=== PATIENT | male | born 1945 | race Caucasian/White ===

== ENCOUNTER 2017-04-09 21:55 | Emergency (ER) | payer MEDICARE, BC ==
[2017-04-09] MEDS ORDERED: IPRATROPIUM/ALBUTEROL 0.5-2.5 MG/3 ML AMPUL NEB ONE ×2 (21:57)
[2017-04-09] MEDS ORDERED: MAGNESIUM SULFATE/D5W 1 GM/100 ML RTUPB IV ONE (21:57)
--- NOTE | 2017-04-09 22:00 | ER Document Report ---
ED Respiratory Problem - General Stated Complaint: DIFFICULTY BREATHING Time Seen by Provider: 04/09/17 21:57 Notes: Patient is a 72-year-old male with a history of COPD on 2 L nasal cannula at all times that comes emergency department for chief complaint of worsening difficulty breathing and cough. Cough has worsened over several days. Patient given albuterol, 125 mg of Solu-Medrol, slightly less than 1 g of magnesium by EMS. Patient denies chest pain except with cough, denies fever. Other past medical history includes pneumothorax, DVT with secondary right-sided BKA. Patient comes from home. - Related Data Allergies/Adverse Reactions: No Known Allergies Allergy (Unverified 04/09/17 22:44) Home Medications: Current Home Medications Albuterol Sulfate [Albuterol Sulfate 2.5mg/3 mL] 2.5 mg NEB Q4H 04/09/17 [ History] Lorazepam [Ativan 0.5 mg Tablet] 0.5 mg PO Q8H PRN 04/09/17 [History] Past Medical History - General Information source: Patient - Social History Smoking Status: Current Every Day Smoker Smoking Education Provided: Yes - <3 min Drug Abuse: None Lives with: Family Family History: Reviewed & Not Pertinent - Past Medical History Cardiac Medical History: Reports: Hx Hypertension Pulmonary Medical History: Reports: Hx COPD, Other - Spontaneous pneumothorax GI Medical History: Reports: Hx Gastroesophageal Reflux Disease - Immunizations Hx Diphtheria, Pertussis, Tetanus Vaccination: Yes Review of Systems - Review of Systems Constitutional: No symptoms reported EENT: No symptoms reported Cardiovascular: No symptoms reported Respiratory: See HPI Gastrointestinal: No symptoms reported Genitourinary: No symptoms reported Male Genitourinary: No symptoms reported Musculoskeletal: No symptoms reported Skin: No symptoms reported Hematologic/Lymphatic: No symptoms reported Neurological/Psychological: No symptoms reported Physical Exam - Vital signs Vitals: Pulse Ox 96 04/09/17 21:55 Interpretation: Normal - General General appearance: Appears well, Alert - HEENT Head: Normocephalic, Atraumatic Eyes: Normal Extraocular movements intact: Yes Eyelashes: Normal Pupils: PERRL Mouth/Lips: Normal Mucous membranes: Normal Pharynx: Normal Neck: Normal - Respiratory Respiratory status: Labored, Tachypnea Breath sounds: Decreased air movement, Nonproductive cough - Cardiovascular Rhythm: Regular. No: Tachycardia Heart sounds: Normal auscultation, S1 appreciated, S2 appreciated Murmur: No - Abdominal Inspection: Normal Distension: No distension Bowel sounds: Normal Tenderness: Nontender Organomegaly: No organomegaly - Back Back: Normal, Nontender - Extremities General upper extremity: Normal inspection, Nontender, Normal color, Normal ROM , Normal temperature General lower extremity: Other - Right lower extremity BKA. Otherwise unremarkable lower extremity exam - Neurological Neuro grossly intact: Yes Cognition: Normal Orientation: AAOx4 Protection Coma Scale Eye Opening: Spontaneous Protection Coma Scale Verbal: Oriented [place] Coma Scale Motor: Obeys Commands Protection Coma Scale Total: 15 Speech: Normal Motor strength normal: LUE, RUE, LLE, RLE Sensory: Normal - Psychological Associated symptoms: Normal affect, Normal mood - Skin Skin Temperature: Warm Skin Moisture: Dry Skin Color: Normal Course - Re-evaluation Re-evalutation: On initial evaluation patient has mild respiratory distress with tachypnea and decreased breath sounds throughout, however he is able to speak in complete sentences, he is not hypoxic on nasal cannula, he has minimal tachypnea. Given additional treatments, will monitor closely, workup pending. Discussed with Dr. Lagos. On reevaluation patient is smiling, laughing, has no tachypnea, has decreased lung sounds but I suspect this is his baseline. No hypoxia on 2 L nasal cannula. His symptoms appear to have completely resolved. Chest x-ray shows scarring but no obvious acute abnormalities. CBC, chemistry, venous blood gas, urinalysis are all unremarkable. Troponin unremarkable. Blood cultures pending. Discussed with patient and daughter at bedside. Patient states that he is worried because he was taken off a blood thinner and he has had blood clots before, unsure if this is entirely COPD exacerbation, they are requesting a scan. Patient is waiting for his first appointment with a local snack bar cook and has not had recent imaging. He has continued to smoke. CTA was performed, shows no pulmonary emboli, shows multiple nodules which are uncertain to be chronic scarring versus nodules versus infection. Discussed with patient. Discussed with daughter. They are asking to leave, he states he feels at his baseline and feels great. Patient will be given prednisone, doxycycline, CD and paper report of his CAT scan, he states he will take it to his snack bar cook. He states he will return if he worsens in any way. Daughter states satisfaction with this plan as well. - Vital Signs Vital signs: Temp Pulse Resp BP Pulse Ox 98.4 F 24 H 135/99 H 99 04/09/17 23:18 04/09/17 23:15 04/10/17 02:05 04/10/17 02:05 - Laboratory Result Diagrams: 04/09/17 22:00 04/09/17 22:00 Laboratory results interpreted by me: 04/09/17 04/09/17 22:00 22:00 Hgb 13.0 L MCV 79 L MCH 25.5 L RDW 16.8 H Glucose 126 H Discharge - Discharge Clinical Impression: Shortness of breath, COPD exacerbation Condition: Stable Disposition: HOME, SELF-CARE Additional Instructions: Your examination, response to treatment, and workup are consistent with a COPD exacerbation. There are nodules in your lungs that need follow-up by pulmonology. Please take your report and CAT scan with you. Take the antibiotic as prescribed, take the prednisone as prescribed, continue current medications. Return to the emergency department for any concerning or worsening symptoms including difficulty breathing, fever, chest pain, or any other concerning symptoms. Prescriptions: Doxycycline Hyclate 100 mg PO BID #14 capsule Prednisone 60 mg PO DAILY #15 tablet
[2017-04-09 22:30] LABS: ABSOLUTE BASOPHILS # (AUTO) 0.1 10^3/uL (0.0-0.2); ABSOLUTE EOSINOPHILS # (AUTO) 0.3 10^3/uL (0.0-0.6); ABSOLUTE LYMPHOCYTES (AUTO) 2.9 10^3/uL (0.5-4.7); BASOPHILS % (AUTO) 1.2 % (0-2); EOSINOPHILS % (AUTO) 3.3 % (0-6); HEMATOCRIT 40.6 % (37.9-51.0); HGB HCT DIFFERENCE -1.6; MEAN CORPUSCULAR HEMOGLOBIN 25.5 pg (27.0-33.4); MEAN CORPUSCULAR VOLUME 79 fl (80-97); RED BLOOD COUNT 5.11 10^6/uL (4.35-5.55); RED CELL DISTRIBUTION WIDTH 16.8 % (11.5-14.0); SEGMENTED NEUTROPHILS % (AUTO) 57.5 % (42-78); WHITE BLOOD COUNT 10.4 10^3/uL (4.0-10.5)
[2017-04-09 22:31] LABS: VENOUS BLOOD BASE EXCESS 1.3 mmol/L; VENOUS BLOOD PCO2 46.7 mmHg (35-63); VENOUS BLOOD PH 7.38 (7.30-7.42)
[2017-04-09 22:50] LABS: ALANINE AMINOTRANSFERASE 23 U/L (21-72); ALBUMIN 3.8 g/dL (3.5-5.0); ALKALINE PHOSPHATASE 70 U/L (38-126); ANION GAP 10 (5-19); ASPARTATE AMINO TRANSFERASE 21 U/L (17-59); BILIRUBIN,DIRECT 0.3 mg/dL (0.0-0.4); BILIRUBIN,TOTAL 0.3 mg/dL (0.2-1.3); BLOOD UREA NITROGEN 13 mg/dL (7-20); CALCIUM 9.5 mg/dL (8.4-10.2); CARBON DIOXIDE 29 mmol/L (22-30); CHLORIDE 103 mmol/L (98-107); CREATINE KINASE 93 U/L (55-170); CREATININE RESULT 0.68 mg/dL (0.52-1.25); GLUCOSE 126 mg/dL (75-110); POTASSIUM 3.8 mmol/L (3.6-5.0); SODIUM 141.9 mmol/L (137-145); TOTAL PROTEIN 6.9 g/dL (6.3-8.2)
[2017-04-09 23:03] LABS: CREATINE KINASE MB 3.25 ng/mL (<4.55); TROPONIN I < 0.012 ng/mL
--- NOTE | 2017-04-09 23:25 | RADIOLOGY REPORT (SQ) ---
EXAM DESCRIPTION: CHEST SINGLE VIEW COMPLETED DATE/TIME: 04/09/2017 11:11 pm REASON FOR STUDY: shortness of breath COMPARISON: None. EXAM PARAMETERS: NUMBER OF VIEWS: One view. TECHNIQUE: Single frontal radiographic view of the chest acquired. RADIATION DOSE: NA LIMITATIONS: None. FINDINGS: LUNGS AND PLEURA: No consolidation. Bilateral parenchymal nodules, left greater than righ t. Right apical pleural thickening scarring. No pneumothorax. No pleural effusion. MEDIASTINUM AND HILAR STRUCTURES: Age-appropriate. HEART AND VASCULAR STRUCTURES: Heart normal in size. Normal vasculature. BONES: No acute findings. HARDWARE: None in the chest. OTHER: No other significant finding. IMPRESSION: No consolidation. Bilateral parenchymal nodules, left greater than right. Right apical pleural thickening scarring. No pneumothorax. No pleural effusion. TECHNICAL DOCUMENTATION: JOB ID: [id number]
--- NOTE | 2017-04-10 01:52 | RADIOLOGY REPORT (SQ) ---
EXAM DESCRIPTION: CTA CHEST COMPLETED DATE/TIME: 04/10/2017 1:16 am REASON FOR STUDY: shortness of breath, hx of DVT . History of prior pneumothorax. COMPARISON: Chest x-ray 04/09/2017. TECHNIQUE: CT scan of the chest performed using helical scanning technique with dynamic intravenous contrast injection. Images reviewed with lung, soft tissue and bone windows. Reconstructed coronal and sagittal MPR images reviewed. Additional 3 dimensional post-processing performed to develop Maximal Intensity Projection images (OR P). All images stored on PACS. All CT scanners at this facility use dose modulation, iterative reconstruction, and/or weight based d osing when appropriate to reduce radiation dose to as low as reasonably achievable (ALARA). [facility]: Dose Right [facility]: CareDose [facility]: Dose Right [facility]: Teradose 4D [facility]: Hubs1 CONTRAST TYPE AND DOSE: contrast/concentration: Isovue 370.00 mg/ml; Total Contrast Delivered: 74.0 ml; Total Saline Delivered: 110.0 ml Contrast bolus optimized for the pulmonary arteries. Not diagnostic for the aorta. RENAL FUNCTION: Creatinine 0.68 RADIATION DOSE: Up-to-date CT equipment and radiation dose reduction techniques were employed. CTDIv ol: 3.3 - 19.8 mGy. DLP: 640 mGy-cm. . LIMITATIONS: None. FINDINGS: LUNGS AND PLEURA: There are extensive bilateral emphysematous changes. Cluster of cavitar y lesions at the right lung apex, the largest measuring 4.6 x 2.7 cm. There is a large bulla in the superior segment of the right lower lobe measuring 11 x 4.3 cm. There is a small amount of loculated fluid along the left major fissure. There is a calcified granuloma in the left lower lobe. There i s soft tissue nodularity at the right lung base measuring 0.9 x 0.8 cm (image 105/158). Spiculated n odularity is extending to the pleura in the right lower lobe, a customer retention representative nodule is measuring 1. 0 x 1.0 cm (image 57/158). Cluster of nodules at the left lung apex measuring up to 1 cm. AORTA AND GREAT VESSELS: No thoracic aortic aneurysm. Contrast bolus not optimized for the aorta. HEART: Trace pericardial effusion. Coronary arteries calcifications are noted. PULMONARY ARTERIES: No emboli visualized in the main pulmonary arteries or the segmental branches. HILAR AND MEDIASTINAL STRUCTURES: There is a 1.7 x 2.0 cm lymph node at the right hilum. Mediastinal lymph node is measuring 1.0 x 1.9 cm. HARDWARE: None in the chest. UPPER ABDOMEN: Partially visualized infrarenal abdominal aneurysm with intramural thrombus measuring 3.7 x 3.5 cm. Scattered hypodensities within the visualized liver, too small to be adequately charac terized. BONES: Multilevel degenerative changes in the spine. 3D MIPS: Confirm above findings. IMPRESSION: No pulmonary emboli. Severe emphysema. Cluster of cavitary lesions at the right lung apex, may be secondary to scarring f rom prior pneumothorax versus acute infection/inflammation such tuberculosis, cavitary pneumonia, or malignancy. Comparison with prior studies would be helpful. Bilateral pulmonary nodules, may represent scarring versus malignancy. Mediastinal and right hilar a denopathy. PET/CT recommended for further evaluation. Small loculated fluid in the left major fissure. Trace pericardial effusion. Partially visualized 3.7 x 3.5 cm infrarenal abdominal aneurysm with intramural thrombus, incompletel y evaluated on this exam. COMMENT: Quality ID # [id number]: Final reports with documentation of one or more dose reduction techniques (e.g., Automated exposure control, adjustment of the mA and/or kV according to patient size, use of iterative reconstruction technique) TECHNICAL DOCUMENTATION: JOB ID: [id number] [id number] 2010 [employer]- All Rights Reserved
[2017-04-10 04:47] VITALS: BP 135/99
--- NOTE | 2017-04-10 06:52 | EKG REPORT ---
SEVERITY:- ABNORMAL ECG - SINUS TACHYCARDIA BIATRIAL ABNORMALITIES BORDERLINE RIGHT AXIS DEVIATION : Confirmed by: Terrell Simmons MD 10-Apr-2017 06:51:27
== END 2017-04-10 02:05 | disposition home or self-care (01) ==
LOC: ER 21:55
DX: J44.1 Chronic obstructive pulmonary disease with (acute) exacerbation (principal); Z99.81 Dependence on supplemental oxygen; R05 Cough; F17.200 Nicotine dependence, unspecified, uncomplicated; I10 Essential (primary) hypertension; Z86.718 Personal history of other venous thrombosis and embolism; Z89.511 Acquired absence of right leg below knee; R91.8 Other nonspecific abnormal finding of lung field
CPT/HCPCS: 93005; 94640 ×2; 99285; 96365; 36415; 87040; 82553; 82550; 85025; 80053; 84484; 82803; 71010; 71275; 93010; J3475; A9270; J7620

== ENCOUNTER 2017-05-15 14:21 | Emergency (ER) | payer MEDICARE, BC ==
[2017-05-15] MEDS ORDERED: IPRATROPIUM/ALBUTEROL 0.5-2.5 MG/3 ML AMPUL NEB ONE (14:59)
[2017-05-15] MEDS ORDERED: ALBUTEROL SULFATE 0.083% NEB 2.5 MG/3 ML AMPUL NEB ONE (15:00)
[2017-05-15] MEDS ORDERED: METHYLPREDNISOLONE INJ 125 MG/2 ML SDV IV ONE (15:03)
--- NOTE | 2017-05-15 15:04 | ER Document Report ---
ED Respiratory Problem - General Chief Complaint: Shortness Of Breath Stated Complaint: DIFFICULTY BREATHING Time Seen by Provider: 05/15/17 14:50 Notes: 72-year-old male history of severe COPD to the emergency department chief complaint of shortness of breath cough and wheeze. States that he needs antibiotics and steroids please. States he was seen here 1 month ago. Has had complicated medical history as of recent over the last 6 months. I's for pneumothorax. Was ventilated. Subsequent DVT in right lower extremities resulting in amputation of right lower extremity. Moved here from [place] over the last couple of months. Have a primary care doctor in town now. Is happy with his care but states that he knows he needs antibiotics or he will get sick over the weekend. - Related Data Allergies/Adverse Reactions: No Known Allergies Allergy (Unverified 04/09/17 22:44) Past Medical History - General Information source: Patient - Social History Smoking Status: Former Smoker Family History: Reviewed & Not Pertinent - Past Medical History Cardiac Medical History: Reports: Hx Hypertension Pulmonary Medical History: Reports: Hx COPD GI Medical History: Reports: Hx Gastroesophageal Reflux Disease Past Surgical History: Reports: Hx Orthopedic Surgery - RIGHT BKA - Immunizations Hx Diphtheria, Pertussis, Tetanus Vaccination: Yes Review of Systems - Review of Systems Constitutional: No symptoms reported EENT: No symptoms reported Cardiovascular: No symptoms reported Respiratory: No symptoms reported, Cough, Short of breath, Wheezing Gastrointestinal: No symptoms reported Genitourinary: No symptoms reported Male Genitourinary: No symptoms reported Musculoskeletal: No symptoms reported Skin: No symptoms reported Hematologic/Lymphatic: No symptoms reported Neurological/Psychological: No symptoms reported Physical Exam - Vital signs Vitals: Temp Pulse Resp BP Pulse Ox 98.7 F 106 H 24 H 133/88 H 96 05/15/17 15:08 05/15/17 15:08 05/15/17 15:08 05/15/17 15:08 05/15/17 15:08 Interpretation: Normal - General General appearance: Appears well, Alert - HEENT Head: Normocephalic, Atraumatic Eyes: Normal Pupils: PERRL - Respiratory Respiratory status: No respiratory distress, Tachypnea Chest status: Nontender Breath sounds: Decreased air movement, Wheezing. No: Normal Chest palpation: Normal - Cardiovascular Rhythm: Regular, Tachycardia Heart sounds: Normal auscultation Murmur: No - Abdominal Inspection: Normal Distension: No distension Bowel sounds: Normal Tenderness: Nontender Organomegaly: No organomegaly - Back Back: Normal, Nontender - Extremities General upper extremity: Normal inspection, Nontender, Normal color, Normal ROM , Normal temperature General lower extremity: Normal inspection, Nontender, Normal color, Normal ROM , Normal temperature, Normal weight bearing, Other - Left lower extremity unremarkable. Right lower extremity with BKA. No: Nevaeh's sign - Neurological Neuro grossly intact: Yes Cognition: Normal Orientation: AAOx4 [place] Coma Scale Eye Opening: Spontaneous [place] Coma Scale Verbal: Oriented [place] Coma Scale Motor: Obeys Commands [place] Coma Scale Total: 15 Speech: Normal Motor strength normal: LUE, RUE, LLE, RLE Sensory: Normal - Psychological Associated symptoms: Normal affect, Normal mood - Skin Skin Temperature: Warm Skin Moisture: Dry Skin Color: Normal Course - Re-evaluation Re-evalutation: 05/15/17 15:06 We will give hour-long breathing treatment, steroids, chest x-ray, basic labs, EKG and reassess. 05/15/17 16:51 Breathing much better. Fairly unremarkable labs. No obvious infiltrate on chest x-ray. Steroids and antibiotics given OPD. Comfortable at this time discharge 05/15/17 16:51 Labs- All tests 24 hr 05/15/17 05/15/17 05/15/17 15:02 15:02 15:02 WBC RBC Hgb Hct MCV MCH MCHC RDW Plt Count Seg Neutrophils % Lymphocytes % Monocytes % Eosinophils % Basophils % Absolute Neutrophils Absolute Lymphocytes Absolute Monocytes Absolute Eosinophils Absolute Basophils PT 13.1 INR 0.93 Sodium 142.2 Potassium 4.8 Chloride 100 Carbon Dioxide 30 Anion Gap 12 BUN 10 Creatinine 0.64 Est GFR ( Amer) > 60 Est GFR (Non-Af Amer) > 60 Glucose 73 L Calcium 9.9 Total Bilirubin 0.5 Direct Bilirubin 0.4 Indirect Bilirubin Not Reportable Neonat Total Bilirubin Not Reportable AST 17 ALT 27 Alkaline Phosphatase 65 Troponin I < 0.012 Total Protein 7.1 Albumin 3.8 05/15/17 15:02 WBC 7.9 RBC 5.33 Hgb 13.3 L Hct 40.9 MCV 77 L MCH 24.9 L MCHC 32.5 RDW 15.8 H Plt Count 365 Seg Neutrophils % 75.9 Lymphocytes % 12.0 L Monocytes % 9.6 Eosinophils % 1.7 Basophils % 0.8 Absolute Neutrophils 6.0 Absolute Lymphocytes 1.0 Absolute Monocytes 0.8 Absolute Eosinophils 0.1 Absolute Basophils 0.1 PT INR Sodium Potassium Chloride Carbon Dioxide Anion Gap BUN Creatinine Est GFR ( Amer) Est GFR (Non-Af Amer) Glucose Calcium Total Bilirubin Direct Bilirubin Indirect Bilirubin Neonat Total Bilirubin AST ALT Alkaline Phosphatase Troponin I Total Protein Albumin Chest X-Ray 05/15/17 15:01 IMPRESSION: Obstructive lung disease Biapical pleuroparenchymal scarring with persistent right apical cavity. - Vital Signs Vital signs: Temp Pulse Resp BP Pulse Ox 98.7 F 106 H 24 H 133/88 H 96 05/15/17 15:08 05/15/17 15:08 05/15/17 15:08 05/15/17 15:08 05/15/17 15:08 - Laboratory Result Diagrams: 05/15/17 15:02 05/15/17 15:02 Laboratory results interpreted by me: 05/15/17 05/15/17 15:02 15:02 Hgb 13.3 L MCV 77 L MCH 24.9 L RDW 15.8 H Lymphocytes % 12.0 L Glucose 73 L - EKG Interpretation by Nv EKG shows normal: Intervals, QRS Complexes, ST-T Waves Rate: Tachycardia Discharge - Discharge Clinical Impression: COPD with exacerbation Condition: Good Disposition: HOME, SELF-CARE Additional Instructions: Chronic Obstructive Lung Disease You have chronic obstructive lung disease (COPD). The symptoms come from emphysema (damage to small airways, with trapping of air in large sacks in the lung) and chronic bronchitis (repeated infection and damage to larger airways). The cause is almost always cigarette smoking, although dust exposure, asthma, and infections contribute. You should avoid fumes, dust, and smoke (especially tobacco smoke). Your condition will flare from time to time. There is no cure, but the symptoms can be treated. Bronchodilators (asthma medicine) are often helpful. Antibiotics help when infection is present. When shortness of breath is severe, we may prescribe cortisone medication. If medicine doesn't help enough, we can arrange for you to have an oxygen tank at home. Notify your doctor at once if sputum becomes thick, foul, or bloody, if you develop a fever or chest pain, or if your shortness of breath worsens. Prescriptions: Azithromycin 250 mg PO DAILY #4 tablet Prednisone [Deltasone 20 mg Tablet] 3 tab PO DAILY 5 Days tablet
[2017-05-15 15:27] LABS: ABSOLUTE BASOPHILS # (AUTO) 0.1 10^3/uL (0.0-0.2); ABSOLUTE EOSINOPHILS # (AUTO) 0.1 10^3/uL (0.0-0.6); ABSOLUTE MONOCYTES (AUTO) 0.8 10^3/uL (0.1-1.4); BASOPHILS % (AUTO) 0.8 % (0-2); EOSINOPHILS % (AUTO) 1.7 % (0-6); HEMATOCRIT 40.9 % (37.9-51.0); HEMOGLOBIN 13.3 g/dL (13.5-17.0); MEAN CORPUSCULAR HEMOGLOBIN 24.9 pg (27.0-33.4); MEAN CORPUSCULAR HGB CONC 32.5 g/dL (32.0-36.0); MEAN CORPUSCULAR VOLUME 77 fl (80-97); MONOCYTES % (AUTO) 9.6 % (3-13); RED BLOOD COUNT 5.33 10^6/uL (4.35-5.55); RED CELL DISTRIBUTION WIDTH 15.8 % (11.5-14.0); SEGMENTED NEUTROPHILS % (AUTO) 75.9 % (42-78); WHITE BLOOD COUNT 7.9 10^3/uL (4.0-10.5)
[2017-05-15 15:36] LABS: PROTHROMBIN TIME 13.1 SEC (11.4-15.4)
[2017-05-15 15:41] LABS: ALANINE AMINOTRANSFERASE 27 U/L (21-72); ALBUMIN 3.8 g/dL (3.5-5.0); ALKALINE PHOSPHATASE 65 U/L (38-126); ANION GAP 12 (5-19); ASPARTATE AMINO TRANSFERASE 17 U/L (17-59); BILIRUBIN,DIRECT 0.4 mg/dL (0.0-0.4); BILIRUBIN,TOTAL 0.5 mg/dL (0.2-1.3); BLOOD UREA NITROGEN 10 mg/dL (7-20); CALCIUM 9.9 mg/dL (8.4-10.2); CARBON DIOXIDE 30 mmol/L (22-30); CHLORIDE 100 mmol/L (98-107); CREATININE RESULT 0.64 mg/dL (0.52-1.25); GLUCOSE 73 mg/dL (75-110); POTASSIUM 4.8 mmol/L (3.6-5.0); SODIUM 142.2 mmol/L (137-145); TOTAL PROTEIN 7.1 g/dL (6.3-8.2)
[2017-05-15] MEDS ORDERED: AZITHROMYCIN 250 MG TABLET PO ONE (16:30)
--- NOTE | 2017-05-15 16:50 | RADIOLOGY REPORT (SQ) ---
EXAM DESCRIPTION: CHEST SINGLE VIEW COMPLETED DATE/TIME: 05/15/2017 4:25 pm REASON FOR STUDY: sob COMPARISON: CT angio chest 04/10/2017 Chest film 04/09/2017 EXAM PARAMETERS: NUMBER OF VIEWS: One view. TECHNIQUE: Single frontal radiographic view of the chest acquired. RADIATION DOSE: NA LIMITATIONS: None. FINDINGS: LUNGS AND PLEURA: Prior chest CT demonstrated cavitary lesions in the right lung apex and left major fissure and left lung apex. Tuberculosis could not be excluded. Today's chest film demon strates biapical pleural-parenchymal scarring. Right apical cavity persists. Remainder of the lungs are hyperinflated and hyperlucent from obstructive disease. No definite acute infiltrates, pleural effusion or pneumothorax. MEDIASTINUM AND HILAR STRUCTURES: No masses. Contour normal. HEART AND VASCULAR STRUCTURES: Heart normal in size. Normal vasculature. BONES: No acute findings. HARDWARE: None in the chest. OTHER: No other significant finding. IMPRESSION: Obstructive lung disease Biapical pleuroparenchymal scarring with persistent right apical cavity. TECHNICAL DOCUMENTATION: JOB ID: [id number]
--- NOTE | 2017-05-15 17:27 | EKG REPORT ---
SEVERITY:- ABNORMAL ECG - SINUS TACHYCARDIA RIGHT ATRIAL ABNORMALITY BORDERLINE RIGHT AXIS DEVIATION BORDERLINE T ABNORMALITIES, ANT-LAT LEADS : Confirmed by: Terrell Simmons MD 15-May-2017 17:26:30
[2017-05-15 17:45] VITALS: BP 134/106
== END 2017-05-15 17:44 | disposition home or self-care (01) ==
LOC: ER 14:21
DX: J44.1 Chronic obstructive pulmonary disease with (acute) exacerbation (principal); R06.02 Shortness of breath; R05 Cough; R00.0 Tachycardia, unspecified; I10 Essential (primary) hypertension; Z86.718 Personal history of other venous thrombosis and embolism; Z89.511 Acquired absence of right leg below knee; Z87.891 Personal history of nicotine dependence
CPT/HCPCS: 93005; 94640 ×2; 99285; 96374; 36415; 85025; 85610; 80053; 84484; 71010; 93010; A9270 ×3; J2930; J7620

== ENCOUNTER 2017-06-13 21:55 | Inpatient (IN) | payer MEDICARE, BC ==
[2017-06-13] MEDS ORDERED: IPRATROPIUM/ALBUTEROL 0.5-2.5 MG/3 ML AMPUL NEB ONE (22:03)
[2017-06-13] MEDS ORDERED: METHYLPREDNISOLONE INJ 125 MG/2 ML SDV IV ONE (22:03)
--- NOTE | 2017-06-13 22:06 | ER Document Report ---
ED General - General Stated Complaint: DIFFICULITY BREATHING Time Seen by Provider: 06/13/17 21:58 Notes: Patient is a 72-year-old male who presents with complaint of difficulty breathing is been worsening over the last 4 days. He has a history of COPD. He has never been on a ventilator. Never needed intubation. Says he does not use BiPAP or CPAP because he is claustrophobic. Patient says his nebulizer machine is not working well at home. He received 1 DuoNeb treatment in route. He denies any fevers. No chest pain. No abdominal pain. No vomiting. No other complaints at this time. TRAVEL OUTSIDE OF THE [place] IN LAST 30 DAYS: No - Related Data Allergies/Adverse Reactions: No Known Allergies Allergy (Unverified 04/09/17 22:44) Past Medical History - Social History Smoking Status: Former Smoker Frequency of alcohol use: None Drug Abuse: None Family History: Reviewed & Not Pertinent - Past Medical History Cardiac Medical History: Reports: Hx Hypertension Pulmonary Medical History: Reports: Hx COPD Renal/ Medical History: Denies: Hx Peritoneal Dialysis GI Medical History: Reports: Hx Gastroesophageal Reflux Disease Past Surgical History: Reports: Hx Orthopedic Surgery - RIGHT BKA - Immunizations Hx Diphtheria, Pertussis, Tetanus Vaccination: Yes Review of Systems - Review of Systems Notes: My Normal Review Basic REVIEW OF SYSTEMS: CONSTITUTIONAL : Denies fever, chills, or sweats. Denies recent illness. EENT: Denies eye, ear, throat, or mouth pain or symptoms. Denies nasal or sinus congestion. CARDIOVASCULAR: Denies chest pain. RESPIRATORY: Wheezing and difficulty breathing. GASTROINTESTINAL: Denies abdominal pain. Denies nausea, vomiting, or diarrhea. Denies constipation. Last BM: MUSCULOSKELETAL: Denies neck or back pain or joint pain or swelling. SKIN: Denies rash or skin lesions. NEUROLOGICAL: Denies altered mental status or loss of consciousness. Denies headache. Denies weakness or paralysis or loss of use of either side. Denies problems with gait or speech. Denies sensory or motor loss. ALL OTHER SYSTEMS REVIEWED AND NEGATIVE. Physical Exam - Vital signs Vitals: Resp Pulse Ox 24 H 94 06/13/17 21:59 06/13/17 21:59 - Notes Notes: General Appearance: Well nourished, alert, cooperative, moderate acute distress , no obvious discomfort. Vitals: reviewed, See vital signs table. Head: no swelling or tenderness to the head Eyes: PERRL, EOMI, Conjuctiva clear Mouth: No decreasd moisture Throat: No tonsillar inflammation, No airway obstruction, No lymphadenopathy Neck: Supple, no neck tenderness, No thyromegaly Lungs: Scattered wheezing, No rales, No rhonci, moderate accessory muscle use, poor air exchange bilaterally. Heart: Tachycardic rate, Regular rythm, No murmur, no rub Abdomen: Normal BS, soft, No rigidity, No abdominal tenderness, No guarding, no rebound, no abdominal masses, no organomegaly Extremities: Patient has right lower extremity amputation., good pulses in all extremities, no swelling or tenderness in the extremities, no edema. Skin: warm, dry, appropriate color, no rash Neuro: speech clear, oriented x 3, normal affect, responds appropriately to questions. Course - Re-evaluation Re-evalutation: 06/14/17 00:29 On reevaluation patient's tachypnea is improved however he still has significant diminishment in all lung [place] with wheezing. I will speak to the hospitalist about consideration for admission. 06/14/17 00:[address] Burton agrees to admit the patient. Dictation of this chart was performed using voice recognition software; therefore, there may be some unintended grammatical errors. - Vital Signs Vital signs: Temp Pulse Resp BP Pulse Ox 98.0 F 30 H 128/70 H 97 06/13/17 22:09 06/13/17 23:01 06/14/17 00:00 06/14/17 00:01 - Laboratory Result Diagrams: 06/13/17 22:25 06/13/17 22:25 Laboratory results interpreted by me: 06/13/17 06/13/17 22:25 22:25 Hgb 11.1 L Hct 33.9 L MCV 77 L MCH 25.0 L RDW 16.1 H Plt Count 505 H Eosinophils % 6.4 H Total Protein 6.2 L - EKG Interpretation by Me Additional EKG results interpreted by me: 06/13/17 22:19 EKG is reviewed and interpreted by me. EKG shows sinus cardia with a rate of [address] segment elevation or depression. No ischemic T-wave inversions. DE interval, QRS duration, QTc intervals are within normal range. Old EKG for comparison is from May 15, 2017. Discharge - Discharge Clinical Impression: COPD exacerbation Disposition: ADMITTED OBSERVATION Admitting Provider: Hospitalist Unit Admitted: Telemetry
[2017-06-13] MEDS: MAGNESIUM SULFATE/D5W 1 GM/100 ML RTUPB IV SCH ×2 (22:15→23:13)
[2017-06-13 22:38] LABS: VENOUS BLOOD BASE EXCESS 1.1 mmol/L; VENOUS BLOOD HCO3 26.7 mmol/L (20-32); VENOUS BLOOD PCO2 46.7 mmHg (35-63); VENOUS BLOOD PH 7.38 (7.30-7.42)
[2017-06-13 22:40] LABS: ABSOLUTE BASOPHILS # (AUTO) 0.1 10^3/uL (0.0-0.2); ABSOLUTE EOSINOPHILS # (AUTO) 0.4 10^3/uL (0.0-0.6); ABSOLUTE LYMPHOCYTES (AUTO) 1.3 10^3/uL (0.5-4.7); ABSOLUTE MONOCYTES (AUTO) 0.8 10^3/uL (0.1-1.4); ABSOLUTE NEUT (AUTO) 4.1 10^3/uL (1.7-8.2); BASOPHILS % (AUTO) 1.1 % (0-2); EOSINOPHILS % (AUTO) 6.4 % (0-6); HEMATOCRIT 33.9 % (37.9-51.0); HEMOGLOBIN 11.1 g/dL (13.5-17.0); HGB HCT DIFFERENCE -0.6; LYMPHOCYTES % (AUTO) 19.2 % (13-45); MEAN CORPUSCULAR HGB CONC 32.6 g/dL (32.0-36.0); MEAN CORPUSCULAR VOLUME 77 fl (80-97); MONOCYTES % (AUTO) 11.8 % (3-13); RED BLOOD COUNT 4.42 10^6/uL (4.35-5.55); RED CELL DISTRIBUTION WIDTH 16.1 % (11.5-14.0); SEGMENTED NEUTROPHILS % (AUTO) 61.5 % (42-78); WHITE BLOOD COUNT 6.7 10^3/uL (4.0-10.5)
[2017-06-13 23:00] LABS: ALANINE AMINOTRANSFERASE 32 U/L (21-72); ALBUMIN 3.5 g/dL (3.5-5.0); ALKALINE PHOSPHATASE 76 U/L (38-126); ANION GAP 13 (5-19); ASPARTATE AMINO TRANSFERASE 19 U/L (17-59); BILIRUBIN,DIRECT 0.3 mg/dL (0.0-0.4); BILIRUBIN,TOTAL 0.3 mg/dL (0.2-1.3); BLOOD UREA NITROGEN 14 mg/dL (7-20); CALCIUM 9.2 mg/dL (8.4-10.2); CARBON DIOXIDE 24 mmol/L (22-30); CHLORIDE 101 mmol/L (98-107); CREATININE RESULT 0.87 mg/dL (0.52-1.25); GLUCOSE 99 mg/dL (75-110); POTASSIUM 4.8 mmol/L (3.6-5.0); SODIUM 137.7 mmol/L (137-145); TOTAL PROTEIN 6.2 g/dL (6.3-8.2)
--- NOTE | 2017-06-13 23:00 | RADIOLOGY REPORT (SQ) ---
EXAM DESCRIPTION: CHEST SINGLE VIEW COMPLETED DATE/TIME: 06/13/2017 10:45 pm REASON FOR STUDY: copd exacerbation COMPARISON: 05/15/2017. April. NUMBER OF VIEWS: One view. TECHNIQUE: Single frontal radiographic view of the chest acquired. LIMITATIONS: None. FINDINGS: LUNGS AND PLEURA: Chronic pronounced hyperinflation, bullous change and apical scar, right greater than left. MEDIASTINUM AND HILAR STRUCTURES: No masses. Contour normal. HEART AND VASCULAR STRUCTURES: Heart normal in size. Normal vasculature. BONES: No acute findings. HARDWARE: None in the chest. OTHER: No other significant finding. IMPRESSION: Chronic changes of COPD. Stable chest. TECHNICAL DOCUMENTATION: JOB ID: [id number] [email or web address]- All Rights Reserved
[2017-06-13] MEDS ORDERED: ALBUTEROL SULFATE 0.083% NEB 2.5 MG/3 ML AMPUL NEB ONE (23:18)
--- NOTE | 2017-06-13 23:26 | EKG REPORT ---
SEVERITY:- ABNORMAL ECG - SINUS TACHYCARDIA RIGHT ATRIAL ABNORMALITY BORDERLINE RIGHT AXIS DEVIATION : Confirmed by: Terrell Simmons MD 13-Jun-2017 23:25:11
[2017-06-14] MEDS ORDERED: CHLORPHENIRAMINE MALEATE 4 MG TABLET PO ONE (00:32)
[2017-06-14] MEDS ORDERED: IPRATROPIUM/ALBUTEROL 0.5-2.5 MG/3 ML AMPUL NEB PRN ×2 (00:33)
[2017-06-14] MEDS ORDERED: MAG HYDROX/AL HYDROX/SIMETH SUSP 30 ML UDCUP PO PRN (00:33)
[2017-06-14] MEDS ORDERED: ACETAMINOPHEN 325 MG TABLET PO PRN ×2 (00:33→08:00)
[2017-06-14] MEDS ORDERED: FLUTICASONE NASAL SPRAY 50 MCG/SPRY 120 SPRAY/16 GM NASL ONE (01:15)
[2017-06-14] MEDS ORDERED: DILTIAZEM HCL 30 MG TABLET PO ONE ×2 (01:15→04:35)
[2017-06-14] MEDS ORDERED: LEVOFLOXACIN 750 MG/D5W RTU 750 MG/150 ML RTUPB IV ONE (01:16)
[2017-06-14] MEDS ORDERED: PREDNISONE 20 MG TABLET PO ONE (01:30)
[2017-06-14] MEDS ORDERED: CHLORPHENIRAMINE MALEATE 4 MG TABLET ONE (01:42)
[2017-06-14 05:41] LABS: ABSOLUTE LYMPHOCYTES (AUTO) 0.2 10^3/uL (0.5-4.7); ABSOLUTE NEUT (AUTO) 4.3 10^3/uL (1.7-8.2); BASOPHILS % (AUTO) 0.2 % (0-2); EOSINOPHILS % (AUTO) 0.1 % (0-6); HEMATOCRIT 31.5 % (37.9-51.0); HEMOGLOBIN 10.2 g/dL (13.5-17.0); HGB HCT DIFFERENCE -0.9; LYMPHOCYTES % (AUTO) 5.2 % (13-45); MEAN CORPUSCULAR HEMOGLOBIN 24.7 pg (27.0-33.4); MEAN CORPUSCULAR HGB CONC 32.5 g/dL (32.0-36.0); MEAN CORPUSCULAR VOLUME 76 fl (80-97); RED BLOOD COUNT 4.14 10^6/uL (4.35-5.55); RED CELL DISTRIBUTION WIDTH 16.2 % (11.5-14.0); SEGMENTED NEUTROPHILS % (AUTO) 93.5 % (42-78); WHITE BLOOD COUNT 4.6 10^3/uL (4.0-10.5)
[2017-06-14 05:58] LABS: ANION GAP 14 (5-19); BLOOD UREA NITROGEN 11 mg/dL (7-20); CALCIUM 9.4 mg/dL (8.4-10.2); CARBON DIOXIDE 21 mmol/L (22-30); CHLORIDE 103 mmol/L (98-107); CREATININE RESULT 0.78 mg/dL (0.52-1.25); GLUCOSE 144 mg/dL (75-110); SODIUM 137.7 mmol/L (137-145)
[2017-06-14] MEDS: HEPARIN SOD (PORCINE) 5,000 UNIT/ML 1 ML SYRINGE SUBCUT SCH ×3 (05:58→22:15)
--- NOTE | 2017-06-14 06:43 | PDOC H&P ---
History of Present Illness Admission Date/PCP: 06/14/17 00:33 KEMAR MCNEIL MD Patient complains of: Shortness of breath History of Present Illness: ASHVIN MORALES is a 72 year old male with a past medical history of GERD, chronic bronchitis, hypertension, dyslipidemia and oxygen dependent COPD. He had been in his usual state of health until approximately 5 days ago noting nonproductive cough, rhinorrhea and exacerbation baseline shortness of breath. He denies fever, chest pain nausea vomiting diaphoresis. Patient requires pulse steroids several times a year and just discontinued approximately 10-14 days ago. He otherwise denies changes in medications. Past Medical History Cardiac Medical History: Reports: Hypertension Pulmonary Medical History: Reports: Chronic Obstructive Pulmonary Disease (COPD) GI Medical History: Reports: Gastroesophageal Reflux Disease Past Surgical History Past Surgical History: Reports: Orthopedic Surgery - RIGHT BKA Social History Information Source: Patient Lives with: Family Smoking Status: Former Smoker Frequency of Alcohol Use: None Hx Recreational Drug Use: No Drugs: None Hx Prescription Drug Abuse: No - Advance Directive Resuscitation Status: Full Code Family History Family History: COPD Parental Family History Reviewed: Yes Children Family History Reviewed: Yes Sibling(s) Family History Reviewed.: Yes Medication/Allergy Home Medications: Albuterol Sulfate [Albuterol Sulfate 2.5mg/3 mL] 2.5 mg NEB Q4H 04/09/17 Lorazepam [Ativan 0.5 mg Tablet] 0.5 mg PO Q8H PRN 04/09/17 Aspirin [Aspirin EC] 81 mg PO DAILY 06/14/17 Atorvastatin Calcium [Atorvastatin Calcium] 20 mg PO QHS 06/14/17 Cholecalciferol (Vitamin D3) [Vitamin D3 2000 unit Tablet] 2,000 unit PO DAILY 06/14/17 Cyanocobalamin (Vitamin B-12) [Vitamin B-12 1000 Mcg Tablet] 1 tab PO DAILY Folic Acid 1 mg PO DAILY 06/14/17 Glycopyrrolate/Formoterol Fum [Bevespi Aerosphere Inhaler] 2 puff IH DAILY 06/14 L.acidoph,Paracasei, B.lactis [Probiotic] 1 each PO BID 06/14/17 Pantoprazole Sodium 40 mg PO DAILY 06/14/17 Sulfamethoxazole/Trimethoprim [Septra-Ds 800-160 mg Tablet] 1 tab PO BID Allergies/Adverse Reactions: No Known Allergies Allergy (Unverified 04/09/17 22:44) Review of Systems Constitutional: ABSENT: chills, fever(s), headache(s), weight gain, weight loss Eyes: ABSENT: visual disturbances Ears: ABSENT: hearing changes Nose, Mouth, and Throat: PRESENT: as per HPI Cardiovascular: ABSENT: chest pain, dyspnea on exertion, edema, orthropnea, palpitations Respiratory: PRESENT: as per HPI, cough, dyspnea. ABSENT: hemoptysis, sputum Gastrointestinal: PRESENT: heartburn. ABSENT: abdominal pain, constipation, diarrhea, hematemesis, hematochezia, nausea, vomiting Genitourinary: ABSENT: dysuria, hematuria Musculoskeletal: ABSENT: joint swelling Integumentary: ABSENT: rash, wounds Neurological: ABSENT: abnormal gait, abnormal speech, confusion, dizziness, focal weakness, syncope Psychiatric: ABSENT: anxiety, depression, homidical ideation, suicidal ideation Endocrine: ABSENT: cold intolerance, heat intolerance, polydipsia, polyuria Hematologic/Lymphatic: ABSENT: easy bleeding, easy bruising Physical Exam Vital Signs: Temp Pulse Resp BP Pulse Ox 97.4 F 90 32 H 104/56 L 97 06/14/17 04:17 06/14/17 05:57 06/14/17 04:17 06/14/17 05:57 06/14/17 04:17 Intake & Output 06/12/17 06/13/17 06/14/17 11:59 11:59 11:59 Intake Total 3 Balance 3 Weight 45 kg General appearance: PRESENT: cooperative, mild distress, thin, other - Temporal wasting and cachexia Head exam: PRESENT: atraumatic, normocephalic Eye exam: PRESENT: conjunctiva pink, EOMI, PERRLA. ABSENT: scleral icterus Ear exam: PRESENT: normal external ear exam Mouth exam: PRESENT: moist, tongue midline Neck exam: ABSENT: carotid bruit, JVD, lymphadenopathy, thyromegaly Respiratory exam: PRESENT: accessory muscle use, decreased breath sounds, prolonged expiratory phas, retraction, symmetrical, tachypnea. ABSENT: crackles , rales, rhonchi, stridor Cardiovascular exam: PRESENT: RRR, tachycardia. ABSENT: diastolic murmur, rubs , systolic murmur Pulses: PRESENT: normal dorsalis pedis pul Vascular exam: PRESENT: normal capillary refill GI/Abdominal exam: PRESENT: normal bowel sounds, soft. ABSENT: distended, guarding, mass, organolmegaly, rebound, tenderness Rectal exam: PRESENT: deferred Extremities exam: PRESENT: full ROM. ABSENT: calf tenderness, clubbing, pedal edema Neurological exam: PRESENT: alert, awake, oriented to person, oriented to place , oriented to time, oriented to situation, CN II-XII grossly intact. ABSENT: motor sensory deficit Psychiatric exam: PRESENT: appropriate affect, normal mood. ABSENT: homicidal ideation, suicidal ideation Skin exam: PRESENT: dry, intact, warm. ABSENT: cyanosis, rash Results Laboratory Results: 06/14/17 05:27 06/14/17 05:27 06/14/17 06/14/17 05:27 05:27 WBC 4.6 RBC 4.14 L Hgb 10.2 L Hct 31.5 L MCV 76 L MCH 24.7 L MCHC 32.5 RDW 16.2 H Plt Count 480 H Seg Neutrophils % 93.5 H Lymphocytes % 5.2 L Monocytes % 1.0 L Eosinophils % 0.1 Basophils % 0.2 Absolute Neutrophils 4.3 Absolute Lymphocytes 0.2 L Absolute Monocytes 0.0 L Absolute Eosinophils 0.0 Absolute Basophils 0.0 Sodium 137.7 Potassium 5.0 Chloride 103 Carbon Dioxide 21 L Anion Gap 14 BUN 11 Creatinine 0.78 Est GFR ( Amer) > 60 Est GFR (Non-Af Amer) > 60 Glucose 144 H Calcium 9.4 Impressions: Chest X-Ray 06/13/17 22:03 IMPRESSION: Chronic changes of COPD. Stable chest. Assessment & Plan - Diagnosis (1) COPD exacerbation Is this a current diagnosis for this admission?: Yes Plan: Multifactorial, uncontrolled GERD, rhinorrhea and chronic bronchitis telemetry bed, steroids, control of risk factors supplemental oxygen empiric antibiotics and flutter valve. (2) Rhinorrhea Is this a current diagnosis for this admission?: Yes Plan: Chlorpheniramine and Flonase (3) GERD (gastroesophageal reflux disease) Is this a current diagnosis for this admission?: Yes Plan: Proton pump inhibitor or H2 surinder twice daily and education (4) Tachycardia Is this a current diagnosis for this admission?: Yes Plan: Tachycardia in the 120s significant risk for conversion to atrial fibrillation given severe lung disease. Cardizem initiated empirically. - Time Time Spent: 30 to 50 Minutes - Inpatient Certification Medical Necessity: Need Close Monitoring Due to Risk of Patient Decompensation
[2017-06-14] MEDS: IPRATROPIUM/ALBUTEROL 0.5-2.5 MG/3 ML AMPUL NEB PRN ×3 (08:47→20:25)
[2017-06-14] MEDS: PREDNISONE 20 MG TABLET PO SCH ×2 (09:35→17:48)
[2017-06-14] MEDS: DOCUSATE SODIUM 100 MG CAPSULE PO SCH ×2 (09:40→17:52)
[2017-06-14] MEDS ORDERED: DILTIAZEM HCL 30 MG TABLET PO SCH (10:00)
--- NOTE | 2017-06-14 11:47 | Progress Note ---
Provider Note Provider Note: Patient is a 72 year old man with history of chronic respiratory failure oxygen dependent admitted ON with acute on chronic COPD exacerbation. Chest x-ray without infiltrates. This am, seen and examined he reports feeling better and that the flutter valve has helped a lot. Continue steroids and IV Levaquin. On Oxygen and bronchodilator therapy.
[2017-06-14] MEDS: FLUTICASONE NASAL SPRAY 50 MCG/SPRY 120 SPRAY/16 GM NASL SCH ×2 (14:03→22:08)
[2017-06-14] MEDS: DILTIAZEM HCL 30 MG TABLET PO SCH (17:48)
[2017-06-14] MEDS ORDERED: NORMAL SALINE 10 ML SDV (AFTER EACH USE) IV PRN (18:10)
[2017-06-14] MEDS: LEVOFLOXACIN 750 MG/D5W RTU 750 MG/150 ML RTUPB IV SCH (22:15)
[2017-06-14] MEDS: NORMAL SALINE 10 ML SDV (SCHEDULED) IV SCH (22:28)
[2017-06-15] MEDS: IPRATROPIUM/ALBUTEROL 0.5-2.5 MG/3 ML AMPUL NEB PRN ×4 (02:21→19:58)
[2017-06-15 06:19] LABS: ABSOLUTE LYMPHOCYTES (AUTO) 0.9 10^3/uL (0.5-4.7); ABSOLUTE MONOCYTES (AUTO) 0.7 10^3/uL (0.1-1.4); ABSOLUTE NEUT (AUTO) 8.7 10^3/uL (1.7-8.2); BASOPHILS % (AUTO) 0.4 % (0-2); HEMATOCRIT 31.4 % (37.9-51.0); HEMOGLOBIN 10.3 g/dL (13.5-17.0); HGB HCT DIFFERENCE -0.5; LYMPHOCYTES % (AUTO) 8.9 % (13-45); MEAN CORPUSCULAR HEMOGLOBIN 25.1 pg (27.0-33.4); MEAN CORPUSCULAR VOLUME 76 fl (80-97); MONOCYTES % (AUTO) 6.7 % (3-13); RED BLOOD COUNT 4.11 10^6/uL (4.35-5.55); RED CELL DISTRIBUTION WIDTH 16.2 % (11.5-14.0)
[2017-06-15 06:21] LABS: WHITE BLOOD COUNT 10.4 10^3/uL (4.0-10.5)
[2017-06-15] MEDS: HEPARIN SOD (PORCINE) 5,000 UNIT/ML 1 ML SYRINGE SUBCUT SCH ×3 (06:24→22:13)
[2017-06-15 06:43] LABS: ANION GAP 10 (5-19); BLOOD UREA NITROGEN 19 mg/dL (7-20); CALCIUM 9.6 mg/dL (8.4-10.2); CARBON DIOXIDE 25 mmol/L (22-30); CHLORIDE 103 mmol/L (98-107); CREATININE RESULT 0.79 mg/dL (0.52-1.25); GLUCOSE 115 mg/dL (75-110); POTASSIUM 5.3 mmol/L (3.6-5.0); SODIUM 138.1 mmol/L (137-145)
--- NOTE | 2017-06-15 08:43 | Physician Advisory Note ---
Physician Advisor ProgressNote .: Pursuant to the plan for [facility], I have reviewed the medical record for this patient. Physician Advisor Statement: Nice documentation of chronic respiratory failure in PN 06/14, and of accessory muscle use & tachypnea in H&P. Please consider documenting, if you agree: 1. ? "Acute on chronic hypoxemic respiratory failure, patient usually on __L O2 at baseline, having labored breathing initially with O2 sat 92% on 3L on arrival with tachypnea & moderate acute distress" (this O2 sat corresponds to P /F ratio of 200) 2. "underweight with severe protein-calorie malnutrition with BMI 14.7, ____[? wt loss, ?appetite loss, ]" [if possible, give specifics on intake, wt loss, loss of SQ fat & muscle mass, diminished hand electrical maintenance technician strength, & clinical importance such as (A) nutritional assessment ordered, (B) modified diet or supplements ordered, (C) additional labs ordered, (D) prolonged wound healing time, (E) delayed infxn clearance] 3. Medical necessity: Please document the reasons this Medicare pt, though feeling "better" by time of progress note 06/04, was not yet sufficiently improved for d/c before 2nd MN 06/04 ("recurrent tachypnea and tachycardia, ...") . Then appropriate for change to Inpatient status. Thanks! CK
[2017-06-15] MEDS: PREDNISONE 20 MG TABLET PO SCH ×2 (09:05→17:49)
[2017-06-15] MEDS: DILTIAZEM HCL 30 MG TABLET PO SCH ×3 (09:05→22:14)
[2017-06-15] MEDS: DOCUSATE SODIUM 100 MG CAPSULE PO SCH ×2 (09:06→17:53)
[2017-06-15] MEDS: FLUTICASONE NASAL SPRAY 50 MCG/SPRY 120 SPRAY/16 GM NASL SCH ×2 (09:06→22:12)
[2017-06-15] MEDS: NORMAL SALINE 10 ML SDV (SCHEDULED) IV SCH ×2 (09:09→22:18)
[2017-06-15] MEDS: LORAZEPAM 0.5 MG TABLET PO PRN ×2 (13:16→22:14)
--- NOTE | 2017-06-15 18:08 | PDOC PROGRESS REPORT ---
Subjective Progress Note for:: 06/15/17 Subjective:: Breathing better, but still with significant shortness of breath. No chest pain or shortness of breath or palpitation. Patient on home O2. He has intermittent poor appetite, because he gets short of breath when he tries to eat much. He has lost about 10 pounds in 3 months. No fever or chills, no nausea vomiting. Physical Exam Vital Signs: Temp Pulse Resp BP Pulse Ox 97.9 F 119 H 22 H 117/71 95 06/15/17 16:18 06/15/17 16:18 06/15/17 16:18 06/15/17 16:18 06/15/17 16:18 Exam: GENERAL: Well-developed, no acute distress HEENT: Oral mucosa moist CARDIOVASCULAR: RRR, normal S1-S2 LUNGS: Few wheezing bilaterally ABDOMEN: Soft, NT, NL bowel sounds EXTREMITIES: No edema, clubbing, cyanosis NEUROLOGICAL: Alert, oriented x 3 Results Impressions: Chest X-Ray 06/13/17 22:03 IMPRESSION: Chronic changes of COPD. Stable chest. Assessment & Plan - Plan Summary Plan Summary: Assessment/plan: 1) COPD exacerbation Multifactorial, uncontrolled GERD, rhinorrhea and chronic bronchitis. He is improving, but I am concerned that he will deteriorate if sent home right now. We will continue to monitor, change nebulizers to every 4 hours as needed, continue steroids. (2) Rhinorrhea Continue chlorpheniramine and Flonase (3) GERD (gastroesophageal reflux disease) Protonix
[2017-06-15] MEDS: LEVOFLOXACIN 750 MG/D5W RTU 750 MG/150 ML RTUPB IV SCH (22:13)
[2017-06-16] MEDS: IPRATROPIUM/ALBUTEROL 0.5-2.5 MG/3 ML AMPUL NEB PRN ×6 (00:19→20:01)
[2017-06-16] MEDS: DILTIAZEM HCL 30 MG TABLET PO SCH ×3 (05:58→21:23)
[2017-06-16] MEDS: HEPARIN SOD (PORCINE) 5,000 UNIT/ML 1 ML SYRINGE SUBCUT SCH ×3 (05:58→21:24)
[2017-06-16 06:36] LABS: ABSOLUTE BASOPHILS # (AUTO) 0.1 10^3/uL (0.0-0.2); ABSOLUTE LYMPHOCYTES (AUTO) 1.3 10^3/uL (0.5-4.7); ABSOLUTE MONOCYTES (AUTO) 0.8 10^3/uL (0.1-1.4); ABSOLUTE NEUT (AUTO) 7.5 10^3/uL (1.7-8.2); BASOPHILS % (AUTO) 0.6 % (0-2); EOSINOPHILS % (AUTO) 0.1 % (0-6); HEMATOCRIT 31.1 % (37.9-51.0); HEMOGLOBIN 10.1 g/dL (13.5-17.0); HGB HCT DIFFERENCE -0.8; LYMPHOCYTES % (AUTO) 13.2 % (13-45); MEAN CORPUSCULAR HEMOGLOBIN 24.8 pg (27.0-33.4); MEAN CORPUSCULAR HGB CONC 32.6 g/dL (32.0-36.0); MEAN CORPUSCULAR VOLUME 76 fl (80-97); RED BLOOD COUNT 4.07 10^6/uL (4.35-5.55); RED CELL DISTRIBUTION WIDTH 16.2 % (11.5-14.0); SEGMENTED NEUTROPHILS % (AUTO) 78.1 % (42-78); WHITE BLOOD COUNT 9.6 10^3/uL (4.0-10.5)
[2017-06-16 06:55] LABS: ANION GAP 8 (5-19); BLOOD UREA NITROGEN 21 mg/dL (7-20); CALCIUM 9.3 mg/dL (8.4-10.2); CARBON DIOXIDE 25 mmol/L (22-30); CHLORIDE 106 mmol/L (98-107); CREATININE RESULT 0.77 mg/dL (0.52-1.25); GLUCOSE 98 mg/dL (75-110); POTASSIUM 4.7 mmol/L (3.6-5.0); SODIUM 139.3 mmol/L (137-145)
[2017-06-16] MEDS: FLUTICASONE NASAL SPRAY 50 MCG/SPRY 120 SPRAY/16 GM NASL SCH ×2 (10:16→21:24)
[2017-06-16] MEDS: LEVOFLOXACIN 750 MG TABLET PO SCH (10:16)
[2017-06-16] MEDS: PREDNISONE 20 MG TABLET PO SCH ×2 (10:17→17:00)
[2017-06-16] MEDS: NORMAL SALINE 10 ML SDV (SCHEDULED) IV SCH ×2 (10:24→21:25)
[2017-06-16] MEDS: DOCUSATE SODIUM 100 MG CAPSULE PO SCH ×2 (10:24→17:00)
--- NOTE | 2017-06-16 11:53 | PDOC PROGRESS REPORT ---
Subjective Progress Note for:: 06/16/17 Subjective:: Follow-up for acute COPD exacerbation as well as acute on chronic hypoxic respiratory failure Overnight events noted. Patient refused to use BiPAP overnight. This morning he states that his breathing is improved, however he is quite worried about doing well at home if discharged today. He denies chest pain, nausea, vomiting , diarrhea. He remains afebrile Physical Exam Vital Signs: Temp Pulse Resp BP Pulse Ox 98.0 F 89 20 109/61 96 06/16/17 07:20 06/16/17 07:20 06/16/17 07:20 06/16/17 07:20 06/16/17 07:20 Intake & Output 06/15/17 06/16/17 06/17/17 06:59 06:59 06:59 Intake Total 1428 Output Total 1225 Balance 203 Weight 46.7 kg General appearance: PRESENT: hard of hearing, mild distress, thin, other - cachectic Respiratory exam: PRESENT: decreased breath sounds, prolonged expiratory phas, rhonchi, wheezes Cardiovascular exam: PRESENT: RRR, +S1, +S2, other. ABSENT: bradycardia, clicks , diastolic murmur, gallop, irregular rhythm, rubs, systolic murmur, tachycardia GI/Abdominal exam: PRESENT: normal bowel sounds, soft. ABSENT: ascites, diminished bowel sounds, distended, firm, guarding, hernia, hyperactive bowel sounds, hypoactive bowel sounds, mass, Brink's sign, organolmegaly, rebound, rigid, tenderness, other Extremities exam: PRESENT: other - S?P R AKA. ABSENT: calf tenderness, clubbing , full ROM, joint swelling, pedal edema, tenderness, +1 edema, +2 edema Neurological exam: PRESENT: alert, awake, oriented to person, oriented to place , oriented to time, oriented to situation Psychiatric exam: PRESENT: anxious Results Laboratory Results: 06/16/17 05:25 06/16/17 05:25 06/16/17 06/16/17 05:25 05:25 WBC 9.6 RBC 4.07 L Hgb 10.1 L Hct 31.1 L MCV 76 L MCH 24.8 L MCHC 32.6 RDW 16.2 H Plt Count 442 Seg Neutrophils % 78.1 H Lymphocytes % 13.2 Monocytes % 8.0 Eosinophils % 0.1 Basophils % 0.6 Absolute Neutrophils 7.5 Absolute Lymphocytes 1.3 Absolute Monocytes 0.8 Absolute Eosinophils 0.0 Absolute Basophils 0.1 Sodium 139.3 Potassium 4.7 Chloride 106 Carbon Dioxide 25 Anion Gap 8 BUN 21 H Creatinine 0.77 Est GFR ( Amer) > 60 Est GFR (Non-Af Amer) > 60 Glucose 98 Calcium 9.3 Impressions: Chest X-Ray 06/13/17 22:03 IMPRESSION: Chronic changes of COPD. Stable chest. Assessment & Plan - Diagnosis (1) COPD exacerbation Is this a current diagnosis for this admission?: Yes Plan: Acute exacerbation of COPD in former smoker - Improving but still dyspneic with activity -Continue Nebs, Prednisone, and changed to oral Levoflaxacin (2) Acute and chronic respiratory failure with hypoxia Is this a current diagnosis for this admission?: Yes Plan: Due to COPD. Patient is back to baseline 2L/min of supplemental home Oxygen (3) GERD (gastroesophageal reflux disease) Qualifiers: Esophagitis presence: without esophagitis Qualified Code(s): K21.9 - Gastro -esophageal reflux disease without esophagitis Is this a current diagnosis for this admission?: Yes Plan: Protonix (4) Rhinorrhea Is this a current diagnosis for this admission?: Yes Plan: Improved on Chlopheniramine, Flonase (5) Tachycardia Is this a current diagnosis for this admission?: Yes Plan: Resolved - Time Time Spent with patient: 25-34 minutes Smoking Cessation Education: 3 to 10 minutes Medications reviewed and adjusted accordingly: Yes Anticipated discharge: Home Within: within 24 hours - Inpatient Certification Medical Necessity: Need for Nebulizer Therapy and Monitoring of Response
[2017-06-16] MEDS: LORAZEPAM 0.5 MG TABLET PO PRN (21:26)
[2017-06-17] MEDS: IPRATROPIUM/ALBUTEROL 0.5-2.5 MG/3 ML AMPUL NEB PRN ×4 (00:37→12:12)
[2017-06-17] MEDS: DILTIAZEM HCL 30 MG TABLET PO SCH ×2 (06:29→17:26)
[2017-06-17] MEDS: HEPARIN SOD (PORCINE) 5,000 UNIT/ML 1 ML SYRINGE SUBCUT SCH ×3 (06:30→21:25)
[2017-06-17] MEDS: FLUTICASONE NASAL SPRAY 50 MCG/SPRY 120 SPRAY/16 GM NASL SCH ×2 (09:50→21:25)
[2017-06-17] MEDS: LEVOFLOXACIN 750 MG TABLET PO SCH (09:51)
[2017-06-17] MEDS: PREDNISONE 20 MG TABLET PO SCH ×2 (09:51→17:25)
[2017-06-17] MEDS: NORMAL SALINE 10 ML SDV (SCHEDULED) IV SCH ×2 (09:52→21:26)
[2017-06-17] MEDS: DOCUSATE SODIUM 100 MG CAPSULE PO SCH ×2 (09:52→17:28)
[2017-06-17] MEDS: IPRATROPIUM/ALBUTEROL 0.5-2.5 MG/3 ML AMPUL NEB SCH ×2 (14:02→20:11)
[2017-06-17] MEDS: MAG HYDROX/AL HYDROX/SIMETH SUSP 30 ML UDCUP PO PRN (14:52)
--- NOTE | 2017-06-17 17:08 | PDOC PROGRESS REPORT ---
Subjective Progress Note for:: 06/17/17 Subjective:: Follow-up for acute COPD exacerbation as well as acute on chronic hypoxic respiratory failure 72-year-old white male with past medical history of chronic hypoxic respiratory failure, COPD, and is status post right AKA. He was admitted with complaints of several days of worsening shortness of breath. Chest x-ray on admission did not reveal any infiltrates. He was started on aggressive nebulizer treatment, IV steroids, and IV levofloxacin. Overnight events noted. Patient reports that his breathing is improved. He denies chest pain, nausea, vomiting, diarrhea. He remains afebrile. The plan was for the patient to be discharged home today. However, he got up to use the restroom and became very dyspneic. He is requesting to be discharged instead to a retirement facility for further rehab Physical Exam Vital Signs: Temp Pulse Resp BP Pulse Ox 97.6 F 110 H 22 H 113/68 93 06/17/17 11:16 06/17/17 12:19 06/17/17 12:19 06/17/17 11:16 06/17/17 12:19 Intake & Output 06/16/17 06/17/17 06/18/17 06:59 06:59 06:59 Intake Total 1428 1323 240 Output Total 1225 1050 125 Balance 203 273 115 Weight 46.7 kg 46.6 kg General appearance: PRESENT: no acute distress, cooperative, thin Head exam: PRESENT: atraumatic, normocephalic Eye exam: PRESENT: conjunctiva pink Respiratory exam: PRESENT: decreased breath sounds, symmetrical, unlabored, other - Faint expiratory wheezing Cardiovascular exam: PRESENT: other - S1-S2 heard, regular rate and rhythm, no murmurs rubs or gallops GI/Abdominal exam: PRESENT: other - Abdomen soft, nontender, nondistended, bowel sounds present Musculoskeletal exam: PRESENT: full ROM, other - Status post right above-the- knee amputation Neurological exam: PRESENT: alert, awake, oriented to person, oriented to place , oriented to time, oriented to situation, reflexes normal, other - Grossly nonfocal Results Laboratory Results: 06/16/17 05:25 06/16/17 05:25 Impressions: Chest X-Ray 06/13/17 22:03 IMPRESSION: Chronic changes of COPD. Stable chest. Assessment & Plan - Diagnosis (1) COPD exacerbation Is this a current diagnosis for this admission?: Yes Plan: Acute exacerbation of COPD in former smoker - Improving but still dyspneic with activity - Continue Nebs, Prednisone, and oral Levoflaxacin -Plan to discharge to retirement facility in a.m. (2) Acute and chronic respiratory failure with hypoxia Is this a current diagnosis for this admission?: Yes Plan: Due to COPD. Improved, patient is back to baseline 2L/min of supplemental home Oxygen (3) GERD (gastroesophageal reflux disease) Qualifiers: Esophagitis presence: without esophagitis Qualified Code(s): K21.9 - Gastro -esophageal reflux disease without esophagitis Is this a current diagnosis for this admission?: Yes (4) Rhinorrhea Is this a current diagnosis for this admission?: Yes (5) Tachycardia Is this a current diagnosis for this admission?: Yes Plan: Resolved - Time Time Spent with patient: 25-34 minutes Anticipated discharge: SNF Within: within 24 hours - Case management consulted for discharge planning to retirement facility. Plan of care reviewed with patient and patient's daughter by bedside
[2017-06-18] MEDS: IPRATROPIUM/ALBUTEROL 0.5-2.5 MG/3 ML AMPUL NEB PRN ×2 (00:02→03:50)
[2017-06-18] MEDS: DILTIAZEM HCL 30 MG TABLET PO SCH ×3 (00:02→12:03)
[2017-06-18] MEDS: HEPARIN SOD (PORCINE) 5,000 UNIT/ML 1 ML SYRINGE SUBCUT SCH ×2 (06:21→14:25)
[2017-06-18 06:43] LABS: ANION GAP 8 (5-19); BLOOD UREA NITROGEN 19 mg/dL (7-20); CALCIUM 9.4 mg/dL (8.4-10.2); CARBON DIOXIDE 30 mmol/L (22-30); CHLORIDE 101 mmol/L (98-107); CREATININE RESULT 0.67 mg/dL (0.52-1.25); GLUCOSE 89 mg/dL (75-110); POTASSIUM 4.6 mmol/L (3.6-5.0); SODIUM 138.7 mmol/L (137-145)
[2017-06-18] MEDS: IPRATROPIUM/ALBUTEROL 0.5-2.5 MG/3 ML AMPUL NEB SCH ×2 (08:43→12:33)
[2017-06-18] MEDS: MAG HYDROX/AL HYDROX/SIMETH SUSP 30 ML UDCUP PO PRN (09:19)
[2017-06-18] MEDS: PREDNISONE 20 MG TABLET PO SCH (09:20)
[2017-06-18] MEDS: LEVOFLOXACIN 750 MG TABLET PO SCH (09:20)
[2017-06-18] MEDS: NORMAL SALINE 10 ML SDV (SCHEDULED) IV SCH (09:21)
[2017-06-18] MEDS: DOCUSATE SODIUM 100 MG CAPSULE PO SCH (09:21)
[2017-06-18] MEDS: FLUTICASONE NASAL SPRAY 50 MCG/SPRY 120 SPRAY/16 GM NASL SCH (09:21)
--- NOTE | 2017-06-18 09:23 | PDOC TRANSFER SUMMARY ---
General - Admit/Disc Date/PCP Admission Date/Primary Care Provider: 06/15/17 13:29 KEMAR MCNEIL MD Discharge Date: 06/18/17 - Discharge to SNF - Discharge Diagnosis (1) COPD exacerbation Is this a current diagnosis for this admission?: Yes (2) Acute and chronic respiratory failure with hypoxia Is this a current diagnosis for this admission?: Yes (3) GERD (gastroesophageal reflux disease) Is this a current diagnosis for this admission?: Yes (4) Rhinorrhea Is this a current diagnosis for this admission?: Yes (5) Tachycardia Is this a current diagnosis for this admission?: Yes - Additional Information Resuscitation Status: Full Code Discharge Diet: As Tolerated, Cardiac Discharge Activity: Activity As Tolerated Home Medications: Albuterol Sulfate [Albuterol Sulfate 2.5mg/3 mL] 2.5 mg NEB Q4HP PRN 04/09/17 Albuterol Sulfate [Ventolin HFA MDI 18 GM] 1 puff IH Q6HP PRN 06/14/17 Aspirin [Aspirin EC] 81 mg PO DAILY 06/14/17 Atorvastatin Calcium 20 mg PO QHS 06/14/17 Cyanocobalamin (Vitamin B-12) [Vitamin B-12 1000 mcg Tablet] 1 tab PO DAILY Folic Acid 1 mg PO DAILY 06/14/17 Glycopyrrolate/Formoterol Fum [Bevespi Aerosphere Inhaler] 1 puff IH DAILY 06/14 Pantoprazole Sodium 40 mg PO DAILY 06/14/17 Ipratropium/Albuterol Sulfate [Combivent Respimat Inhal Terreton] 4 gm IH Q6HP PRN #7 aer.w.adap 06/17/17 Levofloxacin [Levaquin 750 mg Tablet] 750 mg PO DAILY #5 tablet 06/17/17 Prednisone [Deltasone 20 mg Tablet] 40 mg PO DAILY #5 tablet 06/17/17 Diltiazem HCl [Cardizem Cd 180 mg Capsule] 1 cap.sr PO Q12 #60 cap.sr 06/18/17 Lorazepam [Ativan 0.5 mg Tablet] 0.5 mg PO Q8HP PRN #30 tablet 06/18/17 History of Present Illness Admission Date/PCP: 06/15/17 13:29 KEMAR MCNEIL MD Patient complains of: Shortness of breath of several days' duration History of Present Illness: LEVANCE C ANDREW is a 72 year old male with past medical history of COPD, chronic hypoxic respiratory failure requiring 2 L/min of supplementary oxygen, and status post right AKA. The patient presented to the emergency room complaining of worsening shortness of breath over several days. For more details, please refer to the previously dictated H&P Hospital Course Hospital Course: 72-year-old white male with past medical history of COPD, chronic hypoxic respiratory failure requiring 2 L/min of supplementary oxygen, and status post right AKA. The patient presented to the emergency room complaining of worsening shortness of breath over several days. He was admitted for COPD exacerbation. Chest x-ray on admission did not reveal any infiltrates. He was started on aggressive nebulizer treatment, IV steroids, and IV levofloxacin. His shortness of breath has improved significantly and patient is now on steroids (oral prednisone 40 mg for 5 days) and oral levofloxacin. Discharge was originally planned to home yesterday, however the patient became short of breath with minimal activity and requested [facility] where he will have more assistance and could participate in physical therapy Physical Exam Vital Signs: Temp Pulse Resp BP Pulse Ox 98.3 F 92 18 116/66 93 06/18/17 07:38 06/18/17 07:38 06/18/17 07:38 06/18/17 07:38 06/18/17 07:38 Intake & Output 06/17/17 06/18/17 06/19/17 06:59 06:59 06:59 Intake Total 1323 696 Output Total 1050 996 Balance 273 -300 Weight 46.6 kg 47.6 kg General appearance: PRESENT: no acute distress, cooperative, disheveled, thin Head exam: PRESENT: atraumatic, normocephalic Eye exam: PRESENT: conjunctiva pink, EOMI Respiratory exam: PRESENT: decreased breath sounds, prolonged expiratory phas, other - Faint expiratory wheezing Cardiovascular exam: PRESENT: RRR, +S1, +S2. ABSENT: bradycardia, clicks, diastolic murmur, gallop, irregular rhythm, rubs, systolic murmur, tachycardia, other GI/Abdominal exam: PRESENT: normal bowel sounds, soft. ABSENT: ascites, diminished bowel sounds, distended, firm, guarding, hernia, hyperactive bowel sounds, hypoactive bowel sounds, mass, Brink's sign, organolmegaly, rebound, rigid, tenderness, other Extremities exam: PRESENT: full ROM, other - Status post right [id number] amputation Neurological exam: PRESENT: alert, awake, oriented to person, oriented to place , oriented to time, oriented to situation, CN II-XII grossly intact Psychiatric exam: PRESENT: anxious Results Laboratory Results: 06/16/17 05:25 06/18/17 05:34 06/18/17 05:34 Sodium 138.7 Potassium 4.6 Chloride 101 Carbon Dioxide 30 Anion Gap 8 BUN 19 Creatinine 0.67 Est GFR ( Amer) > 60 Est GFR (Non-Af Amer) > 60 Glucose 89 Calcium 9.4 Impressions: Chest X-Ray 06/13/17 22:03 IMPRESSION: Chronic changes of COPD. Stable chest. Transfer Plan - Disposition Transfer Plan: [facility] will be [facility] - Time Spent with Patient Time spent with patient: Greater than 30 Minutes Qualifiers PATEINT BEING DISCHARGED WITH ANY OF THE FOLLOWING DIAGNOSIS?: No Plan Time Spent: Greater than 30 Minutes
[2017-06-18 12:24] VITALS: BP 134/62
== END 2017-06-18 15:29 | DRG 190 ==
LOC: ER 21:55 → EH 06-14 00:33 → UNDOADMOB 06-14 00:41 → 3S 06-14 03:38 → OBSVTOIN 06-15 13:29
PROVIDERS: ADMIT Internal Medicine; ATTEND Internal Medicine
PROC: 3E0F73Z Introduction of Anti-inflammatory into Respiratory Tract, Via Natural or Artificial Opening (ICD-10-PCS; principal; 2017-06-14)
DX: J44.1 Chronic obstructive pulmonary disease with (acute) exacerbation (principal); J96.21 Acute and chronic respiratory failure with hypoxia; J34.89 Other specified disorders of nose and nasal sinuses; K21.9 Gastro-esophageal reflux disease without esophagitis; I10 Essential (primary) hypertension; E78.5 Hyperlipidemia, unspecified; Z87.891 Personal history of nicotine dependence; Z79.82 Long term (current) use of aspirin; Z99.81 Dependence on supplemental oxygen; Z89.511 Acquired absence of right leg below knee
CPT/HCPCS: 36415; 71010; 80048; 80053; 82803; 83880; 85025; 87040; 93005; 93010; 94640; 94667; 94668; 96365; 96366; 96367; 96375; 99285; J1644; J1956; J2930; J3475; J3490; J7512; J7620

== ENCOUNTER 2017-08-15 20:17 | Emergency (ER) | payer MEDICARE, BC ==
--- NOTE | 2017-08-15 21:10 | RADIOLOGY REPORT (SQ) ---
EXAM DESCRIPTION: CHEST SINGLE VIEW COMPLETED DATE/TIME: 08/15/2017 8:56 pm REASON FOR STUDY: resp distress COMPARISON: 06/13/2017. NUMBER OF VIEWS: One view. TECHNIQUE: Single frontal radiographic view of the chest acquired. LIMITATIONS: None. FINDINGS: LUNGS AND PLEURA: Extensive chronic scarring in the lung apices, particularly on the right . No infiltrates, masses or pneumothorax. No pleural effusion. Attenuated blood vessels and flattene d shaunna-diaphragms. MEDIASTINUM AND HILAR STRUCTURES: No masses. Contour normal. HEART AND VASCULAR STRUCTURES: Heart normal in size. Normal vasculature. BONES: No acute findings. HARDWARE: None in the chest. OTHER: No other significant finding. IMPRESSION: COPD. STABLE CHRONIC SCARRING IN THE LUNG APICES. NO ACUTE RADIOGRAPHIC FINDING IN THE CHEST. TECHNICAL DOCUMENTATION: JOB ID: [id number]- All Rights Reserved
[2017-08-15] MEDS ORDERED: IPRATROPIUM/ALBUTEROL 0.5-2.5 MG/3 ML AMPUL NEB ONE (22:21)
--- NOTE | 2017-08-15 22:49 | ER Document Report ---
ED Respiratory Problem - General Chief Complaint: Respiratory Distress Stated Complaint: DIFFICULTY BREATHING Mode of Arrival: Medic Information source: Patient, Relative TRAVEL OUTSIDE OF THE [place] IN LAST 30 DAYS: No - HPI Patient complains to provider of: COPD, Short of breath Notes: 72-year-old gentleman with past medical history of COPD who is on oxygen, 2 L at home presented today for evaluation of shortness of breath that started this afternoon. Patient was using the bathroom and felt short of breath as well as very dyspneic. Patient called EMS and was given IV methylprednisone as well as 2 rounds of DuoNeb's with significant improvement of his symptoms. Patient reports mild cough with upper respiratory congestion and productive sputum. Patient denies any fevers, chills, nausea or vomiting, chest pain. - Related Data Allergies/Adverse Reactions: No Known Allergies Allergy (Unverified 04/09/17 22:44) Past Medical History - Social History Smoking Status: Former Smoker Family History: COPD Patient has suicidal ideation: No Patient has homicidal ideation: No - Past Medical History Cardiac Medical History: Reports: Hx Hypertension Pulmonary Medical History: Reports: Hx COPD Renal/ Medical History: Denies: Hx Peritoneal Dialysis GI Medical History: Reports: Hx Gastroesophageal Reflux Disease Past Surgical History: Reports: Hx Orthopedic Surgery - RIGHT BKA - Immunizations Hx Diphtheria, Pertussis, Tetanus Vaccination: Yes Hx Pneumococcal Vaccination: 04/02/17 Review of Systems - Review of Systems Notes: REVIEW OF SYSTEMS: CONSTITUTIONAL: -fevers, -chills EENT: -eye pain, -difficulty swallowing, -nasal congestion CARDIOVASCULAR: -chest pain, -syncope. RESPIRATORY: Shortness of breath, dyspnea, wheezing GASTROINTESTINAL: -abdominal pain, -nausea, -vomiting, -diarrhea GENITOURINARY: -dysuria, -hematuria MUSCULOSKELETAL: -back pain, -neck pain SKIN: -rash or skin lesions. HEMATOLOGIC: -easy bruising or bleeding. LYMPHATIC: -swollen, enlarged glands. NEUROLOGICAL: -altered mental status or loss of consciousness, -headache, - neurologic symptoms PSYCHIATRIC: -anxiety, -depression. ALL OTHER SYSTEMS REVIEWED AND NEGATIVE. Physical Exam - Vital signs Vitals: Resp Pulse Ox 24 H 99 08/15/17 20:32 08/15/17 20:32 - Notes Notes: PHYSICAL EXAMINATION: GENERAL: Well-appearing, well-nourished and in no acute distress. HEAD: Atraumatic, normocephalic. EYES: Pupils equal round and reactive to light, extraocular movements intact, sclera anicteric, conjunctiva are normal. ENT: nares patent, oropharynx clear without exudates. Moist mucous membranes. NECK: Normal range of motion, supple without lymphadenopathy LUNGS: No significant respiratory distress, patient has decreased breath sounds bilaterally, mild wheezing in the bases, HEART: Regular rate and rhythm without murmurs ABDOMEN: Soft, nontender, normoactive bowel sounds. No guarding, no rebound. No masses appreciated. EXTREMITIES: Patient has right leg amputation NEUROLOGICAL: Cranial nerves grossly intact. Normal speech, normal gait. Normal sensory and motor exams. PSYCH: Normal mood, normal affect. SKIN: Warm, Dry, normal turgor, no rashes or lesions noted. Course - Re-evaluation Re-evalutation: 08/15/17 21:00 Patient with COPD exacerbation Patient improved significantly after IV steroids as well as 2 rounds of DuoNeb's Differential diagnosis includes pneumonia, pleural effusion, pneumothorax We will obtain chest x-ray Continuous cardiac monitoring as well as pulse oximetry patient denies any chest pain Reassessment 10 PM Patient has mild wheezing, will give him another round of DuoNeb's The patient feels significantly better, anticipate discharge home with close follow-up with Dr. Eldridge, Who is his primary resident care aide Reassessment 11 PM Patient feels significantly better Discuss results of imaging with patient and family x-ray with no evidence of effusion, pneumonia or malignancy, or pneumothorax Will discharge home with steroids as well as antibiotics Follow-up with pulmonology - Vital Signs Vital signs: Temp Pulse Resp BP Pulse Ox 98.1 F 20 135/79 H 99 08/15/17 20:33 08/15/17 22:01 08/15/17 22:01 08/15/17 22:01 - Diagnostic Test Radiology reviewed: Image reviewed Radiology results interpreted by me: 08/15/17 22:49 Chronic COPD changes without any acute cardiopulmonary process, no malignancy or mass, no pneumothorax Discharge - Discharge Clinical Impression: COPD exacerbation Condition: Stable Disposition: HOME, SELF-CARE Instructions: Chronic Obstructive Lung Disease ([facility]) Additional Instructions: Please follow-up with your resident care aide, Comeback if any worsening fevers, chills, nausea vomiting, chest pain or shortness of breath Prescriptions: Doxycycline Hyclate 100 mg PO BID #14 capsule Prednisone [Deltasone 20 mg Tablet] 3 tab PO DAILY 5 Days #15 tablet
[2017-08-15 23:12] VITALS: BP 110/58
== END 2017-08-15 23:12 | disposition home or self-care (01) ==
LOC: ER 20:17
DX: J44.1 Chronic obstructive pulmonary disease with (acute) exacerbation (principal); R06.02 Shortness of breath; Z99.81 Dependence on supplemental oxygen; Z87.891 Personal history of nicotine dependence
CPT/HCPCS: 94640; 99285; 71045; A9270; J7620

== ENCOUNTER 2017-10-08 23:08 | Inpatient (IN) | payer MEDICARE, BC ==
[2017-10-08] MEDS ORDERED: IPRATROPIUM/ALBUTEROL 0.5-2.5 MG/3 ML AMPUL NEB ONE (23:17)
[2017-10-08 23:35] LABS: ABSOLUTE BASOPHILS # (AUTO) 0.1 10^3/uL (0.0-0.2); ABSOLUTE EOSINOPHILS # (AUTO) 0.5 10^3/uL (0.0-0.6); ABSOLUTE LYMPHOCYTES (AUTO) 1.9 10^3/uL (0.5-4.7); ABSOLUTE MONOCYTES (AUTO) 0.7 10^3/uL (0.1-1.4); ABSOLUTE NEUT (AUTO) 4.9 10^3/uL (1.7-8.2); BASOPHILS % (AUTO) 1.1 % (0-2); HEMOGLOBIN 12.9 g/dL (13.5-17.0); LYMPHOCYTES % (AUTO) 23.5 % (13-45); MEAN CORPUSCULAR HEMOGLOBIN 25.3 pg (27.0-33.4); MEAN CORPUSCULAR HGB CONC 32.3 g/dL (32.0-36.0); MEAN CORPUSCULAR VOLUME 78 fl (80-97); MONOCYTES % (AUTO) 8.3 % (3-13); PLATELET COUNT 428 10^3/uL (150-450); RED BLOOD COUNT 5.12 10^6/uL (4.35-5.55); RED CELL DISTRIBUTION WIDTH 26.1 % (11.5-14.0); SEGMENTED NEUTROPHILS % (AUTO) 61.1 % (42-78); TOTAL CELLS COUNTED % (AUTO) 100 %; WHITE BLOOD COUNT 8.1 10^3/uL (4.0-10.5)
[2017-10-08 23:43] LABS: ALANINE AMINOTRANSFERASE 22 U/L (21-72); ALBUMIN 4.3 g/dL (3.5-5.0); ALKALINE PHOSPHATASE 76 U/L (38-126); ANION GAP 10 (5-19); ASPARTATE AMINO TRANSFERASE 21 U/L (17-59); BILIRUBIN,DIRECT 0.2 mg/dL (0.0-0.4); BILIRUBIN,TOTAL 0.2 mg/dL (0.2-1.3); BLOOD UREA NITROGEN 12 mg/dL (7-20); CALCIUM 9.9 mg/dL (8.4-10.2); CARBON DIOXIDE 32 mmol/L (22-30); CHLORIDE 98 mmol/L (98-107); GLUCOSE 103 mg/dL (75-110); SODIUM 140.4 mmol/L (137-145); TOTAL PROTEIN 7.2 g/dL (6.3-8.2)
--- NOTE | 2017-10-08 23:49 | RADIOLOGY REPORT (SQ) ---
EXAM DESCRIPTION: CHEST SINGLE VIEW COMPLETED DATE/TIME: 10/08/2017 11:38 pm REASON FOR STUDY: sob COMPARISON: 08/15/2017 EXAM PARAMETERS: NUMBER OF VIEWS: One view. TECHNIQUE: Single frontal radiographic view of the chest acquired. RADIATION DOSE: NA LIMITATIONS: None. FINDINGS: LUNGS AND PLEURA: New right pleural effusion and small patchy area of lateral basilar airs pace disease. Similar chronic interstitial changes and apical scarring -emphysema. MEDIASTINUM AND HILAR STRUCTURES: Stable. HEART AND VASCULAR STRUCTURES: Stable. BONES: No acute findings. HARDWARE: None in the chest. OTHER: No other significant finding. IMPRESSION: New right pleural effusion and small patchy area of lateral basilar airspace disease. TECHNICAL DOCUMENTATION: JOB ID: [id number] 2010 [employer]- All Rights Reserved Reading location - IP/workstation name: [email or web address]
[2017-10-08 23:52] LABS: ANISOCYTOSIS 3+
[2017-10-08 23:56] LABS: HYPOCHROMASIA SLIGHT; OVALOCYTES 3+; SCHISTOCYTES SLIGHT
[2017-10-08 23:59] LABS: STOMATOCYTES SLIGHT
[2017-10-09 00:01] LABS: PLATELET COMMENT ADEQUATE
[2017-10-09] MEDS ORDERED: AZITHROMYCIN INJ 500 MG VIAL IV ONE ×2 (00:12→04:00)
[2017-10-09] MEDS ORDERED: CEFTRIAXONE INJ 1000 MG VIAL IV ONE (00:13)
--- NOTE | 2017-10-09 00:14 | ER Document Report ---
ED General - General Chief Complaint: Breathing Difficulty Stated Complaint: BREATHING DIFFICULTY Time Seen by Provider: 10/08/17 23:16 Mode of Arrival: Medic Information source: Patient TRAVEL OUTSIDE OF THE [place] IN LAST 30 DAYS: No - HPI Patient complains to provider of: sob Onset: Other - "all day" Onset/Duration: Gradual, Constant, Worse Quality of pain: No pain Associated symptoms: Nonproductive cough, Shortness of breath Exacerbated by: Movement, Coughing Relieved by: Denies Similar symptoms previously: Yes Recently seen / treated by doctor: No - Related Data Allergies/Adverse Reactions: No Known Allergies Allergy (Verified 10/08/17 23:34) Past Medical History - General Information source: Patient, Relative - Social History Smoking Status: Former Smoker Frequency of alcohol use: None Drug Abuse: None Lives with: Family Family History: COPD Patient has suicidal ideation: No Patient has homicidal ideation: No - Past Medical History Cardiac Medical History: Reports: Hx Hypertension Pulmonary Medical History: Reports: Hx COPD Neurological Medical History: Reports: None Endocrine Medical History: Reports: None Renal/ Medical History: Reports: None. Denies: Hx Peritoneal Dialysis GI Medical History: Reports: Hx Gastroesophageal Reflux Disease Musculoskeltal Medical History: Reports None Psychiatric Medical History: Reports: None Past Surgical History: Reports: Hx Orthopedic Surgery - RIGHT AKA - Immunizations Hx Diphtheria, Pertussis, Tetanus Vaccination: Yes Hx Pneumococcal Vaccination: 04/02/17 Review of Systems - Review of Systems Constitutional: No symptoms reported EENT: No symptoms reported Cardiovascular: No symptoms reported Respiratory: Cough, Short of breath, Wheezing Gastrointestinal: No symptoms reported Genitourinary: No symptoms reported Male Genitourinary: No symptoms reported Skin: No symptoms reported Hematologic/Lymphatic: No symptoms reported Neurological/Psychological: No symptoms reported Physical Exam - Vital signs Vitals: Resp Pulse Ox 25 H 96 10/08/17 23:12 10/08/17 23:12 - Notes Notes: PHYSICAL EXAMINATION: GENERAL: Cachectic, chronically ill-appearing and in mild respiratory distress. HEAD: Atraumatic, normocephalic. EYES: Pupils equal round and reactive to light, extraocular movements intact, sclera anicteric, conjunctiva are normal. ENT: Nares patent, oropharynx clear without exudates. Moist mucous membranes. NECK: Normal range of motion, supple without lymphadenopathy LUNGS: Creased breath sounds bilaterally. Bilateral wheezing. HEART: Regular rate and rhythm without murmurs ABDOMEN: Soft, nontender, nondistended abdomen. No guarding, no rebound. No masses appreciated. Musculoskeletal: Normal range of motion, no pitting or edema. No cyanosis. Right AKA. NEUROLOGICAL: Cranial nerves grossly intact. Normal speech. Normal sensory, motor exams. PSYCH: Normal mood, normal affect. SKIN: Warm, Dry, normal turgor, no rashes or lesions noted. Course - Re-evaluation Re-evalutation: 10/09/17 00:39 Labs- All tests 24 hr 10/08/17 10/08/17 10/08/17 22:54 22:54 22:54 WBC 8.1 RBC 5.12 Hgb 12.9 L Hct 40.0 MCV 78 L MCH 25.3 L MCHC 32.3 RDW 26.1 H Plt Count 428 Seg Neutrophils % 61.1 Lymphocytes % 23.5 Monocytes % 8.3 Eosinophils % 6.0 Basophils % 1.1 Absolute Neutrophils 4.9 Absolute Lymphocytes 1.9 Absolute Monocytes 0.7 Absolute Eosinophils 0.5 Absolute Basophils 0.1 Platelet Comment ADEQUATE Hypochromasia SLIGHT Anisocytosis 3+ Microcytosis SLIGHT Ovalocytes 3+ Stomatocytes SLIGHT Schistocytes SLIGHT Sodium 140.4 Potassium 5.0 Chloride 98 Carbon Dioxide 32 H Anion Gap 10 BUN 12 Creatinine 0.65 Est GFR ( Amer) > 60 Est GFR (Non-Af Amer) > 60 Glucose 103 Calcium 9.9 Total Bilirubin 0.2 Direct Bilirubin 0.2 Neonat Total Bilirubin Not Reportable Neonat Direct Bilirubin Not Reportable Neonat Indirect Bili Not Reportable AST 21 ALT 22 Alkaline Phosphatase 76 Troponin I < 0.012 Total Protein 7.2 Albumin 4.3 Chest X-Ray 10/08/17 23:18 IMPRESSION: New right pleural effusion and small patchy area of lateral basilar airspace disease. - Vital Signs Vital signs: Temp Pulse Resp BP Pulse Ox 97.9 F 102 H 18 121/65 94 10/09/17 23:54 10/09/17 23:54 10/09/17 23:54 10/09/17 23:54 10/10/17 00:39 - Laboratory Result Diagrams: 10/08/17 22:54 10/08/17 22:54 Laboratory results interpreted by me: 10/08/17 10/08/17 22:54 22:54 Hgb 12.9 L MCV 78 L MCH 25.3 L RDW 26.1 H Carbon Dioxide 32 H Discharge - Discharge Clinical Impression: Pleural effusion, right, Pneumonia, COPD (chronic obstructive pulmonary disease ) Disposition: ADMITTED INPATIENT Admitting Provider: Hospitalist - Dr. Burger Unit Admitted: Telemetry
[2017-10-09] MEDS ORDERED: ACETAMINOPHEN 325 MG TABLET PO PRN (02:14)
[2017-10-09] MEDS ORDERED: PROMETHAZINE HCL INJ 25 MG/1 ML VIAL IV PRN (02:14)
[2017-10-09] MEDS ORDERED: METHYLPREDNISOLONE INJ 40 MG/1 ML SDV IV SCH (03:00)
--- NOTE | 2017-10-09 04:56 | PDOC H&P ---
History of Present Illness Admission Date/PCP: 10/09/17 00:41 Patient complains of: Worsening shortness of breath last night. History of Present Illness: ASHVIN MORALES is a 72 year old cachectic male with history of severe COPD ( on 2 L home oxygen at night and as needed) and possible lung cancer (post PET scan 2 weeks ago) was admitted with above-mentioned complaints. Some of the history was obtained from his daughter at bedside. The patient denies any fever or sore throat but complains of chills, runny nose (chronic) and productive cough with yellowish sputum. His granddaughter is sick. He said that he usually uses his nebulizer every 4 hours. He apparently was told that he had right lower lobe pneumonia after reviewing his PET scan so he was started on a course of doxycycline which he finished. The patient is up-to- date with his flu and pneumonia vaccines. In the ED, his temperature was 98.7, heart rate 108, respiratory rate 25, blood pressure 100/87 with oxygen saturation of 96% on 4 L nasal cannula. His WBC was 8.1 and his hemoglobin was 12.9. His initial troponin was negative. A chest x-ray was done which showed new right pleural effusion/small patchy area of lateral basilar airspace disease when compared to a previous chest x-ray done on 08/15/2017. He received a total of 3 DuoNeb treatments (2 treatments en route to the hospital by EMS), 1 g of Rocephin and 500 mg IV Zithromax 1 with improvement in his symptoms. Past Medical History Medical History: Other - The patient and based on previous records Cardiac Medical History: Reports: Hypertension Pulmonary Medical History: Reports: Chronic Obstructive Pulmonary Disease (COPD) Neurological Medical History: Reports: None Endocrine Medical History: Reports: None Renal/ Medical History: Reports: None Malignancy Medical History: Reports: Lung Cancer - possible GI Medical History: Reports: Gastroesophageal Reflux Disease Musculoskeltal Medical History: Reports: None Psychiatric Medical History: Reports: None Traumatic Medical History: Reports: Pneumothorax Past Surgical History Past Surgical History: Reports: 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 Social History Lives with: Family Smoking Status: Former Smoker Cigarettes Packs Per Day: 0 - He used to smoke 1 pack a day for 54 years. He quit 3 years ago. Frequency of Alcohol Use: None Hx Recreational Drug Use: No Drugs: None Hx Prescription Drug Abuse: No - Advance Directive Resuscitation Status: Do Not Intubate Family History Family History: COPD Parental Family History Reviewed: Yes - Mother: CVA and DM2, father: COPD and lung cancer. Children Family History Reviewed: No Sibling(s) Family History Reviewed.: Yes Medication/Allergy Home Medications: Albuterol Sulfate [Albuterol Sulfate 2.5mg/3 mL] 2.5 mg NEB Q4HP PRN 04/09/17 Albuterol Sulfate [Ventolin HFA MDI 18 GM] 1 puff IH Q6HP PRN 06/14/17 Aspirin [Aspirin EC] 81 mg PO DAILY 06/14/17 Atorvastatin Calcium 20 mg PO QHS 06/14/17 Cyanocobalamin (Vitamin B-12) [Vitamin B-12 1000 mcg Tablet] 1 tab PO DAILY Folic Acid 1 mg PO DAILY 06/14/17 Glycopyrrolate/Formoterol Fum [Bevespi Aerosphere Inhaler] 1 puff IH DAILY 06/14 Pantoprazole Sodium 40 mg PO DAILY 06/14/17 Ipratropium/Albuterol Sulfate [Combivent Respimat Inhal [place]] 4 gm IH Q6HP PRN #7 aer.w.adap 06/17/17 Diltiazem HCl [Cardizem Cd 180 mg Capsule] 1 cap.sr PO Q12 #60 cap.sr 06/18/17 Lorazepam [Ativan 0.5 mg Tablet] 0.5 mg PO DAILY 10/08/17 Allergies/Adverse Reactions: No Known Allergies Allergy (Verified 10/08/17 23:34) Review of Systems ROS unobtainable: Other - Positives and negatives as per HPI. The patient denied any abdominal pain, nausea vomiting or any diarrhea. He has chronic constipation for which he takes MiraLAX. He is able to transfer and uses a prosthetic limb and wheelchair to ambulate. Physical Exam Vital Signs: Temp Pulse Resp BP Pulse Ox 25 H 100/87 H 94 10/08/17 23:12 10/09/17 00:01 10/09/17 00:01 General appearance: PRESENT: no acute distress, other - cachectic Head exam: PRESENT: atraumatic, normocephalic Eye exam: PRESENT: conjunctiva pink, PERRLA. ABSENT: scleral icterus Mouth exam: PRESENT: moist Neck exam: PRESENT: full ROM. ABSENT: JVD Respiratory exam: PRESENT: decreased breath sounds - markedly decreased.. ABSENT: rales, rhonchi, wheezes Pulses: PRESENT: normal dorsalis pedis pul GI/Abdominal exam: PRESENT: normal bowel sounds, soft. ABSENT: distended, rebound, tenderness Rectal exam: PRESENT: deferred Extremities exam: PRESENT: other - post right AKA.. ABSENT: pedal edema - left leg. Neurological exam: PRESENT: alert, altered, awake Skin exam: PRESENT: dry, warm. ABSENT: erythema, rash Results Laboratory Results: CBC: WBC 8.1, hemoglobin 12.9, hematocrit 40.0, MCV 78, RDW 26.1, platelets 428. CMP: Sodium 140.4, potassium 5.0, chloride 98, bicarb 32, anion gap 10, BUN 12, creatinine 0.65, liver enzymes within normal limits. Troponin 1 negative. EKG Comments: Lead EKG, sinus rhythm, ventricular rate 100, axis +90, QTc prolongation, first- degree AV block, right bundle branch block. No acute changes. Positive previous positive EKG done on 06/13/2017, sinus rhythm, ventricular rate 110, axis +90, QTc prolongation, poor R-wave propagation, no acute changes. Impressions: Chest X-Ray 10/08/17 23:18 IMPRESSION: New right pleural effusion and small patchy area of lateral basilar airspace disease. Assessment & Plan - Diagnosis (1) Acute and chronic respiratory failure with hypoxia Is this a current diagnosis for this admission?: Yes Plan: Given tachypnea and oxygen desaturation requiring 4 L of oxygen due to COPD exacerbation, questionable right lower lobe pneumonia. According to the patient and his daughter, he had a PET scan done about 2 weeks ago which showed right lower lobe pneumonia for which he was treated with a 1 wk course of doxycycline. We will continue scheduled DuoNebs, IV Solu-Medrol and Levaquin. We will also give Ativan as needed which according to the patient helps. He may need to be on continuous prednisone rather than taper. He said that he follows with pulmonary as outpatient. (2) Right lower lobe pneumonia Qualifiers: Pneumonia type: due to unspecified organism Qualified Code(s): J18.1 - Lobar pneumonia, unspecified organism Is this a current diagnosis for this admission?: Yes Plan: According to the patient and his daughter, his PET scan 2 weeks ago showed right lower lobe pneumonia for which he was treated. Imaging studies lag behind. We will continue Levaquin and follow-up blood cultures. (3) Lung cancer Qualifiers: Lung location: unspecified part of lung Is this a current diagnosis for this admission?: No Plan: Possible. The patient had a PET scan 2 weeks ago which showed lung lesions. Lung biopsy is not an option since he has severe COPD per daughter. (4) Cachexia Is this a current diagnosis for this admission?: No Plan: We will continue to encourage oral intake. He is on remeron as outpatient. - Time Time Spent: 50 to 70 Minutes Anticipated discharge: Home - Inpatient Certification Based on my medical assessment, after consideration of the patient's comorbidities, presenting symptoms, or acuity I expect that the services needed warrant INPATIENT care.: Yes I certify that my determination is in accordance with my understanding of Medicare's requirements for reasonable and necessary INPATIENT services [42 CFR 412.3e].: Yes
[2017-10-09] MEDS: METHYLPREDNISOLONE INJ 40 MG/1 ML SDV IV SCH ×3 (05:24→21:46)
[2017-10-09] MEDS: LORAZEPAM 0.5 MG TABLET PO PRN ×3 (05:24→20:16)
[2017-10-09] MEDS: ALBUTEROL SULFATE 0.083% NEB 2.5 MG/3 ML AMPUL NEB PRN ×3 (05:36→19:44)
[2017-10-09] MEDS: HEPARIN SOD (PORCINE) 5,000 UNIT/ML 1 ML SYRINGE SUBCUT SCH ×3 (05:36→21:34)
[2017-10-09] MEDS: IPRATROPIUM/ALBUTEROL 0.5-2.5 MG/3 ML AMPUL NEB SCH ×3 (08:11→20:54)
[2017-10-09] MEDS: LEVOFLOXACIN 500 MG TABLET PO SCH (09:58)
--- NOTE | 2017-10-09 10:19 | EKG REPORT ---
SEVERITY:- ABNORMAL ECG - SINUS TACHYCARDIA RIGHT ATRIAL ABNORMALITY INCOMPLETE RIGHT BUNDLE BRANCH BLOCK : Confirmed by: Tu Knight 09-Oct-2017 10:18:49
--- NOTE | 2017-10-09 15:58 | Progress Note ---
Provider Note Provider Note: Patient was seen, chart reviewed and patient examined. Patient not wheezing this morning. Patient was on nasal cannula sleeping. Patient was awakened and asked if he was having any problems and he said now. Plan will be to discharge patient tomorrow.
[2017-10-10] MEDS: METHYLPREDNISOLONE INJ 40 MG/1 ML SDV IV SCH (06:12)
[2017-10-10] MEDS: HEPARIN SOD (PORCINE) 5,000 UNIT/ML 1 ML SYRINGE SUBCUT SCH ×3 (06:15→20:53)
[2017-10-10 06:50] LABS: HEMATOCRIT 34.8 % (37.9-51.0); HEMOGLOBIN 10.9 g/dL (13.5-17.0); MEAN CORPUSCULAR HEMOGLOBIN 24.6 pg (27.0-33.4); MEAN CORPUSCULAR HGB CONC 31.4 g/dL (32.0-36.0); MEAN CORPUSCULAR VOLUME 78 fl (80-97); PLATELET COUNT 375 10^3/uL (150-450); RED BLOOD COUNT 4.45 10^6/uL (4.35-5.55); RED CELL DISTRIBUTION WIDTH 25.4 % (11.5-14.0); WHITE BLOOD COUNT 15.1 10^3/uL (4.0-10.5)
[2017-10-10 07:10] LABS: ANION GAP 12 (5-19); BLOOD UREA NITROGEN 16 mg/dL (7-20); CALCIUM 10.3 mg/dL (8.4-10.2); CARBON DIOXIDE 26 mmol/L (22-30); CHLORIDE 103 mmol/L (98-107); GLUCOSE 126 mg/dL (75-110); POTASSIUM 4.7 mmol/L (3.6-5.0)
[2017-10-10] MEDS: IPRATROPIUM/ALBUTEROL 0.5-2.5 MG/3 ML AMPUL NEB SCH ×3 (08:27→19:45)
[2017-10-10] MEDS: LEVOFLOXACIN 500 MG TABLET PO SCH (11:01)
[2017-10-10] MEDS: LORAZEPAM 0.5 MG TABLET PO PRN ×2 (12:23→20:37)
[2017-10-10] MEDS ORDERED: RINGERS SOLUTION,LACTATED 1,000 ML IV PRN (12:51)
--- NOTE | 2017-10-10 12:52 | PDOC PROGRESS REPORT ---
Subjective Progress Note for:: 10/10/17 Subjective:: Pt states his breathing has improved. Patient is requesting to stay an additional day due to family members to help take care of him being sick. Reason For Visit: COPD EXACERBATION Physical Exam Vital Signs: Temp Pulse Resp BP Pulse Ox 97.6 F 113 H 20 145/79 H 98 10/10/17 12:10 10/10/17 12:10 10/10/17 12:10 10/10/17 12:10 10/10/17 12:10 Intake & Output 10/09/17 10/10/17 10/11/17 05:59 06:59 06:59 Intake Total Output Total Balance Weight General appearance: PRESENT: no acute distress, thin, well-developed Head exam: PRESENT: atraumatic, normocephalic Eye exam: PRESENT: conjunctiva pink, EOMI. ABSENT: scleral icterus Ear exam: PRESENT: normal external ear exam Mouth exam: PRESENT: moist, tongue midline Neck exam: ABSENT: carotid bruit, JVD, lymphadenopathy, thyromegaly Respiratory exam: PRESENT: clear to auscultation rito. ABSENT: rales, rhonchi, wheezes Cardiovascular exam: PRESENT: RRR. ABSENT: diastolic murmur, rubs, systolic murmur Pulses: PRESENT: normal dorsalis pedis pul Vascular exam: PRESENT: normal capillary refill GI/Abdominal exam: PRESENT: normal bowel sounds, soft. ABSENT: distended, guarding, mass, organolmegaly, rebound, tenderness Rectal exam: PRESENT: deferred Extremities exam: ABSENT: calf tenderness, clubbing, pedal edema Neurological exam: PRESENT: alert, awake, oriented to person, oriented to place , oriented to time, oriented to situation, CN II-XII grossly intact. ABSENT: motor sensory deficit Psychiatric exam: PRESENT: appropriate affect, normal mood. ABSENT: homicidal ideation, suicidal ideation Skin exam: PRESENT: dry, intact, warm. ABSENT: cyanosis, rash Results Laboratory Results: 10/10/17 05:51 10/10/17 05:51 10/10/17 10/10/17 05:51 05:51 WBC 15.1 H RBC 4.45 Hgb 10.9 L Hct 34.8 L MCV 78 L MCH 24.6 L MCHC 31.4 L RDW 25.4 H Plt Count 375 Sodium 141.0 Potassium 4.7 Chloride 103 Carbon Dioxide 26 Anion Gap 12 BUN 16 Creatinine 0.55 Est GFR ( Amer) > 60 Est GFR (Non-Af Amer) > 60 Glucose 126 H Calcium 10.3 H Magnesium 2.2 Impressions: Chest X-Ray 10/08/17 23:18 IMPRESSION: New right pleural effusion and small patchy area of lateral basilar airspace disease. Assessment & Plan - Diagnosis (1) Acute and chronic respiratory failure with hypoxia Is this a current diagnosis for this admission?: Yes Plan: Secondary to COPD exacerbation and presumed pneumonia: We will continue patient on breathing treatments. Will wean steroids to daily. Will continue Levaquin. (2) Right lower lobe pneumonia Qualifiers: Pneumonia type: due to unspecified organism Qualified Code(s): J18.1 - Lobar pneumonia, unspecified organism Is this a current diagnosis for this admission?: Yes Plan: Will continue Levaquin. (3) Hypercalcemia due to immobilization Is this a current diagnosis for this admission?: Yes Plan: Verse Malignancy: Will place on IVFs. Will check CMP in am. (4) Leukocytosis Is this a current diagnosis for this admission?: Yes Plan: Supportive care. (5) Cachexia Is this a current diagnosis for this admission?: No Plan: Supplemental drinks. (6) Lung cancer Qualifiers: Lung location: unspecified part of lung Is this a current diagnosis for this admission?: No Plan: supportive care. - Time Time Spent with patient: 15-24 minutes
[2017-10-10] MEDS ORDERED: MIRTAZAPINE 15 MG TABLET PO SCH (22:00)
[2017-10-10] MEDS ORDERED: ATORVASTATIN CALCIUM 20 MG TABLET PO SCH (22:00)
[2017-10-11] MEDS: IPRATROPIUM/ALBUTEROL 0.5-2.5 MG/3 ML AMPUL NEB SCH ×3 (02:33→14:12)
[2017-10-11] MEDS ORDERED: LANSOPRAZOLE 30 MG TAB.RAP.DR PO SCH (06:00)
[2017-10-11 07:15] LABS: ABSOLUTE MONOCYTES (AUTO) 0.7 10^3/uL (0.1-1.4); ABSOLUTE NEUT (AUTO) 9.2 10^3/uL (1.7-8.2); BASOPHILS % (AUTO) 0.2 % (0-2); HEMATOCRIT 32.8 % (37.9-51.0); HEMOGLOBIN 10.7 g/dL (13.5-17.0); LYMPHOCYTES % (AUTO) 8.9 % (13-45); MEAN CORPUSCULAR HEMOGLOBIN 25.2 pg (27.0-33.4); MEAN CORPUSCULAR HGB CONC 32.6 g/dL (32.0-36.0); MEAN CORPUSCULAR VOLUME 77 fl (80-97); MONOCYTES % (AUTO) 6.6 % (3-13); PLATELET COUNT 340 10^3/uL (150-450); RED BLOOD COUNT 4.25 10^6/uL (4.35-5.55); RED CELL DISTRIBUTION WIDTH 25.6 % (11.5-14.0); SEGMENTED NEUTROPHILS % (AUTO) 84.3 % (42-78); TOTAL CELLS COUNTED % (AUTO) 100 %; WHITE BLOOD COUNT 10.9 10^3/uL (4.0-10.5)
[2017-10-11] MEDS: HEPARIN SOD (PORCINE) 5,000 UNIT/ML 1 ML SYRINGE SUBCUT SCH ×2 (07:24→13:00)
[2017-10-11 07:29] LABS: BLOOD UREA NITROGEN 14 mg/dL (7-20); CALCIUM 9.3 mg/dL (8.4-10.2); GLUCOSE 89 mg/dL (75-110)
[2017-10-11 07:30] LABS: ALANINE AMINOTRANSFERASE 24 U/L (21-72); ALBUMIN 2.8 g/dL (3.5-5.0); ALKALINE PHOSPHATASE 44 U/L (38-126); ANION GAP 8 (5-19); ASPARTATE AMINO TRANSFERASE 14 U/L (17-59); BILIRUBIN,DIRECT 0.2 mg/dL (0.0-0.4); BILIRUBIN,TOTAL 0.2 mg/dL (0.2-1.3); CARBON DIOXIDE 27 mmol/L (22-30); CHLORIDE 108 mmol/L (98-107); POTASSIUM 4.1 mmol/L (3.6-5.0); SODIUM 143.2 mmol/L (137-145); TOTAL PROTEIN 5.7 g/dL (6.3-8.2)
[2017-10-11 08:01] LABS: ANISOCYTOSIS 3+; POIKILOCYTOSIS 1+; TOXIC GRANULATION SLIGHT
[2017-10-11 08:02] LABS: HYPOCHROMASIA SLIGHT; OVALOCYTES 1+; PLATELET COMMENT ADEQUATE
[2017-10-11] MEDS: LEVOFLOXACIN 500 MG TABLET PO SCH (09:33)
[2017-10-11] MEDS ORDERED: METHYLPREDNISOLONE INJ 125 MG/2 ML SDV IV SCH (10:00)
[2017-10-11] MEDS: LORAZEPAM 0.5 MG TABLET PO PRN (12:59)
--- NOTE | 2017-10-11 15:11 | PDOC DISCHARGE SUMMARY ---
General - Admit/Disc Date/PCP Admission Date/Primary Care Provider: 10/09/17 00:41 Discharge Date: 10/11/17 - Discharge Diagnosis (1) Acute and chronic respiratory failure with hypoxia Is this a current diagnosis for this admission?: Yes Summary: Secondary to Acute COPD exacerbation: Pt was admitted to the hospital where he is placed on steroids, breathing treatments and antibiotics. Patient demonstrates significant improvement and was ready for discharge home. (2) Right lower lobe pneumonia Is this a current diagnosis for this admission?: Yes Summary: Placed on Levaquin. (3) Hypercalcemia due to immobilization Is this a current diagnosis for this admission?: Yes Summary: Resolved with IVF. (4) Leukocytosis Is this a current diagnosis for this admission?: Yes Summary: Resolved. (5) Cachexia Is this a current diagnosis for this admission?: No Summary: Encourage good PO intake. (6) Lung cancer Is this a current diagnosis for this admission?: No Summary: [facility] - Additional Information Resuscitation Status: Do Not Resuscitate Discharge Diet: Cardiac Discharge Activity: Activity As Tolerated Prescriptions: Levofloxacin [Levaquin 500 mg Tablet] 500 mg PO DAILY #5 tablet Methylprednisolone [Medrol Dosepack (4 mg/Tab) 21 Tab/Dosepak] 4 mg PO ASDIR PRN #21 tab.ds.pk PRN Reason: Home Medications: Albuterol Sulfate [Albuterol Sulfate 2.5mg/3 mL] 2.5 mg NEB Q4HP PRN 04/09/17 Albuterol Sulfate [Ventolin HFA MDI 18 GM] 1 puff IH Q6HP PRN 06/14/17 Aspirin [Aspirin EC] 81 mg PO DAILY 06/14/17 Atorvastatin Calcium 20 mg PO QHS 06/14/17 Cyanocobalamin (Vitamin B-12) [Vitamin B-12 1000 mcg Tablet] 1,000 mcg PO DAILY 06/14/17 Folic Acid 1 mg PO DAILY 06/14/17 Glycopyrrolate/Formoterol Fum [Bevespi Aerosphere Inhaler] 1 puff IH DAILY 06/14 Pantoprazole Sodium 40 mg PO DAILY 06/14/17 Lorazepam [Ativan 0.5 mg Tablet] 0.5 mg PO DAILY 10/08/17 Diltiazem HCl [Cardizem Cd 180 mg Capsule] 180 mg PO Q12 10/09/17 Ipratropium/Albuterol Sulfate [Combivent Respimat Inhal [place]] 1 puff IH Q6HP PRN 10/09/17 Levofloxacin [Levaquin 500 mg Tablet] 500 mg PO DAILY #5 tablet 10/11/17 Methylprednisolone [Medrol Dosepack (4 mg/Tab) 21 Tab/Dosepak] 4 mg PO ASDIR PRN #21 tab.ds.pk 10/11/17 History of Present Illness Patient complains of: Shortness of breath History of Present Illness: ASHVIN MORALES is a 72 year old male to the hospital with complaint of shortness of breath. Hospital Course Hospital Course: Patient is 72-year-old gentleman was admitted to our facility for shortness of breath. Patient was found to have COPD exacerbation and pneumonia. Patient was placed on antibiotics and breathing treatments along with steroids. Patient 's symptoms improved. Patient requested to stay for an additional day in order to make sure that his breathing remains good. On day of discharge patient did not want to go home because he stated that someone at home had diarrhea. Patient was instructed to use good hand hygiene. Physical Exam Vital Signs: Temp Pulse Resp BP Pulse Ox 97.8 F 96 16 123/64 99 10/11/17 10:59 10/11/17 14:12 10/11/17 14:12 10/11/17 10:59 10/11/17 10:59 Intake & Output 10/10/17 10/11/17 10/12/17 06:59 06:59 06:59 Intake Total 1371 Output Total 1975 Balance -604 Weight General appearance: PRESENT: no acute distress, well-developed, well-nourished Head exam: PRESENT: atraumatic, normocephalic Eye exam: PRESENT: conjunctiva pink, EOMI. ABSENT: scleral icterus Ear exam: PRESENT: normal external ear exam Mouth exam: PRESENT: moist, tongue midline Neck exam: ABSENT: carotid bruit, JVD, lymphadenopathy, thyromegaly Respiratory exam: PRESENT: clear to auscultation rito. ABSENT: rales, rhonchi, wheezes Cardiovascular exam: PRESENT: RRR. ABSENT: diastolic murmur, rubs, systolic murmur Pulses: PRESENT: normal dorsalis pedis pul Vascular exam: PRESENT: normal capillary refill GI/Abdominal exam: PRESENT: normal bowel sounds, soft. ABSENT: distended, guarding, mass, organolmegaly, rebound, tenderness Rectal exam: PRESENT: deferred Neurological exam: PRESENT: alert, awake, oriented to person, oriented to place , oriented to time, oriented to situation, CN II-XII grossly intact. ABSENT: motor sensory deficit Psychiatric exam: PRESENT: appropriate affect, normal mood. ABSENT: homicidal ideation, suicidal ideation Skin exam: PRESENT: dry, intact, warm. ABSENT: cyanosis, rash Results Laboratory Results: 10/11/17 06:48 10/11/17 06:48 10/11/17 10/11/17 06:48 06:48 WBC 10.9 H RBC 4.25 L Hgb 10.7 L Hct 32.8 L MCV 77 L MCH 25.2 L MCHC 32.6 RDW 25.6 H Plt Count 340 Seg Neutrophils % 84.3 H Lymphocytes % 8.9 L Monocytes % 6.6 Eosinophils % 0.0 Basophils % 0.2 Absolute Neutrophils 9.2 H Absolute Lymphocytes 1.0 Absolute Monocytes 0.7 Absolute Eosinophils 0.0 Absolute Basophils 0.0 Sodium 143.2 Potassium 4.1 Chloride 108 H Carbon Dioxide 27 Anion Gap 8 BUN 14 Creatinine 0.58 Est GFR ( Amer) > 60 Est GFR (Non-Af Amer) > 60 Glucose 89 Calcium 9.3 Total Bilirubin 0.2 AST 14 L ALT 24 Alkaline Phosphatase 44 Total Protein 5.7 L Albumin 2.8 L Impressions: Chest X-Ray 10/08/17 23:18 IMPRESSION: New right pleural effusion and small patchy area of lateral basilar airspace disease. Qualifiers - * PATEINT BEING DISCHARGED WITH ANY OF THE FOLLOWING DIAGNOSIS?: No Plan Time Spent: Greater than 30 Minutes
[2017-10-11 15:34] VITALS: BP 121/65
== END 2017-10-11 16:15 | disposition home or self-care (01) | DRG 190 ==
LOC: ER 23:08 → EH 10-09 00:41 → 4N 10-09 20:38
PROVIDERS: ADMIT Internal Medicine Geriatric Medicine; ATTEND Internal Medicine Geriatric Medicine
DX: J44.1 Chronic obstructive pulmonary disease with (acute) exacerbation (principal); J18.9 Pneumonia, unspecified organism; J96.01 Acute respiratory failure with hypoxia; R64 Cachexia; C34.90 Malignant neoplasm of unspecified part of unspecified bronchus or lung; Z68.1 Body mass index [BMI] 19.9 or less, adult; J44.0 Chronic obstructive pulmonary disease with (acute) lower respiratory infection; J44.9 Chronic obstructive pulmonary disease, unspecified; K21.9 Gastro-esophageal reflux disease without esophagitis; Z66 Do not resuscitate; E83.52 Hypercalcemia; D72.829 Elevated white blood cell count, unspecified; Z99.81 Dependence on supplemental oxygen; Z87.891 Personal history of nicotine dependence; Z80.1 Family history of malignant neoplasm of trachea, bronchus and lung; Z82.3 Family history of stroke; Z83.3 Family history of diabetes mellitus
CPT/HCPCS: 36415; 71045; 80048; 80053; 83735; 84484; 85025; 85027; 87040; 93005; 93010; 94640; 99285; J0456; J0696; J1644; J2920; J2930; J7120; J7620

== ENCOUNTER 2017-11-28 22:50 | Inpatient (IN) | payer MEDICARE, BC ==
[2017-11-28] MEDS ORDERED: ALBUTEROL SULFATE 0.083% NEB 2.5 MG/3 ML AMPUL NEB ONE (22:54)
[2017-11-28] MEDS ORDERED: HALOPERIDOL LACTATE INJ 5 MG/1 ML VIAL IV ONE (22:55)
[2017-11-28] MEDS ORDERED: NORMAL SALINE 1000 ML 1,000 ML IV ONE (22:55)
--- NOTE | 2017-11-28 22:59 | ER Document Report ---
ED General - General Stated Complaint: TROUBLE BREATHING Time Seen by Provider: 11/28/17 22:53 Notes: Patient is a 72-year-old male with history of emphysema, 2 L of nasal cannula oxygen dependence at baseline who presents with shortness of breath. Patient reports that he has had progressively worsening shortness of breath over the last 2-3 hours that was minimally responsive to his home nebulizer therapies. He states that the symptoms were getting progressively worse since they started which prompted him to come to the emergency department for further assessment. He does arrive by EMS. Nothing seemed to trigger his symptoms. He has a history of similar symptoms in the past with COPD exacerbations. He denies ever requiring intubation in the past but has been placed on BiPAP which he states he has difficulty tolerating. He has not seen his primary doctor regarding today's concerns. He denies any fever, cough or constitutional symptoms. He denies any chest pain. TRAVEL OUTSIDE OF THE [place] IN LAST 30 DAYS: No - Related Data Allergies/Adverse Reactions: No Known Allergies Allergy (Verified 11/29/17 00:42) Past Medical History - General Information source: Patient - Social History Smoking Status: Former Smoker Frequency of alcohol use: None Drug Abuse: None Lives with: Family Family History: COPD - Past Medical History Cardiac Medical History: Reports: Hx Atrial Fibrillation, Hx Hypercholesterolemia, Hx Hypertension Pulmonary Medical History: Reports: Hx COPD Renal/ Medical History: Denies: Hx Peritoneal Dialysis Malignancy Medical History: Reports Hx Lung Cancer - possible GI Medical History: Reports: Hx Gastroesophageal Reflux Disease Traumatic Medical History: Reports: Hx Pneumothorax Past Surgical History: Reports: Hx Orthopedic Surgery - RIGHT AKA - Immunizations Hx Diphtheria, Pertussis, Tetanus Vaccination: Yes Hx Pneumococcal Vaccination: 04/02/17 Review of Systems - Review of Systems Notes: Constitutional: Negative for fever. HENT: Negative for sore throat. Eyes: Negative for visual changes. Cardiovascular: Negative for chest pain. Respiratory: Positive for shortness of breath. Gastrointestinal: Negative for abdominal pain, vomiting or diarrhea. Genitourinary: Negative for dysuria. Musculoskeletal: Negative for back pain. Skin: Negative for rash. Neurological: Negative for headaches, weakness or numbness. 10 point ROS negative except as marked above and in HPI. Physical Exam - Vital signs Vitals: Resp Pulse Ox 41 H 99 11/28/17 22:52 11/28/17 22:52 Interpretation: Tachycardic, Tachypneic Notes: PHYSICAL EXAMINATION: GENERAL: In moderate respiratory distress. HEAD: Atraumatic, normocephalic. EYES: Pupils equal round and reactive to light, extraocular movements intact, sclera anicteric, conjunctiva are normal. ENT: nares patent, oropharynx clear without exudates. Moderately dry mucous membranes. NECK: Normal range of motion, supple without lymphadenopathy LUNGS: Diminished air movement in all lung [place]. Faint end expiratory wheezing throughout. Moderate respiratory distress breathing 32-34 times per minute. Supraclavicular intercostal retractions are present. HEART: Regular tachycardia without murmurs ABDOMEN: Soft, nontender, normoactive bowel sounds. No guarding, no rebound. No masses appreciated. EXTREMITIES: Right AKA. No edema to the left lower extremity. No cyanosis. NEUROLOGICAL: No focal neurological deficits. Moves all extremities spontaneously and on command. PSYCH: Normal mood, normal affect. SKIN: Warm, Dry, normal turgor, no rashes or lesions noted. Course - Re-evaluation Re-evalutation: 11/28/17 22:58 Patient comes in in respiratory distress breathing 35 times per minute, supraclavicular intercostal retractions, unable to speak in complete sentences in what appears to be an apparent COPD exacerbation. The patient is not moving air and has a prolonged respiratory phase with associated expiratory wheezing in all lung [place]. He has a history of similar presentations in the past and is hesitant to trial BiPAP which I do believe is indicated at this time point as he has received 3 do nebulizers and continues to have obvious respiratory distress. He is hesitant to try this but I have offered a course of haloperidol in addition to the BiPAP with in-line nebulizers to try to improve his symptoms. Will also place an IV, begin IV magnesium, IV fluids, obtain a chest x-ray and basic labs. The patient is alert he received 125 mg of Solu- Medrol prior to coming to the hospital today. Critical given his respiratory status and will require frequent reassessments. 11/28/17 23:23 Patient is having minimal improvement of air movement although his work of breathing has improved currently breathing approximately 24 times per minute. He continues to have expiratory wheezing all lung [place]. Despite giving 3 mg of haloperidol patient does not continue to decline BiPAP stating he understands that he could get sicker and does continue to wish to avoid this. Will continue to reassess frequently intervals. 11/29/17 00:10 Patient is doing much better after receiving a total of 15 mg of continuous albuterol nebulizers. Magnesium has infused. He is no longer any form of respiratory distress. Breathing approximately 22 times per minute. Patient was removed off of his continuous nebulizer and will be monitored for at least 1 hour to see how his breathing pattern progresses off continuous nebulizers. 11/29/17 00:56 Patient was doing quite well until just now when he had to move himself around in the bed to urinate. Even minimal exertion left the patient immediately more tachypnea, again breathing 26-30 times per minute. Visibly dyspneic. Will restart nebulizers and contact the hospitalist for admission. 11/29/17 01:[address] Burton who has accepted the patient for admission. - Vital Signs Vital signs: Temp Pulse Resp BP Pulse Ox 94 22 H 107/85 97 11/28/17 22:53 11/29/17 00:01 11/29/17 00:01 11/29/17 00:01 - Laboratory Result Diagrams: 11/28/17 23:00 11/28/17 23:00 Laboratory results interpreted by me: 11/28/17 23:00 WBC 11.5 H Hgb 12.0 L Hct 37.4 L MCV 77 L MCH 24.8 L RDW 16.2 H - Diagnostic Test Radiology reviewed: Image reviewed, Reports reviewed Radiology results interpreted by me: 11/29/17 00:30 Chest x-ray: No acute infiltrate Critical Care Note - Critical Care Note Total time excluding time spent on procedures (mins): 40 Comments: Critical care time spent obtaining history from patient or surrogate, discussions with consultants, development of treatment plan with patient or surrogate, evaluation of patient's response to treatment, examination of patient , ordering and performing treatments and interventions, ordering and review of laboratory studies, re-evaluation of patient's condition, ordering and review of radiographic studies and review of old charts Discharge - Discharge Clinical Impression: COPD exacerbation, Respiratory distress COPD (chronic obstructive pulmonary disease) Qualifiers: COPD type: emphysema Emphysema type: unspecified Qualified Code(s): J43.9 - Emphysema, unspecified Condition: Fair Disposition: ADMITTED OBSERVATION Admitting Provider: Hospitalist Unit Admitted: Telemetry Referrals: VELVET RAO MD [Primary Care Provider] - Follow up as needed
[2017-11-28] MEDS: MAGNESIUM SULFATE/D5W 1 GM/100 ML RTUPB IV SCH ×2 (23:04→23:08)
[2017-11-28 23:22] LABS: BLOOD UREA NITROGEN 16 mg/dL (7-20); CALCIUM 9.6 mg/dL (8.4-10.2); GLUCOSE 105 mg/dL (75-110)
[2017-11-28 23:23] LABS: ANION GAP 11 (5-19); CARBON DIOXIDE 28 mmol/L (22-30); CHLORIDE 102 mmol/L (98-107); POTASSIUM 4.8 mmol/L (3.6-5.0); SODIUM 140.6 mmol/L (137-145)
[2017-11-28 23:24] LABS: ABSOLUTE BASOPHILS # (AUTO) 0.1 10^3/uL (0.0-0.2); ABSOLUTE EOSINOPHILS # (AUTO) 0.6 10^3/uL (0.0-0.6); ABSOLUTE LYMPHOCYTES (AUTO) 2.4 10^3/uL (0.5-4.7); ABSOLUTE MONOCYTES (AUTO) 1.2 10^3/uL (0.1-1.4); ABSOLUTE NEUT (AUTO) 7.2 10^3/uL (1.7-8.2); BASOPHILS % (AUTO) 1.2 % (0-2); EOSINOPHILS % (AUTO) 5.1 % (0-6); HEMATOCRIT 37.4 % (37.9-51.0); LYMPHOCYTES % (AUTO) 20.5 % (13-45); MEAN CORPUSCULAR HEMOGLOBIN 24.8 pg (27.0-33.4); MEAN CORPUSCULAR HGB CONC 32.1 g/dL (32.0-36.0); MEAN CORPUSCULAR VOLUME 77 fl (80-97); MONOCYTES % (AUTO) 10.3 % (3-13); PLATELET COUNT 428 10^3/uL (150-450); RED BLOOD COUNT 4.82 10^6/uL (4.35-5.55); RED CELL DISTRIBUTION WIDTH 16.2 % (11.5-14.0); SEGMENTED NEUTROPHILS % (AUTO) 62.9 % (42-78); TOTAL CELLS COUNTED % (AUTO) 100 %; WHITE BLOOD COUNT 11.5 10^3/uL (4.0-10.5)
--- NOTE | 2017-11-28 23:39 | RADIOLOGY REPORT (SQ) ---
EXAM DESCRIPTION: CHEST SINGLE VIEW CLINICAL HISTORY: 72 years Male, sob COMPARISON: 3.9.18, 08/28/2017. NUMBER OF VIEWS/TECHNIQUE: 1/AP FINDINGS: Increased lung volume, small right basilar and right apical scar pattern, calcified granuloma of the left midlung field, normal cardiac silhouette, atherosclerosis, and intact bony thorax. Chronic. IMPRESSION: No acute cardiopulmonary findings. Emphysematous hyperinflation. Possible pulmonary fibrosis/scar.
[2017-11-29 00:05] LABS: HYPOCHROMASIA SLIGHT
[2017-11-29 00:06] LABS: ACANTHOCYTES SLIGHT; ANISOCYTOSIS 1+; OVALOCYTES SLIGHT; PLATELET COMMENT ADEQUATE; POIKILOCYTOSIS SLIGHT
[2017-11-29] MEDS ORDERED: ALBUTEROL SULFATE 0.083% NEB 2.5 MG/3 ML AMPUL NEB ONE (00:57)
[2017-11-29] MEDS ORDERED: ACETAMINOPHEN 325 MG TABLET PO PRN (01:04)
[2017-11-29] MEDS ORDERED: HYDRALAZINE HCL INJ/PF 20 MG/1 ML SDV IV PRN (01:04)
[2017-11-29] MEDS ORDERED: CHLORPHENIRAMINE MALEATE 4 MG TABLET PO ONE (01:04)
[2017-11-29] MEDS ORDERED: IPRATROPIUM/ALBUTEROL 0.5-2.5 MG/3 ML AMPUL NEB PRN (01:04)
[2017-11-29] MEDS ORDERED: PREDNISONE 20 MG TABLET PO ONE (01:30)
[2017-11-29] MEDS ORDERED: FLUTICASONE NASAL SPRAY 50 MCG/SPRY 120 SPRAY/16 GM NASL ONE (01:30)
[2017-11-29] MEDS ORDERED: FLUTICASONE NASAL SPRAY 50 MCG/SPRY 120 SPRAY/16 GM ONE (01:41)
[2017-11-29] MEDS ORDERED: CHLORPHENIRAMINE MALEATE 4 MG TABLET ONE (01:41)
[2017-11-29] MEDS: IPRATROPIUM/ALBUTEROL 0.5-2.5 MG/3 ML AMPUL NEB SCH ×4 (01:57→19:38)
[2017-11-29] MEDS ORDERED: LEVOFLOXACIN 750 MG/D5W RTU 750 MG/150 ML RTUPB IV ONE (02:00)
--- NOTE | 2017-11-29 05:59 | PDOC H&P ---
History of Present Illness Admission Date/PCP: 11/29/17 01:23 Patient complains of: Shortness of breath History of Present Illness: ASHVIN MORALES is a 72 year old male with a history of oxygen dependent emphysema with baseline shortness of breath, chronic bronchitis, deconditioning , peripheral vascular disease status post right AKA. He presents with acute on chronic shortness of breath 6 hours not amenable to multiple albuterol nebulizers as an outpatient. In the emergency room is found to have global wheeze, hypoxia at 88% on room air and a nonproductive cough. Patient denies recent change in medications, exceptional rhinorrhea, GERD or sore throat. He speaks with a hoarse voice which is a result of remote injury following prolonged intubation. Denies recent change in medications or antibiotics. He receives continuous nebulizer treatment, magnesium and referred to the hospitalist for admission. Past Medical History Cardiac Medical History: Reports: Atrial Fibrillation, Hyperlipidema, Hypertension Pulmonary Medical History: Reports: Bronchitis, Chronic Obstructive Pulmonary Disease (COPD), Intubation, Respiratory Failure Malignancy Medical History: Reports: Lung Cancer - possible GI Medical History: Reports: Gastroesophageal Reflux Disease Psychiatric Medical History: Denies: Alcohol Dependency, Dementia, General Anxiety Disorder, Tobacco Dependency Traumatic Medical History: Reports: Pneumothorax Past Surgical History Past Surgical History: Reports: Orthopedic Surgery - RIGHT AKA Social History Information Source: Patient, [facility] Records Lives with: Family Smoking Status: Former Smoker Frequency of Alcohol Use: None Hx Recreational Drug Use: No Drugs: None Hx Prescription Drug Abuse: No - Advance Directive Resuscitation Status: Full Code Family History Family History: COPD Parental Family History Reviewed: Yes Children Family History Reviewed: Yes Sibling(s) Family History Reviewed.: Yes Medication/Allergy Home Medications: Albuterol Sulfate [Albuterol Sulfate 2.5mg/3 mL] 2.5 mg NEB Q4HP PRN 04/09/17 Albuterol Sulfate [Ventolin HFA MDI 18 GM] 1 puff IH Q6HP PRN 06/14/17 Aspirin [Aspirin EC] 81 mg PO DAILY 06/14/17 Atorvastatin Calcium 20 mg PO QHS 06/14/17 Folic Acid 1 mg PO DAILY 06/14/17 Glycopyrrolate/Formoterol Fum [Bevespi Aerosphere Inhaler] 1 puff IH DAILY 06/14 Pantoprazole Sodium 40 mg PO DAILY 06/14/17 Lorazepam [Ativan 0.5 mg Tablet] 0.5 mg PO DAILY PRN 10/08/17 Ipratropium/Albuterol Sulfate [Combivent Respimat Inhal [place]] 1 puff IH Q6HP PRN 10/09/17 Diltiazem HCl [Cartia Xt] 180 mg PO DAILY 11/29/17 Glycopyrrolate/Formoterol Fum [Bevespi Aerosphere Inhaler] 2 puff IH BID Mirtazapine 30 mg PO DAILY 11/29/17 Polyethylene Glycol 3350 [Gavilax] 17 gm PO DAILY 11/29/17 Allergies/Adverse Reactions: No Known Allergies Allergy (Verified 11/29/17 00:42) Review of Systems Constitutional: PRESENT: as per HPI, fatigue, weakness. ABSENT: chills, fever(s ), headache(s), weight gain, weight loss Eyes: ABSENT: visual disturbances Ears: ABSENT: hearing changes Nose, Mouth, and Throat: PRESENT: as per HPI Cardiovascular: ABSENT: chest pain, dyspnea on exertion, edema, orthropnea, palpitations Respiratory: PRESENT: as per HPI, cough, dyspnea. ABSENT: hemoptysis, sputum Gastrointestinal: ABSENT: abdominal pain, constipation, diarrhea, hematemesis, hematochezia, nausea, vomiting Genitourinary: ABSENT: dysuria, hematuria Musculoskeletal: ABSENT: joint swelling Integumentary: ABSENT: rash, wounds Neurological: ABSENT: abnormal gait, abnormal speech, confusion, dizziness, focal weakness, syncope Psychiatric: ABSENT: anxiety, depression, homidical ideation, suicidal ideation Endocrine: ABSENT: cold intolerance, heat intolerance, polydipsia, polyuria Hematologic/Lymphatic: ABSENT: easy bleeding, easy bruising Physical Exam Vital Signs: Temp Pulse Resp BP Pulse Ox 97.7 F 94 21 H 108/66 97 11/29/17 03:19 11/28/17 22:53 11/29/17 05:01 11/29/17 05:01 11/29/17 05:01 General appearance: PRESENT: cooperative, mild distress, thin. ABSENT: hard of hearing Head exam: PRESENT: atraumatic, normocephalic Eye exam: PRESENT: conjunctiva pink, EOMI, PERRLA. ABSENT: scleral icterus Ear exam: PRESENT: normal external ear exam Mouth exam: PRESENT: moist, tongue midline Neck exam: ABSENT: carotid bruit, JVD, lymphadenopathy, thyromegaly Respiratory exam: PRESENT: accessory muscle use, crackles, symmetrical, tachypnea, wheezes. ABSENT: rhonchi, stridor Cardiovascular exam: PRESENT: RRR, tachycardia. ABSENT: diastolic murmur, rubs , systolic murmur Pulses: PRESENT: normal dorsalis pedis pul Vascular exam: PRESENT: normal capillary refill GI/Abdominal exam: PRESENT: normal bowel sounds, soft. ABSENT: distended, guarding, mass, organolmegaly, rebound, tenderness Rectal exam: PRESENT: deferred Extremities exam: PRESENT: full ROM. ABSENT: calf tenderness, clubbing, pedal edema Neurological exam: PRESENT: alert, awake, oriented to person, oriented to place , oriented to time, oriented to situation, CN II-XII grossly intact. ABSENT: motor sensory deficit Psychiatric exam: PRESENT: appropriate affect, normal mood. ABSENT: homicidal ideation, suicidal ideation Skin exam: PRESENT: dry, intact, warm. ABSENT: cyanosis, rash Results Impressions: Chest X-Ray 11/28/17 22:55 IMPRESSION: No acute cardiopulmonary findings. Emphysematous hyperinflation. Possible pulmonary fibrosis/scar. Assessment & Plan - Diagnosis (1) Acute exacerbation of chronic bronchitis Is this a current diagnosis for this admission?: Yes Plan: Empiric antibiotics, continue oxygen, incentive spirometry, flutter valve, prednisone, albuterol and Atrovent (2) COPD (chronic obstructive pulmonary disease) Qualifiers: COPD type: emphysema Emphysema type: unspecified Qualified Code(s): J43.9 - Emphysema, unspecified Plan: Flutter valve and #1 (3) Acute and chronic respiratory failure with hypoxia Is this a current diagnosis for this admission?: Yes Plan: Aggressive pulmonary toilet (4) Cachexia Is this a current diagnosis for this admission?: Yes Plan: Secondary to severely reduced pulmonary function. Supportive care - Time Time Spent: 30 to 50 Minutes - Inpatient Certification Medical Necessity: Need Close Monitoring Due to Risk of Patient Decompensation
[2017-11-29] MEDS: HEPARIN SOD (PORCINE) 5,000 UNIT/ML 1 ML SYRINGE SUBCUT SCH ×3 (06:34→21:12)
--- NOTE | 2017-11-29 08:55 | Physician Advisory Note ---
Physician Advisor ProgressNote .: Pursuant to the plan for [facility], I have reviewed the medical record for this patient. Physician Advisor Statement: Nice documentation of acute & chronic Hypoxemic Resp Failure, needing 2L O2 at baseline, & with persistently increased work of breathing in ED despite multiple aggressive tx.s. Please consider documenting, if you agree: 1. "underweight with protein-calorie malnutrition [state mild, mod, or severe] with BMI 13.3, ____[?wt loss, ?appetite loss, ]" [if possible, give specifics on intake, wt loss, loss of SQ fat & muscle mass, diminished hand supervisor polishing strength, & clinical importance such as (A) nutritional assessment ordered, (B) modified diet or supplements ordered, (C) additional labs ordered, (D) prolonged wound healing time, (E) delayed infxn clearance] Status: Medicare pt, already under aggressive hospital care x 1 MN & clearly will need at least 2 MNs of continued hospital level care before he can be considered safe for d/c. Attending clearly expecting a 2nd MN. Pt still w/ recurrent tachycardia & persistent tachypnea, accessory muscle use, SOB > baseline. Appropriate for Inpatient status. Thanks! CK
[2017-11-29] MEDS: FLUTICASONE NASAL SPRAY 50 MCG/SPRY 120 SPRAY/16 GM NASL SCH (09:08)
[2017-11-29] MEDS: PREDNISONE 20 MG TABLET PO SCH ×2 (09:08→17:35)
--- NOTE | 2017-11-29 13:12 | EKG REPORT ---
SEVERITY:- ABNORMAL ECG - SINUS TACHYCARDIA RIGHT ATRIAL ABNORMALITY INCOMPLETE RIGHT BUNDLE BRANCH BLOCK : Confirmed by: Tu Knight 29-Nov-2017 13:12:04
[2017-11-29] MEDS ORDERED: LORAZEPAM 0.5 MG TABLET PO PRN (15:08)
--- NOTE | 2017-11-29 15:15 | PDOC PROGRESS REPORT ---
Subjective Progress Note for:: 11/29/17 Subjective:: The patient is a 72-year-old male with a history of oxygen dependent emphysema with baseline shortness of breath, chronic bronchitis, deconditioning, peripheral vascular disease status post right AKA who was admitted on 11/29/17 for acute exacerbation of chronic bronchitis. The patient is seen on morning rounds. He is found sitting upright in bed on his baseline oxygen requirement of 3 L/min. He reports continued dyspnea while at rest and nonproductive cough. He states that he is feeling somewhat better than last night. He denies fever, chills, headache, dizziness, chest pain, palpitations, orthopnea, abdominal pain, nausea and vomiting, He does endorse dyspnea while at rest that is somewhat worse than his baseline. He has no new questions or concerns today. Reason For Visit: COPD EXACERBATION Physical Exam Vital Signs: Temp Pulse Resp BP Pulse Ox 97.3 F 97 17 101/77 93 11/29/17 11:27 11/29/17 13:44 11/29/17 13:44 11/29/17 11:27 11/29/17 11:27 Intake & Output 11/28/17 11/29/17 11/30/17 06:59 06:59 06:59 Intake Total 474 Output Total 300 Balance 174 General appearance: PRESENT: no acute distress, well-developed, well-nourished Head exam: PRESENT: atraumatic, normocephalic Eye exam: PRESENT: conjunctiva pink, EOMI, PERRLA. ABSENT: scleral icterus Ear exam: PRESENT: normal external ear exam Mouth exam: PRESENT: moist, tongue midline Neck exam: ABSENT: carotid bruit, JVD, lymphadenopathy, thyromegaly Respiratory exam: PRESENT: clear to auscultation rtio. ABSENT: rales, rhonchi, wheezes Cardiovascular exam: PRESENT: RRR. ABSENT: diastolic murmur, rubs, systolic murmur Pulses: PRESENT: normal dorsalis pedis pul Vascular exam: PRESENT: normal capillary refill GI/Abdominal exam: PRESENT: normal bowel sounds, soft. ABSENT: distended, guarding, mass, organolmegaly, rebound, tenderness Rectal exam: PRESENT: deferred Extremities exam: PRESENT: full ROM. ABSENT: calf tenderness, clubbing, pedal edema Neurological exam: PRESENT: alert, awake, oriented to person, oriented to place , oriented to time, oriented to situation, CN II-XII grossly intact. ABSENT: motor sensory deficit Psychiatric exam: PRESENT: appropriate affect, normal mood. ABSENT: homicidal ideation, suicidal ideation Skin exam: PRESENT: dry, intact, warm. ABSENT: cyanosis, rash Results Impressions: Chest X-Ray 11/28/17 22:55 IMPRESSION: No acute cardiopulmonary findings. Emphysematous hyperinflation. Possible pulmonary fibrosis/scar. Assessment & Plan - Diagnosis (1) Acute and chronic respiratory failure with hypoxia Is this a current diagnosis for this admission?: Yes Plan: Acute on chronic respiratory failure with hypoxia secondary to exacerbation of chronic bronchitis. Patient requires 2 L O2 at baseline presented to the emergency department overnight with increased work of breathing despite multiple nebulizer treatments. He is admitted to the medical floor on continuous cardiac telemetry. He is provided supplemental oxygen as needed to maintain oxygen saturations greater than 88%. BiPAP as needed. He has been empirically placed on Levaquin for coverage of acute bronchitis. Scheduled and as needed nebulizer treatments are provided. The patient has been placed on p.o. prednisone for COPD/emphysema exacerbation. Flutter valve hourly while awake. (2) Acute exacerbation of chronic bronchitis Is this a current diagnosis for this admission?: Yes Plan: Plan as above. (3) COPD (chronic obstructive pulmonary disease) Qualifiers: COPD type: emphysema Emphysema type: unspecified Qualified Code(s): J43.9 - Emphysema, unspecified Is this a current diagnosis for this admission?: Yes Plan: Plan as above. (4) Cachexia Is this a current diagnosis for this admission?: Yes Plan: The patient has severe protein calorie malnutrition with a BMI of 13.3. He is noted to have a loss of subcutaneous fat and muscle mass. He demonstrates generalized weakness and debility. Albumin from previous visit (10/11/17) noted to be 2.8. Resume Remeron. The patient will benefit from registered dietitian. (5) Anxiety Is this a current diagnosis for this admission?: Yes Plan: Secondary to air hunger; will resume the patient's home medication regiment. - Time Time Spent with patient: 25-34 minutes Medications reviewed and adjusted accordingly: Yes Anticipated discharge: Home Within: within 48 hours - Inpatient Certification Based on my medical assessment, after consideration of the patient's comorbidities, presenting symptoms, or acuity I expect that the services needed warrant INPATIENT care.: Yes I certify that my determination is in accordance with my understanding of Medicare's requirements for reasonable and necessary INPATIENT services [42 CFR 412.3e].: Yes Medical Necessity: Failure to Improve With Outpatient Therapy, Need for Nebulizer Therapy and Monitoring of Response
[2017-11-29 16:21] LABS: ANION GAP 13 (5-19); BLOOD UREA NITROGEN 14 mg/dL (7-20); CALCIUM 9.7 mg/dL (8.4-10.2); CARBON DIOXIDE 27 mmol/L (22-30); CHLORIDE 105 mmol/L (98-107); GLUCOSE 103 mg/dL (75-110); POTASSIUM 4.5 mmol/L (3.6-5.0); SODIUM 145.4 mmol/L (137-145)
[2017-11-29] MEDS: ATORVASTATIN CALCIUM 20 MG TABLET PO SCH (21:10)
[2017-11-29] MEDS: MIRTAZAPINE 15 MG TABLET PO SCH (21:11)
[2017-11-30] MEDS: FLUTICASONE NASAL SPRAY 50 MCG/SPRY 120 SPRAY/16 GM NASL SCH ×3 (00:14→22:19)
[2017-11-30] MEDS: IPRATROPIUM/ALBUTEROL 0.5-2.5 MG/3 ML AMPUL NEB SCH ×6 (01:41→23:50)
[2017-11-30 05:20] LABS: ABSOLUTE BASOPHILS # (AUTO) 0.1 10^3/uL (0.0-0.2); ABSOLUTE LYMPHOCYTES (AUTO) 0.9 10^3/uL (0.5-4.7); ABSOLUTE MONOCYTES (AUTO) 0.8 10^3/uL (0.1-1.4); ABSOLUTE NEUT (AUTO) 16.2 10^3/uL (1.7-8.2); BASOPHILS % (AUTO) 0.5 % (0-2); HEMATOCRIT 31.2 % (37.9-51.0); LYMPHOCYTES % (AUTO) 5.2 % (13-45); MEAN CORPUSCULAR HEMOGLOBIN 24.4 pg (27.0-33.4); MEAN CORPUSCULAR HGB CONC 31.5 g/dL (32.0-36.0); MEAN CORPUSCULAR VOLUME 77 fl (80-97); MONOCYTES % (AUTO) 4.5 % (3-13); PLATELET COUNT 359 10^3/uL (150-450); RED BLOOD COUNT 4.04 10^6/uL (4.35-5.55); RED CELL DISTRIBUTION WIDTH 16.1 % (11.5-14.0); SEGMENTED NEUTROPHILS % (AUTO) 89.8 % (42-78); TOTAL CELLS COUNTED % (AUTO) 100 %; WHITE BLOOD COUNT 18.1 10^3/uL (4.0-10.5)
[2017-11-30] MEDS: LANSOPRAZOLE 30 MG TAB.RAP.DR PO SCH (05:23)
[2017-11-30] MEDS: HEPARIN SOD (PORCINE) 5,000 UNIT/ML 1 ML SYRINGE SUBCUT SCH ×3 (05:23→22:19)
[2017-11-30 05:33] LABS: ANION GAP 9 (5-19); BLOOD UREA NITROGEN 17 mg/dL (7-20); CALCIUM 9.4 mg/dL (8.4-10.2); CARBON DIOXIDE 28 mmol/L (22-30); CHLORIDE 106 mmol/L (98-107); GLUCOSE 117 mg/dL (75-110); POTASSIUM 4.6 mmol/L (3.6-5.0)
[2017-11-30 06:16] LABS: HEMOGLOBIN 9.8 g/dL (13.5-17.0)
[2017-11-30 06:20] LABS: ANISOCYTOSIS 1+; POIKILOCYTOSIS 1+; TOXIC GRANULATION SLIGHT; TOXIC VACUOLATION PRESENT
[2017-11-30 06:21] LABS: BURR CELLS 1+; PLATELET CLUMPS PRESENT; PLATELET COMMENT ADEQUATE; PLATELET LARGE PRESENT; POLYCHROMASIA SLIGHT; SCHISTOCYTES 1+
[2017-11-30] MEDS ORDERED: LEVOFLOXACIN 750 MG/D5W RTU 750 MG/150 ML RTUPB IV SCH ×2 (08:00→22:00)
[2017-11-30] MEDS ORDERED: METHYLPREDNISOLONE INJ 125 MG/2 ML SDV IV ONE (09:11)
[2017-11-30] MEDS ORDERED: LEVALBUTEROL HCL NEB 1.25 MG/3 ML AMPUL NEB PRN (09:12)
--- NOTE | 2017-11-30 09:49 | RADIOLOGY REPORT (SQ) ---
EXAM DESCRIPTION: CHEST SINGLE VIEW COMPLETED DATE/TIME: 11/30/2017 9:36 am REASON FOR STUDY: shortness of breath COMPARISON: Chest films 11/28/2017, 10/08/2017, 08/15/2017, 08/13/2016 EXAM PARAMETERS: NUMBER OF VIEWS: One view. TECHNIQUE: Single frontal radiographic view of the chest acquired. RADIATION DOSE: NA LIMITATIONS: None. FINDINGS: LUNGS AND PLEURA: Minimal patchy airspace disease right lateral costophrenic sulcus. Lungs are otherwise well inflated and free of focal infiltrates. Hyperinflation with flattening in t he hemidiaphragms. Biapical pleural-parenchymal scarring. No pneumothorax. No pleural effusions. MEDIASTINUM AND HILAR STRUCTURES: No masses. Contour normal. HEART AND VASCULAR STRUCTURES: Heart normal in size. Normal vasculature. BONES: No acute findings. HARDWARE: None in the chest. OTHER: No other significant finding. IMPRESSION: Minimal airspace disease right lateral costophrenic sulcus, worrisome for minimal right basilar pneumonia TECHNICAL DOCUMENTATION: JOB ID: [id number] [email or web address]- All Rights Reserved Reading location - IP/workstation name: [facility]
[2017-11-30] MEDS ORDERED: (PENDING PHARMACY ID) (Diltiazem Hcl [Cartia Xt] 180 MG) PO SCH (10:00)
[2017-11-30] MEDS: POLYETHYLENE GLYCOL 3350 POWDER 17 GM/1 PACKET PO SCH (10:25)
[2017-11-30] MEDS: ASPIRIN 81 MG TABLET, ENT COATED PO SCH (10:26)
[2017-11-30] MEDS: FOLIC ACID 1 MG TABLET PO SCH (10:26)
[2017-11-30] MEDS: CYANOCOBALAMIN (VITAMIN B-12) 1,000 MCG TABLET PO SCH (10:26)
[2017-11-30] MEDS: DILTIAZEM HCL 180 MG CAPSULE.CR PO SCH (10:26)
[2017-11-30] MEDS ORDERED: LEVALBUTEROL HCL NEB 1.25 MG/3 ML AMPUL NEB ONE (10:30)
[2017-11-30 15:12] LABS: ANION GAP 11 (5-19); BLOOD UREA NITROGEN 17 mg/dL (7-20); CALCIUM 9.4 mg/dL (8.4-10.2); CARBON DIOXIDE 28 mmol/L (22-30); CHLORIDE 106 mmol/L (98-107); GLUCOSE 103 mg/dL (75-110); POTASSIUM 4.8 mmol/L (3.6-5.0); SODIUM 144.7 mmol/L (137-145)
--- NOTE | 2017-11-30 15:28 | PDOC PROGRESS REPORT ---
Subjective Progress Note for:: 11/30/17 Subjective:: Vic Hines is a 72-year-old male with a history of oxygen dependent emphysema with baseline shortness of breath, chronic bronchitis, deconditioning , peripheral vascular disease status post right AKA who was admitted on 11/29/17 for acute exacerbation of chronic bronchitis. The patient was seen this morning on rounds. He was tachypneic, able to speak in partial sentences but frequently had to pause to take a breath. SPO2 remained greater than 90% on 2 L/min nasal cannula. The patient states his symptoms came on suddenly when he attempted to get out of bed to use the restroom. Nursing staff reports that the patient received a DuoNeb and 0.5 mg Ativan p.o. approximately 1 hour prior to this event. Wheezing could be auscultated in all lung [place]. Plan for chest x-ray, additional nebulizer treatments, and IV steroids. Reason For Visit: COPD EXACERBATION Physical Exam Vital Signs: Temp Pulse Resp BP Pulse Ox 98.5 F 97 18 132/80 H 97 11/30/17 12:00 11/30/17 12:20 11/30/17 12:20 11/30/17 12:00 11/30/17 12:20 Pulse Oximeter Continuous Start: 11/30/17 09: 14 Freq: RTQ4 Status: Active Document 11/30/17 12:20 HCR (Rec: 11/30/17 12:28 HCR [email or web address]) Pulse Oximetry Assessment Oxygen Saturation (92-100) 97 Oxygen Flow Rate (L/min) 2 Oxygen Delivery Method Nasal Cannula Equipment Usage Equipment in Use Continuous SpO2 Machine # 11 Intake & Output 11/29/17 11/30/17 12/01/17 06:59 06:59 06:59 Intake Total 1775 Output Total 2100 Balance -325 Weight 42.2 kg General appearance: PRESENT: mild distress, thin Eye exam: PRESENT: conjunctiva pink, PERRLA Mouth exam: PRESENT: moist Neck exam: PRESENT: full ROM Respiratory exam: PRESENT: symmetrical, tachypnea, wheezes Cardiovascular exam: PRESENT: +S1, +S2, tachycardia Pulses: PRESENT: normal radial pulses, normal dorsalis pedis pul GI/Abdominal exam: PRESENT: normal bowel sounds, soft. ABSENT: tenderness Rectal exam: PRESENT: deferred Extremities exam: PRESENT: full ROM. ABSENT: pedal edema Musculoskeletal exam: PRESENT: ambulatory, full ROM Neurological exam: PRESENT: alert, awake, oriented to person, oriented to place , oriented to time, oriented to situation Psychiatric exam: PRESENT: appropriate affect Skin exam: PRESENT: dry, intact, normal color Results Laboratory Results: 11/30/17 04:23 11/30/17 04:23 11/29/17 11/30/17 11/30/17 15:55 04:23 04:23 WBC 18.1 H RBC 4.04 L Hgb 9.8 L D Hct 31.2 L MCV 77 L MCH 24.4 L MCHC 31.5 L RDW 16.1 H Plt Count 359 Seg Neutrophils % 89.8 H Lymphocytes % 5.2 L Monocytes % 4.5 Eosinophils % 0.0 Basophils % 0.5 Absolute Neutrophils 16.2 H Absolute Lymphocytes 0.9 Absolute Monocytes 0.8 Absolute Eosinophils 0.0 Absolute Basophils 0.1 Sodium 145.4 H 143.0 Potassium 4.5 4.6 Chloride 105 106 Carbon Dioxide 27 28 Anion Gap 13 9 BUN 14 17 Creatinine 0.59 0.54 Est GFR ( Amer) > 60 > 60 Est GFR (Non-Af Amer) > 60 > 60 Glucose 103 117 H Calcium 9.7 9.4 Magnesium 2.2 Impressions: Chest X-Ray 11/30/17 00:00 IMPRESSION: Minimal airspace disease right lateral costophrenic sulcus, worrisome for minimal right basilar pneumonia Assessment & Plan - Diagnosis (1) Acute and chronic respiratory failure with hypoxia Is this a current diagnosis for this admission?: Yes Plan: Acute on chronic respiratory failure with hypoxia secondary to exacerbation of chronic bronchitis and possible pneumonia Patient requires 2 L/min supplemental oxygen nightly and PRN presented to the emergency department with increased work of breathing despite multiple nebulizer treatments at home. Admit to medical floor with continuous cardiac telemetry. Continue to provide supplemental oxygen as needed to maintain SPO2 greater than 88% BiPAP as needed. Empirically placed on Levaquin for coverage of acute bronchitis and possible community acquired pneumonia Repeat CXR is relatively unchanged, still shows possible RLL infiltrate Given the patient's recurrent episodes of air hunger, increased frequency of nebulizer treatments, initiated PRN xopenex nebulizer, and initiated IV steroids 40mg q6hr. Discontinue PO prednisone Continuous pulse oximetry (2) Acute exacerbation of chronic bronchitis Is this a current diagnosis for this admission?: Yes Plan: Plan as above (3) COPD (chronic obstructive pulmonary disease) Qualifiers: COPD type: emphysema Emphysema type: unspecified Qualified Code(s): J43.9 - Emphysema, unspecified Is this a current diagnosis for this admission?: Yes Plan: Plan as above (4) Cachexia Is this a current diagnosis for this admission?: Yes Plan: The patient has severe protein calorie malnutrition with BMI of 13.3. He is noted to have a loss of subcutaneous fat and muscle mass. (5) Anxiety Is this a current diagnosis for this admission?: Yes Plan: Secondary to air hunger. Resumed patient's home dose of PO Ativan. Initiated PRN IV Ativan 1mg because the patient was very anxious this morning during his episode of dyspnea, despite taking his PO ativan. - Time Time Spent with patient: 15-24 minutes Medications reviewed and adjusted accordingly: Yes Anticipated discharge: Home - Inpatient Certification Based on my medical assessment, after consideration of the patient's comorbidities, presenting symptoms, or acuity I expect that the services needed warrant INPATIENT care.: Yes I certify that my determination is in accordance with my understanding of Medicare's requirements for reasonable and necessary INPATIENT services [42 CFR 412.3e].: Yes Medical Necessity: Risk of Complication if Not Cared For in Hospital - Plan Summary Plan Summary: Ultimately, the patient should be discharged home. Plan to reach out to palliative care to discuss treatment options with patient.
[2017-11-30] MEDS: LORAZEPAM INJ 2 MG/1 ML VIAL IV PRN (21:32)
[2017-11-30] MEDS: METHYLPREDNISOLONE INJ 40 MG/1 ML SDV IV SCH (22:19)
[2017-11-30] MEDS: MIRTAZAPINE 15 MG TABLET PO SCH (22:19)
[2017-11-30] MEDS: ATORVASTATIN CALCIUM 20 MG TABLET PO SCH (22:19)
[2017-12-01] MEDS: IPRATROPIUM/ALBUTEROL 0.5-2.5 MG/3 ML AMPUL NEB SCH ×6 (03:51→23:47)
[2017-12-01 05:12] LABS: HEMATOCRIT 31.5 % (37.9-51.0); HEMOGLOBIN 10.1 g/dL (13.5-17.0); MEAN CORPUSCULAR HEMOGLOBIN 24.4 pg (27.0-33.4); MEAN CORPUSCULAR VOLUME 76 fl (80-97); PLATELET COUNT 335 10^3/uL (150-450); RED BLOOD COUNT 4.14 10^6/uL (4.35-5.55); RED CELL DISTRIBUTION WIDTH 16.2 % (11.5-14.0); WHITE BLOOD COUNT 14.7 10^3/uL (4.0-10.5)
[2017-12-01 05:27] LABS: ANION GAP 13 (5-19); BLOOD UREA NITROGEN 18 mg/dL (7-20); CALCIUM 9.7 mg/dL (8.4-10.2); CARBON DIOXIDE 26 mmol/L (22-30); CHLORIDE 105 mmol/L (98-107); GLUCOSE 112 mg/dL (75-110); SODIUM 144.1 mmol/L (137-145)
[2017-12-01 05:29] LABS: POTASSIUM 4.4 mmol/L (3.6-5.0)
[2017-12-01 05:50] LABS: ABSOLUTE LYMPHOCYTES# (MANUAL) 0.6 10^3/uL (0.5-4.7); ABSOLUTE MONOCYTES # (MANUAL) 0.1 10^3/uL (0.1-1.4); ANISOCYTOSIS 1+; BASOPHILS % (MANUAL) 0 % (0-2); EOSINOPHILS % (MANUAL) 0 % (0-6); LYMPHOCYTES % (MANUAL) 4 % (13-45); MONOCYTES % (MANUAL) 1 % (3-13); OVALOCYTES 1+; POIKILOCYTOSIS 1+; SEGMENTED NEUTROPHILS % (MAN) 95 % (42-78); TOTAL CELLS COUNTED 100; TOXIC GRANULATION 1+
[2017-12-01 05:51] LABS: PLATELET CLUMPS PRESENT; PLATELET COMMENT ADEQUATE; POLYCHROMASIA SLIGHT; SCHISTOCYTES SLIGHT
[2017-12-01] MEDS: HEPARIN SOD (PORCINE) 5,000 UNIT/ML 1 ML SYRINGE SUBCUT SCH ×3 (06:13→22:04)
[2017-12-01] MEDS: METHYLPREDNISOLONE INJ 40 MG/1 ML SDV IV SCH ×3 (06:13→22:04)
[2017-12-01] MEDS: LANSOPRAZOLE 30 MG TAB.RAP.DR PO SCH (06:14)
[2017-12-01] MEDS: FLUTICASONE NASAL SPRAY 50 MCG/SPRY 120 SPRAY/16 GM NASL SCH ×2 (09:36→22:04)
[2017-12-01] MEDS: DILTIAZEM HCL 180 MG CAPSULE.CR PO SCH (09:36)
[2017-12-01] MEDS: FOLIC ACID 1 MG TABLET PO SCH (09:36)
[2017-12-01] MEDS: CYANOCOBALAMIN (VITAMIN B-12) 1,000 MCG TABLET PO SCH (09:36)
[2017-12-01] MEDS: POLYETHYLENE GLYCOL 3350 POWDER 17 GM/1 PACKET PO SCH (09:37)
[2017-12-01] MEDS: ASPIRIN 81 MG TABLET, ENT COATED PO SCH (09:37)
[2017-12-01] MEDS: GUAIFENESIN SYRP 200 MG/10 ML UDC PO PRN ×2 (09:46→20:11)
[2017-12-01] MEDS: LORAZEPAM INJ 2 MG/1 ML VIAL IV PRN (10:43)
[2017-12-01] MEDS ORDERED: LEVALBUTEROL HCL NEB 1.25 MG/3 ML AMPUL NEB SCH (14:00)
[2017-12-01] MEDS ORDERED: TIOTROPIUM BROMIDE DPI 5 CAP/KIT (18 MCG/CAP) IH ONE (15:00)
[2017-12-01] MEDS ORDERED: LEVALBUTEROL HCL NEB 0.63 MG/3 ML AMPUL NEB SCH (16:00)
[2017-12-01] MEDS ORDERED: LEVALBUTEROL HCL NEB 0.63 MG/3 ML AMPUL NEB PRN (17:02)
--- NOTE | 2017-12-01 17:25 | PDOC PROGRESS REPORT ---
Subjective Progress Note for:: 12/01/17 Subjective:: Vic Hines is a 72-year-old male with a history of oxygen dependent emphysema with baseline shortness of breath, chronic bronchitis, deconditioning , peripheral vascular disease status post right AKA who was admitted on 11/29/17 for acute exacerbation of chronic bronchitis. The patient was seen this morning on rounds. He was able to speak in partial sentences but frequently had to pause to take a breath. SPO2 remained greater than 90% on 2 L/min nasal cannula. Lung sounds clear in all [place], greatly improved from yesterday. The patient states that the Xopenex nebulizer treatments that he started receiving yesterday make him feel much better. Reason For Visit: COPD EXACERBATION Physical Exam Vital Signs: Temp Pulse Resp BP Pulse Ox 97.8 F 67 18 110/53 L 98 12/01/17 16:00 12/01/17 16:00 12/01/17 16:00 12/01/17 16:00 12/01/17 16:00 Pulse Oximeter Continuous Start: 11/30/17 09: 14 Freq: RTQ4 Status: Active Document 12/01/17 12:00 TPO (Rec: 12/01/17 13:27 TPO [email or web address]) Pulse Oximetry Assessment Oxygen Saturation (92-100) 96 Oxygen Flow Rate (L/min) 2 Oxygen Delivery Method Nasal Cannula Fraction of Inspired Oxygen (FIO2) 28 Equipment Usage Equipment in Use Continuous SpO2 Machine # 11 Intake & Output 11/30/17 12/01/17 12/02/17 06:59 06:59 06:59 Intake Total 1775 1911 240 Output Total 2100 1750 Balance -325 161 240 Weight 42.2 kg 42.2 kg General appearance: PRESENT: mild distress - The patient is unable to speak in complete sentences without pause. SPO2 remains greater than 90% on 2L/min NC Eye exam: PRESENT: conjunctiva pink, PERRLA Mouth exam: PRESENT: moist Neck exam: PRESENT: full ROM Respiratory exam: PRESENT: clear to auscultation rito, symmetrical, unlabored Cardiovascular exam: PRESENT: +S1, +S2 Pulses: PRESENT: normal radial pulses, normal dorsalis pedis pul Vascular exam: PRESENT: normal capillary refill Rectal exam: PRESENT: deferred Extremities exam: PRESENT: full ROM, other - Prosthetic right lower extremity. History of right [id number] amputation. Musculoskeletal exam: PRESENT: ambulatory - Prosthetic right lower extremity, full ROM Neurological exam: PRESENT: alert, awake, oriented to person, oriented to place , oriented to time, oriented to situation Psychiatric exam: PRESENT: appropriate affect Skin exam: PRESENT: dry, intact, normal color Results Laboratory Results: 12/01/17 04:24 12/01/17 04:24 12/01/17 12/01/17 04:24 04:24 WBC 14.7 H RBC 4.14 L Hgb 10.1 L Hct 31.5 L MCV 76 L MCH 24.4 L MCHC 32.0 RDW 16.2 H Plt Count 335 Seg Neutrophils % Not Reportable Lymphocytes % Not Reportable Monocytes % Not Reportable Eosinophils % Not Reportable Basophils % Not Reportable Absolute Neutrophils Not Reportable Absolute Lymphocytes Not Reportable Absolute Monocytes Not Reportable Absolute Eosinophils Not Reportable Absolute Basophils Not Reportable Sodium 144.1 Potassium 4.4 Chloride 105 Carbon Dioxide 26 Anion Gap 13 BUN 18 Creatinine 0.61 Est GFR ( Amer) > 60 Est GFR (Non-Af Amer) > 60 Glucose 112 H Calcium 9.7 Impressions: Chest X-Ray 11/30/17 00:00 IMPRESSION: Minimal airspace disease right lateral costophrenic sulcus, worrisome for minimal right basilar pneumonia Status: Imported from PACS Assessment & Plan - Diagnosis (1) Acute and chronic respiratory failure with hypoxia Is this a current diagnosis for this admission?: Yes Plan: Acute on chronic respiratory failure with hypoxia secondary to exacerbation of chronic bronchitis and possible pneumonia Patient requires 2 L/min supplemental oxygen nightly and PRN presented to the emergency department with increased work of breathing despite multiple nebulizer treatments at home. CXR upon arrival shows possible RLL infiltrate Admit to medical floor with continuous cardiac telemetry. Continue to provide supplemental oxygen as needed to maintain SPO2 greater than 88% BiPAP as needed. Empirically placed on Levaquin IV for coverage of acute bronchitis and possible community acquired pneumonia Repeat CXR from 11/30 is still shows possible RLL infiltrate. Currently on day 3 of IV Levaquin IV solumedrol 40mg q6h. Initiated yesterday for wheezing, has greatly improved patient's symptoms. All lung [place] clear to auscultation. Continuous pulse oximetry (2) Acute exacerbation of chronic bronchitis Is this a current diagnosis for this admission?: Yes Plan: Plan as above (3) COPD (chronic obstructive pulmonary disease) Qualifiers: COPD type: emphysema Emphysema type: unspecified Qualified Code(s): J43.9 - Emphysema, unspecified Is this a current diagnosis for this admission?: Yes Plan: Patient's home inhaler, Bevespi, is not on formulary at [facility]. Initiated Spiriva and Serevent today. The patient is clearly in the end stages of COPD. Consulted Gina Ricci NP from palliative care to discuss long-term treatment options. Remaining plan as above (4) Cachexia Is this a current diagnosis for this admission?: Yes Plan: The patient has severe protein calorie malnutrition with BMI of 13.3. He is noted to have a loss of subcutaneous fat and muscle mass. Appreciate nutrition recommendations. (5) Anxiety Is this a current diagnosis for this admission?: Yes Plan: Secondary to air hunger. The patient normally takes 0.5 mg Ativan p.o. daily. Since his admission, his behavior observed by the medical team is that of constant anxiety. Increase the frequency of his PRN oral Ativan, no change to the dosage. Initiated PRN IV Ativan 1mg for severe anxiety - Time Time Spent with patient: 15-24 minutes Medications reviewed and adjusted accordingly: Yes Anticipated discharge: Home, Hospice - Inpatient Certification Based on my medical assessment, after consideration of the patient's comorbidities, presenting symptoms, or acuity I expect that the services needed warrant INPATIENT care.: Yes I certify that my determination is in accordance with my understanding of Medicare's requirements for reasonable and necessary INPATIENT services [42 CFR 412.3e].: Yes Medical Necessity: Risk of Complication if Not Cared For in Hospital - Plan Summary Plan Summary: At this time, the patient's disposition is unclear. He is clearly in the end stages of COPD. Consulted Gina Ricci NP from palliative care to discuss long-term treatment options for the patient.
[2017-12-01] MEDS: MIRTAZAPINE 15 MG TABLET PO SCH (22:04)
[2017-12-01] MEDS: ATORVASTATIN CALCIUM 20 MG TABLET PO SCH (22:04)
[2017-12-01] MEDS: SALMETEROL XINAFOATE DISKUS 50 MCG/1 DOSE 28 DOSE IH SCH (22:04)
[2017-12-02] MEDS: IPRATROPIUM/ALBUTEROL 0.5-2.5 MG/3 ML AMPUL NEB SCH ×5 (03:49→19:53)
[2017-12-02 05:41] LABS: HEMATOCRIT 30.9 % (37.9-51.0); HEMOGLOBIN 9.9 g/dL (13.5-17.0); MEAN CORPUSCULAR HEMOGLOBIN 24.4 pg (27.0-33.4); MEAN CORPUSCULAR HGB CONC 32.1 g/dL (32.0-36.0); MEAN CORPUSCULAR VOLUME 76 fl (80-97); PLATELET COUNT 375 10^3/uL (150-450); RED BLOOD COUNT 4.07 10^6/uL (4.35-5.55); WHITE BLOOD COUNT 14.7 10^3/uL (4.0-10.5)
[2017-12-02 06:01] LABS: ANION GAP 10 (5-19); BLOOD UREA NITROGEN 20 mg/dL (7-20); CALCIUM 9.2 mg/dL (8.4-10.2); CARBON DIOXIDE 28 mmol/L (22-30); CHLORIDE 105 mmol/L (98-107); GLUCOSE 135 mg/dL (75-110); POTASSIUM 4.4 mmol/L (3.6-5.0); SODIUM 143.3 mmol/L (137-145)
[2017-12-02 06:06] LABS: ABSOLUTE LYMPHOCYTES# (MANUAL) 0.6 10^3/uL (0.5-4.7); ABSOLUTE MONOCYTES # (MANUAL) 0.3 10^3/uL (0.1-1.4); ABSOLUTE NEUTROPHILS# (MANUAL) 13.8 10^3/uL (1.7-8.2); BASOPHILS % (MANUAL) 0 % (0-2); EOSINOPHILS % (MANUAL) 0 % (0-6); LYMPHOCYTES % (MANUAL) 4 % (13-45); MONOCYTES % (MANUAL) 2 % (3-13); SEGMENTED NEUTROPHILS % (MAN) 94 % (42-78); TOTAL CELLS COUNTED 100
[2017-12-02 06:12] LABS: ANISOCYTOSIS 1+; HYPOCHROMASIA 1+; OVALOCYTES SLIGHT; POLYCHROMASIA SLIGHT
[2017-12-02 06:13] LABS: PLATELET COMMENT ADEQUATE
[2017-12-02] MEDS: LANSOPRAZOLE 30 MG TAB.RAP.DR PO SCH (06:25)
[2017-12-02] MEDS: HEPARIN SOD (PORCINE) 5,000 UNIT/ML 1 ML SYRINGE SUBCUT SCH ×3 (06:25→22:41)
[2017-12-02] MEDS: METHYLPREDNISOLONE INJ 40 MG/1 ML SDV IV SCH ×3 (06:25→22:40)
[2017-12-02 07:07] LABS: ARTERIAL BLOOD H2CO3 1.13 mmol/L (1.05-1.35); ARTERIAL BLOOD HCO3 27.5 mmol/L (20-26); ARTERIAL BLOOD O2 SATURATION 98.2 % (94-98); ARTERIAL BLOOD PCO2 37.4 mmHg (35-45); ARTERIAL BLOOD PH 7.49 (7.35-7.45); ARTERIAL BLOOD PO2 106.9 mmHg (80-100); ARTERIAL BLOOD TOTAL CO2 28.7 mmol/L (23-27)
[2017-12-02 07:17] LABS: ARTERIAL BLOOD FIO2 2L
[2017-12-02] MEDS: DILTIAZEM HCL 180 MG CAPSULE.CR PO SCH (09:29)
[2017-12-02] MEDS: FOLIC ACID 1 MG TABLET PO SCH (09:31)
[2017-12-02] MEDS: CYANOCOBALAMIN (VITAMIN B-12) 1,000 MCG TABLET PO SCH (09:31)
[2017-12-02] MEDS: ASPIRIN 81 MG TABLET, ENT COATED PO SCH (09:31)
[2017-12-02] MEDS: FLUTICASONE NASAL SPRAY 50 MCG/SPRY 120 SPRAY/16 GM NASL SCH ×2 (09:31→22:40)
[2017-12-02] MEDS: POLYETHYLENE GLYCOL 3350 POWDER 17 GM/1 PACKET PO SCH (09:32)
[2017-12-02] MEDS: SALMETEROL XINAFOATE DISKUS 50 MCG/1 DOSE 28 DOSE IH SCH ×2 (09:32→22:41)
[2017-12-02] MEDS: TIOTROPIUM BROMIDE DPI 5 CAP/KIT (18 MCG/CAP) IH SCH (09:32)
[2017-12-02] MEDS: LORAZEPAM INJ 2 MG/1 ML VIAL IV PRN (13:26)
--- NOTE | 2017-12-02 13:28 | PDOC PROGRESS REPORT ---
Subjective Progress Note for:: 12/02/17 Subjective:: Vic Hines is a 72-year-old male with a history of oxygen dependent emphysema with baseline shortness of breath, chronic bronchitis, deconditioning , peripheral vascular disease status post right AKA who was admitted on 11/29/17 for acute exacerbation of chronic bronchitis. The patient was seen this morning on rounds. He was able to speak in full sentences without pause. SPO2 remained greater than 95-99% on 2 L/min nasal cannula. Lung sounds clear in all [place], greatly improved from yesterday. Reason For Visit: COPD EXACERBATION Physical Exam Vital Signs: Temp Pulse Resp BP Pulse Ox 97.6 F 105 H 19 111/58 L 97 12/02/17 07:18 12/02/17 08:04 12/02/17 08:04 12/02/17 07:18 12/02/17 08:04 Pulse Oximeter Continuous Start: 11/30/17 09: 14 Freq: RTQ4 Status: Active Document 12/02/17 08:04 HCR (Rec: 12/02/17 08:20 HCR [email or web address]) Pulse Oximetry Assessment Oxygen Saturation (92-100) 97 Oxygen Flow Rate (L/min) 2 Oxygen Delivery Method Nasal Cannula Equipment Usage Equipment in Use Continuous Pulse Oximeter 24 Hour Charge Charge Now Continuous SpO2 Machine # 11 Intake & Output 12/01/17 12/02/17 12/03/17 06:59 06:59 06:59 Intake Total 1911 1787 Output Total 1750 1275 Balance 161 512 Weight 42.2 kg 46.4 kg General appearance: PRESENT: no acute distress Eye exam: PRESENT: conjunctiva pink, EOMI, PERRLA Mouth exam: PRESENT: moist Teeth exam: PRESENT: poor dentation Neck exam: PRESENT: full ROM Respiratory exam: PRESENT: clear to auscultation rito, symmetrical, unlabored Cardiovascular exam: PRESENT: +S1, +S2 Pulses: PRESENT: normal radial pulses, normal dorsalis pedis pul Vascular exam: PRESENT: normal capillary refill GI/Abdominal exam: PRESENT: normal bowel sounds, soft. ABSENT: tenderness Rectal exam: PRESENT: deferred Extremities exam: PRESENT: full ROM - RLE amputation. ABSENT: joint swelling, pedal edema Musculoskeletal exam: PRESENT: ambulatory - With RLE prosthesis, full ROM Neurological exam: PRESENT: alert, awake, oriented to person, oriented to place , oriented to time, oriented to situation. ABSENT: normal gait Psychiatric exam: PRESENT: appropriate affect. ABSENT: anxious Skin exam: PRESENT: dry, intact, normal color Results Laboratory Results: 12/02/17 04:47 12/02/17 04:47 12/02/17 12/02/17 12/02/17 04:47 04:47 06:25 WBC 14.7 H RBC 4.07 L Hgb 9.9 L Hct 30.9 L MCV 76 L MCH 24.4 L MCHC 32.1 RDW 16.0 H Plt Count 375 Seg Neutrophils % Not Reportable Lymphocytes % Not Reportable Monocytes % Not Reportable Eosinophils % Not Reportable Basophils % Not Reportable Absolute Neutrophils Not Reportable Absolute Lymphocytes Not Reportable Absolute Monocytes Not Reportable Absolute Eosinophils Not Reportable Absolute Basophils Not Reportable Carbonic Acid 1.13 HCO3/H2CO3 Ratio 24:1 ABG pH 7.49 H ABG pCO2 37.4 ABG pO2 106.9 H ABG HCO3 27.5 H ABG O2 Saturation 98.2 H ABG Base Excess 4.0 FiO2 2L Sodium 143.3 Potassium 4.4 Chloride 105 Carbon Dioxide 28 Anion Gap 10 BUN 20 Creatinine 0.65 Est GFR ( Amer) > 60 Est GFR (Non-Af Amer) > 60 Glucose 135 H Calcium 9.2 Impressions: Chest X-Ray 11/30/17 00:00 IMPRESSION: Minimal airspace disease right lateral costophrenic sulcus, worrisome for minimal right basilar pneumonia Status: Imported from PACS Assessment & Plan - Diagnosis (1) Acute and chronic respiratory failure with hypoxia Is this a current diagnosis for this admission?: Yes Plan: Acute on chronic respiratory failure with hypoxia secondary to exacerbation of chronic bronchitis and possible pneumonia Patient requires 2 L/min supplemental oxygen nightly and PRN during the day, presented to the emergency department with increased work of breathing despite multiple nebulizer treatments at home. CXR upon arrival shows possible RLL infiltrate Admit to medical floor with continuous cardiac telemetry. Continue to provide supplemental oxygen as needed to maintain SPO2 greater than 88% ABG shows respiratory alkalosis, encourage nursing staff not to use NC unless patient becomes hypoxic SPO2 < 88% BiPAP as needed. Empirically placed on Levaquin IV for coverage of acute bronchitis and possible community acquired pneumonia Repeat CXR from 11/30 is still shows possible RLL infiltrate. Currently on day 4 of IV Levaquin IV solumedrol 40mg q6h. Initiated for wheezing, has greatly improved patient's symptoms. All lung [place] clear to auscultation. Scheduled duo nebs every 4 hours, Xopenex nebulizer q2h PRN Continuous pulse oximetry (2) Acute exacerbation of chronic bronchitis Is this a current diagnosis for this admission?: Yes Plan: Plan as above (3) COPD (chronic obstructive pulmonary disease) Qualifiers: COPD type: emphysema Emphysema type: unspecified Qualified Code(s): J43.9 - Emphysema, unspecified Is this a current diagnosis for this admission?: Yes Plan: Patient's home inhaler, Bevespi, is not on formulary at [facility]. Initiated Spiriva and Serevent The patient is clearly in the end stages of COPD. Consulted Gina Ricci, OUTREACH ASSISTANT from palliative care to discuss long-term treatment options. She met with the patient today and he states he wants to remain a full code. If required, he would prefer intubation and CPR. At this time, the patient is not interested in palliative care. (4) Cachexia Is this a current diagnosis for this admission?: Yes Plan: The patient has severe protein calorie malnutrition with BMI of 13.3. He is noted to have a loss of subcutaneous fat and muscle mass. Appreciate nutrition recommendations. (5) Anxiety Is this a current diagnosis for this admission?: Yes Plan: Secondary to air hunger. The patient normally takes 0.5 mg Ativan p.o. daily. Since his admission, his behavior observed by the medical team is that of constant anxiety. Increased the frequency of his PRN oral Ativan, no change to the dosage. Initiated PRN IV Ativan 1mg for severe anxiety The patient states that the change in his benzodiazepine regimen has helped control his anxiety. (6) Full code status Is this a current diagnosis for this admission?: Yes Plan: Consulted palliative care nurse practitioner, Gina Ricci, for elderly cachectic male in the end stages of COPD. Ms. Ricci met with the patient today. She states that the patient is very "set in his ways" and does not wish to pursue palliative care at this time. The patient states a desire to be fully resuscitated if need be. If the patient is unable to make medical decisions for himself, he states that his daughter is allowed to make medical decisions for him. - Time Time Spent with patient: 15-24 minutes Medications reviewed and adjusted accordingly: Yes Anticipated discharge: Home Within: within 24 hours - Inpatient Certification Based on my medical assessment, after consideration of the patient's comorbidities, presenting symptoms, or acuity I expect that the services needed warrant INPATIENT care.: Yes I certify that my determination is in accordance with my understanding of Medicare's requirements for reasonable and necessary INPATIENT services [42 CFR 412.3e].: Yes Medical Necessity: Need for IV Antibiotics, Risk of Complication if Not Cared For in Hospital - Plan Summary Plan Summary: If the patient continues to improve, it is very likely that the patient could be discharged home within 24-48 hours.
[2017-12-02] MEDS: LORAZEPAM 0.5 MG TABLET PO PRN (13:32)
[2017-12-02] MEDS: GUAIFENESIN SYRP 200 MG/10 ML UDC PO PRN (20:25)
[2017-12-02] MEDS ORDERED: LEVOFLOXACIN 750 MG TABLET PO SCH (22:00)
[2017-12-02] MEDS ORDERED: LEVOFLOXACIN 750 MG/D5W RTU 750 MG/150 ML RTUPB IV SCH (22:00)
[2017-12-02] MEDS: ATORVASTATIN CALCIUM 20 MG TABLET PO SCH (22:40)
[2017-12-02] MEDS: MIRTAZAPINE 15 MG TABLET PO SCH (22:40)
--- NOTE | 2017-12-02 22:57 | Palliative Consultation Report ---
Consultation From:: HAYLEE GALINDO - HPI Chief Complaint: shortness of breath HPI: Palliative Care Consult Visit 12/02/17 10:30AM Appreciate PC consult request with this 72 year old man who is admitted with exacerbation of COPD and RLL infiltrate, as seen in past admissions this year. Mr. Hines is alert and anxious. He says he is feeling better now, but is still noticeably short of breath with conversation on oxygen at 2 L/min. This patient has been in the hospital recently with same symptoms (September 2017). Mr. Hines tells me he was on a vent for many weeks earlier in his life following an accident. He remembers it and staes he had tracheostomy. He tells me that doctors ave told him that he could not be intubated again after having the trach. He was DNR on his last admission to [facility] but this time he has requested full code. We discussed this at length. He said if he arrested, he would like to have intubation attempted and CPR started. He knows it probably will break ribs and cause pneumothorax and other issues. We discussed his daughter being one to stop code or have him removed from ventilator and he feesl she would be strong enough to tell them when to take him off machines. Discussed the difficult time she might have with this emotionally. I asked if he would complete a MOST form with me to help his daughter have guidelines for his choices of care. He said he already completed one at [facility] and his daughter has it. We talked at length about his past episode on vent, his pleural effusion and vascular issues and his fears concerning having thoracentesis for his RLL infiltrate. Onset: Just prior to arrival Onset/Duration: Gradual Quality of Pain: No pain Severity: Moderate Associated Symptoms: Nonproductive cough, Productive cough, Shortness of breath Past Medical History(Consults) - General Information Source: Patient, [facility] Records Home Medications: Albuterol Sulfate [Albuterol Sulfate 2.5mg/3 mL] 2.5 mg NEB Q4HP PRN 04/09/17 Albuterol Sulfate [Ventolin HFA MDI 18 GM] 1 puff IH Q6HP PRN 06/14/17 Aspirin [Aspirin EC] 81 mg PO DAILY 06/14/17 Atorvastatin Calcium 20 mg PO QHS 06/14/17 Folic Acid 1 mg PO DAILY 06/14/17 Glycopyrrolate/Formoterol Fum [Bevespi Aerosphere Inhaler] 2 puff IH DAILY 06/14 Pantoprazole Sodium 40 mg PO DAILY 06/14/17 Lorazepam [Ativan 0.5 mg Tablet] 0.5 mg PO DAILYP PRN 10/08/17 Azithromycin [Zithromax 250 mg Tablet] 250 mg PO DAILY MDD for 60 days started 11/29/17 Cyanocobalamin (Vitamin B-12) [Vitamin B-12 1000 Mcg Tablet] 1,000 mcg PO DAILY 11/29/17 Diltiazem HCl [Cartia Xt] 180 mg PO DAILY 11/29/17 Mirtazapine 30 mg PO QHS MDD start 12/0211/29/17 Mirtazapine [Remeron 15 mg Tablet] 15 mg PO QHS MDD last dose 12/0111/29/17 Polyethylene Glycol 3350 [Gavilax] 17 gm PO DAILY 11/29/17 Allergies/Adverse Reactions: No Known Allergies Allergy (Verified 11/29/17 00:42) - Social History Lives with: Family Family History: COPD Parental Family History Reviewed: No Children Family History Reviewed: No Sibling(s) Family History Reviewed.: No Smoking Status: Former Smoker Number of Years Smokin Frequency of Alcohol Use: None Hx Recreational Drug Use: No Drugs: None Hx Prescription Drug Abuse: No - Past Medical History Cardiac Medical History: Reports: Hx Atrial Fibrillation, Hx Hypercholesterolemia, Hx Hypertension Pulmonary Medical History: Reports: Hx Bronchitis, Hx COPD, Hx Intubation, Hx Respiratory Failure - Chart reports lung cancer but not staged. RLL infiltrates Renal/ Medical History: Denies: Hx Peritoneal Dialysis Malignancy Medical History: Reports Hx Lung Cancer - possible GI Medical History: Reports: Hx Gastroesophageal Reflux Disease Psychiatric Medical History: Denies: Hx Dementia Traumatic Medical History: Reports: Hx Pneumothorax - Surgical History Past Surgical History: Reports: Hx Orthopedic Surgery - RIGHT AKA Review of systems Constitutional: Weakness Cardiovascular: Lightheaded Respiratory: Cough, Short of breath, Wheezing Gastrointestinal: Poor appetite Hematologic/Lymphatic: Blood clots - AKA due to blood clot in right lower leg. Ojective:Exam Vital Signs: Temp Pulse Resp BP Pulse Ox 97.6 F 99 18 133/56 H 99 12/02/17 16:00 12/02/17 19:53 12/02/17 19:53 12/02/17 16:00 12/02/17 19:53 Pulse Oximeter Continuous Start: 11/30/17 09: 14 Freq: RTQ4 Status: Active Document 12/02/17 19:53 STI (Rec: 12/02/17 22:01 STI [email or web address]) Pulse Oximetry Assessment Oxygen Saturation (92-100) 99 Oxygen Flow Rate (L/min) 2.0 Oxygen Delivery Method Nasal Cannula Fraction of Inspired Oxygen (FIO2) 28 Equipment Usage Equipment in Use Continuous SpO2 Machine # 11 Intake & Output 12/01/17 12/02/17 12/03/17 06:59 06:59 06:59 Intake Total 1911 1787 Output Total 1750 1275 Balance 161 512 Weight 42.2 kg 46.4 kg - General General Appearance: Anxious In distress: Mild - conversational dyspnea - HEENT Head: Normocephalic Eyes: Normal Conjunctiva: Normal Cornea: Normal - Neck Neck: Normal, Supple - Pain with stretching neck backwards. - Respiratory Respiratory Status: Labored Breath sounds: Wheezing - Cardiovascular Rhythm: Regular - Extremities Lower extremities: Other - Right AKA - Psychological Associated symptoms: Anxious Objective-Diagnostic Laboratory: 12/02/17 04:47 12/02/17 04:47 12/02/17 12/02/17 12/02/17 04:47 04:47 06:25 WBC 14.7 H RBC 4.07 L Hgb 9.9 L Hct 30.9 L MCV 76 L MCH 24.4 L MCHC 32.1 RDW 16.0 H Plt Count 375 Seg Neutrophils % Not Reportable Lymphocytes % Not Reportable Monocytes % Not Reportable Eosinophils % Not Reportable Basophils % Not Reportable Absolute Neutrophils Not Reportable Absolute Lymphocytes Not Reportable Absolute Monocytes Not Reportable Absolute Eosinophils Not Reportable Absolute Basophils Not Reportable Carbonic Acid 1.13 HCO3/H2CO3 Ratio 24:1 ABG pH 7.49 H ABG pCO2 37.4 ABG pO2 106.9 H ABG HCO3 27.5 H ABG O2 Saturation 98.2 H ABG Base Excess 4.0 FiO2 2L Sodium 143.3 Potassium 4.4 Chloride 105 Carbon Dioxide 28 Anion Gap 10 BUN 20 Creatinine 0.65 Est GFR ( Amer) > 60 Est GFR (Non-Af Amer) > 60 Glucose 135 H Calcium 9.2 Plan and Recommendation Plan and Recommendation: Mr. Hines said I could come talk with him again tomorrow. I hope he thinks about our conversation today and decides not to put himself through such a code situation. Patient states he only uses oxygen prn and at night when he is home. However, he seemed short of breath even with oxgen today. He is anxous about thoracentesis, fearful of "another lung collapse". I tried to reassure but he remains anxious. Will talk with him again tomorrow. - Time Spent with Patient Time spent with patient: 15 to 30 Minutes Greater then 50% spent on Counseling & Coordination of Care: 20 min with patient in discussion, 10 min consultation with hospitalist and record review
[2017-12-03] MEDS: IPRATROPIUM/ALBUTEROL 0.5-2.5 MG/3 ML AMPUL NEB SCH ×5 (00:28→16:55)
[2017-12-03] MEDS: LORAZEPAM INJ 2 MG/1 ML VIAL IV PRN (00:43)
[2017-12-03 05:15] LABS: HEMATOCRIT 30.4 % (37.9-51.0); HEMOGLOBIN 9.7 g/dL (13.5-17.0); MEAN CORPUSCULAR HEMOGLOBIN 24.2 pg (27.0-33.4); MEAN CORPUSCULAR VOLUME 76 fl (80-97); PLATELET COUNT 379 10^3/uL (150-450); RED BLOOD COUNT 4.01 10^6/uL (4.35-5.55); WHITE BLOOD COUNT 14.3 10^3/uL (4.0-10.5)
[2017-12-03 05:18] LABS: ANION GAP 10 (5-19); BLOOD UREA NITROGEN 19 mg/dL (7-20); CALCIUM 9.4 mg/dL (8.4-10.2); CARBON DIOXIDE 28 mmol/L (22-30); CHLORIDE 105 mmol/L (98-107); GLUCOSE 106 mg/dL (75-110); POTASSIUM 4.5 mmol/L (3.6-5.0); SODIUM 143.1 mmol/L (137-145)
[2017-12-03 05:54] LABS: ABSOLUTE LYMPHOCYTES# (MANUAL) 0.3 10^3/uL (0.5-4.7); ABSOLUTE MONOCYTES # (MANUAL) 0.1 10^3/uL (0.1-1.4); ABSOLUTE NEUTROPHILS# (MANUAL) 13.9 10^3/uL (1.7-8.2); BASOPHILS % (MANUAL) 0 % (0-2); EOSINOPHILS % (MANUAL) 0 % (0-6); LYMPHOCYTES % (MANUAL) 2 % (13-45); MONOCYTES % (MANUAL) 1 % (3-13); SEGMENTED NEUTROPHILS % (MAN) 97 % (42-78); TOTAL CELLS COUNTED 100
[2017-12-03 05:55] LABS: ANISOCYTOSIS 1+; OVALOCYTES SLIGHT; PLATELET CLUMPS PRESENT; PLATELET COMMENT ADEQUATE; POIKILOCYTOSIS SLIGHT
[2017-12-03] MEDS: METHYLPREDNISOLONE INJ 40 MG/1 ML SDV IV SCH ×2 (06:47→14:56)
[2017-12-03] MEDS: HEPARIN SOD (PORCINE) 5,000 UNIT/ML 1 ML SYRINGE SUBCUT SCH ×2 (06:47→15:00)
[2017-12-03] MEDS: LANSOPRAZOLE 30 MG TAB.RAP.DR PO SCH (06:47)
[2017-12-03] MEDS: SALMETEROL XINAFOATE DISKUS 50 MCG/1 DOSE 28 DOSE IH SCH (09:30)
[2017-12-03] MEDS: TIOTROPIUM BROMIDE DPI 5 CAP/KIT (18 MCG/CAP) IH SCH (09:30)
[2017-12-03] MEDS: DILTIAZEM HCL 180 MG CAPSULE.CR PO SCH (09:32)
[2017-12-03] MEDS: CYANOCOBALAMIN (VITAMIN B-12) 1,000 MCG TABLET PO SCH (09:32)
[2017-12-03] MEDS: FOLIC ACID 1 MG TABLET PO SCH (09:32)
[2017-12-03] MEDS: ASPIRIN 81 MG TABLET, ENT COATED PO SCH (09:32)
[2017-12-03] MEDS: FLUTICASONE NASAL SPRAY 50 MCG/SPRY 120 SPRAY/16 GM NASL SCH (09:32)
[2017-12-03] MEDS: POLYETHYLENE GLYCOL 3350 POWDER 17 GM/1 PACKET PO SCH (09:33)
--- NOTE | 2017-12-03 10:13 | Progress Note ---
Provider Note Provider Note: Palliative Care follow up visit 9:45 am Mr. Hines looks much better this AM. He does not have any conversational dyspnea and is wearing his oxygen per N/C as ordered. His voice is a little stronger ( chronic hoarse voice from previous custodial intubation). He denies any pain and says his appetite is good this Am. Breath sounds are improved with less noted wheeze. He is more active in room today without distress. He said he will call me if he needs anything at home ( has my number) or if he changes his mind about code status or wants a new MOST form. He says he has not DME needs and has everything he needs at home for oxygen etc. Encouraged to use the oxygen more. Appreciate opportunity to participate in care for this gentleman.
[2017-12-03] MEDS: LORAZEPAM 0.5 MG TABLET PO PRN (10:54)
[2017-12-03 13:35] VITALS: BP 116/67
--- NOTE | 2017-12-13 16:26 | PDOC DISCHARGE SUMMARY ---
General - Admit/Disc Date/PCP Admission Date/Primary Care Provider: 11/29/17 10:08 Discharge Date: 12/03/17 - Discharge Diagnosis (1) Acute and chronic respiratory failure with hypoxia Is this a current diagnosis for this admission?: Yes Summary: Acute on chronic respiratory failure with hypoxia secondary to exacerbation of chronic bronchitis and possible pneumonia Patient required 2 L/min supplemental oxygen nightly and PRN during the day, presented to the emergency department with increased work of breathing despite multiple nebulizer treatments at home. CXR upon arrival shows possible RLL infiltrate Admitted to medical floor with continuous cardiac telemetry. Continued to provide supplemental oxygen as needed to maintain SPO2 greater than 88% Initial ABG showed respiratory alkalosis, encouraged nursing staff not to use NC unless patient becomes hypoxic SPO2 < 88% BiPAP as needed. Empirically placed on Levaquin IV for coverage of acute bronchitis and possible community acquired pneumonia Repeat CXR from 11/30 is still showed possible RLL infiltrate. Levaquin was continued post-discharge to complete treatment course. IV solumedrol 40mg q6h initiated for wheezing and greatly improved patient's symptoms. He was discharged home with a 5 day course of PO prednisone. (2) Acute exacerbation of chronic bronchitis Is this a current diagnosis for this admission?: Yes Summary: Plan as above (3) COPD (chronic obstructive pulmonary disease) Is this a current diagnosis for this admission?: Yes Summary: Patient's home inhaler, Bevespi, was not on formulary at [facility]. Initiated Spiriva and Serevent The patient is clearly in the end stages of COPD. Consulted Gina Ricci NP from palliative care to discuss long-term treatment options. She met with the patient and he stated he wanted to remain a full code. If required, he would want intubation and CPR. The patient was not interested in palliative care. (4) Cachexia Is this a current diagnosis for this admission?: Yes Summary: The patient has severe protein calorie malnutrition with BMI of 13.3. He is noted to have a loss of subcutaneous fat and muscle mass. The patient was offered ensure with each meal and counseled on his nutritional needs - specifically protein. The patient stated understanding, the daughter was at the bedside during the time of this counseling, she also stated understanding. (5) Anxiety Is this a current diagnosis for this admission?: Yes Summary: Secondary to air hunger. The patient normally takes 0.5 mg Ativan p.o. daily. Since his admission, his behavior observed by the medical team is that of constant anxiety. Increased the frequency of his PRN oral Ativan to q8hr, no change to the dosage. Initiated PRN IV Ativan 1mg for severe anxiety The patient states that the change in his benzodiazepine regimen has helped control his anxiety. He was instructed to follow the new schedule of q8hrs PRN during daytime hours once he returned home (the patient states he does not take/does not need ativan at night). (6) Full code status Is this a current diagnosis for this admission?: Yes Summary: The patient is in the end stages of COPD. Palliative care SEEING EYE DOG TRAINER, Gina Ricci, met with the patient. He clearly stated that he wanted to remain a full code, and if needed, he would want CPR and/or to be intubated. Please read Palliative Care's note for more detail from their conversation. - Additional Information Resuscitation Status: Full Code Discharge Diet: As Tolerated Discharge Activity: Activity As Tolerated Prescriptions: Ipratropium/Albuterol Sulfate [Duoneb 3 ml Ampul] 3 ml NEB RTQ4 #15 vial.neb Levalbuterol HCl [Xopenex Neb 0.63 mg/3 ml Ampul] 0.63 mg NEB RTQ2HP PRN #15 vial.neb PRN Reason: Levofloxacin [Levaquin 750 mg Tablet] 750 mg PO DAILY #2 tablet Prednisone 20 mg PO DAILY #13 tablet Home Medications: Albuterol Sulfate [Albuterol Sulfate 2.5mg/3 mL] 2.5 mg NEB Q4HP PRN 04/09/17 Albuterol Sulfate [Ventolin HFA MDI 18 GM] 1 puff IH Q6HP PRN 06/14/17 Aspirin [Aspirin EC] 81 mg PO DAILY 06/14/17 Atorvastatin Calcium 20 mg PO QHS 06/14/17 Folic Acid 1 mg PO DAILY 06/14/17 Glycopyrrolate/Formoterol Fum [Bevespi Aerosphere Inhaler] 2 puff IH DAILY 06/14 Pantoprazole Sodium 40 mg PO DAILY 06/14/17 Lorazepam [Ativan 0.5 mg Tablet] 0.5 mg PO DAILYP PRN 10/08/17 Azithromycin [Zithromax 250 mg Tablet] 250 mg PO DAILY MDD for 60 days started 11/29/17 Cyanocobalamin (Vitamin B-12) [Vitamin B-12 1000 mcg Tablet] 1,000 mcg PO DAILY 11/29/17 Diltiazem HCl [Cartia Xt] 180 mg PO DAILY 11/29/17 Mirtazapine 30 mg PO QHS MDD start 12/0211/29/17 Mirtazapine [Remeron 15 mg Tablet] 15 mg PO QHS MDD last dose 12/0111/29/17 Polyethylene Glycol 3350 [Gavilax] 17 gm PO DAILY 11/29/17 Ipratropium/Albuterol Sulfate [Duoneb 3 ml Ampul] 3 ml NEB RTQ4 #15 vial.neb 11/17 Levalbuterol HCl [Xopenex Neb 0.63 mg/3 ml Ampul] 0.63 mg NEB RTQ2HP PRN #15 vial.neb 12/03/17 Levofloxacin [Levaquin 750 mg Tablet] 750 mg PO DAILY #2 tablet 12/03/17 Prednisone 20 mg PO DAILY #13 tablet 12/03/17 History of Present Illness History of Present Illness: ASHVIN MORALES is a 72 year old male Physical Exam Vital Signs: Temp Pulse Resp BP Pulse Ox 97.7 F 97 20 114/58 L 95 12/03/17 10:33 12/03/17 11:20 12/03/17 11:20 12/03/17 10:33 12/03/17 11:20 Pulse Oximeter Continuous Start: 11/30/17 09: 14 Freq: RTQ4 Status: Complete Document 12/03/17 08:10 TPO (Rec: 12/03/17 08:19 TPO [email or web address]) Pulse Oximetry Assessment Oxygen Saturation (92-100) 94 Oxygen Flow Rate (L/min) 2 Oxygen Delivery Method Nasal Cannula Fraction of Inspired Oxygen (FIO2) 28 Equipment Usage Equipment in Use Continuous SpO2 Machine # 11 Results Laboratory Results: 12/03/17 04:20 12/03/17 04:20 Impressions: Chest X-Ray 11/30/17 00:00 IMPRESSION: Minimal airspace disease right lateral costophrenic sulcus, worrisome for minimal right basilar pneumonia Status: Imported from PACS Qualifiers - * PATIENT BEING DISCHARGED WITH ANY OF THE FOLLOWING DIAGNOSIS: No Plan Discharge Plan: DISCHARGED HOME WITH PRESCRIPTION FOR LEVAQUIN TO COMPLETE ANTIBIOTIC COURSE FOR PNA/ACUTE BRONCHITIS IN THE SETTING OF SEVERE COPD. ADDITIONALLY, HE WAS SENT HOME WITH A 5 DAY COURSE OF PO PREDNISONE. FINALLY, THE PATIENT WAS SENT HOME WITH 2 NEW PRN NEBULIZER TREATMENTS, DUONEB AND XOPENEX - MIRRORING THE TREATMENT HE RECEIVED WHILE INPATIENT. CURRENTLY, THE PATIENT ONLY HAS ALBUTEROL NEBULIZER TREATMENTS AT HOME. GIVEN THE SEVERITY OF HIS COPD, I ANTICIPATE THAT THIS PATIENT MAY RETURN WITHIN THE CALENDAR YEAR FOR SUBSEQUENT EXACERBATIONS. Time Spent: Less than 30 Minutes
== END 2017-12-03 16:00 | disposition home or self-care (01) | DRG 189 ==
LOC: ER 22:50 → EH 11-29 01:23 → 3N 11-29 07:55 → OBSVTOIN 11-29 10:08 → 3W 11-29 18:06 → 4N 11-30 02:38
PROVIDERS: ADMIT Internal Medicine; ATTEND Internal Medicine
DX: J96.21 Acute and chronic respiratory failure with hypoxia (principal); E43 Unspecified severe protein-calorie malnutrition; J18.9 Pneumonia, unspecified organism; J44.0 Chronic obstructive pulmonary disease with (acute) lower respiratory infection; J44.1 Chronic obstructive pulmonary disease with (acute) exacerbation; C34.90 Malignant neoplasm of unspecified part of unspecified bronchus or lung; R64 Cachexia; Z68.1 Body mass index [BMI] 19.9 or less, adult; Z99.81 Dependence on supplemental oxygen; I48.91 Unspecified atrial fibrillation; E78.00 Pure hypercholesterolemia, unspecified; I10 Essential (primary) hypertension; K21.9 Gastro-esophageal reflux disease without esophagitis; I73.9 Peripheral vascular disease, unspecified; F41.9 Anxiety disorder, unspecified; Z79.82 Long term (current) use of aspirin; Z79.51 Long term (current) use of inhaled steroids; Z79.899 Other long term (current) drug therapy; Z89.611 Acquired absence of right leg above knee; Z87.891 Personal history of nicotine dependence
CPT/HCPCS: 36415; 71045; 80048; 82040; 82803; 83735; 85025; 93005; 93010; 94640; 94667; 94668; 94762; 94799; 96365; 96367; 96372; 96375; 99291; G0378; G8978-GP; G8979-GP; J1630; J1644; J1956; J2060; J2920; J2930; J3475; J3490; J7030; J7512; J7620

== ENCOUNTER 2017-12-13 14:22 | Inpatient (IN) | payer MEDICARE, BC ==
[2017-12-13 16:22] LABS: ABSOLUTE BASOPHILS # (AUTO) 0.1 10^3/uL (0.0-0.2); ABSOLUTE EOSINOPHILS # (AUTO) 0.2 10^3/uL (0.0-0.6); ABSOLUTE LYMPHOCYTES (AUTO) 0.6 10^3/uL (0.5-4.7); ABSOLUTE MONOCYTES (AUTO) 0.6 10^3/uL (0.1-1.4); ABSOLUTE NEUT (AUTO) 7.9 10^3/uL (1.7-8.2); BASOPHILS % (AUTO) 0.8 % (0-2); EOSINOPHILS % (AUTO) 1.9 % (0-6); HEMOGLOBIN 10.1 g/dL (13.5-17.0); INTERNATIONAL RATION (INR) 1.07; LYMPHOCYTES % (AUTO) 6.4 % (13-45); MEAN CORPUSCULAR HEMOGLOBIN 23.6 pg (27.0-33.4); MEAN CORPUSCULAR HGB CONC 31.5 g/dL (32.0-36.0); MEAN CORPUSCULAR VOLUME 75 fl (80-97); MONOCYTES % (AUTO) 6.6 % (3-13); PLATELET COUNT 342 10^3/uL (150-450); PROTHROMBIN TIME 14.5 SEC (11.4-15.4); RED BLOOD COUNT 4.27 10^6/uL (4.35-5.55); RED CELL DISTRIBUTION WIDTH 16.7 % (11.5-14.0); SEGMENTED NEUTROPHILS % (AUTO) 84.3 % (42-78); TOTAL CELLS COUNTED % (AUTO) 100 %; WHITE BLOOD COUNT 9.4 10^3/uL (4.0-10.5)
[2017-12-13 16:23] LABS: PARTIAL THROMBOPLASTIN TIME 32.6 SEC (23.5-35.8)
[2017-12-13 16:41] LABS: ALANINE AMINOTRANSFERASE 37 U/L (21-72); ALBUMIN 2.8 g/dL (3.5-5.0); ALKALINE PHOSPHATASE 60 U/L (38-126); ANION GAP 12 (5-19); ASPARTATE AMINO TRANSFERASE 15 U/L (17-59); BILIRUBIN,DIRECT 0.2 mg/dL (0.0-0.4); BILIRUBIN,TOTAL 0.2 mg/dL (0.2-1.3); BLOOD UREA NITROGEN 14 mg/dL (7-20); CALCIUM 8.5 mg/dL (8.4-10.2); CARBON DIOXIDE 28 mmol/L (22-30); CHLORIDE 98 mmol/L (98-107); GLUCOSE 84 mg/dL (75-110); POTASSIUM 4.3 mmol/L (3.6-5.0); SODIUM 138.3 mmol/L (137-145); TOTAL PROTEIN 5.5 g/dL (6.3-8.2)
--- NOTE | 2017-12-13 18:28 | RADIOLOGY REPORT (SQ) ---
EXAM DESCRIPTION: CTA CHEST COMPLETED DATE/TIME: 12/13/2017 5:55 pm REASON FOR STUDY: hemoptysis COMPARISON: Chest x-ray 11/30/2017, CT angiogram chest 04/10/2017. TECHNIQUE: CT scan of the chest performed using helical scanning technique with dynamic intravenous contrast injection. Images reviewed with lung, soft tissue and bone windows. Reconstructed coronal and sagittal MPR images reviewed. Additional 3 dimensional post-processing performed to develop Maximal Intensity Projection images ([place] P). All images stored on PACS. All CT scanners at this facility use dose modulation, iterative reconstruction, and/or weight based d osing when appropriate to reduce radiation dose to as low as reasonably achievable (ALARA). [facility]: Dose Right [facility]: CareDose [facility]: Dose Right [facility]: Teradose 4D [facility]: [employer] CONTRAST TYPE AND DOSE: 53 mL Isovue 370- low osmolar. Contrast bolus optimized for the pulmonary arteries. Not diagnostic for the aorta. RENAL FUNCTION: Creatinine 0.62 RADIATION DOSE: . LIMITATIONS: None. FINDINGS: LUNGS AND PLEURA: Redemonstration of severe bilateral emphysematous changes. Large bulla at the right lower lobe is measuring 10.9 x 4.7 cm. Cluster of cavitary lesions at the right lung apex is measuring 5.7 x 3.6 cm, previously measure 4.6 x 2.7 cm. A new cluster of cavitary lesions at the left lung apex is measuring 4.7 x 2.7 cm. Cluster of nodules at the left lung apex are measuring up to 1.0 cm. No significant interval change in the spiculated nodule at the right lower lobe measuring 1.0 x 1.0 cm. New airspace opacities are seen at the bilateral lower lobes. No pleural effusion or pneumothorax. Calcified granuloma at the left lower lobe. AORTA AND GREAT VESSELS: No thoracic aortic aneurysm. Contrast bolus not optimized for the aorta. HEART: There is a small pericardial effusion. Coronary arteries calcifications are present. PULMONARY ARTERIES: No emboli visualized in the main pulmonary arteries or the segmental branches. HILAR AND MEDIASTINAL STRUCTURES: Right hilar lymph node measuring 2.0 cm. Subcarinal lymph node constantino suring 1.3 cm. No pathologically enlarged lymph nodes are seen at the left hilum. HARDWARE: None in the chest. UPPER ABDOMEN: Scattered subcentimeter hypodensities within the liver are too small to be adequately characterized. Limited exam. BONES: Degenerative changes in the spine. 3D MIPS: Confirm above findings. IMPRESSION: 1. No pulmonary emboli. 2. Severe bilateral emphysematous changes with interval increase in the cluster of cavitary lesions a t the right lung apex and interval development of cluster of cavitary lesions at the left lung apex. These may represent progression of acute infectious/inflammatory process such as tuberculosis or cav itary pneumonia versus malignancy. 3. Interval development of airspace opacities at the bilateral lower lobes, may be secondary to pneum onia. Followup CT after treatment recommended to re-evaluate. 4. No significant interval change in the bilateral pulmonary nodules. 5. Right hilar and mediastinal adenopathy, not significantly changed in the interval. 6. Small pericardial effusion. COMMENT: Quality ID # [id number]: Final reports with documentation of one or more dose reduction techniques (e.g., Automated exposure control, adjustment of the mA and/or kV according to patient size, use of iterative reconstruction technique) TECHNICAL DOCUMENTATION: JOB ID: [id number] [employer].- All Rights Reserved Reading location - IP/workstation name: [email or web address]
[2017-12-13] MEDS ORDERED: PIPERACILLIN/TAZOBACTAM 3.375 GM VIAL IV ONE (19:13)
--- NOTE | 2017-12-13 19:13 | ER Document Report ---
ED General - General Chief Complaint: Other Stated Complaint: COUGHING UP BLOOD Time Seen by Provider: 12/13/17 15:26 TRAVEL OUTSIDE OF THE [place] IN LAST 30 DAYS: No - Related Data Allergies/Adverse Reactions: No Known Allergies Allergy (Verified 12/13/17 14:23) Past Medical History - Social History Smoking Status: Current Every Day Smoker Chew tobacco use (# tins/day): No Frequency of alcohol use: None Drug Abuse: None Family History: COPD Patient has suicidal ideation: No Patient has homicidal ideation: No - Past Medical History Cardiac Medical History: Reports: Hx Atrial Fibrillation, Hx Hypercholesterolemia, Hx Hypertension Pulmonary Medical History: Reports: Hx Bronchitis, Hx COPD, Hx Intubation, Hx Respiratory Failure - Chart reports lung cancer but not staged. RLL infiltrates Renal/ Medical History: Denies: Hx Peritoneal Dialysis Malignancy Medical History: Reports Hx Lung Cancer - possible GI Medical History: Reports: Hx Gastroesophageal Reflux Disease Psychiatric Medical History: Denies: Hx Dementia Traumatic Medical History: Reports: Hx Pneumothorax Past Surgical History: Reports: Hx Orthopedic Surgery - RIGHT AKA - Immunizations Hx Diphtheria, Pertussis, Tetanus Vaccination: Yes Hx Pneumococcal Vaccination: 04/02/17 Review of Systems - Review of Systems Constitutional: No symptoms reported EENT: No symptoms reported Cardiovascular: No symptoms reported Respiratory: Cough, Hemoptysis, Short of breath, Wheezing Gastrointestinal: No symptoms reported Male Genitourinary: No symptoms reported Musculoskeletal: No symptoms reported Neurological/Psychological: No symptoms reported Physical Exam - Vital signs Vitals: Temp Pulse Resp BP Pulse Ox 98.2 F 93 24 H 114/87 H 96 12/13/17 14:46 12/13/17 14:46 12/13/17 14:46 12/13/17 14:46 12/13/17 14:46 - Notes Notes: PHYSICAL EXAMINATION: GENERAL: Pale, chronically ill-appearing, mild respiratory distress. HEAD: Atraumatic, normocephalic. EYES: Pupils equal round and reactive to light, extraocular movements intact, sclera anicteric, conjunctiva are normal. ENT: Nares patent, oropharynx clear without exudates. Moist mucous membranes. NECK: Normal range of motion, supple without lymphadenopathy LUNGS: Rhonchi bilaterally. Positive expiratory wheezing. Hemoptysis While examined. HEART: Regular rate and rhythm without murmurs ABDOMEN: Soft, nontender, nondistended abdomen. No guarding, no rebound. No masses appreciated. Musculoskeletal: Normal range of motion, no pitting or edema. No cyanosis. NEUROLOGICAL: Cranial nerves grossly intact. Normal speech. Normal sensory, motor exams PSYCH: Normal mood, normal affect. SKIN: Warm, Dry, normal turgor, no rashes or lesions noted. Course - Re-evaluation Re-evalutation: 12/13/17 19:08 Call to [place]. Patient's hop separator Dr. Espinoza only does in office he does not do in hospital. They have no in hospital hop separator. 12/13/17 19:11 Call to [facility]. Await call back. 12/13/17 19:54 Labs- All tests 24 hr 12/13/17 12/13/17 12/13/17 15:57 15:57 15:57 WBC 9.4 RBC 4.27 L Hgb 10.1 L Hct 32.0 L MCV 75 L MCH 23.6 L MCHC 31.5 L RDW 16.7 H Plt Count 342 Seg Neutrophils % 84.3 H Lymphocytes % 6.4 L Monocytes % 6.6 Eosinophils % 1.9 Basophils % 0.8 Absolute Neutrophils 7.9 Absolute Lymphocytes 0.6 Absolute Monocytes 0.6 Absolute Eosinophils 0.2 Absolute Basophils 0.1 PT 14.5 INR 1.07 APTT 32.6 Sodium 138.3 Potassium 4.3 Chloride 98 Carbon Dioxide 28 Anion Gap 12 BUN 14 Creatinine 0.62 Est GFR ( Amer) > 60 Est GFR (Non-Af Amer) > 60 Glucose 84 Calcium 8.5 Total Bilirubin 0.2 Direct Bilirubin 0.2 Neonat Total Bilirubin Not Reportable Neonat Direct Bilirubin Not Reportable Neonat Indirect Bili Not Reportable AST 15 L ALT 37 Alkaline Phosphatase 60 Total Protein 5.5 L Albumin 2.8 L Blood Type Antibody Screen 12/13/17 16:25 WBC RBC Hgb Hct MCV MCH MCHC RDW Plt Count Seg Neutrophils % Lymphocytes % Monocytes % Eosinophils % Basophils % Absolute Neutrophils Absolute Lymphocytes Absolute Monocytes Absolute Eosinophils Absolute Basophils PT INR APTT Sodium Potassium Chloride Carbon Dioxide Anion Gap BUN Creatinine Est GFR ( Amer) Est GFR (Non-Af Amer) Glucose Calcium Total Bilirubin Direct Bilirubin Neonat Total Bilirubin Neonat Direct Bilirubin Neonat Indirect Bili AST ALT Alkaline Phosphatase Total Protein Albumin Blood Type A POSITIVE Antibody Screen NEGATIVE Chest/Abdomen CTA 12/13/17 16:31 IMPRESSION: 1. No pulmonary emboli. 2. Severe bilateral emphysematous changes with interval increase in the cluster of cavitary lesions at the right lung apex and interval development of cluster of cavitary lesions at the left lung apex. These may represent progression of acute infectious/inflammatory process such as tuberculosis or cavitary pneumonia versus malignancy. 3. Interval development of airspace opacities at the bilateral lower lobes, may be secondary to pneumonia. Followup CT after treatment recommended to re- evaluate. 4. No significant interval change in the bilateral pulmonary nodules. 5. Right hilar and mediastinal adenopathy, not significantly changed in the interval. 6. Small pericardial effusion. 12/13/17 I spoke with [facility] variety lathe operator who Repetitively stated "I do not know why you do not have a hop separator at your hospital to take care of the patient when you have 3 hop separator in the area".He then stated "I do not accept patients yet to talk to the hospitalist." Transfer center to call the hospitalist and then call me back. 12/13/17 20:[address] Andrews at [facility] - Vital Signs Vital signs: Temp Pulse Resp BP Pulse Ox 98.2 F 93 27 H 120/96 H 96 12/13/17 14:46 12/13/17 14:46 12/13/17 20:01 12/13/17 20:01 12/13/17 20:01 - Laboratory Result Diagrams: 12/13/17 15:57 12/13/17 15:57 Laboratory results interpreted by me: 12/13/17 12/13/17 15:57 15:57 RBC 4.27 L Hgb 10.1 L Hct 32.0 L MCV 75 L MCH 23.6 L MCHC 31.5 L RDW 16.7 H Seg Neutrophils % 84.3 H Lymphocytes % 6.4 L AST 15 L Total Protein 5.5 L Albumin 2.8 L - Diagnostic Test Radiology reviewed: Image reviewed Discharge - Discharge Clinical Impression: Hemoptysis, Cavitary lesion of lung, COPD (chronic obstructive pulmonary disease), Full code status Disposition: [facility]
[2017-12-13] MEDS ORDERED: IPRATROPIUM/ALBUTEROL 0.5-2.5 MG/3 ML AMPUL NEB ONE (20:00)
[2017-12-14] MEDS ORDERED: IPRATROPIUM/ALBUTEROL 0.5-2.5 MG/3 ML AMPUL NEB ONE (01:29)
[2017-12-14] MEDS ORDERED: ASPIRIN 81 MG TABLET, CHEWABLE PO ONE (06:04)
[2017-12-14] MEDS ORDERED: PANTOPRAZOLE SODIUM 40 MG VIAL IV ONE (06:05)
--- NOTE | 2017-12-14 06:08 | ER Document Report ---
Doctor's Note Notes: 12/14/17 06:07 Patient remains on waiting list at [facility]. At this time he is complaining of being hungry. His blood pressure is 97/63, so his diltiazem will be held while his other medications will be given. Medications ordered are DuoNeb, Zithromax, MiraLAX, Protonix and Lipitor. See his medication list for the medications that were not given. 12/14/17 07:25 Transfer of patient care with history and current plan was given to Dr. Grover.
[2017-12-14] MEDS ORDERED: ATORVASTATIN CALCIUM 20 MG TABLET PO SCH (06:15)
[2017-12-14] MEDS ORDERED: POLYETHYLENE GLYCOL 3350 POWDER 17 GM/1 PACKET PO SCH (10:00)
[2017-12-14] MEDS ORDERED: POLYETHYLENE GLYCOL 3350 POWDER 17 GM/1 PACKET PO PRN (10:25)
[2017-12-14] MEDS ORDERED: ONDANSETRON HCL INJ/PF 4 MG/2 ML SDV IV PRN (10:25)
[2017-12-14] MEDS ORDERED: CHOLECALCIFEROL (D3) 1,000 UNIT TABLET PO ONE (11:00)
[2017-12-14] MEDS ORDERED: DILTIAZEM HCL 180 MG CAPSULE.CR PO ONE (11:00)
[2017-12-14] MEDS: AZITHROMYCIN 250 MG TABLET PO SCH (11:20)
[2017-12-14] MEDS: LORAZEPAM 0.5 MG TABLET PO PRN (11:20)
[2017-12-14] MEDS ORDERED: IPRATROPIUM/ALBUTEROL 0.5-2.5 MG/3 ML AMPUL NEB SCH (12:00)
[2017-12-14] MEDS ORDERED: ENOXAPARIN SODIUM INJ 40 MG/0.4 ML DISP.SYRIN SUBCUT ONE (12:00)
--- NOTE | 2017-12-14 14:44 | PDOC H&P ---
History of Present Illness Admission Date/PCP: 12/14/17 09:54 Patient complains of: Coughing up blood History of Present Illness: ASHVIN MORALES is a 72 year old male with severe COPD who has been intermittently coughing up streaky blood about once a day for the past week. He denies fevers or chills. He quit smoking 3 years ago. He states he wears oxygen only at night and is been having to wear it during the day due to shortness of breath. His last episode of hemoptysis was over 24 hours ago. Past Medical History Cardiac Medical History: Reports: Atrial Fibrillation, Hyperlipidema, Hypertension Pulmonary Medical History: Reports: Bronchitis, Chronic Obstructive Pulmonary Disease (COPD) - Chronic bilateral upper lobe cavitary lesions and severe bullous disease, Intubation, Respiratory Failure - Chart reports lung cancer but not staged. RLL infiltrates Malignancy Medical History: Reports: Lung Cancer - possible GI Medical History: Reports: Gastroesophageal Reflux Disease Psychiatric Medical History: Denies: Dementia Traumatic Medical History: Reports: Pneumothorax Past Surgical History Past Surgical History: Reports: Orthopedic Surgery - RIGHT AKA Social History Information Source: Patient, [facility] Records Lives with: Family Smoking Status: Former Smoker - Quit in 2014 Frequency of Alcohol Use: None Hx Recreational Drug Use: No Drugs: None Hx Prescription Drug Abuse: No - Advance Directive Resuscitation Status: Full Code Family History Family History: COPD Parental Family History Reviewed: Yes Children Family History Reviewed: No Sibling(s) Family History Reviewed.: No Medication/Allergy Home Medications: Albuterol Sulfate [Ventolin HFA MDI 18 GM] 1 puff IH Q6HP PRN 06/14/17 Aspirin [Aspirin EC] 81 mg PO DAILY 06/14/17 Atorvastatin Calcium 20 mg PO QHS 06/14/17 Folic Acid 1 mg PO DAILY 06/14/17 Glycopyrrolate/Formoterol Fum [Bevespi Aerosphere Inhaler] 2 puff IH Q12 Pantoprazole Sodium 40 mg PO DAILY 06/14/17 Lorazepam [Ativan 0.5 mg Tablet] 0.5 mg PO DAILYP PRN 10/08/17 Azithromycin [Zithromax 250 mg Tablet] 250 mg PO DAILY MDD for 60 days started 11/29/17 Cyanocobalamin (Vitamin B-12) [Vitamin B-12 1000 mcg Tablet] 1,000 mcg PO DAILY 11/29/17 Diltiazem HCl [Cartia Xt] 180 mg PO DAILY 11/29/17 Mirtazapine 30 mg PO QHS MDD start 12/0211/29/17 Polyethylene Glycol 3350 [Gavilax] 17 gm PO DAILY 11/29/17 Levalbuterol HCl [Xopenex Neb 0.63 mg/3 ml Ampul] 0.63 mg NEB RTQ2HP PRN #15 vial.neb 12/03/17 Cholecalciferol (Vitamin D3) [Vitamin D] 2,000 unit PO DAILY 12/13/17 Ipratropium/Albuterol Sulfate [Duoneb 3 ml Ampul] 3 ml NEB RTQ4HP PRN 12/13/17 Allergies/Adverse Reactions: No Known Allergies Allergy (Verified 12/13/17 14:23) Review of Systems All systems: reviewed and no additional remarkable complaints except as stated Physical Exam Vital Signs: Temp Pulse Resp BP Pulse Ox 98.2 F 93 18 102/55 L 98 12/13/17 14:46 12/13/17 14:46 12/14/17 14:01 12/14/17 14:01 12/14/17 14:01 General appearance: PRESENT: no acute distress, other - Notably cachectic. Very soft voice he says due to repeated intubations Respiratory exam: PRESENT: crackles, decreased breath sounds, prolonged expiratory phas. ABSENT: wheezes Cardiovascular exam: PRESENT: other - Irregularly irregular GI/Abdominal exam: PRESENT: soft Neurological exam: PRESENT: alert Psychiatric exam: PRESENT: anxious Skin exam: PRESENT: warm Results Impressions: Chest/Abdomen CTA 12/13/17 16:31 IMPRESSION: 1. No pulmonary emboli. 2. Severe bilateral emphysematous changes with interval increase in the cluster of cavitary lesions at the right lung apex and interval development of cluster of cavitary lesions at the left lung apex. These may represent progression of acute infectious/inflammatory process such as tuberculosis or cavitary pneumonia versus malignancy. 3. Interval development of airspace opacities at the bilateral lower lobes, may be secondary to pneumonia. Followup CT after treatment recommended to re- evaluate. 4. No significant interval change in the bilateral pulmonary nodules. 5. Right hilar and mediastinal adenopathy, not significantly changed in the interval. 6. Small pericardial effusion. Assessment & Plan - Diagnosis (1) Hemoptysis Is this a current diagnosis for this admission?: Yes Plan: Really not very surprising given the severity of his chronic lung disease. Nothing acutely needs to be done. I will treat his COPD exacerbation and the usual manner, and see if pulmonology has any other suggestions. (2) Malnutrition Qualifiers: Protein-calorie malnutrition severity: moderate Is this a current diagnosis for this admission?: Yes (3) Afib Qualifiers: Atrial fibrillation type: persistent Qualified Code(s): I48.1 - Persistent atrial fibrillation Is this a current diagnosis for this admission?: Yes Plan: Continue home medications (4) Cavitary lesion of lung Is this a current diagnosis for this admission?: Yes Plan: Chronic. Looks a little worse than it has historically. Pulmonology opinion (5) Acute and chronic respiratory failure with hypoxia Is this a current diagnosis for this admission?: Yes (6) COPD exacerbation Is this a current diagnosis for this admission?: Yes Plan: Steroids, azithromycin, nebulizers, aggressive pulmonary toilet, wean oxygen as tolerated
[2017-12-14] MEDS: IPRATROPIUM/ALBUTEROL 0.5-2.5 MG/3 ML AMPUL NEB PRN ×2 (18:33→23:38)
[2017-12-14] MEDS ORDERED: TUBERCULIN,PURIF.PROT.DERIV. 5 TU/0.1 ML TEST 1 ML VIAL ID ONE (19:00)
[2017-12-14] MEDS ORDERED: (PENDING PHARMACY ID) (Mirtazapine [Mirtazapine] 30 MG) PO SCH (22:00)
[2017-12-14] MEDS: FAMOTIDINE 20 MG TABLET PO SCH (22:24)
[2017-12-14] MEDS: MIRTAZAPINE 15 MG TABLET PO SCH (22:24)
[2017-12-14] MEDS: ATORVASTATIN CALCIUM 20 MG TABLET PO SCH (22:24)
[2017-12-15] MEDS: IPRATROPIUM/ALBUTEROL 0.5-2.5 MG/3 ML AMPUL NEB PRN ×3 (08:45→16:32)
[2017-12-15] MEDS ORDERED: POLYETHYLENE GLYCOL 3350 POWDER 17 GM/1 PACKET PO PRN (09:48)
[2017-12-15] MEDS: CHOLECALCIFEROL (D3) 1,000 UNIT TABLET PO SCH (09:49)
[2017-12-15] MEDS: AZITHROMYCIN 250 MG TABLET PO SCH (09:51)
[2017-12-15] MEDS: FAMOTIDINE 20 MG TABLET PO SCH ×2 (09:51→22:01)
[2017-12-15] MEDS: ASPIRIN 81 MG TABLET, ENT COATED PO SCH (09:52)
[2017-12-15] MEDS: FOLIC ACID 1 MG TABLET PO SCH (09:52)
[2017-12-15] MEDS: LORAZEPAM 0.5 MG TABLET PO PRN (09:52)
[2017-12-15] MEDS: CYANOCOBALAMIN (VITAMIN B-12) 1,000 MCG TABLET PO SCH (09:52)
[2017-12-15] MEDS: POLYETHYLENE GLYCOL 3350 POWDER 17 GM/1 PACKET PO SCH (09:54)
[2017-12-15] MEDS: ENOXAPARIN SODIUM INJ 40 MG/0.4 ML DISP.SYRIN SUBCUT SCH (09:54)
[2017-12-15] MEDS ORDERED: (PENDING PHARMACY ID) (Diltiazem Hcl [Cartia Xt] 180 MG) PO SCH (10:00)
[2017-12-15] MEDS ORDERED: PREDNISONE 20 MG TABLET PO SCH (10:00)
[2017-12-15] MEDS ORDERED: (PENDING PHARMACY ID) (Cholecalciferol (Vitamin D3) [Vitamin D3] 2,000 UNIT) PO SCH (10:00)
[2017-12-15] MEDS: DILTIAZEM HCL 180 MG CAPSULE.CR PO SCH (10:03)
--- NOTE | 2017-12-15 10:14 | PDOC CONSULTATION ---
Consultation Consult Date: 12/14/17 Attending physician:: CAROLYN KERR Consult reason:: Dyspnea COPD hemoptysis History of Present Illness Admission Date/PCP: 12/14/17 09:54 History of Present Illness: ASHVIN MORALES is a 72 year old male,complains of dyspnea on exertion with activities of daily living no shortness of breath at rest of the last week or so he has been having increased cough sometimes streaked with blood he has denied fevers chills nausea vomiting diarrhea his PPD status is unknown he denies history of chronic lung disease as a child or adolescent he missed exposure large amounts of passive smoke as a child as well as an adult he is self smoked a pack a day for 54 years and has not smoked in last 36 months. He states he is worked in multiple jobs with exposed large amounts of dust and dirt. He has 1 cat no recent travel he denies angina-like chest pain sleeps on 2 pillows no PND rare nocturnal cough no edema is unaware of any snoring he admits to restless sleep nocturia 3-4 times per night he denies unrestful sleep but admits to excessive daytime somnolence. Past Medical History Cardiac Medical History: Reports: Atrial Fibrillation, Hyperlipidema, Hypertension Pulmonary Medical History: Reports: Bronchitis, Chronic Obstructive Pulmonary Disease (COPD) - Chronic bilateral upper lobe cavitary lesions and severe bullous disease, Intubation, Respiratory Failure - Chart reports lung cancer but not staged. RLL infiltrates EENT Medical History: Denies: Nose, Throat Neurological Medical History: Denies: Hemorrhagic CVA, Ischemic CVA, Multiple Sclerosis Renal/ Medical History: Denies: End Stage Renal Disease, Nephrolithiasis Malignancy Medical History: Reports: Lung Cancer - possible GI Medical History: Reports: Gastroesophageal Reflux Disease Denies: Hepatitis, Ulcerative Colitis Psychiatric Medical History: Denies: Dementia Traumatic Medical History: Reports: Pneumothorax Past Surgical History Past Surgical History: Reports: Orthopedic Surgery - RIGHT AKA Social History Information Source: Patient, [facility] Records Lives with: Family Smoking Status: Former Smoker Cigarettes Packs Per Day: 1 Number of Years Smokin Last Time Smoked: 36 months Passive smoke exposure as: Both Frequency of Alcohol Use: None Hx Recreational Drug Use: No Drugs: None Hx Prescription Drug Abuse: No Do you have pets?: Yes Have you had any respiratory illnesses as a child?: No Have you been exposed to any sick contacts recently?: No Have you had any recent respiratory illnesses?: No Have you travelled outside of [place] in the past 12 months?: No - Advance Directive Resuscitation Status: Full Code Family History Family History: COPD Parental Family History Reviewed: Yes Children Family History Reviewed: Yes Sibling(s) Family History Reviewed.: Yes Medication/Allergy Home Medications: Albuterol Sulfate [Ventolin HFA MDI 18 GM] 1 puff IH Q6HP PRN 06/14/17 Aspirin [Aspirin EC] 81 mg PO DAILY 06/14/17 Atorvastatin Calcium 20 mg PO QHS 06/14/17 Folic Acid 1 mg PO DAILY 06/14/17 Glycopyrrolate/Formoterol Fum [Bevespi Aerosphere Inhaler] 2 puff IH Q12 Pantoprazole Sodium 40 mg PO DAILY 06/14/17 Lorazepam [Ativan 0.5 mg Tablet] 0.5 mg PO DAILYP PRN 10/08/17 Azithromycin [Zithromax 250 mg Tablet] 250 mg PO DAILY MDD for 60 days started 11/29/17 Cyanocobalamin (Vitamin B-12) [Vitamin B-12 1000 mcg Tablet] 1,000 mcg PO DAILY 11/29/17 Diltiazem HCl [Cartia Xt] 180 mg PO DAILY 11/29/17 Mirtazapine 30 mg PO QHS MDD start 12/0211/29/17 Polyethylene Glycol 3350 [Gavilax] 17 gm PO DAILY 11/29/17 Levalbuterol HCl [Xopenex Neb 0.63 mg/3 ml Ampul] 0.63 mg NEB RTQ2HP PRN #15 vial.neb 12/03/17 Cholecalciferol (Vitamin D3) [Vitamin D] 2,000 unit PO DAILY 12/13/17 Ipratropium/Albuterol Sulfate [Duoneb 3 ml Ampul] 3 ml NEB RTQ4HP PRN 12/13/17 Allergies/Adverse Reactions: No Known Allergies Allergy (Verified 12/13/17 14:23) Review of Systems Constitutional: ABSENT: chills, fever(s), headache(s), night sweats Eyes: ABSENT: visual disturbances Ears: ABSENT: hearing changes Nose, Mouth, and Throat: ABSENT: mouth pain, vertigo Cardiovascular: PRESENT: dyspnea on exertion, orthropnea. ABSENT: edema, palpitations Respiratory: PRESENT: cough, dyspnea, hemoptysis Gastrointestinal: ABSENT: abdominal pain, bloating, coffee ground emesis, diarrhea, dysphagia, heartburn, hematemesis, hematochezia, melena Genitourinary: ABSENT: dysuria, hematuria Neurological: ABSENT: abnormal gait, abnormal movements, abnormal speech, focal weakness, frequent falls, lack of coordination, memory loss Psychiatric: ABSENT: hallucinations, homidical ideation, suicidal ideation Endocrine: ABSENT: cold intolerance, heat intolerance, polydipsia, polyphagia Hematologic/Lymphatic: ABSENT: lymphadenopathy Allergic/Immunologic: PRESENT: seasonal rhinorrhea Physical Exam Vital Signs: Temp Pulse Resp BP Pulse Ox 99.1 F 95 22 H 112/58 L 96 12/15/17 07:53 12/15/17 08:45 12/15/17 08:45 12/15/17 07:53 12/15/17 08:45 Intake & Output 12/14/17 12/15/17 12/16/17 06:59 06:59 06:59 Intake Total 540 Output Total 550 Balance -10 Weight 42.7 kg General appearance: PRESENT: no acute distress, cooperative, disheveled, thin Head exam: PRESENT: atraumatic, normocephalic Eye exam: PRESENT: conjunctiva pale, EOMI. ABSENT: nystagmus, periorbital swelling, scleral icterus Ear exam: PRESENT: other - Very hard of hearing Mouth exam: PRESENT: dry mucosa, neck supple, tongue midline Neck exam: ABSENT: carotid bruit, JVD, lymphadenopathy, thyromegaly, tracheal deviation, tracheostomy Respiratory exam: PRESENT: decreased breath sounds, prolonged expiratory phas, rales, rhonchi, unlabored, wheezes. ABSENT: retraction, stridor, tachypnea Cardiovascular exam: PRESENT: RRR, +S1, +S2 Pulses: PRESENT: normal radial pulses GI/Abdominal exam: PRESENT: normal bowel sounds, soft Extremities exam: ABSENT: calf tenderness, clubbing, joint swelling Musculoskeletal exam: ABSENT: deformity, dislocation Neurological exam: PRESENT: awake Psychiatric exam: PRESENT: flat affect Skin exam: PRESENT: dry, warm Results Impressions: Chest/Abdomen CTA 12/13/17 16:31 IMPRESSION: 1. No pulmonary emboli. 2. Severe bilateral emphysematous changes with interval increase in the cluster of cavitary lesions at the right lung apex and interval development of cluster of cavitary lesions at the left lung apex. These may represent progression of acute infectious/inflammatory process such as tuberculosis or cavitary pneumonia versus malignancy. 3. Interval development of airspace opacities at the bilateral lower lobes, may be secondary to pneumonia. Followup CT after treatment recommended to re- evaluate. 4. No significant interval change in the bilateral pulmonary nodules. 5. Right hilar and mediastinal adenopathy, not significantly changed in the interval. 6. Small pericardial effusion. Assessment & Plan - Diagnosis (1) COPD (chronic obstructive pulmonary disease) Qualifiers: COPD type: emphysema Emphysema type: unspecified Qualified Code(s): J43.9 - Emphysema, unspecified Is this a current diagnosis for this admission?: Yes Plan: Continue current bronchodilator therapy (2) Cavitary lesion of lung Is this a current diagnosis for this admission?: Yes Plan: Actually more like infected large bullae of the cavitary lesions (3) Hemoptysis Is this a current diagnosis for this admission?: Yes Plan: Most likely from infected bulla no AFBs at this time (4) Malnutrition Qualifiers: Protein-calorie malnutrition severity: moderate Is this a current diagnosis for this admission?: Yes Plan: Pulmonary cachexia;social situation (5) Acute and chronic respiratory failure with hypoxia Is this a current diagnosis for this admission?: Yes Plan: Severe COPD severe bullous disease
--- NOTE | 2017-12-15 10:49 | PDOC PROGRESS REPORT ---
Subjective Progress Note for:: 12/15/17 Subjective:: No new complaints. No reports of further hemoptysis. Reason For Visit: HEMOPTYSIS Physical Exam Vital Signs: Temp Pulse Resp BP Pulse Ox 99.1 F 95 22 H 112/58 L 96 12/15/17 07:53 12/15/17 08:45 12/15/17 08:45 12/15/17 07:53 12/15/17 08:45 Intake & Output 12/14/17 12/15/17 12/16/17 05:59 05:59 05:59 Intake Total 320 220 Output Total 200 350 Balance 120 -130 Weight 94 lb 3.75 oz 94 lb 2.198 oz General appearance: PRESENT: no acute distress, other - Check Neck exam: ABSENT: lymphadenopathy Respiratory exam: PRESENT: decreased breath sounds - Almost no breath sounds bilaterally, prolonged expiratory phas, rales - Superiorly bilaterally Cardiovascular exam: PRESENT: other - Irregularly irregular GI/Abdominal exam: PRESENT: soft Extremities exam: ABSENT: pedal edema Neurological exam: PRESENT: alert Psychiatric exam: PRESENT: flat affect Skin exam: PRESENT: warm Results Impressions: Chest/Abdomen CTA 12/13/17 16:31 IMPRESSION: 1. No pulmonary emboli. 2. Severe bilateral emphysematous changes with interval increase in the cluster of cavitary lesions at the right lung apex and interval development of cluster of cavitary lesions at the left lung apex. These may represent progression of acute infectious/inflammatory process such as tuberculosis or cavitary pneumonia versus malignancy. 3. Interval development of airspace opacities at the bilateral lower lobes, may be secondary to pneumonia. Followup CT after treatment recommended to re- evaluate. 4. No significant interval change in the bilateral pulmonary nodules. 5. Right hilar and mediastinal adenopathy, not significantly changed in the interval. 6. Small pericardial effusion. Assessment & Plan - Diagnosis (1) Hemoptysis Is this a current diagnosis for this admission?: Yes Plan: Really not very surprising given the severity of his chronic lung disease. Nothing acutely needs to be done. Case was discussed in detail with pulmonology. We will evaluate the patient for possible tuberculosis. (2) Malnutrition Qualifiers: Protein-calorie malnutrition severity: moderate Is this a current diagnosis for this admission?: Yes (3) Afib Qualifiers: Atrial fibrillation type: persistent Qualified Code(s): I48.1 - Persistent atrial fibrillation Is this a current diagnosis for this admission?: Yes Plan: Continue home medications (4) Cavitary lesion of lung Is this a current diagnosis for this admission?: Yes Plan: Chronic. Looks a little worse than it has historically. Pulmonology opinion is that we need to rule out TB (5) Acute and chronic respiratory failure with hypoxia Is this a current diagnosis for this admission?: Yes (6) COPD exacerbation Is this a current diagnosis for this admission?: Yes Plan: Antibiotics, nebulizers, aggressive pulmonary toilet, wean oxygen as tolerated No steroids because of the concern for possible TB
[2017-12-15] MEDS: CEFTRIAXONE SODIUM 1,000 MG in DEXTROSE 5%-WATER 50 ML IV SCH (14:09)
--- NOTE | 2017-12-15 14:22 | Progress Note ---
Provider Note Provider Note: Palliative Care Consult visit 12/15/17 1:15 PM Appreciate palliative care consult for this 72 year old man who is known to me from his last admission a couple of weeks ago. He is admitted again with exacerbation of COPD, hemoptysis and generalized debility. His only complaint of pain is with muscle spasms and cramps in his hands and leg. He is alert and oriented and able to converse without distress. He is wearing oxygen but shows no acute respiratory distress at this time Today his daughter is with him and we were able to have conversation about about advance directives. His daughter says he has DNR at [facility]. We talked at length about his general condition, his COPD and other lung issues , his protein malnutrition (Albumin 2.8) and how all of that would impact his ability to survive if intubated, on a ventilator, of if CPR were to be performed. He is living with his daughter at present, so she understands how ill he is and how much debility he has on a daily basis, not just when hospitalized. Mr. Hines does want to have DNR status here at [facility] as well. I explained the need to tell doctors with every admission. I wrote [place] DNR form and placed on the chart but told daughter to be sure it is given to her for home. I explained that if ambulance would need it to follow his wishes. No symptoms or problems noted. I notified RN about DNR status and he said he will notify hospitalist. Appreciate opportunity to participate in care of this gentleman. He would be appropriate for hospice if he gets to point where he does not want aggressive care for exacerbations. However, he appreciates coming to the hospital now and getting quick treatment for his problems.
[2017-12-15] MEDS: MIRTAZAPINE 15 MG TABLET PO SCH (22:00)
[2017-12-15] MEDS: ATORVASTATIN CALCIUM 20 MG TABLET PO SCH (22:01)
[2017-12-16] MEDS: IPRATROPIUM/ALBUTEROL 0.5-2.5 MG/3 ML AMPUL NEB PRN ×4 (08:37→20:17)
[2017-12-16] MEDS ORDERED: CEFTRIAXONE 1 GM/D5W RTU 1 GM/50 ML RTUPB IV SCH (10:00)
[2017-12-16] MEDS: ASPIRIN 81 MG TABLET, ENT COATED PO SCH (11:06)
[2017-12-16] MEDS: AZITHROMYCIN 250 MG TABLET PO SCH (11:07)
[2017-12-16] MEDS: CHOLECALCIFEROL (D3) 1,000 UNIT TABLET PO SCH (11:08)
[2017-12-16] MEDS: CYANOCOBALAMIN (VITAMIN B-12) 1,000 MCG TABLET PO SCH (11:09)
[2017-12-16] MEDS: FOLIC ACID 1 MG TABLET PO SCH (11:10)
[2017-12-16] MEDS: ENOXAPARIN SODIUM INJ 40 MG/0.4 ML DISP.SYRIN SUBCUT SCH (11:10)
[2017-12-16] MEDS: FAMOTIDINE 20 MG TABLET PO SCH ×2 (11:11→21:22)
[2017-12-16] MEDS: POLYETHYLENE GLYCOL 3350 POWDER 17 GM/1 PACKET PO SCH (11:12)
[2017-12-16] MEDS: DILTIAZEM HCL 180 MG CAPSULE.CR PO SCH (11:12)
--- NOTE | 2017-12-16 11:21 | PDOC PROGRESS REPORT ---
Subjective Progress Note for:: 12/16/17 Subjective:: Clinically patient is stable without complaints Reason For Visit: HEMOPTYSIS Physical Exam Vital Signs: Temp Pulse Resp BP Pulse Ox 98.8 F 88 20 104/63 97 12/16/17 03:00 12/16/17 07:00 12/16/17 03:00 12/16/17 03:00 12/16/17 03:00 Intake & Output 12/15/17 12/16/17 12/17/17 06:59 06:59 06:59 Intake Total 1768 Output Total 900 Balance 868 Weight 42.1 kg General appearance: PRESENT: no acute distress, cooperative, disheveled, hard of hearing, thin Head exam: PRESENT: atraumatic, normocephalic Eye exam: PRESENT: conjunctiva pale, EOMI. ABSENT: nystagmus, periorbital swelling, scleral icterus Mouth exam: PRESENT: dry mucosa, neck supple, tongue midline Teeth exam: PRESENT: poor dentation Neck exam: ABSENT: carotid bruit, JVD, lymphadenopathy, thyromegaly, tracheal deviation, tracheostomy Respiratory exam: PRESENT: decreased breath sounds, prolonged expiratory phas, rales, rhonchi, unlabored. ABSENT: retraction, stridor, tachypnea Cardiovascular exam: PRESENT: RRR, +S1, +S2 Pulses: PRESENT: normal radial pulses GI/Abdominal exam: PRESENT: diminished bowel sounds, soft Extremities exam: ABSENT: calf tenderness, joint swelling, pedal edema, tenderness Neurological exam: PRESENT: alert, awake Psychiatric exam: PRESENT: flat affect Skin exam: PRESENT: dry, warm Results Impressions: Chest/Abdomen CTA 12/13/17 16:31 IMPRESSION: 1. No pulmonary emboli. 2. Severe bilateral emphysematous changes with interval increase in the cluster of cavitary lesions at the right lung apex and interval development of cluster of cavitary lesions at the left lung apex. These may represent progression of acute infectious/inflammatory process such as tuberculosis or cavitary pneumonia versus malignancy. 3. Interval development of airspace opacities at the bilateral lower lobes, may be secondary to pneumonia. Followup CT after treatment recommended to re- evaluate. 4. No significant interval change in the bilateral pulmonary nodules. 5. Right hilar and mediastinal adenopathy, not significantly changed in the interval. 6. Small pericardial effusion. Assessment & Plan - Diagnosis (1) COPD (chronic obstructive pulmonary disease) Qualifiers: COPD type: emphysema Emphysema type: unspecified Qualified Code(s): J43.9 - Emphysema, unspecified Is this a current diagnosis for this admission?: Yes Plan: Continue current bronchodilator therapy (2) Cavitary lesion of lung Is this a current diagnosis for this admission?: Yes Plan: Actually more like infected large bullae of the cavitary lesions (3) Hemoptysis Is this a current diagnosis for this admission?: Yes Plan: Most likely from infected bulla no AFBs at this time (4) Acute and chronic respiratory failure with hypoxia Is this a current diagnosis for this admission?: Yes Plan: Severe COPD severe bullous disease (5) Acid fast bacillus Is this a current diagnosis for this admission?: Yes Plan: RESP ISOLATION INH;ETHAMBUTOL;
[2017-12-16] MEDS: CEFTRIAXONE SODIUM 1,000 MG in DEXTROSE 5%-WATER 50 ML IV SCH (16:00)
--- NOTE | 2017-12-16 16:35 | PDOC PROGRESS REPORT ---
Subjective Progress Note for:: 12/16/17 Reason For Visit: HEMOPTYSIS Cough and shortness of breath is improving, has minimal blood streaked phlegm, codeine from lab for AFB positive 2, patient's placed on negative pressure room Physical Exam Vital Signs: Temp Pulse Resp BP Pulse Ox 98 F 95 20 143/70 H 95 12/16/17 11:00 12/16/17 16:09 12/16/17 16:09 12/16/17 11:00 12/16/17 16:09 Intake & Output 12/15/17 12/16/17 12/17/17 06:59 06:59 06:59 Intake Total 1768 Output Total 900 Balance 868 Weight 42.1 kg General appearance: PRESENT: disheveled, thin Head exam: PRESENT: atraumatic, normocephalic Eye exam: PRESENT: conjunctiva pink, EOMI, PERRLA. ABSENT: scleral icterus Ear exam: PRESENT: normal external ear exam Mouth exam: PRESENT: moist, tongue midline Neck exam: ABSENT: carotid bruit, JVD, lymphadenopathy, thyromegaly Respiratory exam: PRESENT: rhonchi Cardiovascular exam: PRESENT: RRR. ABSENT: diastolic murmur, rubs, systolic murmur Pulses: PRESENT: normal dorsalis pedis pul Vascular exam: PRESENT: normal capillary refill GI/Abdominal exam: PRESENT: normal bowel sounds, soft. ABSENT: distended, guarding, mass, organolmegaly, rebound, tenderness Rectal exam: PRESENT: deferred Extremities exam: PRESENT: full ROM. ABSENT: calf tenderness, clubbing, pedal edema Neurological exam: PRESENT: alert, awake, oriented to person, oriented to place , oriented to time, oriented to situation, CN II-XII grossly intact. ABSENT: motor sensory deficit Psychiatric exam: PRESENT: appropriate affect, normal mood. ABSENT: homicidal ideation, suicidal ideation Skin exam: PRESENT: dry, intact, warm. ABSENT: cyanosis, rash Results Impressions: Chest/Abdomen CTA 12/13/17 16:31 IMPRESSION: 1. No pulmonary emboli. 2. Severe bilateral emphysematous changes with interval increase in the cluster of cavitary lesions at the right lung apex and interval development of cluster of cavitary lesions at the left lung apex. These may represent progression of acute infectious/inflammatory process such as tuberculosis or cavitary pneumonia versus malignancy. 3. Interval development of airspace opacities at the bilateral lower lobes, may be secondary to pneumonia. Followup CT after treatment recommended to re- evaluate. 4. No significant interval change in the bilateral pulmonary nodules. 5. Right hilar and mediastinal adenopathy, not significantly changed in the interval. 6. Small pericardial effusion. Assessment & Plan - Diagnosis (1) Pulmonary TB Is this a current diagnosis for this admission?: Yes - Plan Summary Plan Summary: Chest/Abdomen CTA 12/13/17 16:31 IMPRESSION: 1. No pulmonary emboli. 2. Severe bilateral emphysematous changes with interval increase in the cluster of cavitary lesions at the right lung apex and interval development of cluster of cavitary lesions at the left lung apex. These may represent progression of acute infectious/inflammatory process such as tuberculosis or cavitary pneumonia versus malignancy. 3. Interval development of airspace opacities at the bilateral lower lobes, may be secondary to pneumonia. Followup CT after treatment recommended to re- evaluate. 4. No significant interval change in the bilateral pulmonary nodules. 5. Right hilar and mediastinal adenopathy, not significantly changed in the interval. 6. Small pericardial effusion. Assessment & Plan - Diagnosis (1) pulmonary tuberculosis smear positive Is this a current diagnosis for this admission?: Yes Plan: Infection control to be notified, initiate the entire TB with INH, rifampin and ethambutol and pyrazinamide, respiratory isolation (2) Malnutrition Qualifiers: Protein-calorie malnutrition severity: moderate Is this a current diagnosis for this admission?: Yes (3) Afib Qualifiers: Atrial fibrillation type: persistent Qualified Code(s): I48.1 - Persistent atrial fibrillation Is this a current diagnosis for this admission?: Yes Plan: Continue home medications (4) Cavitary lesion of lung Is this a current diagnosis for this admission?: Yes Plan: This is due to pulmonary tuberculosis (5) Acute and chronic respiratory failure with hypoxia Is this a current diagnosis for this admission?: Yes (6) COPD exacerbation Is this a current diagnosis for this admission?: Yes Plan: Antibiotics, nebulizers, aggressive pulmonary toilet, wean oxygen as tolerated
[2017-12-16 17:11] LABS: ALANINE AMINOTRANSFERASE 33 U/L (21-72); ALBUMIN 2.7 g/dL (3.5-5.0); ALKALINE PHOSPHATASE 56 U/L (38-126); ANION GAP 10 (5-19); ASPARTATE AMINO TRANSFERASE 17 U/L (17-59); BLOOD UREA NITROGEN 18 mg/dL (7-20); CARBON DIOXIDE 28 mmol/L (22-30); CHLORIDE 99 mmol/L (98-107); GLUCOSE 123 mg/dL (75-110); POTASSIUM 4.5 mmol/L (3.6-5.0); SODIUM 136.6 mmol/L (137-145); TOTAL PROTEIN 5.2 g/dL (6.3-8.2)
[2017-12-16 17:53] LABS: BILIRUBIN,TOTAL < 0.1 mg/dL (0.2-1.3)
[2017-12-16] MEDS ORDERED: ISONIAZID 300 MG TABLET PO SCH (18:00)
[2017-12-16] MEDS ORDERED: ETHAMBUTOL HCL 400 MG TABLET PO SCH ×2 (18:00)
[2017-12-16] MEDS ORDERED: RIFAMPIN 300 MG CAPSULE PO SCH (18:00)
[2017-12-16] MEDS ORDERED: PYRAZINAMIDE 500 MG TABLET PO SCH ×2 (18:00)
[2017-12-16] MEDS: ISONIAZID 300 MG TABLET PO SCH (18:30)
[2017-12-16] MEDS: RIFAMPIN 300 MG CAPSULE PO SCH (18:30)
[2017-12-16] MEDS: ATORVASTATIN CALCIUM 20 MG TABLET PO SCH (21:22)
[2017-12-16] MEDS: MIRTAZAPINE 15 MG TABLET PO SCH (21:22)
[2017-12-17] MEDS: LORAZEPAM 0.5 MG TABLET PO PRN ×2 (00:04→16:50)
[2017-12-17] MEDS: IPRATROPIUM/ALBUTEROL 0.5-2.5 MG/3 ML AMPUL NEB PRN ×4 (03:52→23:53)
[2017-12-17] MEDS: CHOLECALCIFEROL (D3) 1,000 UNIT TABLET PO SCH (09:39)
[2017-12-17] MEDS: AZITHROMYCIN 250 MG TABLET PO SCH (09:39)
[2017-12-17] MEDS: ASPIRIN 81 MG TABLET, ENT COATED PO SCH (09:39)
[2017-12-17] MEDS: FAMOTIDINE 20 MG TABLET PO SCH ×2 (09:39→22:50)
[2017-12-17] MEDS: DILTIAZEM HCL 180 MG CAPSULE.CR PO SCH (09:40)
[2017-12-17] MEDS: CYANOCOBALAMIN (VITAMIN B-12) 1,000 MCG TABLET PO SCH (09:40)
[2017-12-17] MEDS: ENOXAPARIN SODIUM INJ 40 MG/0.4 ML DISP.SYRIN SUBCUT SCH (09:40)
[2017-12-17] MEDS: FOLIC ACID 1 MG TABLET PO SCH (09:40)
[2017-12-17] MEDS: POLYETHYLENE GLYCOL 3350 POWDER 17 GM/1 PACKET PO SCH (09:42)
[2017-12-17] MEDS: CEFTRIAXONE SODIUM 1,000 MG in DEXTROSE 5%-WATER 50 ML IV SCH (14:10)
--- NOTE | 2017-12-17 15:53 | PDOC PROGRESS REPORT ---
Subjective Progress Note for:: 12/17/17 Reason For Visit: HEMOPTYSIS Patient admitted with hemoptysis and found to have AFB positive 3 smear. Patient remains on isolation. He denies any new symptoms. Physical Exam Vital Signs: Temp Pulse Resp BP Pulse Ox 99.6 F 104 H 17 129/81 H 96 12/17/17 11:45 12/17/17 14:00 12/17/17 11:45 12/17/17 11:45 12/17/17 11:45 Intake & Output 12/16/17 12/17/17 12/18/17 06:59 06:59 06:59 Intake Total 1768 803 474 Output Total 900 475 Balance 868 328 474 Weight 42.1 kg 50.8 kg 44.361 kg General appearance: PRESENT: no acute distress, thin Head exam: PRESENT: atraumatic, normocephalic Eye exam: PRESENT: conjunctiva pink. ABSENT: scleral icterus Ear exam: PRESENT: normal external ear exam Mouth exam: PRESENT: tongue midline Neck exam: ABSENT: carotid bruit, JVD, lymphadenopathy, thyromegaly Respiratory exam: PRESENT: clear to auscultation rito. ABSENT: rales, rhonchi, wheezes Cardiovascular exam: PRESENT: RRR. ABSENT: diastolic murmur, rubs, systolic murmur GI/Abdominal exam: PRESENT: normal bowel sounds, soft. ABSENT: distended, guarding, mass, organolmegaly, rebound, tenderness Rectal exam: PRESENT: deferred Extremities exam: PRESENT: full ROM. ABSENT: calf tenderness, clubbing, pedal edema Neurological exam: PRESENT: alert, awake, oriented to person, oriented to place , oriented to time, oriented to situation, CN II-XII grossly intact. ABSENT: motor sensory deficit Psychiatric exam: PRESENT: appropriate affect, normal mood. ABSENT: homicidal ideation, suicidal ideation Skin exam: PRESENT: dry, intact, warm. ABSENT: cyanosis, rash Results Laboratory Results: 12/16/17 16:41 12/16/17 16:41 Sodium 136.6 L Potassium 4.5 Chloride 99 Carbon Dioxide 28 Anion Gap 10 BUN 18 Creatinine 0.77 Est GFR ( Amer) > 60 Est GFR (Non-Af Amer) > 60 Glucose 123 H Calcium 9.0 Total Bilirubin < 0.1 L AST 17 ALT 33 Alkaline Phosphatase 56 Total Protein 5.2 L Albumin 2.7 L 12/15/17 13:00 Sputum Gram Stain - Final 12/15/17 13:00 Sputum AFB Smear Concentration - Final 12/15/17 13:00 Sputum Acid Fast Bacilli Smear - Final Impressions: Chest/Abdomen CTA 12/13/17 16:31 IMPRESSION: 1. No pulmonary emboli. 2. Severe bilateral emphysematous changes with interval increase in the cluster of cavitary lesions at the right lung apex and interval development of cluster of cavitary lesions at the left lung apex. These may represent progression of acute infectious/inflammatory process such as tuberculosis or cavitary pneumonia versus malignancy. 3. Interval development of airspace opacities at the bilateral lower lobes, may be secondary to pneumonia. Followup CT after treatment recommended to re- evaluate. 4. No significant interval change in the bilateral pulmonary nodules. 5. Right hilar and mediastinal adenopathy, not significantly changed in the interval. 6. Small pericardial effusion. Assessment & Plan - Inpatient Certification Based on my medical assessment, after consideration of the patient's comorbidities, presenting symptoms, or acuity I expect that the services needed warrant INPATIENT care.: Yes Medical Necessity: Risk of Complication if Not Cared For in Hospital, Risk of Diagnosis Which Will Require Inpatient Eval/Care/Monitoring - Plan Summary Plan Summary: Pulmonary tuberculosis with AFB 3 positive. He has been started on INH, rifampin and ethambutol as well as pyrazinamide and continues on respiratory isolation. 2. Malnutrition likely related to above 3. Chronic atrial fibrillation 4. Acute on chronic respiratory failure with hypoxia 5. COPD exacerbation currently on bronchodilators pulmonary toilet.
[2017-12-17] MEDS: ISONIAZID 300 MG TABLET PO SCH (18:11)
[2017-12-17] MEDS: RIFAMPIN 300 MG CAPSULE PO SCH (18:11)
[2017-12-17] MEDS: PYRAZINAMIDE 500 MG TABLET PO SCH (18:11)
[2017-12-17] MEDS: ETHAMBUTOL HCL 400 MG TABLET PO SCH (18:12)
--- NOTE | 2017-12-17 20:19 | Progress Note ---
Provider Note Provider Note: ID Consult Note Asked to review patient's chart by Pharmacy. Pt not seen and examined. Reviewed VS, provider reports, CT images and imaging report, labs. Pt is a 72 yo man with pmh including severe COPD with bullous emphysematous disease, chronic hypoxic respiratory failure on 2L O2 at home (at night and PRN , per previous notes), GERD, HLD, HTN, s/p R AKA, and cachexia with BMI of 13- 14. He was hospitalized from 11/29/17-12/03/17 for acute on chronic hypoxic respiratory failure attributed to COPD exacerbation and possible pneumonia that was empirically treated with Levaquin given RLL infiltrate seen on CXR and corticosteroids (IV solumedrol, PO prednisone x 5 days as an outpatient). Pt was readmitted on 12/14/17 with c/o worsened LYLES requiring use of supplemental oxygen during the day and increased cough sometimes streaked with blood. He denied fevers or chills, night sweats, or NVD. He was appreciated to have decreased breath sounds, prolonged expiratory phase, wheezes, rales and rhonchi. He did not have a fever or leukocytosis. Compared to prior CTA chest Apr 2017, the CTA chest on 12/13/17 showed progression in the cavitary R lung upper lobe lesions, interval development of a cluster of cavitary lesions L lung apex, airspace opacities b/l lower lobes, unchanged R hilar and mediastinal LAD, no pleural effusion. Pt received Zosyn x 1 in the ED, then was given Rocephin/azithromycin from 12/14 or 12/15 to present. BCx on 12/13 showed no growth x 3 days. HIV antibody test negative. PPD after 48h has been read as negative. Sputum Gram stain on 12/15 showed rare Gram positive cocci in pairs and culture has preliminarily been reported as showing 2+ normal tressa, 2+ GPCs in clusters, and 1 colony of Aspergillus. Repeat sputum culture on 12/16 has no organisms on Gram stain and no growth in culture x 1 day. AFB smear from 12/15, 12/16, and 12/17 have been reported as showing 4+, 2+, and 3+ AFB; cultures in process. Rifampin, ethambutol, PZA, and INH were begun, in addition to Rocephin and azithromycin. Sputum was reported to be sent to [facility] for PCR to try to identify or at least exclude Mycobacterium tuberculosis. Impression/Recommendations - Severe COPD with bullous emphysema - Progressive upper lobe cavitary lung lesions and AFB+ sputum smears, suspicious for mycobacterial pulmonary disease AFB positive sputum smears in the setting of progressive cavitary upper lobe disease is concerning for nontuberculous mycobacterial (NTM) lung disease or TB. NTM more likely if pt does not have known risk factors (not an immigrant from or traveler to countries with higher TB incidence, no hx of incarceration, no known contacts with TB) and negative PPD. From an epidemiological standpoint , MAC pulmonary disease would be most likely. That being said, isolation should be continued until tuberculosis can be reliably excluded with PCR. [facility] Mycobacterium [facility] usually takes several days, up to a week, depending on when sample was received. I do not know if comparable turnaround time can be expected for sputum PCR sent to a commercial reference lab, as was reported to be the case. The patient was started on RIPE therapy for presumptive TB. RIPE can be continued until results are available from PCR of the sputum for Mycobacterium tuberculosis. Azithromycin and Rocephin were begun for empiric CAP treatment. I am not sure how much benefit this is effecting. Whether he might have some superimposed bacterial process is unclear, considering that he was recently treated with Levaquin for CAP 2 weeks ago, and radiographic changes can persist. I do not think that there is a clear indication that he needs further broading of antibiotics for a typical bacterial pathogen, while awaiting addition information from the sputum culture on 12/15. Pt has not had new fever or increasing O2 requirements to suggest that he is having uncontrolled sepsis or acute respiratory decompensation from an un-addressed typical bacterial pathogen. Do not recommend pursuing the addition of voriconazole therapy at this time, on the basis of isolating a single colony of Aspergillus from sputum. Brennon Marsh MD [facility] Infectious Diseases pager [phone]
[2017-12-17] MEDS: ATORVASTATIN CALCIUM 20 MG TABLET PO SCH (22:50)
[2017-12-17] MEDS: MIRTAZAPINE 15 MG TABLET PO SCH (22:50)
[2017-12-17] MEDS: ACETAMINOPHEN 325 MG TABLET PO PRN (23:51)
[2017-12-18] MEDS: IPRATROPIUM/ALBUTEROL 0.5-2.5 MG/3 ML AMPUL NEB PRN ×3 (07:03→16:03)
[2017-12-18] MEDS: ASPIRIN 81 MG TABLET, ENT COATED PO SCH (10:56)
[2017-12-18] MEDS: DILTIAZEM HCL 180 MG CAPSULE.CR PO SCH (10:56)
[2017-12-18] MEDS: FAMOTIDINE 20 MG TABLET PO SCH ×2 (10:56→22:23)
[2017-12-18] MEDS: AZITHROMYCIN 250 MG TABLET PO SCH (10:56)
[2017-12-18] MEDS: CHOLECALCIFEROL (D3) 1,000 UNIT TABLET PO SCH (10:57)
[2017-12-18] MEDS: FOLIC ACID 1 MG TABLET PO SCH (10:57)
[2017-12-18] MEDS: POLYETHYLENE GLYCOL 3350 POWDER 17 GM/1 PACKET PO SCH (10:57)
[2017-12-18] MEDS: CYANOCOBALAMIN (VITAMIN B-12) 1,000 MCG TABLET PO SCH (10:58)
[2017-12-18] MEDS: ENOXAPARIN SODIUM INJ 40 MG/0.4 ML DISP.SYRIN SUBCUT SCH (10:58)
--- NOTE | 2017-12-18 14:50 | PDOC PROGRESS REPORT ---
Subjective Progress Note for:: 12/18/17 Subjective:: Patient denies any fever or progressive SOB. Reason For Visit: HEMOPTYSIS Physical Exam Vital Signs: Temp Pulse Resp BP Pulse Ox 98.8 F 114 H 24 H 101/68 96 12/18/17 07:16 12/18/17 07:16 12/18/17 07:16 12/18/17 07:16 12/18/17 08:00 Intake & Output 12/17/17 12/18/17 12/19/17 06:59 06:59 06:59 Intake Total 803 1018 473 Output Total 475 100 220 Balance 328 918 253 Weight 50.8 kg 44.9 kg General appearance: PRESENT: no acute distress, thin Head exam: PRESENT: atraumatic, normocephalic Eye exam: PRESENT: conjunctiva pink, PERRLA. ABSENT: scleral icterus Ear exam: PRESENT: normal external ear exam Neck exam: ABSENT: carotid bruit, JVD, lymphadenopathy, thyromegaly Respiratory exam: PRESENT: decreased breath sounds. ABSENT: rales, rhonchi, wheezes Cardiovascular exam: PRESENT: RRR. ABSENT: diastolic murmur, rubs, systolic murmur Pulses: PRESENT: normal dorsalis pedis pul Vascular exam: PRESENT: normal capillary refill GI/Abdominal exam: PRESENT: normal bowel sounds, soft. ABSENT: distended, guarding, mass, organolmegaly, rebound, tenderness Rectal exam: PRESENT: deferred Extremities exam: PRESENT: full ROM. ABSENT: calf tenderness, clubbing, pedal edema Neurological exam: PRESENT: alert, awake, oriented to person, oriented to place , oriented to time, oriented to situation, CN II-XII grossly intact. ABSENT: motor sensory deficit Psychiatric exam: PRESENT: appropriate affect, normal mood. ABSENT: homicidal ideation, suicidal ideation Skin exam: PRESENT: dry, intact, warm. ABSENT: cyanosis, rash Results Laboratory Results: 12/16/17 16:41 12/15/17 13:00 Sputum Gram Stain - Final 12/15/17 13:00 Sputum Sputum Culture - Final Mrsa (Meth Resis Staph Aureus) Aspergillus Species Normal Margaret Impressions: Chest/Abdomen CTA 12/13/17 16:31 IMPRESSION: 1. No pulmonary emboli. 2. Severe bilateral emphysematous changes with interval increase in the cluster of cavitary lesions at the right lung apex and interval development of cluster of cavitary lesions at the left lung apex. These may represent progression of acute infectious/inflammatory process such as tuberculosis or cavitary pneumonia versus malignancy. 3. Interval development of airspace opacities at the bilateral lower lobes, may be secondary to pneumonia. Followup CT after treatment recommended to re- evaluate. 4. No significant interval change in the bilateral pulmonary nodules. 5. Right hilar and mediastinal adenopathy, not significantly changed in the interval. 6. Small pericardial effusion. Assessment & Plan - Time Time Spent with patient: Less than 15 minutes Medications reviewed and adjusted accordingly: Yes Anticipated discharge: Home - Inpatient Certification Based on my medical assessment, after consideration of the patient's comorbidities, presenting symptoms, or acuity I expect that the services needed warrant INPATIENT care.: Yes Medical Necessity: Risk of Complication if Not Cared For in Hospital, Risk of Diagnosis Which Will Require Inpatient Eval/Care/Monitoring - Plan Summary Plan Summary: 1.Pulmonary tuberculosis with AFB 3 positive. He has been started on INH, rifampin and ethambutol as well as pyrazinamide and continues on respiratory isolation. Possibility of NTB including MAC especially in this gentleman that appears to have minimal TB risk factor to be considered. Will await PCR sputum result and RIPE in the interim 2. Malnutrition likely related to above. Encourage nutrition 3. Chronic atrial fibrillation- stable 4. Acute on chronic respiratory failure with hypoxia- Cont Oxygen support 5. COPD exacerbation currently on bronchodilators, pulmonary toilet.
[2017-12-18] MEDS: CEFTRIAXONE SODIUM 1,000 MG in DEXTROSE 5%-WATER 50 ML IV SCH (15:51)
[2017-12-18] MEDS: RIFAMPIN 300 MG CAPSULE PO SCH (17:43)
[2017-12-18] MEDS: ETHAMBUTOL HCL 400 MG TABLET PO SCH (17:43)
[2017-12-18] MEDS: PYRAZINAMIDE 500 MG TABLET PO SCH (17:43)
[2017-12-18] MEDS: ISONIAZID 300 MG TABLET PO SCH (17:43)
[2017-12-18] MEDS: MIRTAZAPINE 15 MG TABLET PO SCH (22:23)
[2017-12-18] MEDS: ATORVASTATIN CALCIUM 20 MG TABLET PO SCH (22:24)
[2017-12-19] MEDS: ACETAMINOPHEN 325 MG TABLET PO PRN (03:50)
[2017-12-19] MEDS: IPRATROPIUM/ALBUTEROL 0.5-2.5 MG/3 ML AMPUL NEB PRN ×5 (04:32→20:32)
[2017-12-19 06:29] LABS: HEMATOCRIT 25.3 % (37.9-51.0); HEMOGLOBIN 8.2 g/dL (13.5-17.0); MEAN CORPUSCULAR HEMOGLOBIN 23.8 pg (27.0-33.4); MEAN CORPUSCULAR HGB CONC 32.6 g/dL (32.0-36.0); MEAN CORPUSCULAR VOLUME 73 fl (80-97); PLATELET COUNT 507 10^3/uL (150-450); RED BLOOD COUNT 3.46 10^6/uL (4.35-5.55); RED CELL DISTRIBUTION WIDTH 16.9 % (11.5-14.0)
[2017-12-19 06:53] LABS: ANION GAP 9 (5-19); BLOOD UREA NITROGEN 25 mg/dL (7-20); CALCIUM 9.2 mg/dL (8.4-10.2); CARBON DIOXIDE 27 mmol/L (22-30); CHLORIDE 101 mmol/L (98-107); GLUCOSE 105 mg/dL (75-110); POTASSIUM 4.7 mmol/L (3.6-5.0); SODIUM 137.2 mmol/L (137-145)
[2017-12-19] MEDS: ENOXAPARIN SODIUM INJ 40 MG/0.4 ML DISP.SYRIN SUBCUT SCH (10:05)
[2017-12-19] MEDS: ASPIRIN 81 MG TABLET, ENT COATED PO SCH (10:06)
[2017-12-19] MEDS: FAMOTIDINE 20 MG TABLET PO SCH ×2 (10:07→21:56)
[2017-12-19] MEDS: CYANOCOBALAMIN (VITAMIN B-12) 1,000 MCG TABLET PO SCH (10:07)
[2017-12-19] MEDS: AZITHROMYCIN 250 MG TABLET PO SCH (10:07)
[2017-12-19] MEDS: CHOLECALCIFEROL (D3) 1,000 UNIT TABLET PO SCH (10:08)
[2017-12-19] MEDS: DILTIAZEM HCL 180 MG CAPSULE.CR PO SCH (10:09)
[2017-12-19] MEDS: FOLIC ACID 1 MG TABLET PO SCH (10:09)
[2017-12-19] MEDS: POLYETHYLENE GLYCOL 3350 POWDER 17 GM/1 PACKET PO SCH (10:27)
[2017-12-19] MEDS: LORAZEPAM 0.5 MG TABLET PO PRN (12:16)
[2017-12-19] MEDS: CEFTRIAXONE SODIUM 1,000 MG in DEXTROSE 5%-WATER 50 ML IV SCH (14:10)
[2017-12-19] MEDS: ETHAMBUTOL HCL 400 MG TABLET PO SCH (17:58)
[2017-12-19] MEDS: RIFAMPIN 300 MG CAPSULE PO SCH (17:58)
--- NOTE | 2017-12-19 17:58 | PDOC PROGRESS REPORT ---
Subjective Progress Note for:: 12/19/17 Subjective:: Patient denies any fever or progressive SOB. Reason For Visit: HEMOPTYSIS Physical Exam Vital Signs: Temp Pulse Resp BP Pulse Ox 98.7 F 105 H 20 126/62 H 94 12/19/17 15:41 12/19/17 16:20 12/19/17 16:20 12/19/17 15:41 12/19/17 16:20 Intake & Output 12/18/17 12/19/17 12/20/17 06:59 06:59 06:59 Intake Total 1018 1353 595 Output Total 100 540 Balance 918 813 595 Weight 44.9 kg 45 kg General appearance: PRESENT: no acute distress, thin Head exam: PRESENT: atraumatic Mouth exam: PRESENT: moist, tongue midline Respiratory exam: PRESENT: decreased breath sounds. ABSENT: rales, rhonchi, wheezes Cardiovascular exam: PRESENT: RRR. ABSENT: diastolic murmur, rubs, systolic murmur GI/Abdominal exam: PRESENT: normal bowel sounds, soft. ABSENT: distended, guarding, mass, organolmegaly, rebound, tenderness Rectal exam: PRESENT: deferred Skin exam: PRESENT: dry, intact, warm. ABSENT: cyanosis, rash Results Laboratory Results: 12/19/17 06:14 12/19/17 06:14 12/19/17 12/19/17 06:14 06:14 WBC 9.0 RBC 3.46 L Hgb 8.2 L Hct 25.3 L MCV 73 L MCH 23.8 L MCHC 32.6 RDW 16.9 H Plt Count 507 H Sodium 137.2 Potassium 4.7 Chloride 101 Carbon Dioxide 27 Anion Gap 9 BUN 25 H Creatinine 1.14 Est GFR ( Amer) > 60 Est GFR (Non-Af Amer) > 60 Glucose 105 Calcium 9.2 Impressions: Chest/Abdomen CTA 12/13/17 16:31 IMPRESSION: 1. No pulmonary emboli. 2. Severe bilateral emphysematous changes with interval increase in the cluster of cavitary lesions at the right lung apex and interval development of cluster of cavitary lesions at the left lung apex. These may represent progression of acute infectious/inflammatory process such as tuberculosis or cavitary pneumonia versus malignancy. 3. Interval development of airspace opacities at the bilateral lower lobes, may be secondary to pneumonia. Followup CT after treatment recommended to re- evaluate. 4. No significant interval change in the bilateral pulmonary nodules. 5. Right hilar and mediastinal adenopathy, not significantly changed in the interval. 6. Small pericardial effusion. Assessment & Plan - Time Time Spent with patient: 15-24 minutes Medications reviewed and adjusted accordingly: Yes Anticipated discharge: Home - Inpatient Certification Based on my medical assessment, after consideration of the patient's comorbidities, presenting symptoms, or acuity I expect that the services needed warrant INPATIENT care.: Yes Medical Necessity: Significant Comorbidiites Make Outpatient Treatment Too Risky , Risk of Complication if Not Cared For in Hospital - Plan Summary Plan Summary: 1.Pulmonary tuberculosis with AFB 3 positive. Cont INH, rifampin and ethambutol as well as pyrazinamide and continues on respiratory isolation. Possibility of NTB including MAC especially in this gentleman that appears to have minimal TB risk factor to be considered. Will await PCR sputum result and continue RIPE in the interim 2. Malnutrition likely related to above. Encourage nutrition 3. Chronic atrial fibrillation- stable 4. Acute on chronic respiratory failure with hypoxia- Cont Oxygen support 5. COPD exacerbation currently on bronchodilators, pulmonary toilet.
[2017-12-19] MEDS: ISONIAZID 300 MG TABLET PO SCH (17:59)
[2017-12-19] MEDS: PYRAZINAMIDE 500 MG TABLET PO SCH (17:59)
--- NOTE | 2017-12-19 20:23 | PDOC PROGRESS REPORT ---
Subjective Progress Note for:: 12/17/17 Subjective:: Clinically patient is stable without complaints Reason For Visit: HEMOPTYSIS Physical Exam Vital Signs: Temp Pulse Resp BP Pulse Ox 98.7 F 105 H 20 126/62 H 94 12/19/17 15:41 12/19/17 16:20 12/19/17 16:20 12/19/17 15:41 12/19/17 16:20 Intake & Output 12/18/17 12/19/17 12/20/17 06:59 06:59 06:59 Intake Total 1018 1353 783 Output Total 100 540 Balance 918 813 783 Weight 44.9 kg 45 kg General appearance: PRESENT: no acute distress, cooperative, disheveled, thin Head exam: PRESENT: atraumatic, normocephalic Eye exam: PRESENT: conjunctiva pale, EOMI. ABSENT: nystagmus, periorbital swelling, scleral icterus Mouth exam: PRESENT: dry mucosa, neck supple, tongue midline Teeth exam: PRESENT: edentulous Neck exam: ABSENT: carotid bruit, JVD, lymphadenopathy, thyromegaly, tracheal deviation, tracheostomy Respiratory exam: PRESENT: decreased breath sounds, prolonged expiratory phas, rales, rhonchi, unlabored. ABSENT: retraction, stridor, tachypnea Cardiovascular exam: PRESENT: RRR, +S1, +S2 Pulses: PRESENT: normal radial pulses GI/Abdominal exam: PRESENT: normal bowel sounds, soft Extremities exam: ABSENT: calf tenderness, clubbing, joint swelling Musculoskeletal exam: ABSENT: deformity, dislocation Neurological exam: PRESENT: awake Psychiatric exam: PRESENT: normal mood Skin exam: PRESENT: dry, warm Results Laboratory Results: 12/19/17 06:14 12/19/17 06:14 12/19/17 12/19/17 06:14 06:14 WBC 9.0 RBC 3.46 L Hgb 8.2 L Hct 25.3 L MCV 73 L MCH 23.8 L MCHC 32.6 RDW 16.9 H Plt Count 507 H Sodium 137.2 Potassium 4.7 Chloride 101 Carbon Dioxide 27 Anion Gap 9 BUN 25 H Creatinine 1.14 Est GFR ( Amer) > 60 Est GFR (Non-Af Amer) > 60 Glucose 105 Calcium 9.2 Impressions: Chest/Abdomen CTA 12/13/17 16:31 IMPRESSION: 1. No pulmonary emboli. 2. Severe bilateral emphysematous changes with interval increase in the cluster of cavitary lesions at the right lung apex and interval development of cluster of cavitary lesions at the left lung apex. These may represent progression of acute infectious/inflammatory process such as tuberculosis or cavitary pneumonia versus malignancy. 3. Interval development of airspace opacities at the bilateral lower lobes, may be secondary to pneumonia. Followup CT after treatment recommended to re- evaluate. 4. No significant interval change in the bilateral pulmonary nodules. 5. Right hilar and mediastinal adenopathy, not significantly changed in the interval. 6. Small pericardial effusion. Assessment & Plan - Diagnosis (1) COPD (chronic obstructive pulmonary disease) Qualifiers: COPD type: emphysema Emphysema type: unspecified Qualified Code(s): J43.9 - Emphysema, unspecified Is this a current diagnosis for this admission?: Yes Plan: Continue current bronchodilator therapy (2) Cavitary lesion of lung Is this a current diagnosis for this admission?: Yes Plan: Actually more like infected large bullae of the cavitary lesions (3) Hemoptysis Is this a current diagnosis for this admission?: Yes Plan: Most likely from infected bulla no AFBs at this time (4) Acute and chronic respiratory failure with hypoxia Is this a current diagnosis for this admission?: Yes Plan: Severe COPD severe bullous disease (5) Acid fast bacillus Is this a current diagnosis for this admission?: Yes Plan: RESP ISOLATION INH;ETHAMBUTOL;Rifampin pyrazinamide B5 (6) Aspergillosis Is this a current diagnosis for this admission?: Yes Plan: vorconazole suggest consultation with ID
[2017-12-19] MEDS: MIRTAZAPINE 15 MG TABLET PO SCH (21:56)
[2017-12-19] MEDS: ATORVASTATIN CALCIUM 20 MG TABLET PO SCH (21:56)
[2017-12-19] MEDS: VORICONAZOLE 200 MG TABLET PO SCH (22:10)
[2017-12-20] MEDS: ACETAMINOPHEN 325 MG TABLET PO PRN (00:28)
[2017-12-20] MEDS: LORAZEPAM 0.5 MG TABLET PO PRN (00:29)
[2017-12-20] MEDS: IPRATROPIUM/ALBUTEROL 0.5-2.5 MG/3 ML AMPUL NEB PRN ×5 (00:30→22:00)
[2017-12-20] MEDS: ASPIRIN 81 MG TABLET, ENT COATED PO SCH (09:21)
[2017-12-20] MEDS: FAMOTIDINE 20 MG TABLET PO SCH ×2 (09:21→21:27)
[2017-12-20] MEDS: FOLIC ACID 1 MG TABLET PO SCH (09:21)
[2017-12-20] MEDS: ENOXAPARIN SODIUM INJ 40 MG/0.4 ML DISP.SYRIN SUBCUT SCH (09:21)
[2017-12-20] MEDS: AZITHROMYCIN 250 MG TABLET PO SCH (09:21)
[2017-12-20] MEDS: VORICONAZOLE 200 MG TABLET PO SCH ×2 (09:22→21:27)
[2017-12-20] MEDS: CYANOCOBALAMIN (VITAMIN B-12) 1,000 MCG TABLET PO SCH (09:22)
[2017-12-20] MEDS: CHOLECALCIFEROL (D3) 1,000 UNIT TABLET PO SCH (09:22)
--- NOTE | 2017-12-20 09:23 | Physician Advisory Note ---
Physician Advisor ProgressNote .: Pursuant to the plan for [facility], I have reviewed the medical record for this patient. Physician Advisor Statement: Nice documentation of acute resp failure, chronic Afib. Please consider documenting, if you agree: 1. "underweight with protein-calorie malnutrition [state mild, mod, or severe] with BMI 13.5 [then 14.6], ____[?wt loss, ?appetite loss, ]" [if possible, give specifics on intake, wt loss, loss of SQ fat & muscle mass, diminished hand managed care manager strength, & clinical importance such as (A) nutritional assessment ordered, (B) modified diet or supplements ordered, (C) additional labs ordered, (D) prolonged wound healing time, (E) delayed infxn clearance
[2017-12-20] MEDS: POLYETHYLENE GLYCOL 3350 POWDER 17 GM/1 PACKET PO SCH (09:40)
[2017-12-20] MEDS: DILTIAZEM HCL 180 MG CAPSULE.CR PO SCH (09:40)
--- NOTE | 2017-12-20 11:56 | PDOC PROGRESS REPORT ---
Subjective Progress Note for:: 12/20/17 Subjective:: Clinically patient is stable without complaints Reason For Visit: HEMOPTYSIS Physical Exam Vital Signs: Temp Pulse Resp BP Pulse Ox 97.5 F 105 H 24 H 99/69 L 94 12/20/17 08:06 12/20/17 08:40 12/20/17 08:40 12/20/17 08:06 12/20/17 08:40 Intake & Output 12/19/17 12/20/17 12/21/17 06:59 06:59 06:59 Intake Total 1353 1553 Output Total 540 150 Balance 813 1403 Weight 45 kg 46 kg General appearance: PRESENT: no acute distress, cooperative, disheveled, thin Head exam: PRESENT: atraumatic, normocephalic Eye exam: PRESENT: conjunctiva pale, EOMI, PERRLA. ABSENT: nystagmus, periorbital swelling, scleral icterus Mouth exam: PRESENT: dry mucosa, neck supple, tongue midline Neck exam: ABSENT: carotid bruit, JVD, lymphadenopathy, thyromegaly, tracheal deviation, tracheostomy Respiratory exam: PRESENT: decreased breath sounds, prolonged expiratory phas, rales, rhonchi, unlabored. ABSENT: retraction, stridor Cardiovascular exam: PRESENT: RRR, +S1, +S2 Pulses: PRESENT: normal radial pulses GI/Abdominal exam: PRESENT: normal bowel sounds, soft Extremities exam: PRESENT: full ROM. ABSENT: calf tenderness, clubbing, joint swelling Musculoskeletal exam: PRESENT: full ROM. ABSENT: deformity, dislocation Neurological exam: PRESENT: alert, awake Psychiatric exam: PRESENT: normal mood Skin exam: PRESENT: dry, warm Results Laboratory Results: 12/19/17 06:14 12/19/17 06:14 12/16/17 10:30 Sputum AFB Smear Concentration - Final 12/16/17 10:30 Sputum Acid Fast Bacilli Smear - Final 12/16/17 10:30 Sputum Gram Stain - Final 12/16/17 10:30 Sputum Sputum Culture - Final Aspergillus Species Greatly Reduced Normal Margaret 12/17/17 09:45 Sputum AFB Smear Concentration - Final 12/17/17 09:45 Sputum Acid Fast Bacilli Smear - Final Impressions: Chest/Abdomen CTA 12/13/17 16:31 IMPRESSION: 1. No pulmonary emboli. 2. Severe bilateral emphysematous changes with interval increase in the cluster of cavitary lesions at the right lung apex and interval development of cluster of cavitary lesions at the left lung apex. These may represent progression of acute infectious/inflammatory process such as tuberculosis or cavitary pneumonia versus malignancy. 3. Interval development of airspace opacities at the bilateral lower lobes, may be secondary to pneumonia. Followup CT after treatment recommended to re- evaluate. 4. No significant interval change in the bilateral pulmonary nodules. 5. Right hilar and mediastinal adenopathy, not significantly changed in the interval. 6. Small pericardial effusion. Assessment & Plan - Diagnosis (1) COPD (chronic obstructive pulmonary disease) Qualifiers: COPD type: emphysema Emphysema type: unspecified Qualified Code(s): J43.9 - Emphysema, unspecified Is this a current diagnosis for this admission?: Yes Plan: Continue current bronchodilator therapy (2) Cavitary lesion of lung Is this a current diagnosis for this admission?: Yes Plan: AFB pos x 3; aspirgillious (3) Hemoptysis Is this a current diagnosis for this admission?: Yes Plan: no addition reports (4) Acute and chronic respiratory failure with hypoxia Is this a current diagnosis for this admission?: Yes Plan: Severe COPD severe bullous disease (5) Acid fast bacillus Is this a current diagnosis for this admission?: Yes Plan: RESP ISOLATION INH;ETHAMBUTOL;Rifampin pyrazinamide B6 (6) Aspergillosis Is this a current diagnosis for this admission?: Yes Plan: vorconazole suggest consultation with ID
[2017-12-20] MEDS: CEFTRIAXONE SODIUM 1,000 MG in DEXTROSE 5%-WATER 50 ML IV SCH (15:55)
--- NOTE | 2017-12-20 16:21 | PDOC PROGRESS REPORT ---
Subjective Progress Note for:: 12/20/17 Subjective:: Patient denies any fever or progressive SOB. He is in better spirit after discussing PCR result with him Reason For Visit: HEMOPTYSIS Physical Exam Vital Signs: Temp Pulse Resp BP Pulse Ox 97.7 F 99 24 H 117/74 96 12/20/17 11:50 12/20/17 11:50 12/20/17 11:50 12/20/17 11:50 12/20/17 11:50 Intake & Output 12/19/17 12/20/17 12/21/17 06:59 06:59 06:59 Intake Total 1353 1553 810 Output Total 540 150 200 Balance 813 1403 610 Weight 45 kg 46 kg General appearance: PRESENT: no acute distress, cooperative - Under nourished, thin, other Head exam: PRESENT: atraumatic, normocephalic Eye exam: PRESENT: conjunctival injection Ear exam: PRESENT: normal external ear exam Mouth exam: PRESENT: moist, tongue midline Neck exam: ABSENT: carotid bruit, JVD, lymphadenopathy, thyromegaly Respiratory exam: PRESENT: decreased breath sounds, unlabored. ABSENT: rhonchi , tachypnea, wheezes Cardiovascular exam: PRESENT: bradycardia Pulses: PRESENT: normal dorsalis pedis pul Vascular exam: PRESENT: normal capillary refill GI/Abdominal exam: PRESENT: normal bowel sounds, soft. ABSENT: distended, guarding, mass, organolmegaly, rebound, tenderness Rectal exam: PRESENT: deferred Extremities exam: PRESENT: full ROM. ABSENT: calf tenderness, clubbing, pedal edema Musculoskeletal exam: PRESENT: ambulatory Neurological exam: PRESENT: alert, awake, oriented to person, oriented to place , oriented to time, oriented to situation, CN II-XII grossly intact. ABSENT: motor sensory deficit Psychiatric exam: PRESENT: appropriate affect Skin exam: PRESENT: dry, intact, warm. ABSENT: cyanosis, rash Results Laboratory Results: 12/19/17 06:14 12/19/17 06:14 12/16/17 10:30 Sputum AFB Smear Concentration - Final 12/16/17 10:30 Sputum Acid Fast Bacilli Smear - Final 12/16/17 10:30 Sputum Gram Stain - Final 12/16/17 10:30 Sputum Sputum Culture - Final Aspergillus Species Greatly Reduced Normal Margaret 12/17/17 09:45 Sputum AFB Smear Concentration - Final 12/17/17 09:45 Sputum Acid Fast Bacilli Smear - Final Impressions: Chest/Abdomen CTA 12/13/17 16:31 IMPRESSION: 1. No pulmonary emboli. 2. Severe bilateral emphysematous changes with interval increase in the cluster of cavitary lesions at the right lung apex and interval development of cluster of cavitary lesions at the left lung apex. These may represent progression of acute infectious/inflammatory process such as tuberculosis or cavitary pneumonia versus malignancy. 3. Interval development of airspace opacities at the bilateral lower lobes, may be secondary to pneumonia. Followup CT after treatment recommended to re- evaluate. 4. No significant interval change in the bilateral pulmonary nodules. 5. Right hilar and mediastinal adenopathy, not significantly changed in the interval. 6. Small pericardial effusion. Assessment & Plan - Time Time Spent with patient: 15-24 minutes Medications reviewed and adjusted accordingly: Yes Anticipated discharge: Home Within: within 72 hours - Inpatient Certification Based on my medical assessment, after consideration of the patient's comorbidities, presenting symptoms, or acuity I expect that the services needed warrant INPATIENT care.: Yes Medical Necessity: Need Close Monitoring Due to Risk of Patient Decompensation, Risk of Complication if Not Cared For in Hospital - Plan Summary Plan Summary: 1. AFB 3 positive however sputum PCR was negative for tuberculosis. 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 Sputum culture results are still pending. I have requested an ID reevaluation to guide us as to the current management as this seems to me at this time that which will likely discontinue the antituberculous medicine and possibly started on Zithromax for MAC however will await ID before doing this. Cont INH, rifampin and ethambutol as well as pyrazinamide. At this point I think it safe to discontinue respiratory isolation. 2. 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 Chronic atrial fibrillation- stable 4. Acute on chronic respiratory failure with hypoxia- Cont Oxygen support 5. COPD exacerbation currently on bronchodilators, pulmonary toilet. 6. Although Aspergillus was isolated from his sputum ID consult indicates no need to add voriconazole at this point. Will await further recommendations before treatment.
[2017-12-20] MEDS: RIFAMPIN 300 MG CAPSULE PO SCH (17:34)
[2017-12-20] MEDS: ETHAMBUTOL HCL 400 MG TABLET PO SCH (17:35)
[2017-12-20] MEDS: ISONIAZID 300 MG TABLET PO SCH (17:35)
[2017-12-20] MEDS: PYRAZINAMIDE 500 MG TABLET PO SCH (17:36)
--- NOTE | 2017-12-20 19:35 | Progress Note ---
Provider Note Provider Note: ID Consult Note Asked to review chart by Dr. Campos. Pt not seen or examined. Reviewed VS, CT chest images and reports, provider reports, and labs. Mr. Hines is a 72 yo man with severe COPD with bullous emphysematous disease, chronic hypoxic respiratory failure on home oxygen, GERD, HLD, HTN, s/p RKA and cachexia who was admitted on 12/14/17 with worsened LYLES and increased cough with intermittent hemoptysis. He had no fever or night sweats. He has progressive upper lobe cavitary lung lesions bilaterally, worsening over months. His HIV antibody test, blood cultures, and PPD were negative. His sputum on 12/15 grew 2 + normal tressa, 2+ MRSA and 1 colony of Aspergillus species on admission. He was empirically treated with Rocephin/azithromycin for CAP, and then RIPE therapy empirically for TB was begun with airborne isolation when sputum AFB samples yielded 4+, 2+ and 3+ AFB on smear. Most recently, repeat sputum on 12/16 PCR of sputum for MTB returned as negative. At present, pt is documented as clinically stable without complaints, without progressive SOB on ROS and on exam as having prolonged expiratory phase , unlabored respirations and decreased breath sounds. Voriconazole therapy was initiated by aging department supervisor Dr. Zendejas today. Impression/Recommendations 1. 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 compatible clinical presentation with exclusion of other diseases, 2. typical radiographic findings, and 3. meeting certain microbiological criteria. For expectorated sputum, this involves repeated isolation of the same NTM species from at least 2 expectorated sputum samples. - I think that it is likely that the patient has NTM fibrocavitary lung disease. However, at the current time there is not enough information to solidly make this diagnosis. - Of the NTM species that are associated with lung disease, MAC is the most common, but there are other NTM species that can also be pathogenic. These other species can have susceptibility patterns to antibiotics that differ markedly from MAC so it is difficult to predict an appropriate treatment regimen without having an established diagnosis and the NTM identified to the species level. - Treatment for NTM lung disease is only initiated once the AFB+ organism(s) can be identified from culture to secure the diagnosis and help guide treatment options. Empiric therapy for suspected NTM lung disease is generally not recommended. - The patient's disposition until cultures return depends on his overall condition, whether he is stable to be discharged home on supplemental oxygen and follow up with an outpatient aging department supervisor or infectious disease specialist to start treatment once cultures return. Rapidly growing nontuberculous mycobacteria usually grow within 1 week. Most slow growing species, such as MAC or M. [place]ii, grow within 2-3 weeks. - Agree with Dr. Campos that airborne isolation is no longer needed now that PCR for MTB has returned negative and that presumptive TB treatment with ethambutol, rifampin, isoniazid, and pyrazinamide can be discontinued. - Recommend discontinuing empiric Rocephin/azithromycin treatment for severe exacerbation of COPD. Pt has completed 7 days of these antibiotics. - Refrain from azithromycin or clarithromycin monotherapy while NTM lung disease is being considered or once it is diagnosed 2. Respiratory colonization with Aspergillus species vs. 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 - The patient is at risk for chronic pulmonary aspergillosis, considering that he has underlying cavities/bullae, and there is an association between NTM lung disease and chronic pulmonary aspergillosis. It is possible that he could have both. That being said, airway colonization with Aspergillus species is not uncommon in patients with chronic lung diseases, and isolating Aspergillus species from sputum does not confirm it as a pathogen. - The diagnosis of chronic pulmonary aspergillosis is supported by a combination of typical imaging findings, exclusion of other diagnoses, specific Aspergillus IgG antibody in the serum and/or direct evidence of Aspergillus infection from histology or culture from a tissue biopsy. - Suggest sending Aspergillus IgG antibody test - If the patient is indeed diagnosed with both NTM lung disease and chronic pulmonary aspergillosis management will be challenging (considering potential side effects, drug-drug interactions, and long durations of therapy required for both diseases). One approach may be to first address the disease that is thought to contribute most to the patient's presentation. Dr. Zendejas has recommended initiation of voriconazole therapy. Brennon Marsh MD [facility] Infectious Diseases pager [phone]
[2017-12-20] MEDS: ATORVASTATIN CALCIUM 20 MG TABLET PO SCH (21:28)
[2017-12-20] MEDS: MIRTAZAPINE 15 MG TABLET PO SCH (21:28)
[2017-12-21] MEDS: LORAZEPAM 0.5 MG TABLET PO PRN (04:01)
[2017-12-21] MEDS: IPRATROPIUM/ALBUTEROL 0.5-2.5 MG/3 ML AMPUL NEB PRN ×5 (04:16→23:47)
[2017-12-21] MEDS: ENOXAPARIN SODIUM INJ 40 MG/0.4 ML DISP.SYRIN SUBCUT SCH (10:30)
[2017-12-21] MEDS: VORICONAZOLE 200 MG TABLET PO SCH ×2 (10:30→21:59)
[2017-12-21] MEDS: DILTIAZEM HCL 180 MG CAPSULE.CR PO SCH (10:30)
[2017-12-21] MEDS: CYANOCOBALAMIN (VITAMIN B-12) 1,000 MCG TABLET PO SCH (10:31)
[2017-12-21] MEDS: FAMOTIDINE 20 MG TABLET PO SCH ×2 (10:31→21:59)
[2017-12-21] MEDS: ASPIRIN 81 MG TABLET, ENT COATED PO SCH (10:31)
[2017-12-21] MEDS: FOLIC ACID 1 MG TABLET PO SCH (10:32)
[2017-12-21] MEDS: CHOLECALCIFEROL (D3) 1,000 UNIT TABLET PO SCH (10:32)
[2017-12-21] MEDS: POLYETHYLENE GLYCOL 3350 POWDER 17 GM/1 PACKET PO SCH (10:33)
--- NOTE | 2017-12-21 14:56 | PDOC PROGRESS REPORT ---
Subjective Progress Note for:: 12/21/17 Subjective:: Patient was found to be tachypneic at rest today however his O2 sat was 93%. It appears patient was pretty anxious. He speaks in a hoarse voice which he says is secondary to I believe an intubation he had years ago He still has a cough with brownish phlegm but he says it is hogshead stripper than it was Continues to be afebrile. 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 ABSENT: wheezes Cardiovascular exam: PRESENT: irregular rhythm. ABSENT: diastolic murmur, rubs , systolic murmur GI/Abdominal exam: PRESENT: ascites Extremities exam: PRESENT: other - R AKA Neurological exam: PRESENT: alert, awake, oriented to person, oriented to place , oriented to time Psychiatric exam: PRESENT: anxious Results Laboratory Results: 12/19/17 06:14 12/19/17 06:14 12/18/17 11:45 Sputum AFB Smear Concentration - Final 12/18/17 11:45 Sputum Acid Fast Bacilli Smear - Final 12/16/17 10:30 Sputum AFB Smear Concentration - Final 12/16/17 10:30 Sputum Acid Fast Bacilli Smear - Final 12/16/17 10:30 Sputum Gram Stain - Final 12/16/17 10:30 Sputum Sputum Culture - Final Aspergillus Species Greatly Reduced Normal Margaret Impressions: Chest/Abdomen CTA 12/13/17 16:31 IMPRESSION: 1. No pulmonary emboli. 2. Severe bilateral emphysematous changes with interval increase in the cluster of cavitary lesions at the right lung apex and interval development of cluster of cavitary lesions at the left lung apex. These may represent progression of acute infectious/inflammatory process such as tuberculosis or cavitary pneumonia versus malignancy. 3. Interval development of airspace opacities at the bilateral lower lobes, may be secondary to pneumonia. Followup CT after treatment recommended to re- evaluate. 4. No significant interval change in the bilateral pulmonary nodules. 5. Right hilar and mediastinal adenopathy, not significantly changed in the interval. 6. Small pericardial effusion. Assessment & Plan - Time Time Spent with patient: 15-24 minutes Medications reviewed and adjusted accordingly: Yes Anticipated discharge: Home Within: within 48 hours - Inpatient Certification Based on my medical assessment, after consideration of the patient's comorbidities, presenting symptoms, or acuity I expect that the services needed warrant INPATIENT care.: Yes Medical Necessity: Significant Comorbidiites Make Outpatient Treatment Too Risky , Risk of Complication if Not Cared For in Hospital - Plan Summary Plan Summary: 1. I appreciate Dr. Marsh's chart review and his recommendations. Patient has been taken off respiratory isolation and have discontinued anti-tuberculosis medications as well as Zithromax and ceftriaxone with had received for 7 days. At this point we are still waiting for the sputum culture and although PCR for tuberculosis is negative there is no other confirmation of a nontuberculous mycobacterium as of now. We will try to discuss with Dr. Zendejas if he will be following this patient as outpatient and was discharging home for outpatient follow-up. I will set of favorable hopefully given the resolution as to the sputum culture results before discharging this gentleman home just due to his lack of mobility as well as his anxiety. Unfortunately it is unknown when the culture results will be available. 2. 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 Chronic atrial fibrillation- stable, not an AC candidate due to his debilitation fall risk 4. Acute on chronic respiratory failure with hypoxia- Cont Oxygen support 5. COPD exacerbation currently on bronchodilators, pulmonary toilet. 6. Patient is currently on voriconazole as per wholesale agronomist order. I will order Aspergillus IgG antibody per ID recommendation
--- NOTE | 2017-12-21 18:43 | Progress Note ---
Provider Note Provider Note: ID Consult Note Asked by Pharmacy to review patient's chart. Pt not seen or examined. See previous note for highlights of pt's course up to this point. Pt largely unchanged. No new lab results. Await identification of AFB in sputum samples. 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 Need confirmation of this with AFB cx results for diagnosis and to guide treatment. To reiterate or clarify my thoughts on antifungal therapy in this patient: - Aspergillus species are ubiquitous in the environment, and their isolation from a sputum sample is not sufficient evidence of pathology. Histologic examination from a biopsy specimen would help to provide definitive diagnosis, although depending on the location of lesions and general condition of the patient, this may not always be possible. Aspergillus IgG antibody test is the most sensitive microbiological test for chronic cavitary pulmonary aspergillosis , but the diagnosis relies on the constellation of the patient's clinical presentation, imaging, laboratory findings, and exclusion of other diseases. - Although chronic cavitary pulmonary aspergillosis can occur concomitantly, mycobacterial lung disease is usually the preceding infection. The fact that the patient has had sputum smears that are floridly positive with 4+ and 3+ AFB seems to imply that the greater organismal and disease burden is due to NTM, rather than possible chronic pulmonary aspergillosis. Even if both NTM and CCPA are diagnosed, trying to treat both diseases at the same time is fraught with difficulty, and my recommendation would be to pursue diagnosis and treatment for NTM lung disease. - As such, I am not convinced of a clear indication to continue voriconazole at this time. Brennon Marsh MD [facility] Infectious Diseases pager [phone]
[2017-12-21] MEDS: ATORVASTATIN CALCIUM 20 MG TABLET PO SCH (21:59)
[2017-12-21] MEDS: MIRTAZAPINE 15 MG TABLET PO SCH (22:00)
[2017-12-22] MEDS: ALPRAZOLAM 0.5 MG TABLET PO PRN (05:51)
[2017-12-22 07:11] LABS: ANION GAP 9 (5-19); BLOOD UREA NITROGEN 22 mg/dL (7-20); CALCIUM 8.9 mg/dL (8.4-10.2); CARBON DIOXIDE 27 mmol/L (22-30); CHLORIDE 103 mmol/L (98-107); GLUCOSE 91 mg/dL (75-110); POTASSIUM 4.1 mmol/L (3.6-5.0); SODIUM 138.6 mmol/L (137-145)
[2017-12-22 07:13] LABS: ABSOLUTE BASOPHILS # (AUTO) 0.1 10^3/uL (0.0-0.2); ABSOLUTE EOSINOPHILS # (AUTO) 0.5 10^3/uL (0.0-0.6); ABSOLUTE LYMPHOCYTES (AUTO) 0.6 10^3/uL (0.5-4.7); ABSOLUTE MONOCYTES (AUTO) 0.7 10^3/uL (0.1-1.4); ABSOLUTE NEUT (AUTO) 5.6 10^3/uL (1.7-8.2); EOSINOPHILS % (AUTO) 6.4 % (0-6); HEMATOCRIT 23.4 % (37.9-51.0); LYMPHOCYTES % (AUTO) 8.5 % (13-45); MEAN CORPUSCULAR HEMOGLOBIN 23.8 pg (27.0-33.4); MEAN CORPUSCULAR HGB CONC 32.8 g/dL (32.0-36.0); MEAN CORPUSCULAR VOLUME 72 fl (80-97); MONOCYTES % (AUTO) 8.8 % (3-13); PLATELET COUNT 721 10^3/uL (150-450); RED BLOOD COUNT 3.24 10^6/uL (4.35-5.55); RED CELL DISTRIBUTION WIDTH 16.8 % (11.5-14.0); SEGMENTED NEUTROPHILS % (AUTO) 75.3 % (42-78); TOTAL CELLS COUNTED % (AUTO) 100 %; WHITE BLOOD COUNT 7.4 10^3/uL (4.0-10.5)
[2017-12-22 07:35] LABS: HEMOGLOBIN 7.7 g/dL (13.5-17.0)
[2017-12-22] MEDS: IPRATROPIUM/ALBUTEROL 0.5-2.5 MG/3 ML AMPUL NEB PRN (08:49)
[2017-12-22] MEDS: CYANOCOBALAMIN (VITAMIN B-12) 1,000 MCG TABLET PO SCH (09:41)
[2017-12-22] MEDS: DILTIAZEM HCL 180 MG CAPSULE.CR PO SCH (09:41)
[2017-12-22] MEDS: ENOXAPARIN SODIUM INJ 40 MG/0.4 ML DISP.SYRIN SUBCUT SCH (09:41)
[2017-12-22] MEDS: FOLIC ACID 1 MG TABLET PO SCH (09:41)
[2017-12-22] MEDS: FAMOTIDINE 20 MG TABLET PO SCH ×2 (09:42→22:04)
[2017-12-22] MEDS: VORICONAZOLE 200 MG TABLET PO SCH (09:42)
[2017-12-22] MEDS: ASPIRIN 81 MG TABLET, ENT COATED PO SCH (09:42)
[2017-12-22] MEDS: CHOLECALCIFEROL (D3) 1,000 UNIT TABLET PO SCH (09:42)
[2017-12-22] MEDS: POLYETHYLENE GLYCOL 3350 POWDER 17 GM/1 PACKET PO SCH (09:43)
--- NOTE | 2017-12-22 11:17 | PDOC PROGRESS REPORT ---
Subjective Progress Note for:: 12/21/17 Subjective:: Clinically patient is stable without complaints Reason For Visit: HEMOPTYSIS Physical Exam Vital Signs: Temp Pulse Resp BP Pulse Ox 97.7 F 115 H 18 153/73 H 94 12/22/17 07:10 12/22/17 08:49 12/22/17 08:49 12/22/17 07:10 12/22/17 08:49 Intake & Output 12/21/17 12/22/17 12/23/17 06:59 06:59 06:59 Intake Total 2177 582 Output Total 575 425 Balance 1602 157 Weight 101.3 kg 48.58 kg General appearance: PRESENT: no acute distress, cooperative, disheveled, thin Head exam: PRESENT: atraumatic, normocephalic Eye exam: PRESENT: conjunctiva pale, EOMI, PERRLA. ABSENT: nystagmus, periorbital swelling Mouth exam: PRESENT: dry mucosa, neck supple, tongue midline Neck exam: ABSENT: carotid bruit, JVD, lymphadenopathy, thyromegaly, tracheal deviation, tracheostomy Respiratory exam: PRESENT: decreased breath sounds, prolonged expiratory phas, rales, rhonchi, unlabored, wheezes. ABSENT: retraction, stridor Cardiovascular exam: PRESENT: RRR, +S1, +S2 Pulses: PRESENT: normal radial pulses GI/Abdominal exam: PRESENT: normal bowel sounds, soft Extremities exam: ABSENT: calf tenderness, clubbing, joint swelling, pedal edema Musculoskeletal exam: ABSENT: deformity, dislocation Neurological exam: PRESENT: alert, awake Psychiatric exam: PRESENT: normal mood Skin exam: PRESENT: dry, warm Results Laboratory Results: 12/22/17 06:14 12/22/17 06:14 12/22/17 12/22/17 06:14 06:14 WBC 7.4 RBC 3.24 L Hgb 7.7 L Hct 23.4 L MCV 72 L MCH 23.8 L MCHC 32.8 RDW 16.8 H Plt Count 721 H Seg Neutrophils % 75.3 Lymphocytes % 8.5 L Monocytes % 8.8 Eosinophils % 6.4 H Basophils % 1.0 Absolute Neutrophils 5.6 Absolute Lymphocytes 0.6 Absolute Monocytes 0.7 Absolute Eosinophils 0.5 Absolute Basophils 0.1 Sodium 138.6 Potassium 4.1 Chloride 103 Carbon Dioxide 27 Anion Gap 9 BUN 22 H Creatinine 0.81 Est GFR ( Amer) > 60 Est GFR (Non-Af Amer) > 60 Glucose 91 Calcium 8.9 12/16/17 10:30 Sputum AFB Smear Concentration - Final 12/16/17 10:30 Sputum Acid Fast Bacilli Smear - Final Impressions: Chest/Abdomen CTA 12/13/17 16:31 IMPRESSION: 1. No pulmonary emboli. 2. Severe bilateral emphysematous changes with interval increase in the cluster of cavitary lesions at the right lung apex and interval development of cluster of cavitary lesions at the left lung apex. These may represent progression of acute infectious/inflammatory process such as tuberculosis or cavitary pneumonia versus malignancy. 3. Interval development of airspace opacities at the bilateral lower lobes, may be secondary to pneumonia. Followup CT after treatment recommended to re- evaluate. 4. No significant interval change in the bilateral pulmonary nodules. 5. Right hilar and mediastinal adenopathy, not significantly changed in the interval. 6. Small pericardial effusion. Assessment & Plan - Diagnosis (1) COPD (chronic obstructive pulmonary disease) Qualifiers: COPD type: emphysema Emphysema type: unspecified Qualified Code(s): J43.9 - Emphysema, unspecified Is this a current diagnosis for this admission?: Yes Plan: Continue current bronchodilator therapy (2) Cavitary lesion of lung Is this a current diagnosis for this admission?: Yes Plan: AFB pos x 3; aspirgillious (3) Hemoptysis Is this a current diagnosis for this admission?: Yes Plan: no addition reports (4) Acute and chronic respiratory failure with hypoxia Is this a current diagnosis for this admission?: Yes Plan: Severe COPD severe bullous disease (5) Acid fast bacillus Is this a current diagnosis for this admission?: Yes Plan: PCR neg TBC per PCP and ID meds stopped (6) Aspergillosis Is this a current diagnosis for this admission?: Yes Plan: see consultation with ID
[2017-12-22] MEDS: LEVALBUTEROL HCL NEB 0.63 MG/3 ML AMPUL NEB SCH ×4 (12:03→23:47)
--- NOTE | 2017-12-22 16:33 | PDOC PROGRESS REPORT ---
Subjective Progress Note for:: 12/22/17 Subjective:: Patient was found to be tachypneic at rest today however his O2 sat was 93%. It appears patient was pretty anxious. He speaks in a hoarse voice which he says is secondary to I believe an intubation he had years ago He still has a cough with brownish phlegm but he says it is powder mixer than it was Continues to be afebrile. 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 ABSENT: accessory muscle use, clear to auscultation rito, prolonged expiratory phas, retraction, rhonchi, tachypnea Cardiovascular exam: PRESENT: RRR. ABSENT: diastolic murmur, rubs, systolic murmur GI/Abdominal exam: PRESENT: normal bowel sounds, soft. ABSENT: distended, guarding, mass, organolmegaly, rebound, tenderness Rectal exam: PRESENT: deferred Musculoskeletal exam: PRESENT: other - Right above-knee amputation Neurological exam: PRESENT: alert, awake, oriented to person, oriented to place , oriented to time, oriented to situation, CN II-XII grossly intact. ABSENT: motor sensory deficit Psychiatric exam: PRESENT: anxious Results Laboratory Results: 12/22/17 06:14 12/22/17 06:14 12/22/17 12/22/17 12/22/17 06:14 06:14 12:00 WBC 7.4 RBC 3.24 L Hgb 7.7 L Hct 23.4 L MCV 72 L MCH 23.8 L MCHC 32.8 RDW 16.8 H Plt Count 721 H Seg Neutrophils % 75.3 Lymphocytes % 8.5 L Monocytes % 8.8 Eosinophils % 6.4 H Basophils % 1.0 Absolute Neutrophils 5.6 Absolute Lymphocytes 0.6 Absolute Monocytes 0.7 Absolute Eosinophils 0.5 Absolute Basophils 0.1 Sodium 138.6 Potassium 4.1 Chloride 103 Carbon Dioxide 27 Anion Gap 9 BUN 22 H Creatinine 0.81 Est GFR ( Amer) > 60 Est GFR (Non-Af Amer) > 60 Glucose 91 Calcium 8.9 Stool Occult Blood POSITIVE 12/16/17 10:30 Sputum AFB Smear Concentration - Final 12/16/17 10:30 Sputum Acid Fast Bacilli Smear - Final 12/16/17 10:30 Sputum Acid Fast Bacilli Culture & Smear - Final 12/16/17 10:30 Sputum M.tuberculosis Complex DNA Probe (M - Final 12/16/17 10:30 Sputum Mycobact. avium Complex DNA Probe M - Final 12/16/17 10:30 Sputum Mycobacterium kansasii DNA Probe (M - Final 12/16/17 10:30 Sputum Mycobacterium gordanae DNA Probe (M - Final 12/16/17 10:30 Sputum Specimen Comment (STEPHENIE) - Final 12/16/17 10:30 Sputum Microbiology Comment - Final Impressions: Chest/Abdomen CTA 12/13/17 16:31 IMPRESSION: 1. No pulmonary emboli. 2. Severe bilateral emphysematous changes with interval increase in the cluster of cavitary lesions at the right lung apex and interval development of cluster of cavitary lesions at the left lung apex. These may represent progression of acute infectious/inflammatory process such as tuberculosis or cavitary pneumonia versus malignancy. 3. Interval development of airspace opacities at the bilateral lower lobes, may be secondary to pneumonia. Followup CT after treatment recommended to re- evaluate. 4. No significant interval change in the bilateral pulmonary nodules. 5. Right hilar and mediastinal adenopathy, not significantly changed in the interval. 6. Small pericardial effusion. Assessment & Plan - Time Time Spent with patient: 15-24 minutes Medications reviewed and adjusted accordingly: Yes Anticipated discharge: Home Within: within 48 hours - Inpatient Certification Based on my medical assessment, after consideration of the patient's comorbidities, presenting symptoms, or acuity I expect that the services needed warrant INPATIENT care.: Yes Medical Necessity: Significant Comorbidiites Make Outpatient Treatment Too Risky , Need Close Monitoring Due to Risk of Patient Decompensation - Plan Summary Plan Summary: 1. I appreciate Dr. Marsh's chart review and his recommendations. Patient has been taken off respiratory isolation and have discontinued anti-tuberculosis medications as well as Zithromax and ceftriaxone with he had received for 7 days. I received a call this afternoon that the sputum culture from the 16th was positive for mild bacterium avium-intracellulare. Of course sensitivities and susceptibilities will need to be obtained and this is currently pending. Treatment will be deferred until available. Dr. Zendejas suggest contacting the health department so that this gentleman can be followed appropriately if needed although his willing to be a backup physician. Aspergillus antibody IgG was ordered today 2. 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 Chronic atrial fibrillation- stable, not an AC candidate due to his debilitation fall risk 4. Acute on chronic respiratory failure with hypoxia- Cont Oxygen support 5. COPD exacerbation currently on bronchodilators, pulmonary toilet. 6. voriconazole has been discontinued. 7. Anemia of chronic disease with interval worsening of hemoglobin. There is no evidence of acute blood loss if clinically or subjectively. PT hemoglobin will be checked in the morning. I will also ordered iron stores as well as occult blood in stool. If need be he can be transfused in a.m. 8. Thrombocytosis- Reactive. Will continue to monitor
[2017-12-22] MEDS: LACTOBACILLUS ACIDOPHILUS 250 MG TAB PO SCH (17:59)
[2017-12-22] MEDS: MIRTAZAPINE 15 MG TABLET PO SCH (22:04)
[2017-12-22] MEDS: ATORVASTATIN CALCIUM 20 MG TABLET PO SCH (22:04)
[2017-12-23] MEDS: LEVALBUTEROL HCL NEB 0.63 MG/3 ML AMPUL NEB SCH ×5 (04:13→20:04)
[2017-12-23 06:00] LABS: ABSOLUTE BASOPHILS # (AUTO) 0.1 10^3/uL (0.0-0.2); ABSOLUTE EOSINOPHILS # (AUTO) 0.4 10^3/uL (0.0-0.6); ABSOLUTE LYMPHOCYTES (AUTO) 0.8 10^3/uL (0.5-4.7); ABSOLUTE MONOCYTES (AUTO) 0.7 10^3/uL (0.1-1.4); ABSOLUTE NEUT (AUTO) 5.5 10^3/uL (1.7-8.2); BASOPHILS % (AUTO) 0.8 % (0-2); HEMATOCRIT 23.3 % (37.9-51.0); LYMPHOCYTES % (AUTO) 10.3 % (13-45); MEAN CORPUSCULAR HEMOGLOBIN 23.2 pg (27.0-33.4); MEAN CORPUSCULAR HGB CONC 31.8 g/dL (32.0-36.0); MEAN CORPUSCULAR VOLUME 73 fl (80-97); PLATELET COUNT 784 10^3/uL (150-450); RED CELL DISTRIBUTION WIDTH 16.8 % (11.5-14.0); RETICULOCYTE COUNT (AUTO) 0.95 % (0.66-2.85); SEGMENTED NEUTROPHILS % (AUTO) 73.9 % (42-78); TOTAL CELLS COUNTED % (AUTO) 100 %; WHITE BLOOD COUNT 7.5 10^3/uL (4.0-10.5)
[2017-12-23 06:03] LABS: HEMOGLOBIN 7.4 g/dL (13.5-17.0)
[2017-12-23 06:30] LABS: IRON(TIBC) < 10.1 ug/dL (49-181)
[2017-12-23 07:27] LABS: FOLATE > 20.00 ng/mL (>2.76)
[2017-12-23] MEDS: FAMOTIDINE 20 MG TABLET PO SCH ×2 (09:51→21:45)
[2017-12-23] MEDS: LACTOBACILLUS ACIDOPHILUS 250 MG TAB PO SCH ×2 (09:51→17:20)
[2017-12-23] MEDS: FOLIC ACID 1 MG TABLET PO SCH (09:51)
[2017-12-23] MEDS: CHOLECALCIFEROL (D3) 1,000 UNIT TABLET PO SCH (09:51)
[2017-12-23] MEDS: DILTIAZEM HCL 180 MG CAPSULE.CR PO SCH (09:51)
[2017-12-23] MEDS: CYANOCOBALAMIN (VITAMIN B-12) 1,000 MCG TABLET PO SCH (09:52)
[2017-12-23] MEDS: POLYETHYLENE GLYCOL 3350 POWDER 17 GM/1 PACKET PO SCH (10:01)
[2017-12-23] MEDS ORDERED: IRON SUCROSE COMPLEX 300 MG in NORMAL SALINE 250 ML IV ONE (10:21)
[2017-12-23] MEDS: ENOXAPARIN SODIUM INJ 40 MG/0.4 ML DISP.SYRIN SUBCUT SCH (10:31)
[2017-12-23] MEDS: ASPIRIN 81 MG TABLET, ENT COATED PO SCH (10:31)
--- NOTE | 2017-12-23 13:30 | PDOC PROGRESS REPORT ---
Subjective Progress Note for:: 12/23/17 Subjective:: Clinically patient is stable without complaints Reason For Visit: HEMOPTYSIS Physical Exam Vital Signs: Temp Pulse Resp BP Pulse Ox 98.1 F 93 18 124/64 95 12/23/17 12:19 12/23/17 12:19 12/23/17 12:19 12/23/17 12:19 12/23/17 12:19 Intake & Output 12/22/17 12/23/17 12/24/17 06:59 06:59 06:59 Intake Total 582 364 0 Output Total 425 600 0 Balance 157 -236 0 Weight 48.58 kg 45.2 kg General appearance: PRESENT: no acute distress, cooperative, disheveled, thin Head exam: PRESENT: atraumatic, normocephalic Eye exam: PRESENT: conjunctiva pale, EOMI. ABSENT: nystagmus, periorbital swelling, scleral icterus Mouth exam: PRESENT: dry mucosa, neck supple, tongue midline Teeth exam: PRESENT: poor dentation Neck exam: ABSENT: carotid bruit, JVD, lymphadenopathy, thyromegaly, tracheal deviation, tracheostomy Respiratory exam: PRESENT: decreased breath sounds, prolonged expiratory phas, rhonchi, unlabored. ABSENT: retraction, stridor, tachypnea Cardiovascular exam: PRESENT: RRR, +S1, +S2 Pulses: PRESENT: normal radial pulses GI/Abdominal exam: PRESENT: normal bowel sounds, soft Extremities exam: PRESENT: full ROM. ABSENT: calf tenderness, clubbing, joint swelling Musculoskeletal exam: PRESENT: full ROM. ABSENT: deformity, dislocation Neurological exam: PRESENT: alert, awake Psychiatric exam: PRESENT: flat affect Skin exam: PRESENT: dry, warm Results Laboratory Results: 12/23/17 05:39 12/22/17 06:14 12/23/17 12/23/17 05:39 05:39 WBC 7.5 RBC 3.20 L Hgb 7.4 L Hct 23.3 L MCV 73 L MCH 23.2 L MCHC 31.8 L RDW 16.8 H Plt Count 784 H Seg Neutrophils % 73.9 Lymphocytes % 10.3 L Monocytes % 9.0 Eosinophils % 6.0 Basophils % 0.8 Absolute Neutrophils 5.5 Absolute Lymphocytes 0.8 Absolute Monocytes 0.7 Absolute Eosinophils 0.4 Absolute Basophils 0.1 Retic Count (auto) 0.95 Absolute Retic 0.030 Iron < 10.1 L TIBC 225 L % Saturation UNABLE TO CALCULATE Ferritin 103.00 Vitamin B12 > 1000.0 H Folate > 20.00 12/17/17 09:45 Sputum AFB Smear Concentration - Final 12/17/17 09:45 Sputum Acid Fast Bacilli Smear - Final 12/17/17 09:45 Sputum Acid Fast Bacilli Culture & Smear - Final 12/17/17 09:45 Sputum M.tuberculosis Complex DNA Probe (M - Final 12/17/17 09:45 Sputum Mycobact. avium Complex DNA Probe M - Final 12/17/17 09:45 Sputum Mycobacterium kansasii DNA Probe (M - Final 12/17/17 09:45 Sputum Mycobacterium gordanae DNA Probe (M - Final 12/17/17 09:45 Sputum Specimen Comment (STEPHENIE) - Final 12/17/17 09:45 Sputum Microbiology Comment - Final 12/16/17 10:30 Sputum AFB Smear Concentration - Final 12/16/17 10:30 Sputum Acid Fast Bacilli Smear - Final 12/16/17 10:30 Sputum Acid Fast Bacilli Culture & Smear - Final 12/16/17 10:30 Sputum M.tuberculosis Complex DNA Probe (M - Final 12/16/17 10:30 Sputum Mycobact. avium Complex DNA Probe M - Final 12/16/17 10:30 Sputum Mycobacterium kansasii DNA Probe (M - Final 12/16/17 10:30 Sputum Mycobacterium gordanae DNA Probe (M - Final 12/16/17 10:30 Sputum Specimen Comment (STEPHENIE) - Final 12/16/17 10:30 Sputum Microbiology Comment - Final Impressions: Chest/Abdomen CTA 12/13/17 16:31 IMPRESSION: 1. No pulmonary emboli. 2. Severe bilateral emphysematous changes with interval increase in the cluster of cavitary lesions at the right lung apex and interval development of cluster of cavitary lesions at the left lung apex. These may represent progression of acute infectious/inflammatory process such as tuberculosis or cavitary pneumonia versus malignancy. 3. Interval development of airspace opacities at the bilateral lower lobes, may be secondary to pneumonia. Followup CT after treatment recommended to re- evaluate. 4. No significant interval change in the bilateral pulmonary nodules. 5. Right hilar and mediastinal adenopathy, not significantly changed in the interval. 6. Small pericardial effusion. Assessment & Plan - Diagnosis (1) COPD (chronic obstructive pulmonary disease) Qualifiers: COPD type: emphysema Emphysema type: unspecified Qualified Code(s): J43.9 - Emphysema, unspecified Is this a current diagnosis for this admission?: Yes Plan: Continue current bronchodilator therapy (2) Cavitary lesion of lung Is this a current diagnosis for this admission?: Yes Plan: AFB pos x 3; aspirgillious (3) Hemoptysis Is this a current diagnosis for this admission?: Yes Plan: H/H falling consider transfusion (4) Acute and chronic respiratory failure with hypoxia Is this a current diagnosis for this admission?: Yes Plan: stable (5) Acid fast bacillus Is this a current diagnosis for this admission?: Yes Plan: awaiting culture pcr for MTB neg (6) Aspergillosis Is this a current diagnosis for this admission?: Yes Plan: see consultation with ID
[2017-12-23] MEDS: ALPRAZOLAM 0.5 MG TABLET PO PRN ×2 (14:44→23:34)
--- NOTE | 2017-12-23 15:41 | PDOC PROGRESS REPORT ---
Subjective Progress Note for:: 12/23/17 Subjective:: This is a 72 years old male patient admitted 9 days ago for cough with blood-tinged sputum. His CT chest showed cavitary lesions and he is afebrile was 3 times positive for acid-fast bacilli. Patient initially started on 4 antituberculous medications namely rifampin Biaxin a might INH and ethambutol. After his PCR negative for Mycobacterium tuberculosis, the antituberculous regimen has been discontinued. Patient was also initially started on voriconazole for possible aspergillosis. Patient evaluated by ID who does not convinced that patient has aspergillosis so discontinued the antifungal agent. Currently patient is stable and I found him sitting up in bed. He is awake alert and oriented he is not in distress. His hemoglobin is dropped to 7.4 and it is macrocytic and his iron studies shows low iron level and low saturation. And his stool for occult blood is positive. Patient started on iron dextran. Reason For Visit: HEMOPTYSIS Physical Exam Vital Signs: Temp Pulse Resp BP Pulse Ox 98.1 F 84 18 124/64 95 12/23/17 12:19 12/23/17 14:00 12/23/17 12:19 12/23/17 12:19 12/23/17 12:19 Intake & Output 12/22/17 12/23/17 12/24/17 06:59 06:59 06:59 Intake Total 582 364 0 Output Total 425 600 0 Balance 157 -236 0 Weight 48.58 kg 45.2 kg General appearance: PRESENT: no acute distress Head exam: PRESENT: atraumatic, normocephalic Respiratory exam: PRESENT: decreased breath sounds, rhonchi Cardiovascular exam: PRESENT: RRR. ABSENT: diastolic murmur, rubs, systolic murmur GI/Abdominal exam: PRESENT: normal bowel sounds, soft. ABSENT: distended, guarding, mass, organolmegaly, rebound, tenderness Neurological exam: PRESENT: alert, awake, oriented to time, oriented to situation Psychiatric exam: PRESENT: normal mood Results Laboratory Results: 12/23/17 05:39 12/22/17 06:14 12/23/17 12/23/17 05:39 05:39 WBC 7.5 RBC 3.20 L Hgb 7.4 L Hct 23.3 L MCV 73 L MCH 23.2 L MCHC 31.8 L RDW 16.8 H Plt Count 784 H Seg Neutrophils % 73.9 Lymphocytes % 10.3 L Monocytes % 9.0 Eosinophils % 6.0 Basophils % 0.8 Absolute Neutrophils 5.5 Absolute Lymphocytes 0.8 Absolute Monocytes 0.7 Absolute Eosinophils 0.4 Absolute Basophils 0.1 Retic Count (auto) 0.95 Absolute Retic 0.030 Iron < 10.1 L TIBC 225 L % Saturation UNABLE TO CALCULATE Ferritin 103.00 Vitamin B12 > 1000.0 H Folate > 20.00 12/17/17 09:45 Sputum AFB Smear Concentration - Final 12/17/17 09:45 Sputum Acid Fast Bacilli Smear - Final 12/17/17 09:45 Sputum Acid Fast Bacilli Culture & Smear - Final 12/17/17 09:45 Sputum M.tuberculosis Complex DNA Probe (M - Final 12/17/17 09:45 Sputum Mycobact. avium Complex DNA Probe M - Final 12/17/17 09:45 Sputum Mycobacterium kansasii DNA Probe (M - Final 12/17/17 09:45 Sputum Mycobacterium gordanae DNA Probe (M - Final 12/17/17 09:45 Sputum Specimen Comment (STEPHENIE) - Final 12/17/17 09:45 Sputum Microbiology Comment - Final 12/16/17 10:30 Sputum AFB Smear Concentration - Final 12/16/17 10:30 Sputum Acid Fast Bacilli Smear - Final 12/16/17 10:30 Sputum Acid Fast Bacilli Culture & Smear - Final 12/16/17 10:30 Sputum M.tuberculosis Complex DNA Probe (M - Final 12/16/17 10:30 Sputum Mycobact. avium Complex DNA Probe M - Final 12/16/17 10:30 Sputum Mycobacterium kansasii DNA Probe (M - Final 12/16/17 10:30 Sputum Mycobacterium gordanae DNA Probe (M - Final 12/16/17 10:30 Sputum Specimen Comment (STEPHENIE) - Final 12/16/17 10:30 Sputum Microbiology Comment - Final Impressions: Chest/Abdomen CTA 12/13/17 16:31 IMPRESSION: 1. No pulmonary emboli. 2. Severe bilateral emphysematous changes with interval increase in the cluster of cavitary lesions at the right lung apex and interval development of cluster of cavitary lesions at the left lung apex. These may represent progression of acute infectious/inflammatory process such as tuberculosis or cavitary pneumonia versus malignancy. 3. Interval development of airspace opacities at the bilateral lower lobes, may be secondary to pneumonia. Followup CT after treatment recommended to re- evaluate. 4. No significant interval change in the bilateral pulmonary nodules. 5. Right hilar and mediastinal adenopathy, not significantly changed in the interval. 6. Small pericardial effusion. Assessment & Plan - Diagnosis (1) COPD (chronic obstructive pulmonary disease) Qualifiers: COPD type: emphysema Emphysema type: unspecified Qualified Code(s): J43.9 - Emphysema, unspecified Is this a current diagnosis for this admission?: Yes Plan: Continue breathing treatment with DuoNeb (2) Cavitary lesion of lung Is this a current diagnosis for this admission?: Yes Plan: Most probably due to none mycobacterial tuberculosis. ID on board (3) Hemoptysis Is this a current diagnosis for this admission?: Yes Plan: Plan is as #2 (4) Acute and chronic respiratory failure with hypoxia Is this a current diagnosis for this admission?: Yes Plan: Continue bronchodilators and supplemental oxygen. (5) Iron deficiency anemia Qualifiers: Iron deficiency anemia type: unspecified iron deficiency Qualified Code(s) : D50.9 - Iron deficiency anemia, unspecified Is this a current diagnosis for this admission?: Yes Plan: His stool for occult blood is positive. He is iron studies are in favor of iron deficiency anemia. His MCV is low in favor of microcytic anemia. I do not think the hemoptysis will explain his anemia. We will consult GI - Time Time Spent with patient: 25-34 minutes
[2017-12-23] MEDS: ATORVASTATIN CALCIUM 20 MG TABLET PO SCH (21:45)
[2017-12-23] MEDS: MIRTAZAPINE 15 MG TABLET PO SCH (21:45)
[2017-12-24] MEDS: LEVALBUTEROL HCL NEB 0.63 MG/3 ML AMPUL NEB SCH ×7 (00:48→23:41)
--- NOTE | 2017-12-24 10:07 | PDOC PROGRESS REPORT ---
Subjective Progress Note for:: 12/24/17 Subjective:: without complaints Reason For Visit: HEMOPTYSIS Physical Exam Vital Signs: Temp Pulse Resp BP Pulse Ox 97.7 F 110 H 42 H 152/75 H 91 L 12/24/17 08:23 12/24/17 08:23 12/24/17 08:23 12/24/17 08:23 12/24/17 08:23 Intake & Output 12/23/17 12/24/17 12/25/17 06:59 06:59 06:59 Intake Total 364 250 Output Total 600 150 Balance -236 100 Weight 45.2 kg 45.1 kg General appearance: PRESENT: no acute distress, cooperative, disheveled Head exam: PRESENT: atraumatic, normocephalic Eye exam: PRESENT: conjunctiva pale, EOMI, PERRLA. ABSENT: nystagmus, periorbital swelling, scleral icterus Mouth exam: PRESENT: dry mucosa, neck supple, tongue midline Teeth exam: PRESENT: poor dentation Neck exam: ABSENT: carotid bruit, JVD, lymphadenopathy, thyromegaly, tracheal deviation, tracheostomy Respiratory exam: PRESENT: decreased breath sounds, prolonged expiratory phas, rhonchi, unlabored. ABSENT: rales, retraction, stridor, tachypnea Cardiovascular exam: PRESENT: RRR, +S1, +S2 Pulses: PRESENT: normal radial pulses GI/Abdominal exam: PRESENT: normal bowel sounds, soft Extremities exam: ABSENT: calf tenderness, clubbing, joint swelling Musculoskeletal exam: ABSENT: deformity, dislocation Neurological exam: PRESENT: alert, awake Psychiatric exam: PRESENT: normal mood Skin exam: PRESENT: dry, warm Results Laboratory Results: 12/23/17 05:39 12/22/17 06:14 12/17/17 09:45 Sputum AFB Smear Concentration - Final 12/17/17 09:45 Sputum Acid Fast Bacilli Smear - Final 12/17/17 09:45 Sputum Acid Fast Bacilli Culture & Smear - Final 12/17/17 09:45 Sputum M.tuberculosis Complex DNA Probe (M - Final 12/17/17 09:45 Sputum Mycobact. avium Complex DNA Probe M - Final 12/17/17 09:45 Sputum Mycobacterium kansasii DNA Probe (M - Final 12/17/17 09:45 Sputum Mycobacterium gordanae DNA Probe (M - Final 12/17/17 09:45 Sputum Specimen Comment (STEPHENIE) - Final 12/17/17 09:45 Sputum Microbiology Comment - Final Impressions: Chest/Abdomen CTA 12/13/17 16:31 IMPRESSION: 1. No pulmonary emboli. 2. Severe bilateral emphysematous changes with interval increase in the cluster of cavitary lesions at the right lung apex and interval development of cluster of cavitary lesions at the left lung apex. These may represent progression of acute infectious/inflammatory process such as tuberculosis or cavitary pneumonia versus malignancy. 3. Interval development of airspace opacities at the bilateral lower lobes, may be secondary to pneumonia. Followup CT after treatment recommended to re- evaluate. 4. No significant interval change in the bilateral pulmonary nodules. 5. Right hilar and mediastinal adenopathy, not significantly changed in the interval. 6. Small pericardial effusion. Assessment & Plan - Diagnosis (1) COPD (chronic obstructive pulmonary disease) Qualifiers: COPD type: emphysema Emphysema type: unspecified Qualified Code(s): J43.9 - Emphysema, unspecified Is this a current diagnosis for this admission?: Yes Plan: Continue current bronchodilator therapy (2) Cavitary lesion of lung Is this a current diagnosis for this admission?: Yes Plan: AFB pos x 3; aspirgillious (3) Hemoptysis Is this a current diagnosis for this admission?: Yes Plan: H/H falling consider transfusion (4) Acute and chronic respiratory failure with hypoxia Is this a current diagnosis for this admission?: Yes Plan: stable (5) Acid fast bacillus Is this a current diagnosis for this admission?: Yes Plan: awaiting culture pcr for MTB neg (6) Aspergillosis Is this a current diagnosis for this admission?: Yes
[2017-12-24] MEDS ORDERED: IRON DEXTRAN INJ 100 MG/2 ML VIAL IV ONE (10:08)
[2017-12-24] MEDS: CHOLECALCIFEROL (D3) 1,000 UNIT TABLET PO SCH (10:09)
[2017-12-24] MEDS: POLYETHYLENE GLYCOL 3350 POWDER 17 GM/1 PACKET PO SCH (10:09)
[2017-12-24] MEDS: FOLIC ACID 1 MG TABLET PO SCH (10:09)
[2017-12-24] MEDS: CYANOCOBALAMIN (VITAMIN B-12) 1,000 MCG TABLET PO SCH (10:10)
[2017-12-24] MEDS: FAMOTIDINE 20 MG TABLET PO SCH ×2 (10:10→21:10)
[2017-12-24] MEDS: DILTIAZEM HCL 180 MG CAPSULE.CR PO SCH (10:10)
[2017-12-24] MEDS: LACTOBACILLUS ACIDOPHILUS 250 MG TAB PO SCH ×2 (10:10→17:34)
[2017-12-24] MEDS ORDERED: IRON SUCROSE COMPLEX 300 MG in NORMAL SALINE 250 ML IV ONE ×2 (12:00→14:00)
--- NOTE | 2017-12-24 12:40 | PDOC PROGRESS REPORT ---
Subjective Progress Note for:: 12/24/17 Subjective:: I seen patient resting in bed comfortably. Yesterday he got iron infusion was no reaction. No new complaints. Reason For Visit: HEMOPTYSIS Physical Exam Vital Signs: Temp Pulse Resp BP Pulse Ox 97.7 F 110 H 42 H 152/75 H 91 L 12/24/17 08:23 12/24/17 08:23 12/24/17 08:23 12/24/17 08:23 12/24/17 08:23 Intake & Output 12/23/17 12/24/17 12/25/17 06:59 06:59 06:59 Intake Total 364 250 Output Total 600 150 Balance -236 100 Weight 45.2 kg 45.1 kg Results Laboratory Results: 12/23/17 05:39 12/22/17 06:14 12/17/17 09:45 Sputum AFB Smear Concentration - Final 12/17/17 09:45 Sputum Acid Fast Bacilli Smear - Final 12/17/17 09:45 Sputum Acid Fast Bacilli Culture & Smear - Final 12/17/17 09:45 Sputum M.tuberculosis Complex DNA Probe (M - Final 12/17/17 09:45 Sputum Mycobact. avium Complex DNA Probe M - Final 12/17/17 09:45 Sputum Mycobacterium kansasii DNA Probe (M - Final 12/17/17 09:45 Sputum Mycobacterium gordanae DNA Probe (M - Final 12/17/17 09:45 Sputum Specimen Comment (STEPHENIE) - Final 12/17/17 09:45 Sputum Microbiology Comment - Final Impressions: Chest/Abdomen CTA 12/13/17 16:31 IMPRESSION: 1. No pulmonary emboli. 2. Severe bilateral emphysematous changes with interval increase in the cluster of cavitary lesions at the right lung apex and interval development of cluster of cavitary lesions at the left lung apex. These may represent progression of acute infectious/inflammatory process such as tuberculosis or cavitary pneumonia versus malignancy. 3. Interval development of airspace opacities at the bilateral lower lobes, may be secondary to pneumonia. Followup CT after treatment recommended to re- evaluate. 4. No significant interval change in the bilateral pulmonary nodules. 5. Right hilar and mediastinal adenopathy, not significantly changed in the interval. 6. Small pericardial effusion. Assessment & Plan - Diagnosis (1) COPD (chronic obstructive pulmonary disease) Qualifiers: COPD type: emphysema Emphysema type: unspecified Qualified Code(s): J43.9 - Emphysema, unspecified Is this a current diagnosis for this admission?: Yes Plan: Continue breathing treatment with DuoNeb (2) Cavitary lesion of lung Is this a current diagnosis for this admission?: Yes Plan: Most probably due to none mycobacterial tuberculosis. ID and field service supervisor on board. PCR for MTB is negative. Acid-fast bacilli cultures pending. (3) Hemoptysis Is this a current diagnosis for this admission?: Yes Plan: Has been resolving (4) Acute and chronic respiratory failure with hypoxia Is this a current diagnosis for this admission?: Yes Plan: Continue bronchodilators and supplemental oxygen. (5) Iron deficiency anemia Qualifiers: Iron deficiency anemia type: unspecified iron deficiency Qualified Code(s) : D50.9 - Iron deficiency anemia, unspecified Is this a current diagnosis for this admission?: Yes Plan: His stool for occult blood is positive. He is iron studies are in favor of iron deficiency anemia. His MCV is low in favor of microcytic anemia. I do not think the hemoptysis will explain his anemia. GI will not see him until the end of this month. Reports last 2 months he had colonoscopy and told he has multiple polyps and polypectomy was done for him. - Time Time Spent with patient: 25-34 minutes
[2017-12-24] MEDS: ALPRAZOLAM 0.5 MG TABLET PO PRN ×2 (12:43→23:58)
[2017-12-24] MEDS: ATORVASTATIN CALCIUM 20 MG TABLET PO SCH (21:09)
[2017-12-24] MEDS: MIRTAZAPINE 15 MG TABLET PO SCH (21:09)
[2017-12-25] MEDS: LEVALBUTEROL HCL NEB 0.63 MG/3 ML AMPUL NEB SCH ×5 (03:59→19:47)
[2017-12-25 06:32] LABS: HEMATOCRIT 23.1 % (37.9-51.0); MEAN CORPUSCULAR HEMOGLOBIN 23.7 pg (27.0-33.4); MEAN CORPUSCULAR HGB CONC 32.7 g/dL (32.0-36.0); MEAN CORPUSCULAR VOLUME 73 fl (80-97); PLATELET COUNT 762 10^3/uL (150-450); RED BLOOD COUNT 3.18 10^6/uL (4.35-5.55)
[2017-12-25 06:35] LABS: HEMOGLOBIN 7.5 g/dL (13.5-17.0)
[2017-12-25] MEDS: ALPRAZOLAM 0.5 MG TABLET PO PRN ×2 (08:48→21:45)
[2017-12-25] MEDS: DILTIAZEM HCL 180 MG CAPSULE.CR PO SCH (10:22)
[2017-12-25] MEDS: FOLIC ACID 1 MG TABLET PO SCH (10:23)
[2017-12-25] MEDS: CYANOCOBALAMIN (VITAMIN B-12) 1,000 MCG TABLET PO SCH (10:23)
[2017-12-25] MEDS: POLYETHYLENE GLYCOL 3350 POWDER 17 GM/1 PACKET PO SCH (10:23)
[2017-12-25] MEDS: CHOLECALCIFEROL (D3) 1,000 UNIT TABLET PO SCH (10:23)
[2017-12-25] MEDS: FAMOTIDINE 20 MG TABLET PO SCH ×2 (10:23→21:45)
[2017-12-25] MEDS: LACTOBACILLUS ACIDOPHILUS 250 MG TAB PO SCH ×2 (10:23→17:31)
[2017-12-25] MEDS ORDERED: NORMAL SALINE 250 ML IV PRN ×2 (11:19)
--- NOTE | 2017-12-25 11:28 | PDOC PROGRESS REPORT ---
Subjective Progress Note for:: 12/25/17 Subjective:: I seen patient awake alert and oriented. He is not in pain or any form of distress. His hemoglobin is maintained at 7.5 and 7.4. There is no external bleeding. GI consult was made but Dr. Dia is not available until the end of this man's so I consulted Dr. Coleman and he said that Dr. Khanna will do the colonoscopy on Wednesday. Reason For Visit: HEMOPTYSIS Physical Exam Vital Signs: Temp Pulse Resp BP Pulse Ox 98.4 F 95 18 133/84 H 95 12/25/17 08:00 12/25/17 08:25 12/25/17 08:25 12/25/17 08:00 12/25/17 08:25 Intake & Output 12/24/17 12/25/17 12/26/17 06:59 06:59 06:59 Intake Total 250 1652 Output Total 150 300 Balance 100 1352 Weight 45.1 kg 45.6 kg General appearance: PRESENT: no acute distress, well-developed, well-nourished Eye exam: PRESENT: conjunctiva pink, EOMI, PERRLA. ABSENT: scleral icterus Neck exam: ABSENT: carotid bruit, JVD, lymphadenopathy, thyromegaly Respiratory exam: PRESENT: clear to auscultation rito. ABSENT: rales, rhonchi, wheezes Cardiovascular exam: PRESENT: RRR. ABSENT: diastolic murmur, rubs, systolic murmur GI/Abdominal exam: PRESENT: normal bowel sounds, soft. ABSENT: distended, guarding, mass, organolmegaly, rebound, tenderness Neurological exam: PRESENT: alert, awake, oriented to time, oriented to situation Results Laboratory Results: 12/25/17 05:36 12/22/17 06:14 12/25/17 05:36 WBC 7.0 RBC 3.18 L Hgb 7.5 L Hct 23.1 L MCV 73 L MCH 23.7 L MCHC 32.7 RDW 17.0 H Plt Count 762 H 12/18/17 11:45 Sputum AFB Smear Concentration - Final 12/18/17 11:45 Sputum Acid Fast Bacilli Smear - Final Impressions: Chest/Abdomen CTA 12/13/17 16:31 IMPRESSION: 1. No pulmonary emboli. 2. Severe bilateral emphysematous changes with interval increase in the cluster of cavitary lesions at the right lung apex and interval development of cluster of cavitary lesions at the left lung apex. These may represent progression of acute infectious/inflammatory process such as tuberculosis or cavitary pneumonia versus malignancy. 3. Interval development of airspace opacities at the bilateral lower lobes, may be secondary to pneumonia. Followup CT after treatment recommended to re- evaluate. 4. No significant interval change in the bilateral pulmonary nodules. 5. Right hilar and mediastinal adenopathy, not significantly changed in the interval. 6. Small pericardial effusion. Assessment & Plan - Diagnosis (1) COPD (chronic obstructive pulmonary disease) Qualifiers: COPD type: emphysema Emphysema type: unspecified Qualified Code(s): J43.9 - Emphysema, unspecified Is this a current diagnosis for this admission?: Yes Plan: Continue breathing treatment with DuoNeb (2) Cavitary lesion of lung Is this a current diagnosis for this admission?: Yes Plan: Most probably due to none mycobacterial tuberculosis. ID and director asset on board. PCR for MTB is negative. Acid-fast bacilli cultures pending. (3) Hemoptysis Is this a current diagnosis for this admission?: Yes Plan: Has been resolving (4) Acute and chronic respiratory failure with hypoxia Is this a current diagnosis for this admission?: Yes Plan: Continue bronchodilators and supplemental oxygen. (5) Iron deficiency anemia Qualifiers: Iron deficiency anemia type: unspecified iron deficiency Qualified Code(s) : D50.9 - Iron deficiency anemia, unspecified Is this a current diagnosis for this admission?: Yes Plan: Patient got iron sucrose twice but still new his hemoglobin on 7.5. I will transfuse him 2 units of packed RBC and hopefully he will get a colonoscopy on Wednesday.
[2017-12-25 12:37] LABS: ASPERGILLUS FLAVUS Negative (Neg:<1:1); ASPERGILLUS FUMIGATUS Negative (Neg:<1:1)
[2017-12-25] MEDS: ATORVASTATIN CALCIUM 20 MG TABLET PO SCH (21:45)
[2017-12-25] MEDS: MIRTAZAPINE 15 MG TABLET PO SCH (21:45)
[2017-12-25 23:04] LABS: HEMATOCRIT 29.5 % (37.9-51.0); MEAN CORPUSCULAR HEMOGLOBIN 25.7 pg (27.0-33.4); MEAN CORPUSCULAR HGB CONC 33.9 g/dL (32.0-36.0); MEAN CORPUSCULAR VOLUME 76 fl (80-97); PLATELET COUNT 715 10^3/uL (150-450); RED BLOOD COUNT 3.89 10^6/uL (4.35-5.55); RED CELL DISTRIBUTION WIDTH 17.5 % (11.5-14.0); WHITE BLOOD COUNT 6.7 10^3/uL (4.0-10.5)
[2017-12-26] MEDS: LEVALBUTEROL HCL NEB 0.63 MG/3 ML AMPUL NEB SCH ×6 (00:04→20:30)
[2017-12-26 06:26] LABS: ASPERGILLUS NIGER Negative (Neg:<1:1)
[2017-12-26 06:26] LABS: HEMATOCRIT 30.6 % (37.9-51.0); HEMOGLOBIN 10.4 g/dL (13.5-17.0); MEAN CORPUSCULAR HEMOGLOBIN 25.5 pg (27.0-33.4); MEAN CORPUSCULAR HGB CONC 33.8 g/dL (32.0-36.0); MEAN CORPUSCULAR VOLUME 75 fl (80-97); PLATELET COUNT 719 10^3/uL (150-450); RED BLOOD COUNT 4.06 10^6/uL (4.35-5.55); RED CELL DISTRIBUTION WIDTH 18.1 % (11.5-14.0); WHITE BLOOD COUNT 7.4 10^3/uL (4.0-10.5)
[2017-12-26] MEDS: DILTIAZEM HCL 180 MG CAPSULE.CR PO SCH (09:44)
[2017-12-26] MEDS: FAMOTIDINE 20 MG TABLET PO SCH ×2 (09:44→21:28)
[2017-12-26] MEDS: CHOLECALCIFEROL (D3) 1,000 UNIT TABLET PO SCH (09:44)
[2017-12-26] MEDS: FOLIC ACID 1 MG TABLET PO SCH (09:44)
[2017-12-26] MEDS: CYANOCOBALAMIN (VITAMIN B-12) 1,000 MCG TABLET PO SCH (09:44)
[2017-12-26] MEDS: LACTOBACILLUS ACIDOPHILUS 250 MG TAB PO SCH ×2 (09:46→17:10)
[2017-12-26] MEDS: POLYETHYLENE GLYCOL 3350 POWDER 17 GM/1 PACKET PO SCH (10:08)
[2017-12-26] MEDS ORDERED: ALBUTEROL SULFATE HFA (90 MCG/PUFF) 8 GM MDI (1 MDI/ER DISP) IH PRN (10:39)
--- NOTE | 2017-12-26 11:01 | PDOC PROGRESS REPORT ---
Subjective Progress Note for:: 12/26/17 Subjective:: No new complaints. He is transfused with 2 units of PRBC and his latest hemoglobin is 10.4. Hopefully may have colonoscopy on Wednesday or Wednesday. Reason For Visit: HEMOPTYSIS Physical Exam Vital Signs: Temp Pulse Resp BP Pulse Ox 98.2 F 100 20 129/90 H 91 L 12/26/17 07:55 12/26/17 08:34 12/26/17 08:34 12/26/17 07:55 12/26/17 08:34 Intake & Output 12/25/17 12/26/17 12/27/17 06:59 06:59 06:59 Intake Total 1652 1578 Output Total 300 450 Balance 1352 1128 Weight 45.6 kg 47.4 kg General appearance: PRESENT: no acute distress, well-developed, well-nourished Head exam: PRESENT: atraumatic, normocephalic Eye exam: PRESENT: conjunctiva pink, EOMI, PERRLA. ABSENT: scleral icterus Ear exam: PRESENT: normal external ear exam Mouth exam: PRESENT: moist, tongue midline Neck exam: ABSENT: carotid bruit, JVD, lymphadenopathy, thyromegaly Respiratory exam: PRESENT: clear to auscultation rito. ABSENT: rales, rhonchi, wheezes Cardiovascular exam: PRESENT: RRR. ABSENT: diastolic murmur, rubs, systolic murmur Pulses: PRESENT: normal dorsalis pedis pul Vascular exam: PRESENT: normal capillary refill GI/Abdominal exam: PRESENT: normal bowel sounds, soft. ABSENT: distended, guarding, mass, organolmegaly, rebound, tenderness Rectal exam: PRESENT: deferred Extremities exam: PRESENT: full ROM. ABSENT: calf tenderness, clubbing, pedal edema Neurological exam: PRESENT: alert, awake, oriented to person, oriented to place , oriented to time, oriented to situation, CN II-XII grossly intact. ABSENT: motor sensory deficit Psychiatric exam: PRESENT: appropriate affect, normal mood. ABSENT: homicidal ideation, suicidal ideation Skin exam: PRESENT: dry, intact, warm. ABSENT: cyanosis, rash Results Laboratory Results: 12/26/17 05:45 12/22/17 06:14 12/25/17 12/25/17 12/26/17 11:58 22:50 05:45 WBC 6.7 7.4 RBC 3.89 L 4.06 L Hgb 10.0 L D 10.4 L Hct 29.5 L 30.6 L MCV 76 L 75 L MCH 25.7 L 25.5 L MCHC 33.9 33.8 RDW 17.5 H 18.1 H Plt Count 715 H 719 H Blood Type A POSITIVE Antibody Screen NEGATIVE 12/18/17 11:45 Sputum AFB Smear Concentration - Final 12/18/17 11:45 Sputum Acid Fast Bacilli Smear - Final 12/18/17 11:45 Sputum Acid Fast Bacilli Culture & Smear - Final 12/18/17 11:45 Sputum M.tuberculosis Complex DNA Probe (M - Final 12/18/17 11:45 Sputum Mycobact. avium Complex DNA Probe M - Final 12/18/17 11:45 Sputum Mycobacterium kansasii DNA Probe (M - Final 12/18/17 11:45 Sputum Mycobacterium gordanae DNA Probe (M - Final 12/18/17 11:45 Sputum Specimen Comment (STEPHENIE) - Final 12/18/17 11:45 Sputum Microbiology Comment - Final Impressions: Chest/Abdomen CTA 12/13/17 16:31 IMPRESSION: 1. No pulmonary emboli. 2. Severe bilateral emphysematous changes with interval increase in the cluster of cavitary lesions at the right lung apex and interval development of cluster of cavitary lesions at the left lung apex. These may represent progression of acute infectious/inflammatory process such as tuberculosis or cavitary pneumonia versus malignancy. 3. Interval development of airspace opacities at the bilateral lower lobes, may be secondary to pneumonia. Followup CT after treatment recommended to re- evaluate. 4. No significant interval change in the bilateral pulmonary nodules. 5. Right hilar and mediastinal adenopathy, not significantly changed in the interval. 6. Small pericardial effusion. Assessment & Plan - Diagnosis (1) COPD (chronic obstructive pulmonary disease) Qualifiers: COPD type: emphysema Emphysema type: unspecified Qualified Code(s): J43.9 - Emphysema, unspecified Is this a current diagnosis for this admission?: Yes Plan: Continue breathing treatment with DuoNeb (2) Cavitary lesion of lung Is this a current diagnosis for this admission?: Yes Plan: Most probably due to none mycobacterial tuberculosis. ID and farm mechanic apprentice on board. PCR for MTB is negative. Acid-fast bacilli cultures pending. (3) Hemoptysis Is this a current diagnosis for this admission?: Yes Plan: Has been resolving (4) Acute and chronic respiratory failure with hypoxia Is this a current diagnosis for this admission?: Yes Plan: Continue bronchodilators and supplemental oxygen. (5) Iron deficiency anemia Qualifiers: Iron deficiency anemia type: unspecified iron deficiency Qualified Code(s) : D50.9 - Iron deficiency anemia, unspecified Is this a current diagnosis for this admission?: Yes Plan: Patient got iron sucrose twice but still new his hemoglobin on 7.5. I will transfuse him 2 units of packed RBC and hopefully he will get a colonoscopy on Wednesday. - Time Time Spent with patient: 25-34 minutes
[2017-12-26] MEDS: ALPRAZOLAM 0.5 MG TABLET PO PRN ×2 (12:24→21:28)
[2017-12-26] MEDS: ALBUTEROL SULFATE HFA (90 MCG/PUFF) 200 PUFF/8.5 GM MDI IH PRN (17:12)
[2017-12-26] MEDS: ATORVASTATIN CALCIUM 20 MG TABLET PO SCH (21:28)
[2017-12-26] MEDS: MIRTAZAPINE 15 MG TABLET PO SCH (21:28)
[2017-12-27] MEDS: LEVALBUTEROL HCL NEB 0.63 MG/3 ML AMPUL NEB SCH ×7 (00:13→23:27)
[2017-12-27] MEDS: ALBUTEROL SULFATE HFA (90 MCG/PUFF) 200 PUFF/8.5 GM MDI IH PRN ×2 (00:25→10:23)
[2017-12-27] MEDS: ALPRAZOLAM 0.5 MG TABLET PO PRN ×3 (05:22→22:03)
[2017-12-27] MEDS ORDERED: DEXTROSE 50%-WATER 25 GM/50 ML DISP.SYRIN IV PRN ×4 (09:25)
[2017-12-27] MEDS ORDERED: DEXTROSE 40% GEL 15 GM TUBE PO PRN ×4 (09:25)
[2017-12-27] MEDS ORDERED: GLUCAGON,HUMAN RECOMB 1 MG INJ SUBCUT PRN ×2 (09:25)
[2017-12-27] MEDS: DILTIAZEM HCL 180 MG CAPSULE.CR PO SCH (10:55)
[2017-12-27] MEDS: POLYETHYLENE GLYCOL 3350 POWDER 17 GM/1 PACKET PO SCH (12:48)
[2017-12-27] MEDS: LACTOBACILLUS ACIDOPHILUS 250 MG TAB PO SCH ×2 (12:48→17:01)
--- NOTE | 2017-12-27 12:48 | PDOC CONSULTATION ---
Consultation Consult Date: 12/27/17 Attending physician:: NAE HARRIS Consult reason:: GI bleed History of Present Illness Admission Date/PCP: 12/15/17 10:41 History of Present Illness: ASHVIN MORALES is a 72 year old male Hospitalized at [facility] for over 2 weeks for hemoptysis, shortness of breath, and generalized weakness. Patient was recently found to have a hemoglobin drop from 11-7.5. Diagnosis was iron deficiency anemia, possible GI blood loss due to Hemoccult positive stools. Staff and patient denies skyler blood per rectum. Patient was treated with 2 units of packed red blood cells and 2 injections of iron. Surgery is consulted for upper and lower endoscopy. According to patient, he underwent colonoscopy with polypectomy [address] [place] [address] Bowling. According to patient colonoscopy. This is performed within the month. We do not have records to verify. Patient denies previous GI bleeds, previous gastrointestinal diagnoses. He is now diagnosed with Mycobacterium Aviare. Past Medical History Cardiac Medical History: Reports: Atrial Fibrillation, Hyperlipidema, Hypertension Pulmonary Medical History: Reports: Bronchitis, Chronic Obstructive Pulmonary Disease (COPD) - Chronic bilateral upper lobe cavitary lesions and severe bullous disease, Intubation, Respiratory Failure - Chart reports lung cancer but not staged. RLL infiltrates EENT Medical History: Denies: Nose, Throat Neurological Medical History: Denies: Hemorrhagic CVA, Ischemic CVA, Multiple Sclerosis Renal/ Medical History: Denies: End Stage Renal Disease, Nephrolithiasis Malignancy Medical History: Reports: Lung Cancer - possible GI Medical History: Reports: Gastroesophageal Reflux Disease Denies: Hepatitis, Ulcerative Colitis Psychiatric Medical History: Denies: Dementia Traumatic Medical History: Reports: Pneumothorax Past Surgical History Past Surgical History: Reports: Orthopedic Surgery - RIGHT AKA, Other - Right [id number] amputation; Colonoscopy Social History Lives with: Family Smoking Status: Former Smoker Cigarettes Packs Per Day: 1 Number of Years Smokin Last Time Smoked: 36 months Frequency of Alcohol Use: None Hx Recreational Drug Use: No Drugs: None Hx Prescription Drug Abuse: No - Advance Directive Resuscitation Status: Do Not Resuscitate Family History Family History: COPD Parental Family History Reviewed: Yes Children Family History Reviewed: Yes Sibling(s) Family History Reviewed.: Yes Medication/Allergy Home Medications: Albuterol Sulfate [Ventolin HFA MDI 18 GM] 1 puff IH Q6HP PRN 06/14/17 Aspirin [Aspirin EC] 81 mg PO DAILY 06/14/17 Atorvastatin Calcium 20 mg PO QHS 06/14/17 Folic Acid 1 mg PO DAILY 06/14/17 Glycopyrrolate/Formoterol Fum [Bevespi Aerosphere Inhaler] 2 puff IH Q12 Pantoprazole Sodium 40 mg PO DAILY 06/14/17 Lorazepam [Ativan 0.5 mg Tablet] 0.5 mg PO DAILYP PRN 10/08/17 Azithromycin [Zithromax 250 mg Tablet] 250 mg PO DAILY MDD for 60 days started 11/29/17 Cyanocobalamin (Vitamin B-12) [Vitamin B-12 1000 mcg Tablet] 1,000 mcg PO DAILY 11/29/17 Diltiazem HCl [Cartia Xt] 180 mg PO DAILY 11/29/17 Mirtazapine 30 mg PO QHS MDD start 12/0211/29/17 Polyethylene Glycol 3350 [Gavilax] 17 gm PO DAILY 11/29/17 Levalbuterol HCl [Xopenex Neb 0.63 mg/3 ml Ampul] 0.63 mg NEB RTQ2HP PRN #15 vial.neb 12/03/17 Cholecalciferol (Vitamin D3) [Vitamin D] 2,000 unit PO DAILY 12/13/17 Ipratropium/Albuterol Sulfate [Duoneb 3 ml Ampul] 3 ml NEB RTQ4HP PRN 12/13/17 Allergies/Adverse Reactions: No Known Allergies Allergy (Verified 12/13/17 14:23) Review of Systems ROS unobtainable: Due to mental status Physical Exam Vital Signs: Temp Pulse Resp BP Pulse Ox 98.0 F 92 24 H 155/77 H 100 12/27/17 08:00 12/27/17 08:00 12/27/17 08:00 12/27/17 08:00 12/27/17 08:00 Intake & Output 12/26/17 12/27/17 12/28/17 06:59 06:59 06:59 Intake Total 1578 770 Output Total 450 550 Balance 1128 220 Weight 47.4 kg 46.6 kg General appearance: PRESENT: other - Severe respiratory distress, with chronic hoarseness, dyspnea on exertion, accessory muscles utilize Head exam: PRESENT: normocephalic Eye exam: PRESENT: EOMI Teeth exam: PRESENT: poor dentation Neck exam: PRESENT: full ROM Respiratory exam: PRESENT: accessory muscle use, retraction, rhonchi Cardiovascular exam: PRESENT: RRR Pulses: PRESENT: normal carotid pulses, other - Diminished right femoral pulse; scar overlying groin GI/Abdominal exam: PRESENT: soft - Nontender no peritoneal signs no rigidity no groin masses Rectal exam: PRESENT: deferred Neurological exam: PRESENT: alert, oriented to person, oriented to place Psychiatric exam: PRESENT: agitated Results Laboratory Results: 12/26/17 05:45 12/22/17 06:14 Impressions: Chest/Abdomen CTA 12/13/17 16:31 IMPRESSION: 1. No pulmonary emboli. 2. Severe bilateral emphysematous changes with interval increase in the cluster of cavitary lesions at the right lung apex and interval development of cluster of cavitary lesions at the left lung apex. These may represent progression of acute infectious/inflammatory process such as tuberculosis or cavitary pneumonia versus malignancy. 3. Interval development of airspace opacities at the bilateral lower lobes, may be secondary to pneumonia. Followup CT after treatment recommended to re- evaluate. 4. No significant interval change in the bilateral pulmonary nodules. 5. Right hilar and mediastinal adenopathy, not significantly changed in the interval. 6. Small pericardial effusion. Assessment & Plan - Diagnosis (1) Heme positive stool Is this a current diagnosis for this admission?: Yes Plan: Presumably acute; no gross blood per rectum, no hemoptysis; history of recent incomplete colonoscopy with extensive polypectomy [place]. Heme positive stools on repeat testing; Recommendations: 1. A conventionally, this scenario would be evaluated with upper and lower endoscopy to rule out a proximal GI source of blood loss, as well as a distal source. The patient is adamant about not having any instrumentation to his gunner- digestive tract. Considering the magnitude of his COPD, and now advanced intraparenchymal cavitary lung disease likely PENNY, he is certainly extremely high risk for any sort of procedure particularly involving his upper airway. 2. We spoke with patient at length about his situation and his wishes. Unfortunately he somewhat fixated on the polyps remaining in his colon; again we do not have records to verify what was done, versus what was left behind in [place] last month during his colonoscopy. We are attempting to get those records. Naturally an upper GI source of bleeding remains in the differential, but the patient could not understand this concept. He would like to proceed with repeat colonoscopy so we will attempt to keep him on clear liquids, n.p.o. after midnight and prep his colon. We are making an effort to speak to patient's daughter who cares for the patient. 3. Patient is a DNR. Any procedure including colonoscopy will have increased risk of pulmonary failure, cardiac failure etc. Will reassess patient in the morning to determine candidacy for any sort of procedure. (2) Blood loss anemia Is this a current diagnosis for this admission?: Yes (3) Hemoptysis Is this a current diagnosis for this admission?: Yes (4) Respiratory distress Is this a current diagnosis for this admission?: Yes (5) Acid fast bacillus Is this a current diagnosis for this admission?: Yes (6) COPD (chronic obstructive pulmonary disease) Qualifiers: COPD type: emphysema Emphysema type: unspecified Qualified Code(s): J43.9 - Emphysema, unspecified Is this a current diagnosis for this admission?: Yes - Time Time Spent: 50 to 70 Minutes Smoking Cessation Education: over 10 minutes Anticipated discharge: Home - Inpatient Certification Based on my medical assessment, after consideration of the patient's comorbidities, presenting symptoms, or acuity I expect that the services needed warrant INPATIENT care.: Yes I certify that my determination is in accordance with my understanding of Medicare's requirements for reasonable and necessary INPATIENT services [42 CFR 412.3e].: Yes Medical Necessity: Need For IV Fluids
[2017-12-27] MEDS: FOLIC ACID 1 MG TABLET PO SCH (12:55)
[2017-12-27] MEDS: CHOLECALCIFEROL (D3) 1,000 UNIT TABLET PO SCH (12:55)
[2017-12-27] MEDS: CYANOCOBALAMIN (VITAMIN B-12) 1,000 MCG TABLET PO SCH (12:55)
[2017-12-27] MEDS: FAMOTIDINE 20 MG TABLET PO SCH ×2 (12:56→22:03)
--- NOTE | 2017-12-27 13:31 | PDOC PROGRESS REPORT ---
Subjective Progress Note for:: 12/27/17 Subjective:: I seen and examined the patient at bedside. He is awake alert and oriented. He is not in pain or any form of distress. His H&H is stable. I appreciate Dr. Vasquez help. Patient is scheduled for possible colonoscopy tomorrow morning. Reason For Visit: HEMOPTYSIS Physical Exam Vital Signs: Temp Pulse Resp BP Pulse Ox 98.3 F 100 22 H 149/76 H 95 12/27/17 12:00 12/27/17 12:00 12/27/17 12:00 12/27/17 12:00 12/27/17 12:00 Intake & Output 12/26/17 12/27/17 12/28/17 06:59 06:59 06:59 Intake Total 1578 770 0 Output Total 450 550 Balance 1128 220 0 Weight 47.4 kg 46.6 kg General appearance: PRESENT: no acute distress, well-developed, well-nourished Head exam: PRESENT: atraumatic, normocephalic Neck exam: ABSENT: carotid bruit, JVD, lymphadenopathy, thyromegaly Respiratory exam: PRESENT: clear to auscultation rito. ABSENT: rales, rhonchi, wheezes Cardiovascular exam: PRESENT: RRR. ABSENT: diastolic murmur, rubs, systolic murmur GI/Abdominal exam: PRESENT: normal bowel sounds, soft. ABSENT: distended, guarding, mass, organolmegaly, rebound, tenderness Neurological exam: PRESENT: alert, awake, oriented to time, oriented to situation Results Laboratory Results: 12/26/17 05:45 12/22/17 06:14 12/15/17 13:00 Sputum AFB Smear Concentration - Final 12/15/17 13:00 Sputum Acid Fast Bacilli Smear - Final Impressions: Chest/Abdomen CTA 12/13/17 16:31 IMPRESSION: 1. No pulmonary emboli. 2. Severe bilateral emphysematous changes with interval increase in the cluster of cavitary lesions at the right lung apex and interval development of cluster of cavitary lesions at the left lung apex. These may represent progression of acute infectious/inflammatory process such as tuberculosis or cavitary pneumonia versus malignancy. 3. Interval development of airspace opacities at the bilateral lower lobes, may be secondary to pneumonia. Followup CT after treatment recommended to re- evaluate. 4. No significant interval change in the bilateral pulmonary nodules. 5. Right hilar and mediastinal adenopathy, not significantly changed in the interval. 6. Small pericardial effusion. Assessment & Plan - Diagnosis (1) COPD (chronic obstructive pulmonary disease) Qualifiers: COPD type: emphysema Emphysema type: unspecified Qualified Code(s): J43.9 - Emphysema, unspecified Is this a current diagnosis for this admission?: Yes Plan: Continue breathing treatment with DuoNeb (2) Cavitary lesion of lung Is this a current diagnosis for this admission?: Yes Plan: Most probably due to none mycobacterial tuberculosis. ID and lift driver on board. PCR for MTB is negative. Acid-fast bacilli cultures pending. (3) Hemoptysis Is this a current diagnosis for this admission?: Yes Plan: Resolved (4) Acute and chronic respiratory failure with hypoxia Is this a current diagnosis for this admission?: Yes Plan: Continue bronchodilators and supplemental oxygen. (5) Iron deficiency anemia Qualifiers: Iron deficiency anemia type: unspecified iron deficiency Qualified Code(s) : D50.9 - Iron deficiency anemia, unspecified Is this a current diagnosis for this admission?: Yes Plan: Patient scheduled for colonoscopy tomorrow.
[2017-12-27] MEDS ORDERED: PEG 3350/NA SULF,BICARB,CL/KCL 4000 ML PO ONE (14:00)
[2017-12-27] MEDS: IPRATROPIUM/ALBUTEROL 0.5-2.5 MG/3 ML AMPUL NEB PRN (20:09)
[2017-12-27] MEDS: MIRTAZAPINE 15 MG TABLET PO SCH (22:03)
[2017-12-27] MEDS: ATORVASTATIN CALCIUM 20 MG TABLET PO SCH (22:03)
[2017-12-28] MEDS: LEVALBUTEROL HCL NEB 0.63 MG/3 ML AMPUL NEB SCH ×5 (04:16→20:31)
[2017-12-28 06:29] LABS: HEMATOCRIT 35.3 % (37.9-51.0); HEMOGLOBIN 11.5 g/dL (13.5-17.0); MEAN CORPUSCULAR HEMOGLOBIN 25.4 pg (27.0-33.4); MEAN CORPUSCULAR HGB CONC 32.7 g/dL (32.0-36.0); MEAN CORPUSCULAR VOLUME 78 fl (80-97); PLATELET COUNT 716 10^3/uL (150-450); RED BLOOD COUNT 4.54 10^6/uL (4.35-5.55); WHITE BLOOD COUNT 8.4 10^3/uL (4.0-10.5)
[2017-12-28] MEDS: CHOLECALCIFEROL (D3) 1,000 UNIT TABLET PO SCH (10:30)
[2017-12-28] MEDS: FAMOTIDINE 20 MG TABLET PO SCH ×2 (10:30→21:33)
[2017-12-28] MEDS: DILTIAZEM HCL 180 MG CAPSULE.CR PO SCH (10:31)
[2017-12-28] MEDS: FOLIC ACID 1 MG TABLET PO SCH (10:31)
[2017-12-28] MEDS: CYANOCOBALAMIN (VITAMIN B-12) 1,000 MCG TABLET PO SCH (10:31)
[2017-12-28] MEDS: LACTOBACILLUS ACIDOPHILUS 250 MG TAB PO SCH ×2 (10:32→17:38)
[2017-12-28] MEDS: ALPRAZOLAM 0.5 MG TABLET PO PRN ×2 (11:16→21:33)
--- NOTE | 2017-12-28 12:20 | PDOC PROGRESS REPORT ---
Subjective Progress Note for:: 12/28/17 Subjective:: This is a 72-year-old male with GI bleeding of unknown origin. Patient did not take his bowel prep last night. He reports that he "did not know he was supposed to ". Consumed less than one third of the bowel prep. Patient had a loose stool this morning with particulate matter present. Currently, the patient denies any chest pain, shortness of breath, abdominal pain, dizziness, blurry vision. The patient is very hard of hearing, and reports generalized malaise/fatigue. Reason For Visit: HEMOPTYSIS Physical Exam Vital Signs: Temp Pulse Resp BP Pulse Ox 98.4 F 97 18 128/68 H 99 12/28/17 11:40 12/28/17 11:40 12/28/17 11:40 12/28/17 11:40 12/28/17 11:40 Intake & Output 12/27/17 12/28/17 12/29/17 06:59 06:59 06:59 Intake Total 770 310 Output Total 550 100 Balance 220 210 Weight 46.6 kg 46.6 kg General appearance: PRESENT: no acute distress Head exam: PRESENT: atraumatic, normocephalic Eye exam: PRESENT: EOMI, PERRLA. ABSENT: scleral icterus Mouth exam: PRESENT: neck supple Neck exam: ABSENT: lymphadenopathy, meningismus, tenderness, thyromegaly, tracheal deviation Respiratory exam: PRESENT: unlabored. ABSENT: chest wall tenderness Cardiovascular exam: PRESENT: RRR Pulses: PRESENT: normal radial pulses GI/Abdominal exam: PRESENT: soft. ABSENT: distended, rebound, tenderness Neurological exam: PRESENT: alert, awake, oriented to person, oriented to place , oriented to time, oriented to situation, CN II-XII grossly intact Psychiatric exam: ABSENT: agitated, anxious Skin exam: ABSENT: cyanosis, erythema, jaundice, pallor Results Laboratory Results: 12/28/17 06:00 12/22/17 06:14 12/28/17 06:00 WBC 8.4 RBC 4.54 Hgb 11.5 L Hct 35.3 L MCV 78 L MCH 25.4 L MCHC 32.7 RDW 19.0 H Plt Count 716 H 12/15/17 13:00 Sputum AFB Smear Concentration - Final 12/15/17 13:00 Sputum Acid Fast Bacilli Smear - Final 12/15/17 13:00 Sputum Acid Fast Bacilli Culture & Smear - Final 12/15/17 13:00 Sputum M.tuberculosis Complex DNA Probe (M - Final 12/15/17 13:00 Sputum Mycobact. avium Complex DNA Probe M - Final 12/15/17 13:00 Sputum Mycobacterium kansasii DNA Probe (M - Final 12/15/17 13:00 Sputum Mycobacterium gordanae DNA Probe (M - Final 12/15/17 13:00 Sputum Specimen Comment (STEPHENIE) - Final 12/15/17 13:00 Sputum Microbiology Comment - Final Impressions: Chest/Abdomen CTA 12/13/17 16:31 IMPRESSION: 1. No pulmonary emboli. 2. Severe bilateral emphysematous changes with interval increase in the cluster of cavitary lesions at the right lung apex and interval development of cluster of cavitary lesions at the left lung apex. These may represent progression of acute infectious/inflammatory process such as tuberculosis or cavitary pneumonia versus malignancy. 3. Interval development of airspace opacities at the bilateral lower lobes, may be secondary to pneumonia. Followup CT after treatment recommended to re- evaluate. 4. No significant interval change in the bilateral pulmonary nodules. 5. Right hilar and mediastinal adenopathy, not significantly changed in the interval. 6. Small pericardial effusion. Assessment & Plan - Diagnosis (1) Blood loss anemia Is this a current diagnosis for this admission?: Yes - Plan Summary Plan Summary: This is a 72-year-old male with GI bleeding of uncertain origin. The patient is requesting colonoscopy be performed. The patient is recently status post colonoscopy several months ago, where no bleeding source could be identified. Patient has refused EGD in the past. Currently, I believe the patient to be very high risk for these procedures. It is unlikely that a new bleeding source will be identified on colonoscopy, especially since no bleeding source was identified 2-3 months ago on the same exam. The patient reports that his last colonoscopy was terminated early due to his poor tolerance of the procedure. I have discussed this with the patient and his daughter at length. My recommendation is to forego the procedure due to his very high risk. The patient is insisting that the procedure be performed, however his daughter is unsure. I have recommended she speak with him to formulate a definitive plan. Regardless of my feelings on the situation, the patient did not perform his bowel prep and no colonoscopy can be performed today. We will continue to follow the patient with you.
--- NOTE | 2017-12-28 13:06 | PDOC PROGRESS REPORT ---
Subjective Progress Note for:: 12/28/17 Subjective:: remains without complaints Reason For Visit: HEMOPTYSIS Physical Exam Vital Signs: Temp Pulse Resp BP Pulse Ox 98.4 F 97 18 128/68 H 99 12/28/17 11:40 12/28/17 11:40 12/28/17 11:40 12/28/17 11:40 12/28/17 11:40 Intake & Output 12/27/17 12/28/17 12/29/17 06:59 06:59 06:59 Intake Total 770 310 0 Output Total 550 100 Balance 220 210 0 Weight 46.6 kg 46.6 kg General appearance: PRESENT: no acute distress, cooperative, disheveled, thin Head exam: PRESENT: atraumatic, normocephalic Eye exam: PRESENT: conjunctiva pale, EOMI, PERRLA. ABSENT: nystagmus, periorbital swelling, scleral icterus Mouth exam: PRESENT: dry mucosa, neck supple, tongue midline Teeth exam: PRESENT: poor dentation Neck exam: ABSENT: carotid bruit, JVD, lymphadenopathy, thyromegaly, tracheal deviation, tracheostomy Respiratory exam: PRESENT: decreased breath sounds, prolonged expiratory phas, rales, rhonchi, unlabored. ABSENT: retraction, stridor, tachypnea Cardiovascular exam: PRESENT: RRR, +S1, +S2 GI/Abdominal exam: PRESENT: normal bowel sounds, soft Extremities exam: ABSENT: calf tenderness, clubbing, full ROM, joint swelling Musculoskeletal exam: ABSENT: deformity, dislocation, full ROM Neurological exam: PRESENT: alert, awake Psychiatric exam: PRESENT: normal mood Skin exam: PRESENT: dry, warm Results Laboratory Results: 12/28/17 06:00 12/22/17 06:14 12/28/17 06:00 WBC 8.4 RBC 4.54 Hgb 11.5 L Hct 35.3 L MCV 78 L MCH 25.4 L MCHC 32.7 RDW 19.0 H Plt Count 716 H 12/15/17 13:00 Sputum AFB Smear Concentration - Final 12/15/17 13:00 Sputum Acid Fast Bacilli Smear - Final 12/15/17 13:00 Sputum Acid Fast Bacilli Culture & Smear - Final 12/15/17 13:00 Sputum M.tuberculosis Complex DNA Probe (M - Final 12/15/17 13:00 Sputum Mycobact. avium Complex DNA Probe M - Final 12/15/17 13:00 Sputum Mycobacterium kansasii DNA Probe (M - Final 12/15/17 13:00 Sputum Mycobacterium gordanae DNA Probe (M - Final 12/15/17 13:00 Sputum Specimen Comment (STEPHENIE) - Final 12/15/17 13:00 Sputum Microbiology Comment - Final Impressions: Chest/Abdomen CTA 12/13/17 16:31 IMPRESSION: 1. No pulmonary emboli. 2. Severe bilateral emphysematous changes with interval increase in the cluster of cavitary lesions at the right lung apex and interval development of cluster of cavitary lesions at the left lung apex. These may represent progression of acute infectious/inflammatory process such as tuberculosis or cavitary pneumonia versus malignancy. 3. Interval development of airspace opacities at the bilateral lower lobes, may be secondary to pneumonia. Followup CT after treatment recommended to re- evaluate. 4. No significant interval change in the bilateral pulmonary nodules. 5. Right hilar and mediastinal adenopathy, not significantly changed in the interval. 6. Small pericardial effusion. Assessment & Plan - Diagnosis (1) COPD (chronic obstructive pulmonary disease) Qualifiers: COPD type: emphysema Emphysema type: unspecified Qualified Code(s): J43.9 - Emphysema, unspecified Is this a current diagnosis for this admission?: Yes Plan: At or near baseline,Continue current bronchodilator therapy (2) Cavitary lesion of lung Is this a current diagnosis for this admission?: Yes Plan: AFB pos x 3; aspirgillious (3) Hemoptysis Is this a current diagnosis for this admission?: Yes Plan: Patient denies any recent events (4) Acute and chronic respiratory failure with hypoxia Is this a current diagnosis for this admission?: Yes (5) Acid fast bacillus Is this a current diagnosis for this admission?: Yes Plan: NMTB (6) Aspergillosis Is this a current diagnosis for this admission?: Yes Plan: see consultation with ID
[2017-12-28] MEDS ORDERED: AZITHROMYCIN 250 MG TABLET PO ONE (15:00)
--- NOTE | 2017-12-28 15:03 | PDOC PROGRESS REPORT ---
Subjective Progress Note for:: 12/28/17 Subjective:: No significant change overnight. Patient does not have new complaints. He supposed to have colonoscopy this morning but Dr. mejia is not convinced that the drop in his hemoglobin is not due to bleeding from the polypectomy site which was done in months ago. Because of his severe pulmonary pathology, he deferred to the procedure. He is a sputum culture grew MAC and he is started on triple antituberculous medication namely ethambutol, rifampin and azithromycin. If patient's clinical stable and tolerating medication is a potential discharge for tomorrow. Reason For Visit: HEMOPTYSIS Physical Exam Vital Signs: Temp Pulse Resp BP Pulse Ox 98.4 F 97 18 128/68 H 99 12/28/17 11:40 12/28/17 11:40 12/28/17 11:40 12/28/17 11:40 12/28/17 11:40 Intake & Output 12/27/17 12/28/17 12/29/17 06:59 06:59 06:59 Intake Total 770 310 0 Output Total 550 100 Balance 220 210 0 Weight 46.6 kg 46.6 kg General appearance: PRESENT: no acute distress, well-developed, well-nourished Head exam: PRESENT: atraumatic, normocephalic Ear exam: PRESENT: normal external ear exam Neck exam: ABSENT: carotid bruit, JVD, lymphadenopathy, thyromegaly Respiratory exam: PRESENT: crackles, decreased breath sounds, rhonchi - Bilateral Cardiovascular exam: PRESENT: RRR. ABSENT: diastolic murmur, rubs, systolic murmur GI/Abdominal exam: PRESENT: normal bowel sounds, soft. ABSENT: distended, guarding, mass, organolmegaly, rebound, tenderness Neurological exam: PRESENT: alert, awake, oriented to person, oriented to place , oriented to time, oriented to situation, CN II-XII grossly intact. ABSENT: motor sensory deficit Psychiatric exam: PRESENT: appropriate affect, normal mood. ABSENT: homicidal ideation, suicidal ideation Results Laboratory Results: 12/28/17 06:00 12/22/17 06:14 12/28/17 06:00 WBC 8.4 RBC 4.54 Hgb 11.5 L Hct 35.3 L MCV 78 L MCH 25.4 L MCHC 32.7 RDW 19.0 H Plt Count 716 H 12/18/17 11:45 Sputum AFB Smear Concentration - Final 12/18/17 11:45 Sputum Acid Fast Bacilli Smear - Final 12/18/17 11:45 Sputum Acid Fast Bacilli Culture & Smear - Final 12/18/17 11:45 Sputum M.tuberculosis Complex DNA Probe (M - Final 12/18/17 11:45 Sputum Mycobact. avium Complex DNA Probe M - Final 12/18/17 11:45 Sputum Mycobacterium kansasii DNA Probe (M - Final 12/18/17 11:45 Sputum Mycobacterium gordanae DNA Probe (M - Final 12/18/17 11:45 Sputum Specimen Comment (STEPHENIE) - Final 12/18/17 11:45 Sputum Microbiology Comment - Final 12/15/17 13:00 Sputum AFB Smear Concentration - Final 12/15/17 13:00 Sputum Acid Fast Bacilli Smear - Final 12/15/17 13:00 Sputum Acid Fast Bacilli Culture & Smear - Final 12/15/17 13:00 Sputum M.tuberculosis Complex DNA Probe (M - Final 12/15/17 13:00 Sputum Mycobact. avium Complex DNA Probe M - Final 12/15/17 13:00 Sputum Mycobacterium kansasii DNA Probe (M - Final 12/15/17 13:00 Sputum Mycobacterium gordanae DNA Probe (M - Final 12/15/17 13:00 Sputum Specimen Comment (STEPHENIE) - Final 12/15/17 13:00 Sputum Microbiology Comment - Final Impressions: Chest/Abdomen CTA 12/13/17 16:31 IMPRESSION: 1. No pulmonary emboli. 2. Severe bilateral emphysematous changes with interval increase in the cluster of cavitary lesions at the right lung apex and interval development of cluster of cavitary lesions at the left lung apex. These may represent progression of acute infectious/inflammatory process such as tuberculosis or cavitary pneumonia versus malignancy. 3. Interval development of airspace opacities at the bilateral lower lobes, may be secondary to pneumonia. Followup CT after treatment recommended to re- evaluate. 4. No significant interval change in the bilateral pulmonary nodules. 5. Right hilar and mediastinal adenopathy, not significantly changed in the interval. 6. Small pericardial effusion. 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 Patient has been started on rifampicin, ethambutol and azithromycin. (3) Hemoptysis Is this a current diagnosis for this admission?: Yes Plan: Resolved. Due to cavitary lesion secondary to MAC. (4) Acute and chronic respiratory failure with hypoxia Is this a current diagnosis for this admission?: Yes Plan: Continue bronchodilators and supplemental oxygen. (5) Iron deficiency anemia Qualifiers: Iron deficiency anemia type: unspecified iron deficiency Qualified Code(s) : D50.9 - Iron deficiency anemia, unspecified Is this a current diagnosis for this admission?: Yes Plan: His hemoglobin maintained at 10 and 11. - Time Time Spent with patient: 25-34 minutes
[2017-12-28] MEDS ORDERED: RIFAMPIN 300 MG CAPSULE PO ONE (15:30)
[2017-12-28] MEDS ORDERED: ETHAMBUTOL HCL 400 MG TABLET PO ONE (15:30)
--- NOTE | 2017-12-28 18:17 | Progress Note ---
Provider Note Provider Note: ID Consult Note Asked to review patient's chart and provide input. Pt not seen and examined. Spoke with Dr Andres via telephone. Reviewed recent VS, results and provider notes. Pt has severe COPD with bullous emphysema and chronic hypoxic respiratory failure who was admitted nearly 2 weeks ago with intermittent hemoptysis and increased SOB. He was found to have bilateral pulmonary cavitary lesions that have enlarged over the past several months and AFB positive sputum smears with repeated isolation of MAC via DNA probe from multiple samples. Drug susceptibility testing is not yet available. ID consultation was requested regarding therapy. Impression/Recommendations Fibrocavitary MAC lung disease - Start PO azithromycin 250 mg daily, rifampin 600 mg daily, and ethambutol 800 mg daily. Pt should be made aware of common side effects, such as red-orange discoloration of body fluids with rifampin and GI upset with azithromycin. Pt will need visual acuity testing shortly after starting ethambutol as a baseline and will need to have repeat assessment if he appreciates a change in visual acuity or color vision on treatment. If baseline EKG is not available, consider obtaining one as a baseline to evaluate QTc. If needed for tolerability, azithromycin dose can be decreased to 250 mg daily, in conjunction with rifampin and ethambutol at the doses listed above. - In the setting of severe/cavitary MAC lung disease, the addition of an amikacin or streptomycin is recommended by some experts to the above regimen. One option is to administer IV amikacin 15 mg/kg three times a week. However, nebulized amikacin 500 mg daily may be an alternative that could allow for improved drug concentrations in the lungs and reduced systemic toxicity and would not require the added costs of a PICC line or visits to an infusion center. Recommend starting nebulized amikacin 500 mg daily and enlisting assistance of a case folder/materials planner in investigating whether the patient is able to continue this at home, in addition to azithromycin, ethambutol and rifampin. If pt can continue to receive treatment with an aminoglycoside, he should have audiometry testing at baseline (either while an inpatient or shortly after discharge). Pt should be made aware of the risk of nephrotoxicity and auditory and vestibular toxicity with aminoglycoside and the need to stop treatment with amikacin if tinnitus, vestibular problems or hearing loss develops. Otherwise aminoglycoside treatment is usually continued for the first 1-2 months as an adjunct to the above regimen with azithromycin, ethambutol, and rifampin. - Results of drug susceptibility testing will need to be followed up when available. - Azithromycin should not be used as monotherapy. - Total duration of therapy with azithromycin, rifampin and ethambutol is usually on the order of 18-24 months (1 year after sputum conversion). - If [facility] ([phone] phone, fax) outpatient follow up is desired, please refer pt to our clinic at discharge. Brennon Marsh MD [facility] Infectious Diseases pager [phone]
[2017-12-28] MEDS: ALBUTEROL SULFATE HFA (90 MCG/PUFF) 200 PUFF/8.5 GM MDI IH PRN (20:18)
[2017-12-28] MEDS: MIRTAZAPINE 15 MG TABLET PO SCH (21:32)
[2017-12-28] MEDS: ATORVASTATIN CALCIUM 20 MG TABLET PO SCH (21:33)
[2017-12-28] MEDS: IPRATROPIUM/ALBUTEROL 0.5-2.5 MG/3 ML AMPUL NEB PRN (23:40)
[2017-12-29] MEDS: LEVALBUTEROL HCL NEB 0.63 MG/3 ML AMPUL NEB SCH ×4 (00:02→11:28)
[2017-12-29] MEDS ORDERED: RIFAMPIN 300 MG CAPSULE PO SCH (08:00)
[2017-12-29] MEDS ORDERED: AZITHROMYCIN 250 MG TABLET PO SCH (10:00)
[2017-12-29] MEDS ORDERED: ETHAMBUTOL HCL 400 MG TABLET PO SCH (10:00)
--- NOTE | 2017-12-29 10:27 | PDOC DISCHARGE SUMMARY ---
General - Admit/Disc Date/PCP Admission Date/Primary Care Provider: 12/15/17 10:41 Discharge Date: 12/29/17 - Discharge Diagnosis (1) COPD (chronic obstructive pulmonary disease) Is this a current diagnosis for this admission?: Yes (2) Cavitary lesion of lung Is this a current diagnosis for this admission?: Yes (3) Hemoptysis Is this a current diagnosis for this admission?: Yes (4) Acute and chronic respiratory failure with hypoxia Is this a current diagnosis for this admission?: Yes (5) Iron deficiency anemia Is this a current diagnosis for this admission?: Yes - Additional Information Resuscitation Status: Do Not Resuscitate Discharge Diet: As Tolerated Prescriptions: Azithromycin 500 mg PO DAILY #30 tablet Ethambutol HCl [Myambutol] 800 mg PO DAILY #30 tablet Rifampin [Rifadin 300 mg Capsule] 600 mg PO DAILY 30 Days capsule Home Medications: Albuterol Sulfate [Ventolin HFA MDI 18 GM] 1 puff IH Q6HP PRN 06/14/17 Aspirin [Aspirin EC] 81 mg PO DAILY 06/14/17 Atorvastatin Calcium 20 mg PO QHS 06/14/17 Folic Acid 1 mg PO DAILY 06/14/17 Glycopyrrolate/Formoterol Fum [Bevespi Aerosphere Inhaler] 2 puff IH Q12 Pantoprazole Sodium 40 mg PO DAILY 06/14/17 Lorazepam [Ativan 0.5 mg Tablet] 0.5 mg PO DAILYP PRN 10/08/17 Azithromycin [Zithromax 250 mg Tablet] 250 mg PO DAILY MDD for 60 days started 11/29/17 Cyanocobalamin (Vitamin B-12) [Vitamin B-12 1000 mcg Tablet] 1,000 mcg PO DAILY 11/29/17 Diltiazem HCl [Cartia Xt] 180 mg PO DAILY 11/29/17 Mirtazapine 30 mg PO QHS MDD start 12/0211/29/17 Polyethylene Glycol 3350 [Gavilax] 17 gm PO DAILY 11/29/17 Levalbuterol HCl [Xopenex Neb 0.63 mg/3 ml Ampul] 0.63 mg NEB RTQ2HP PRN #15 vial.neb 12/03/17 Cholecalciferol (Vitamin D3) [Vitamin D3] 2,000 unit PO DAILY 12/13/17 Ipratropium/Albuterol Sulfate [Duoneb 3 ml Ampul] 3 ml NEB RTQ4HP PRN 12/13/17 Azithromycin 500 mg PO DAILY #30 tablet 12/29/17 Ethambutol HCl [Myambutol] 800 mg PO DAILY #30 tablet 12/29/17 Rifampin [Rifadin 300 mg Capsule] 600 mg PO DAILY 30 Days capsule 12/29/17 History of Present Illness History of Present Illness: ASHVIN MORALES is a 72 year old male with severe COPD who has been intermittently coughing up streaky blood about once a day for the past week. He denies fevers or chills. He quit smoking 3 years ago. He states he wears oxygen only at night and is been having to wear it during the day due to shortness of breath. His last episode of hemoptysis was over 24 hours ago. Hospital Course Hospital Course: This is a 72 years old male patient admitted with shortness of breath , cough and hemoptysis. He CT scan of the chest revealed bilateral clusters of cavitary lesions. He says sputum smear for acid-fast bacilli 3 sets positive. Initially patient was empirically started for Mycobacterium tuberculosis with 4 drug regimen and patient put on isolation. 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 Patient has been evaluated by Dr. Salomon kaplan ID specialist at [facility] who recommended to discontinue the previous antimycobacterial tuberculosis for drug regimen and also to discontinue voriconazole because the attending physician had started him based on suspicion of aspergillosis. Patient is hospital stays complicated by iron deficiency anemia that his hemoglobin dropped from 11-7.5 and his stool for occult blood was positive. GI consulted was done to Dr. Dudley but he is not available until December 29 in, the meantime I consulted general surgeon who deferred to do colonoscopy because he felt the source of bleeding is not the polypectomy site and also patient has underlying severe pulmonary pathology so his poor candidate to do the procedure. For his anemia patient transfused 2 units of packed RBC and his hemoglobin is maintained between 10 and 11. Yesterday I reconsulted to Dr. Brennon kaplan who recommended to start the patient with azithromycin 500 mg p.o. daily, ethambutol 800 mg p.o. daily and rifampin 600 mg p.o. daily. This morning I seen patient while sitting up in bed he is awake alert oriented is not in pain or any form of acute respiratory distress. His vital signs are within normal limits and his lab tests are stable. Physical Exam Vital Signs: Temp Pulse Resp BP Pulse Ox 98.3 F 86 20 126/54 H 94 12/29/17 07:38 12/29/17 08:32 12/29/17 08:32 12/29/17 07:38 12/29/17 08:32 Intake & Output 12/28/17 12/29/17 12/30/17 06:59 06:59 06:59 Intake Total 310 952 Output Total 100 125 Balance 210 827 Weight 46.6 kg 47.6 kg Results Laboratory Results: 12/28/17 06:00 12/22/17 06:14 12/18/17 11:45 Sputum AFB Smear Concentration - Final 12/18/17 11:45 Sputum Acid Fast Bacilli Smear - Final 12/18/17 11:45 Sputum Acid Fast Bacilli Culture & Smear - Final 12/18/17 11:45 Sputum M.tuberculosis Complex DNA Probe (M - Final 12/18/17 11:45 Sputum Mycobact. avium Complex DNA Probe M - Final 12/18/17 11:45 Sputum Mycobacterium kansasii DNA Probe (M - Final 12/18/17 11:45 Sputum Mycobacterium gordanae DNA Probe (M - Final 12/18/17 11:45 Sputum Specimen Comment (STEPHENIE) - Final 12/18/17 11:45 Sputum Microbiology Comment - Final 12/15/17 13:00 Sputum AFB Smear Concentration - Final 12/15/17 13:00 Sputum Acid Fast Bacilli Smear - Final 12/15/17 13:00 Sputum Acid Fast Bacilli Culture & Smear - Final 12/15/17 13:00 Sputum M.tuberculosis Complex DNA Probe (M - Final 12/15/17 13:00 Sputum Mycobact. avium Complex DNA Probe M - Final 12/15/17 13:00 Sputum Mycobacterium kansasii DNA Probe (M - Final 12/15/17 13:00 Sputum Mycobacterium gordanae DNA Probe (M - Final 12/15/17 13:00 Sputum Specimen Comment (STEPHENIE) - Final 12/15/17 13:00 Sputum Microbiology Comment - Final Impressions: Chest/Abdomen CTA 12/13/17 16:31 IMPRESSION: 1. No pulmonary emboli. 2. Severe bilateral emphysematous changes with interval increase in the cluster of cavitary lesions at the right lung apex and interval development of cluster of cavitary lesions at the left lung apex. These may represent progression of acute infectious/inflammatory process such as tuberculosis or cavitary pneumonia versus malignancy. 3. Interval development of airspace opacities at the bilateral lower lobes, may be secondary to pneumonia. Followup CT after treatment recommended to re- evaluate. 4. No significant interval change in the bilateral pulmonary nodules. 5. Right hilar and mediastinal adenopathy, not significantly changed in the interval. 6. Small pericardial effusion. Qualifiers - * PATIENT BEING DISCHARGED WITH ANY OF THE FOLLOWING DIAGNOSIS: No
[2017-12-29] MEDS: CYANOCOBALAMIN (VITAMIN B-12) 1,000 MCG TABLET PO SCH (10:29)
[2017-12-29] MEDS: DILTIAZEM HCL 180 MG CAPSULE.CR PO SCH (10:29)
[2017-12-29] MEDS: FAMOTIDINE 20 MG TABLET PO SCH (10:30)
[2017-12-29] MEDS: FOLIC ACID 1 MG TABLET PO SCH (10:30)
[2017-12-29] MEDS: CHOLECALCIFEROL (D3) 1,000 UNIT TABLET PO SCH (10:30)
[2017-12-29] MEDS: LACTOBACILLUS ACIDOPHILUS 250 MG TAB PO SCH (10:30)
[2017-12-29 11:29] VITALS: BP 166/85
--- NOTE | 2017-12-29 14:51 | PDOC PROGRESS REPORT ---
Subjective Progress Note for:: 12/29/17 Subjective:: without complaints Reason For Visit: HEMOPTYSIS Physical Exam Vital Signs: Temp Pulse Resp BP Pulse Ox 97.5 F 96 20 166/85 H 96 12/29/17 11:28 12/29/17 11:28 12/29/17 11:28 12/29/17 11:28 12/29/17 11:28 Intake & Output 12/28/17 12/29/17 12/30/17 06:59 06:59 06:59 Intake Total 310 952 Output Total 100 125 Balance 210 827 Weight 46.6 kg 47.6 kg General appearance: PRESENT: no acute distress, cooperative, disheveled, thin Head exam: PRESENT: atraumatic, normocephalic Eye exam: PRESENT: conjunctiva pale, EOMI, PERRLA. ABSENT: nystagmus, periorbital swelling, scleral icterus Mouth exam: PRESENT: dry mucosa, neck supple, tongue midline Neck exam: ABSENT: carotid bruit, JVD, lymphadenopathy, thyromegaly, tracheal deviation, tracheostomy Respiratory exam: PRESENT: decreased breath sounds, prolonged expiratory phas, rhonchi, unlabored. ABSENT: rales, retraction, stridor, tachypnea Cardiovascular exam: PRESENT: RRR, +S1, +S2 Pulses: PRESENT: normal radial pulses GI/Abdominal exam: PRESENT: normal bowel sounds, soft Extremities exam: PRESENT: full ROM. ABSENT: calf tenderness, clubbing, joint swelling Musculoskeletal exam: PRESENT: full ROM. ABSENT: deformity, dislocation Neurological exam: PRESENT: alert, awake Psychiatric exam: PRESENT: flat affect Skin exam: PRESENT: dry, warm Results Laboratory Results: 12/28/17 06:00 12/22/17 06:14 12/17/17 09:45 Sputum AFB Smear Concentration - Final 12/17/17 09:45 Sputum Acid Fast Bacilli Smear - Final 12/17/17 09:45 Sputum Acid Fast Bacilli Culture & Smear - Final 12/17/17 09:45 Sputum M.tuberculosis Complex DNA Probe (M - Final 12/17/17 09:45 Sputum Mycobact. avium Complex DNA Probe M - Final 12/17/17 09:45 Sputum Mycobacterium kansasii DNA Probe (M - Final 12/17/17 09:45 Sputum Mycobacterium gordanae DNA Probe (M - Final 12/17/17 09:45 Sputum Specimen Comment (STEPHENIE) - Final 12/17/17 09:45 Sputum Microbiology Comment - Final 12/18/17 11:45 Sputum AFB Smear Concentration - Final 12/18/17 11:45 Sputum Acid Fast Bacilli Smear - Final 12/18/17 11:45 Sputum Acid Fast Bacilli Culture & Smear - Final 12/18/17 11:45 Sputum M.tuberculosis Complex DNA Probe (M - Final 12/18/17 11:45 Sputum Mycobact. avium Complex DNA Probe M - Final 12/18/17 11:45 Sputum Mycobacterium kansasii DNA Probe (M - Final 12/18/17 11:45 Sputum Mycobacterium gordanae DNA Probe (M - Final 12/18/17 11:45 Sputum Specimen Comment (STEPHENIE) - Final 12/18/17 11:45 Sputum Microbiology Comment - Final 12/15/17 13:00 Sputum AFB Smear Concentration - Final 12/15/17 13:00 Sputum Acid Fast Bacilli Smear - Final 12/15/17 13:00 Sputum Acid Fast Bacilli Culture & Smear - Final 12/15/17 13:00 Sputum M.tuberculosis Complex DNA Probe (M - Final 12/15/17 13:00 Sputum Mycobact. avium Complex DNA Probe M - Final 12/15/17 13:00 Sputum Mycobacterium kansasii DNA Probe (M - Final 12/15/17 13:00 Sputum Mycobacterium gordanae DNA Probe (M - Final 12/15/17 13:00 Sputum Specimen Comment (STEPHENIE) - Final 12/15/17 13:00 Sputum Microbiology Comment - Final Impressions: Chest/Abdomen CTA 12/13/17 16:31 IMPRESSION: 1. No pulmonary emboli. 2. Severe bilateral emphysematous changes with interval increase in the cluster of cavitary lesions at the right lung apex and interval development of cluster of cavitary lesions at the left lung apex. These may represent progression of acute infectious/inflammatory process such as tuberculosis or cavitary pneumonia versus malignancy. 3. Interval development of airspace opacities at the bilateral lower lobes, may be secondary to pneumonia. Followup CT after treatment recommended to re- evaluate. 4. No significant interval change in the bilateral pulmonary nodules. 5. Right hilar and mediastinal adenopathy, not significantly changed in the interval. 6. Small pericardial effusion. Assessment & Plan - Diagnosis (1) COPD (chronic obstructive pulmonary disease) Qualifiers: COPD type: emphysema Emphysema type: unspecified Qualified Code(s): J43.9 - Emphysema, unspecified Is this a current diagnosis for this admission?: Yes Plan: At or near baseline,Continue current bronchodilator therapy (2) Cavitary lesion of lung Is this a current diagnosis for this admission?: Yes Plan: AFB pos x 3; aspirgillious per ID no tx (3) Hemoptysis Is this a current diagnosis for this admission?: Yes Plan: Patient denies any recent events (4) Acute and chronic respiratory failure with hypoxia Is this a current diagnosis for this admission?: Yes Plan: stable (5) Acid fast bacillus Is this a current diagnosis for this admission?: Yes Plan: NMTB (6) Aspergillosis Is this a current diagnosis for this admission?: Yes Plan: see consultation with ID
--- NOTE | 2017-12-29 19:49 | PDOC PROGRESS REPORT ---
Subjective Progress Note for:: 12/29/17 Subjective:: No pains. comfortable. Reason For Visit: HEMOPTYSIS Physical Exam Vital Signs: Temp Pulse Resp BP Pulse Ox 97.5 F 96 20 166/85 H 96 12/29/17 11:28 12/29/17 11:28 12/29/17 11:28 12/29/17 11:28 12/29/17 11:28 Intake & Output 12/28/17 12/29/17 12/30/17 06:59 06:59 06:59 Intake Total 310 952 Output Total 100 125 Balance 210 827 Weight 46.6 kg 47.6 kg Exam: abd is soft non tender. Results Laboratory Results: 12/28/17 06:00 12/22/17 06:14 12/17/17 09:45 Sputum AFB Smear Concentration - Final 12/17/17 09:45 Sputum Acid Fast Bacilli Smear - Final 12/17/17 09:45 Sputum Acid Fast Bacilli Culture & Smear - Final 12/17/17 09:45 Sputum M.tuberculosis Complex DNA Probe (M - Final 12/17/17 09:45 Sputum Mycobact. avium Complex DNA Probe M - Final 12/17/17 09:45 Sputum Mycobacterium kansasii DNA Probe (M - Final 12/17/17 09:45 Sputum Mycobacterium gordanae DNA Probe (M - Final 12/17/17 09:45 Sputum Specimen Comment (STEPHENIE) - Final 12/17/17 09:45 Sputum Microbiology Comment - Final 12/18/17 11:45 Sputum AFB Smear Concentration - Final 12/18/17 11:45 Sputum Acid Fast Bacilli Smear - Final 12/18/17 11:45 Sputum Acid Fast Bacilli Culture & Smear - Final 12/18/17 11:45 Sputum M.tuberculosis Complex DNA Probe (M - Final 12/18/17 11:45 Sputum Mycobact. avium Complex DNA Probe M - Final 12/18/17 11:45 Sputum Mycobacterium kansasii DNA Probe (M - Final 12/18/17 11:45 Sputum Mycobacterium gordanae DNA Probe (M - Final 12/18/17 11:45 Sputum Specimen Comment (STEPHENIE) - Final 12/18/17 11:45 Sputum Microbiology Comment - Final 12/15/17 13:00 Sputum AFB Smear Concentration - Final 12/15/17 13:00 Sputum Acid Fast Bacilli Smear - Final 12/15/17 13:00 Sputum Acid Fast Bacilli Culture & Smear - Final 12/15/17 13:00 Sputum M.tuberculosis Complex DNA Probe (M - Final 12/15/17 13:00 Sputum Mycobact. avium Complex DNA Probe M - Final 12/15/17 13:00 Sputum Mycobacterium kansasii DNA Probe (M - Final 12/15/17 13:00 Sputum Mycobacterium gordanae DNA Probe (M - Final 12/15/17 13:00 Sputum Specimen Comment (STEPHENIE) - Final 12/15/17 13:00 Sputum Microbiology Comment - Final Impressions: Chest/Abdomen CTA 12/13/17 16:31 IMPRESSION: 1. No pulmonary emboli. 2. Severe bilateral emphysematous changes with interval increase in the cluster of cavitary lesions at the right lung apex and interval development of cluster of cavitary lesions at the left lung apex. These may represent progression of acute infectious/inflammatory process such as tuberculosis or cavitary pneumonia versus malignancy. 3. Interval development of airspace opacities at the bilateral lower lobes, may be secondary to pneumonia. Followup CT after treatment recommended to re- evaluate. 4. No significant interval change in the bilateral pulmonary nodules. 5. Right hilar and mediastinal adenopathy, not significantly changed in the interval. 6. Small pericardial effusion. Assessment & Plan - Time Time Spent with patient: 15-24 minutes - Plan Summary Plan Summary: Agree with discharge. OK to hold colonoscopy at this time.HB stable at 11.5.
== END 2017-12-29 13:44 | disposition home or self-care (01) | DRG 177 ==
LOC: ER 14:22 → INTOOBSV 12-14 09:54 → EH 12-14 09:54 → 4S 12-14 14:59 → OBSVTOIN 12-15 10:41 → 3S 12-16 16:42
PROVIDERS: ADMIT Internal Medicine; ATTEND Internal Medicine
PROC: 30233N1 Transfusion of Nonautologous Red Blood Cells into Peripheral Vein, Percutaneous Approach (ICD-10-PCS; principal; 2017-12-25)
DX: A15.0 Tuberculosis of lung (principal); J96.21 Acute and chronic respiratory failure with hypoxia; R04.2 Hemoptysis; C34.90 Malignant neoplasm of unspecified part of unspecified bronchus or lung; E44.0 Moderate protein-calorie malnutrition; Z68.1 Body mass index [BMI] 19.9 or less, adult; I48.1 Persistent atrial fibrillation; B44.1 Other pulmonary aspergillosis; Z66 Do not resuscitate; A31.0 Pulmonary mycobacterial infection; J43.8 Other emphysema; J43.9 Emphysema, unspecified; E78.00 Pure hypercholesterolemia, unspecified; I10 Essential (primary) hypertension; K21.9 Gastro-esophageal reflux disease without esophagitis; D47.3 Essential (hemorrhagic) thrombocythemia; D50.9 Iron deficiency anemia, unspecified; Z89.611 Acquired absence of right leg above knee; Z75.1 Person awaiting admission to adequate facility elsewhere; Z87.891 Personal history of nicotine dependence; Z79.82 Long term (current) use of aspirin; Z79.51 Long term (current) use of inhaled steroids; Z79.899 Other long term (current) drug therapy
CPT/HCPCS: 36415; 36430; 71275; 80048; 80053; 82272; 82607; 82728; 82746; 83540; 83550; 85025; 85027; 85045; 85610; 85730; 86606; 86701; 86850; 86900; 86901; 86920; 87015; 87040; 87070; 87077; 87116; 87186; 87205; 87206; 94640; 96365; 96375; 99285; G0378; J0696; J1650; J1756; J2543; J3490; J7050; J7614; J7620; P9016; S0164

== ENCOUNTER 2018-09-07 20:39 | Emergency (ER) | payer BC, MEDICARE ==
--- NOTE | 2018-09-07 22:11 | ER Document Report ---
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 Location: Chest Onset: "2 days ago" Alleviation: "My home treatments make me feel better but it does not last" Provocation: Unknown Quality: Tightness Radiation: None Severity: Mild to moderate Timing: Constant History of CAD: No Associated symptoms: Denies fevers or known sick contacts, has had increased sputum production, no chest pain, no nausea or vomiting REVIEW OF SYSTEMS: CONSTITUTIONAL : Denies fever or chills, no sweats. Denies recent illness. EENT: Denies eye, ear, throat, or mouth pain or symptoms. Denies nasal or sinus congestion. CARDIOVASCULAR: Denies chest pain. Denies swelling of the legs. RESPIRATORY: Positive for increased cough with sputum production, increased congestion. Positive for shortness of breath but no difficulty breathing. Denies wheezing. GASTROINTESTINAL: Denies abdominal pain. Denies nausea, vomiting, or diarrhea. Denies constipation. GENITOURINARY: Denies difficulty urinating, painful urination, burning, frequency, or blood in urine. MUSCULOSKELETAL: Denies neck or back pain or joint pain or swelling. SKIN: Denies rash or skin lesions. HEMATOLOGIC : Denies easy bruising or bleeding. LYMPHATIC: Denies swollen, enlarged glands. NEUROLOGICAL: Denies altered mental status or loss of consciousness. Denies headache. Denies weakness or paralysis or loss of use of either side. Denies problems with gait or speech. Denies sensory or motor loss. PSYCHIATRIC: Denies anxiety or stress or depression. All other systems reviewed and negative. PHYSICAL EXAMINATION: GENERAL: Tired-appearing, well-nourished and in no acute distress. HEAD: Atraumatic, normocephalic. No scalp deformity, depression, or crepitance. EYES: Pupils are 3 mm and equal/round/reactive to light, extraocular movements intact, sclera anicteric, conjunctiva are normal. ENT: Nares patent bilaterally, oropharynx. Moist mucous membranes. No tonsil hypertrophy. NECK: Normal range of motion, supple without lymphadenopathy. LUNGS: Breath sounds distant and diminished bilaterally, trace posterior wheezing. No rales or rhonchi. HEART: Regular rate and rhythm without murmurs, rubs, or gallops. 2+ peripheral pulses. Normal capillary refill. ABDOMEN: Soft, nontender, nondistended. Normoactive bowel sounds. No guarding, no rebound. No masses appreciated. BACK: Normal contour, no midline tenderness. Rectal exam deferred. GENITAL/PELVIC: Deferred. EXTREMITIES: Normal range of motion, no pitting or edema. No cyanosis. NEUROLOGICAL: No focal neurological deficits. Moves all extremities spontaneously and on command. PSYCH: Normal mood, normal affect. No suicidal thoughts/ideations. No homocidal thoughts/ideations. No hallucinations. SKIN: Warm, dry, normal turgor, no rashes or lesions noted. ASSESSMENT AND PLAN: This patient is a 73-year-old male who presents with cough with increased sputum production and mild shortness of breath is most likely secondary to COPD exace rbation versus pneumonia versus heart failure versus acute ND. 1. Will obtain labs, cardiac enzymes, chest x-ray, EKG, and reassess. 2. Will give IV Solu-Medrol with DuoNeb nebulizer treatment. TRAVEL OUTSIDE OF THE [place] IN LAST 30 DAYS: No - Related Data Allergies/Adverse Reactions: No Known Allergies Allergy (Verified 12/13/17 14:23) Past Medical History - General Information source: Patient - Social History Smoking Status: Former Smoker Chew tobacco use (# tins/day): No Frequency of alcohol use: None Drug Abuse: None Lives with: Family Family History: COPD Patient has suicidal ideation: No Patient has homicidal ideation: No - Past Medical History Cardiac Medical History: Reports: Hx Atrial Fibrillation, Hx Hypercholesterolemia, Hx Hypertension Pulmonary Medical History: Reports: Hx Bronchitis, Hx COPD - Chronic bilateral upper lobe cavitary lesions and severe bullous disease, Hx Intubation, Hx Respiratory Failure - Chart reports lung cancer but not staged. RLL inf iltrates EENT Medical History: Reports: None Neurological Medical History: Reports: None Endocrine Medical History: Reports: None Renal/ Medical History: Reports: None. Denies: Hx End Stage Renal Disease, Hx Peritoneal Dialysis Malignancy Medical History: Reports Hx Lung Cancer - possible GI Medical History: Reports: Hx Gastroesophageal Reflux Disease. Denies: Hx Hepatitis, Hx Ulcerative Colitis Musculoskeletal Medical History: Reports None Skin Medical History: Reports None Psychiatric Medical History: Reports: None Denies: Hx Dementia Traumatic Medical History: Reports: Hx Pneumothorax Infectious Medical History: Reports: None. Denies: Hx Hepatitis Past Surgical History: Reports: Hx Orthopedic Surgery - RIGHT AKA, Other - Right [id number] amputation; Colonoscopy - Immunizations Immunizations up to date: Yes Hx Diphtheria, Pertussis, Tetanus Vaccination: Yes History of Influenza Vaccine for 05/2017 - 09/2017 Season: Yes Hx Pneumococcal Vaccination: 04/02/17 Physical Exam - Vital signs Vitals: Resp 30 H 09/07/18 20:55 Course - Re-evaluation Re-evalutation: 09/08/18 03:17 Chest x-ray shows nodular bibasilar opacities consistent with patient's known history of mycobacterium avium intracellulare. He received Solu-Medrol as well as DuoNeb nebulizer treatments and feels much better. Labs with cardiac enzymes are normal. He will be discharged home with return precautions and follow-up with his staffing specialist as well as his infectious disease specialist. Patient reports agreeing with an understanding the plan. - Vital Signs Vital signs: Temp Pulse Resp BP Pulse Ox 98.1 F 98 24 H 119/80 93 09/08/18 03:10 09/08/18 02:53 09/08/18 03:28 09/08/18 02:53 09/08/18 03:28 - Laboratory Result Diagrams: 09/07/18 21:26 09/07/18 21:26 Laboratory results interpreted by me: 09/07/18 09/07/18 09/08/18 21:26 21:26 01:05 RBC 3.67 L Hgb 10.1 L Hct 31.4 L RDW 24.4 H Seg Neutrophils % 84.7 H Lymphocytes % 5.4 L Absolute Lymphocytes 0.4 L ABG pO2 77.3 L BUN 34 H Creatinine 1.91 H Est GFR ( Amer) 42 L Est GFR (Non-Af Amer) 35 L ALT 15 L - Diagnostic Test Radiology reviewed: Image reviewed, Reports reviewed - EKG Interpretation by Me EKG shows normal: Sinus rhythm Rate: Normal Rhythm: NSR Holcomb/QRS: No: Right axis deviation, Left axis deviation, RBBB, LBBB, IVCD, LAHB/LAFB, LPHB/LPFB, Bifasicular block Voltage: No: Increased voltage, Consistant with LVH, Decreased voltage, Throughout, Limb leads P Waves: No: EVA, LAE, Absent, AV Dissociation, Other Heart block present: No: 1st Degree, Mobitz 1, Mobitz 2, CHB (3rd degree block) When compared to previous EKG there are: No significant change Discharge - Discharge Clinical Impression: Shortness of breath, COPD exacerbation Condition: Good Disposition: HOME, SELF-CARE Instructions: Chronic Obstructive Lung Disease ([facility]) Additional Instructions: You have been evaluated in the Emergency Department for trouble breathing related to your COPD. While in the emergency department, you were given both steroids as well as nebulizer breathing treatments with improvement. All of your labs, including heart numbers, are normal. Please follow-up with your pulmonary and infectious disease specialists as instructed in 1-2 weeks to be rechecked. Return to the Emergency Department if you experience chest pain, difficulty breathing, high fevers, general weakness, or any other concerning symptoms. Prescriptions: Benzonatate [Tessalon Perles 100 mg Capsule] 100 mg PO ASDIR PRN #40 capsule PRN Reason: Methylprednisolone [Medrol Dosepack (4 mg/Tab) 21 Tab/Dosepak] 4 mg PO ASDIR PRN #21 tab.ds.pk PRN Reason: Print Language: Kazakh
--- NOTE | 2018-09-07 23:02 | EKG REPORT ---
SEVERITY:- ABNORMAL ECG - SINUS RHYTHM RIGHT ATRIAL ABNORMALITY CONSIDER RIGHT VENTRICULAR HYPERTROPHY : Confirmed by: Tu Knigth 07-Sep-2018 23:01:51
[2018-09-07] MEDS ORDERED: IPRATROPIUM/ALBUTEROL 0.5-2.5 MG/3 ML AMPUL NEB ONE (23:04)
[2018-09-07] MEDS ORDERED: METHYLPREDNISOLONE INJ 125 MG/2 ML SDV IV ONE (23:04)
[2018-09-07 23:53] LABS: ABSOLUTE BASOPHILS # (AUTO) 0.1 10^3/uL (0.0-0.2); ABSOLUTE EOSINOPHILS # (AUTO) 0.2 10^3/uL (0.0-0.6); ABSOLUTE LYMPHOCYTES (AUTO) 0.4 10^3/uL (0.5-4.7); ABSOLUTE MONOCYTES (AUTO) 0.5 10^3/uL (0.1-1.4); ABSOLUTE NEUT (AUTO) 6.8 10^3/uL (1.7-8.2); BASOPHILS % (AUTO) 0.9 % (0-2); EOSINOPHILS % (AUTO) 2.4 % (0-6); HEMATOCRIT 31.4 % (37.9-51.0); HEMOGLOBIN 10.1 g/dL (13.5-17.0); LYMPHOCYTES % (AUTO) 5.4 % (13-45); MEAN CORPUSCULAR HEMOGLOBIN 27.6 pg (27.0-33.4); MEAN CORPUSCULAR HGB CONC 32.2 g/dL (32.0-36.0); MEAN CORPUSCULAR VOLUME 86 fl (80-97); MONOCYTES % (AUTO) 6.6 % (3-13); PLATELET COUNT 378 10^3/uL (150-450); RED BLOOD COUNT 3.67 10^6/uL (4.35-5.55); RED CELL DISTRIBUTION WIDTH 24.4 % (11.5-14.0); SEGMENTED NEUTROPHILS % (AUTO) 84.7 % (42-78); TOTAL CELLS COUNTED % (AUTO) 100 %
[2018-09-07 23:58] LABS: ALANINE AMINOTRANSFERASE 15 U/L (21-72); ALKALINE PHOSPHATASE 67 U/L (38-126); ANION GAP 10 (5-19); ASPARTATE AMINO TRANSFERASE 21 U/L (17-59); BILIRUBIN,DIRECT 0.2 mg/dL (0.0-0.4); BILIRUBIN,TOTAL 0.2 mg/dL (0.2-1.3); BLOOD UREA NITROGEN 34 mg/dL (7-20); CARBON DIOXIDE 25 mmol/L (22-30); CHLORIDE 104 mmol/L (98-107); GLUCOSE 91 mg/dL (75-110); POTASSIUM 4.9 mmol/L (3.6-5.0); SODIUM 139.2 mmol/L (137-145); TOTAL PROTEIN 6.8 g/dL (6.3-8.2)
[2018-09-08 00:09] LABS: TROPONIN I 0.021 ng/mL
[2018-09-08 00:19] LABS: ANISOCYTOSIS 3+; OVALOCYTES SLIGHT; PLATELET COMMENT ADEQUATE; POIKILOCYTOSIS SLIGHT
--- NOTE | 2018-09-08 00:50 | RADIOLOGY REPORT (SQ) ---
EXAM DESCRIPTION: XR CHEST 1 VIEW COMPLETED DATE/TME: 09/07/2018 23:03 CLINICAL HISTORY: 73 years, Male, SOB COMPARISON: 11/30/2017 chest NUMBER OF VIEWS: 1 TECHNIQUE: Portable chest LIMITATIONS: None. FINDINGS: Heart size is normal. Atheromatous change thoracic aorta. Osteopenia. Underlying emphysema with nodular biapical pleural thickening, as before. Lungs are otherwise clear. No pneumothorax. IMPRESSION: Underlying emphysema with nodular biapical pleural thickening copyright 2010 [employer]- All Rights Reserved
[2018-09-08 01:17] LABS: ARTERIAL BLOOD BASE EXCESS -1.2 mmol/L; ARTERIAL BLOOD H2CO3 1.08 mmol/L (1.05-1.35); ARTERIAL BLOOD HCO3 22.9 mmol/L (20-24); ARTERIAL BLOOD O2 SATURATION 95.8 % (94-98); ARTERIAL BLOOD PCO2 35.9 mmHg (35-45); ARTERIAL BLOOD PH 7.42 (7.35-7.45); ARTERIAL BLOOD PO2 77.3 mmHg (80-100)
[2018-09-08 01:20] LABS: ARTERIAL BLOOD FIO2 2L
[2018-09-08 02:54] VITALS: BP 119/80
[2018-09-08] MEDS ORDERED: IPRATROPIUM/ALBUTEROL 0.5-2.5 MG/3 ML AMPUL NEB ONE (03:11)
== END 2018-09-08 04:15 | disposition home or self-care (01) ==
LOC: ER 20:39
DX: J44.1 Chronic obstructive pulmonary disease with (acute) exacerbation (principal); R06.02 Shortness of breath; R05 Cough; Z99.81 Dependence on supplemental oxygen; Z87.891 Personal history of nicotine dependence; I10 Essential (primary) hypertension
CPT/HCPCS: 93005; 94640; 99285; 96374; 36415; 82803; 85025; 80053; 84484; 83880; 71045; 93010; J2930; A9270 ×2; J7620

== ENCOUNTER 2018-11-16 11:20 | Inpatient (IN) | payer MEDICARE ==
[2018-11-16] MEDS ORDERED: IPRATROPIUM/ALBUTEROL 0.5-2.5 MG/3 ML AMPUL NEB ONE ×2 (12:12→15:27)
[2018-11-16 12:25] LABS: ABSOLUTE BASOPHILS # (AUTO) 0.1 10^3/uL (0.0-0.2); ABSOLUTE EOSINOPHILS # (AUTO) 0.4 10^3/uL (0.0-0.6); ABSOLUTE LYMPHOCYTES (AUTO) 1.3 10^3/uL (0.5-4.7); ABSOLUTE MONOCYTES (AUTO) 0.4 10^3/uL (0.1-1.4); ABSOLUTE NEUT (AUTO) 5.8 10^3/uL (1.7-8.2); HEMATOCRIT 39.6 % (37.9-51.0); HEMOGLOBIN 13.2 g/dL (13.5-17.0); LYMPHOCYTES % (AUTO) 15.8 % (13-45); MEAN CORPUSCULAR HEMOGLOBIN 29.3 pg (27.0-33.4); MEAN CORPUSCULAR HGB CONC 33.5 g/dL (32.0-36.0); MEAN CORPUSCULAR VOLUME 88 fl (80-97); MONOCYTES % (AUTO) 5.3 % (3-13); PLATELET COUNT 276 10^3/uL (150-450); RED BLOOD COUNT 4.52 10^6/uL (4.35-5.55); RED CELL DISTRIBUTION WIDTH 18.6 % (11.5-14.0); SEGMENTED NEUTROPHILS % (AUTO) 72.9 % (42-78); TOTAL CELLS COUNTED % (AUTO) 100 %
[2018-11-16 12:29] LABS: ALANINE AMINOTRANSFERASE 21 U/L (21-72); ALBUMIN 4.2 g/dL (3.5-5.0); ALKALINE PHOSPHATASE 71 U/L (38-126); ANION GAP 11 (5-19); ASPARTATE AMINO TRANSFERASE 28 U/L (17-59); BILIRUBIN,DIRECT 0.2 mg/dL (0.0-0.4); BILIRUBIN,TOTAL 0.7 mg/dL (0.2-1.3); BLOOD UREA NITROGEN 29 mg/dL (7-20); CARBON DIOXIDE 23 mmol/L (22-30); CHLORIDE 103 mmol/L (98-107); CREATINE KINASE 201 U/L (55-170); GLUCOSE 122 mg/dL (75-110); POTASSIUM 4.6 mmol/L (3.6-5.0); SODIUM 137.1 mmol/L (137-145); TOTAL PROTEIN 7.4 g/dL (6.3-8.2)
--- NOTE | 2018-11-16 12:35 | RADIOLOGY REPORT (SQ) ---
EXAM DESCRIPTION: CHEST SINGLE VIEW COMPLETED DATE/TIME: 11/16/2018 12:21 pm REASON FOR STUDY: COPD exacerbation COMPARISON: 09/07/2018 EXAM PARAMETERS: NUMBER OF VIEWS: One view. TECHNIQUE: Single frontal radiographic view of the chest acquired. RADIATION DOSE: NA LIMITATIONS: None. FINDINGS: LUNGS AND PLEURA: SEVERE EMPHYSEMATOUS CHANGE WITH GROSSLY UNCHANGED BIAPICAL PLEURAL THIC KENING AND SCARRING. RIGHT FOR REASON FLATTENING OF THE HEMIDIAPHRAGMS. NO NEW CONSOLIDATION, PLEUR AL EFFUSION OR PNEUMOTHORAX. MEDIASTINUM AND HILAR STRUCTURES: NO MASSES. HEART AND VASCULAR STRUCTURES: NORMAL HEART SIZE. AORTIC ATHEROSCLEROSIS. BONES: NO ACUTE FINDINGS. HARDWARE: NONE. OTHER: NO OTHER SIGNIFICANT FINDINGS. IMPRESSION: UNCHANGED SEVERE EMPHYSEMA AND NODULAR BIAPICAL PLEURAL THICKENING. NO EVIDENCE OF SUPE RIMPOSED CARDIOPULMONARY PROCESS. TECHNICAL DOCUMENTATION: JOB ID: [id number] [employer]- All Rights Reserved Reading location - IP/workstation name: [email or web address]
[2018-11-16 12:45] LABS: ANISOCYTOSIS 2+; OVALOCYTES 1+; POIKILOCYTOSIS SLIGHT; TEAR DROP CELLS SLIGHT
[2018-11-16 12:46] LABS: PLATELET COMMENT ADEQUATE
[2018-11-16 13:57] LABS: VENOUS BLOOD BASE EXCESS -2.1 mmol/L; VENOUS BLOOD HCO3 23.7 mmol/L (20-32); VENOUS BLOOD PCO2 44.3 mmHg (35-63); VENOUS BLOOD PH 7.35 (7.30-7.42)
[2018-11-16 14:53] LABS: CREATINE KINASE MB 6.7 ng/mL (<4.55)
[2018-11-16 14:58] LABS: TROPONIN I 0.67 ng/mL
--- NOTE | 2018-11-16 15:37 | ER Document Report ---
Entered by RUSS MOJICA SCRIBE 11/16/18 1409 Acting as scribe for:DC BENITES MD ED Respiratory Problem - General Chief Complaint: Shortness Of Breath Stated Complaint: DIFFICULTY BREATHING Time Seen by Provider: 11/16/18 11:57 Mode of Arrival: Ambulatory Information source: Patient Notes: 73-year-old male who presents to the emergency department today with complaints of respiratory distress. Family at bedside states the patient's shortness of breath been getting worse over the last 2 days. When the patient was rolled in by EMS he appeared to be in moderate respiratory distress but after being put on 3L of oxygen this improved. Family at bedside states that prior to arrival here the patient's breathing was much worse than he normally is at baseline but now appears close to baseline. TRAVEL OUTSIDE OF THE [place] IN LAST 30 DAYS: No - Related Data Allergies/Adverse Reactions: No Known Allergies Allergy (Verified 12/13/17 14:23) Past Medical History - General Information source: Patient - Social History Smoking Status: Former Smoker Cigarette use (# per day): No Frequency of alcohol use: None Drug Abuse: None Lives with: Family Family History: Reviewed & Not Pertinent, COPD Patient has suicidal ideation: No Patient has homicidal ideation: No - Past Medical History Cardiac Medical History: Reports: Hx Atrial Fibrillation, Hx Hypercholesterolemia, Hx Hypertension Pulmonary Medical History: Reports: Hx Bronchitis, Hx COPD - Chronic bilateral upper lobe cavitary lesions and severe bullous disease, Hx Intubation, Hx Respiratory Failure - Chart reports lung cancer but not staged. RLL infiltrates Malignancy Medical History: Reports Hx Lung Cancer - possible GI Medical History: Reports: Hx Gastroesophageal Reflux Disease Traumatic Medical History: Reports: Hx Pneumothorax Past Surgical History: Reports: Hx Orthopedic Surgery - RIGHT AKA, Other - Right [id number] amputation; Colonoscopy - Immunizations Immunizations up to date: Yes Hx Diphtheria, Pertussis, Tetanus Vaccination: Yes Hx Pneumococcal Vaccination: 04/02/17 Review of Systems - Review of Systems Constitutional: No symptoms reported EENT: No symptoms reported Cardiovascular: No symptoms reported Respiratory: See HPI, Short of breath Gastrointestinal: No symptoms reported Genitourinary: No symptoms reported Male Genitourinary: No symptoms reported Musculoskeletal: No symptoms reported Skin: No symptoms reported Hematologic/Lymphatic: No symptoms reported Neurological/Psychological: No symptoms reported -: Yes All other systems reviewed and negative Physical Exam - Vital signs Vitals: Resp BP Pulse Ox 24 H 126/80 H 91 L 11/16/18 11:50 11/16/18 11:50 11/16/18 11:50 - Notes Notes: Physical Exam: General: Alert, appeared to be in respiratory distress when being wheeled in by EMS, appears much better now. HEENT: Normocephalic. Atraumatic. PERRL. Extraocular movements intact. Oropha rynx clear. Neck: Supple. Non-tender. Respiratory: Mild respiratory distress now. Wheezing and rhonchi bilaterally with mild retractions. Cardiovascular: Regular rate and rhythm. Abdominal: Normal Inspection. Non-tender. No distension. Normal Bowel Sounds. Back: Non-tender. No deformity or step off. Extremities: Moves all four extremities. Upper extremities: Normal inspection. Normal ROM. Lower extremities: Normal inspection. No edema. Normal ROM. Neurological: Normal cognition. AAOx4. Normal speech. Psychological: Normal affect. Normal Mood. Skin: Warm. Dry. Normal color. Course - Re-evaluation Re-evalutation: 11/16/18 15:30 The patient's troponin came back at 0.67, he denies any chest pain, but states he has been getting quite winded when he would do anything like getting up to go to the bathroom. 11/16/18 17:04 I discussed the rising troponins with the patient and his daughter. They report that he is a DNR and is not likely to survive any procedures and they do not wish any to be done. They are comfortable with him being admitted to the hospital here. I discussed case with Dr. Avila and he likewise agrees that the patient can best be treated here at this time. - Vital Signs Vital signs: Temp Pulse Resp BP Pulse Ox 98.5 F 24 H 118/68 97 11/16/18 12:34 11/16/18 16:01 11/16/18 16:01 11/16/18 16:01 - Laboratory Result Diagrams: 11/16/18 11:48 11/16/18 11:48 Laboratory results interpreted by me: 11/16/18 11/16/18 11/16/18 11:48 11:48 13:26 Hgb 13.2 L RDW 18.6 H BUN 29 H Creatinine 1.54 H Est GFR ( Amer) 54 L Est GFR (Non-Af Amer) 44 L Glucose 122 H Creatine Kinase 201 H CK-MB (CK-2) 6.70 H Urine Protein Urine Ketones Urine Blood 11/16/18 11/16/18 11/16/18 15:34 15:34 15:54 Hgb RDW BUN Creatinine Est GFR ( Amer) Est GFR (Non-Af Amer) Glucose Creatine Kinase 261 H CK-MB (CK-2) 7.31 H Urine Protein 30 H Urine Ketones TRACE H Urine Blood MODERATE H - Diagnostic Test Radiology reviewed: Image reviewed, Reports reviewed - Chest x-ray shows severe emphysema with biapical pleural thickening - Consults Dr. Cole Time consulted: 16:38 Consulted provider: will come to ER Critical Care Note - Critical Care Note Total time excluding time spent on procedures (mins): 40 Discharge - Discharge Clinical Impression: Acute exacerbation of chronic obstructive pulmonary disease (COPD), Non-ST elevation myocardial infarction (NSTEMI) Condition: Fair Disposition: ADMITTED INPATIENT Admitting Provider: Kelsey (Hospitalist) Unit Admitted: Telemetry Scribe Attestation: I personally performed the services described in the documentation, reviewed and edited the documentation which was dictated to the scribe in my presence, and it accurately records my words and actions. 11/16/18 0514 I personally performed the services described in the documentation, reviewed and edited the documentation which was dictated to the scribe in my presence, and it accurately records my words and actions.
[2018-11-16 16:20] LABS: CREATINE KINASE MB 7.31 ng/mL (<4.55); TROPONIN I 1.04 ng/mL
[2018-11-16 16:28] LABS: APPEARANCE,URINE CLEAR; BILIRUBIN,URINE NEGATIVE (NEGATIVE); COLOR,URINE AMBER; GLUCOSE, URINE NEGATIVE (NEGATIVE); KETONES,URINE TRACE mg/dL (NEGATIVE); LEUKOCYTE ESTERASE,URINE NEGATIVE (NEGATIVE); NITRITE,URINE NEGATIVE (NEGATIVE); PROTEIN,URINE 30 mg/dL (NEGATIVE); URINE SPECIFIC GRAVITY 1.019; UROBILINOGEN,URINE NEGATIVE mg/dL (<2.0)
[2018-11-16] MEDS ORDERED: ASPIRIN 81 MG TABLET, CHEWABLE PO ONE (17:02)
--- NOTE | 2018-11-16 18:23 | PDOC H&P ---
History of Present Illness Admission Date/PCP: 11/16/18 17:11 History of Present Illness: ASHVIN MORALES is a 73 year old male past medical history of severe COPD on 3 L home oxygen, former smoker, hyperlipidemia, PAD status post right AKA, GERD, abdominal aortic aneurysm, chronic anemia, CKD stage III with by Dr. 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 Capellan ID specialist, malnutrition who his CODE STATUS is DNR and living with his daughter. Presented to ED complaining of worsening shortness of breath for the last 2-3 days treated with worsening chronic nonproductive cough. EMS called by family and patient was placed on 3 L of oxygen which improved his respiratory symptoms. As per family patient seem to be in respiratory distress prior to ED presentation. Denies any sick contacts, or recent travel. Denies any chest pain, fever, chills, nausea, vomiting, diarrhea, constipation or any urinary symptoms. In ED he was found to be tachypneic respiratory rate of 20-30s, saturating low 90s, afebrile, WBC within normal limits, VBG with pH of 7.35, creatinine 1.54 from baseline of 1.14 -1.91. Initial troponin 0.670, 1.040. Denies any chest pain. It is DNR. He and his family do not want any invasive procedures at this point. CTA negative for any PE except for severe bilateral emphysematous changes chronic cavitary lesions. In ED he received aspirin, duo nebs with significant improvement of his symptoms. Hospital was consulted for further management. Past Medical History Cardiac Medical History: Reports: Atrial Fibrillation, Hyperlipidema, Hype rtension Pulmonary Medical History: Reports: Bronchitis, Chronic Obstructive Pulmonary Disease (COPD) - Chronic bilateral upper lobe cavitary lesions and severe bullous disease, Intubation, Respiratory Failure - Chart reports lung cancer but not staged. RLL infiltrates Renal/ Medical History: Denies: End Stage Renal Disease Malignancy Medical History: Reports: Lung Cancer - possible GI Medical History: Reports: Gastroesophageal Reflux Disease Denies: Hepatitis, Ulcerative Colitis Psychiatric Medical History: Denies: Dementia Traumatic Medical History: Reports: Pneumothorax Hematology: Reports: Anemia Past Surgical History Past Surgical History: Reports: Orthopedic Surgery - RIGHT AKA, Other - Right [id number] amputation; Colonoscopy Social History Lives with: Family Smoking Status: Former Smoker Frequency of Alcohol Use: None Hx Recreational Drug Use: No Drugs: None Hx Prescription Drug Abuse: No Family History Family History: Reviewed & Not Pertinent, COPD Parental Family History Reviewed: Yes Children Family History Reviewed: Yes Sibling(s) Family History Reviewed.: Yes Medication/Allergy Home Medications: Albuterol Sulfate [Ventolin HFA MDI 18 GM] 1 puff IH Q6HP PRN 06/14/17 Aspirin [Aspirin EC] 81 mg PO DAILY 06/14/17 Atorvastatin Calcium 20 mg PO QHS 06/14/17 Folic Acid 1 mg PO DAILY 06/14/17 Glycopyrrolate/Formoterol Fum [Bevespi Aerosphere Inhaler] 2 puff IH Q12 06/14/17 Pantoprazole Sodium 40 mg PO DAILY 06/14/17 Lorazepam [Ativan 0.5 mg Tablet] 0.5 mg PO DAILYP PRN 10/08/17 Azithromycin [Zithromax 250 mg Tablet] 250 mg PO DAILY MDD for 60 days started 11/26/17 11/29/17 Cyanocobalamin (Vitamin B-12) [Vitamin B-12 1000 mcg Tablet] 1,000 mcg PO DAILY 11/29/17 Diltiazem HCl [Cartia Xt] 180 mg PO DAILY 11/29/17 Mirtazapine 30 mg PO QHS MDD start 12/0211/29/17 Polyethylene Glycol 3350 [Gavilax] 17 gm PO DAILY 11/29/17 Levalbuterol HCl [Xopenex Neb 0.63 mg/3 ml Ampul] 0.63 mg NEB RTQ2HP PRN #15 vial.neb 12/03/17 Cholecalciferol (Vitamin D3) [Vitamin D3] 2,000 unit PO DAILY 12/13/17 Ipratropium/Albuterol Sulfate [Duoneb 3 ml Ampul] 3 ml NEB RTQ4HP PRN 12/13/17 Azithromycin 500 mg PO DAILY #30 tablet 12/29/17 Ethambutol HCl [Myambutol] 800 mg PO DAILY #30 tablet 12/29/17 Rifampin [Rifadin 300 mg Capsule] 600 mg PO DAILY 30 Days capsule 12/29/17 Benzonatate [Tessalon Perles 100 mg Capsule] 100 mg PO ASDIR PRN #40 capsule 09/08/18 Methylprednisolone [Medrol Dosepack (4 mg/Tab) 21 Tab/Dosepak] 4 mg PO ASDIR PRN #21 tab.ds.pk 09/08/18 Allergies/Adverse Reactions: No Known Allergies Allergy (Verified 11/16/18 17:16) Review of Systems Review of Systems: As per HPI Physical Exam Vital Signs: Temp Pulse Resp BP Pulse Ox 97.9 F 21 H 114/71 96 11/16/18 17:15 11/16/18 17:01 11/16/18 17:01 11/16/18 17:01 Intake & Output 11/15/18 11/16/18 11/17/18 06:59 06:59 06:59 Weight 45.2 kg General appearance: PRESENT: no acute distress, thin Head exam: PRESENT: atraumatic, normocephalic Respiratory exam: PRESENT: clear to auscultation rito, decreased breath sounds, prolonged expiratory phas, symmetrical, tachypnea. ABSENT: rales, rhonchi, wheezes Cardiovascular exam: PRESENT: RRR. ABSENT: diastolic murmur, rubs, systolic murmur Pulses: PRESENT: normal dorsalis pedis pul GI/Abdominal exam: PRESENT: normal bowel sounds, soft. ABSENT: distended, guarding, mass, organolmegaly, rebound, tenderness Extremities exam: PRESENT: full ROM. ABSENT: calf tenderness, clubbing, pedal edema Neurological exam: PRESENT: alert, awake, oriented to person, oriented to place, oriented to time, oriented to situation, CN II-XII grossly intact. ABSENT: motor sensory deficit Results Laboratory Results: 11/16/18 11:48 11/16/18 11:48 11/16/18 11/16/18 11/16/18 11:48 11:48 13:26 WBC 8.0 RBC 4.52 Hgb 13.2 L Hct 39.6 MCV 88 MCH 29.3 MCHC 33.5 RDW 18.6 H Plt Count 276 Seg Neutrophils % 72.9 Lymphocytes % 15.8 Monocytes % 5.3 Eosinophils % 5.0 Basophils % 1.0 Absolute Neutrophils 5.8 Absolute Lymphocytes 1.3 Absolute Monocytes 0.4 Absolute Eosinophils 0.4 Absolute Basophils 0.1 VBG pH VBG pCO2 VBG HCO3 VBG Base Excess Sodium 137.1 Potassium 4.6 Chloride 103 Carbon Dioxide 23 Anion Gap 11 BUN 29 H Creatinine 1.54 H Est GFR ( Amer) 54 L Est GFR (Non-Af Amer) 44 L Glucose 122 H Lactic Acid 1.4 Calcium 10.0 Total Bilirubin 0.7 AST 28 ALT 21 Alkaline Phosphatase 71 Total Protein 7.4 Albumin 4.2 Urine Color Urine Appearance Urine pH Ur Specific [place] Urine Protein Urine Glucose (UA) Urine Ketones Urine Blood Urine Nitrite Ur Leukocyte Esterase Urine WBC (Auto) Urine RBC (Auto) 11/16/18 11/16/18 13:44 15:54 WBC RBC Hgb Hct MCV MCH MCHC RDW Plt Count Seg Neutrophils % Lymphocytes % Monocytes % Eosinophils % Basophils % Absolute Neutrophils Absolute Lymphocytes Absolute Monocytes Absolute Eosinophils Absolute Basophils VBG pH 7.35 VBG pCO2 44.3 VBG HCO3 23.7 VBG Base Excess -2.1 Sodium Potassium Chloride Carbon Dioxide Anion Gap BUN Creatinine Est GFR ( Amer) Est GFR (Non-Af Amer) Glucose Lactic Acid Calcium Total Bilirubin AST ALT Alkaline Phosphatase Total Protein Albumin Urine Color CRUZ Urine Appearance CLEAR Urine pH 5.0 Ur Specific [place] 1.019 Urine Protein 30 H Urine Glucose (UA) NEGATIVE Urine Ketones TRACE H Urine Blood MODERATE H Urine Nitrite NEGATIVE Ur Leukocyte Esterase NEGATIVE Urine WBC (Auto) 2 Urine RBC (Auto) 16 11/16/18 11/16/18 11/16/18 11:48 11:48 13:26 Creatine Kinase 201 H CK-MB (CK-2) Cancelled 6.70 H Troponin I Cancelled 0.670 11/16/18 11/16/18 15:34 15:34 Creatine Kinase 261 H CK-MB (CK-2) 7.31 H Troponin I 1.040 Impressions: Chest X-Ray 11/16/18 12:10 IMPRESSION: UNCHANGED SEVERE EMPHYSEMA AND NODULAR BIAPICAL PLEURAL THICKENING. NO EVIDENCE OF SUPERIMPOSED CARDIOPULMONARY PROCESS. Assessment and Plan - Diagnosis (1) Acute exacerbation of chronic obstructive pulmonary disease (COPD) Is this a current diagnosis for this admission?: No Plan: Likely due to upper respiratory infection. Duo nebs, supplemental oxygen, as needed BiPAP, IV steroids, empiric antibiotics, flutter valve. (2) Non-ST elevation myocardial infarction (NSTEMI) Is this a current diagnosis for this admission?: Yes Plan: Elevated troponins likely to demand ischemia. Denies any chest pain. Patient is DNR and does not want any intervention at this point. Continue aspirin, statins, beta-blockers. Admits to telemetry, trend troponins, consult cardiology for recommendation on medical management. (3) Mycobacterium avium complex Is this a current diagnosis for this admission?: No Plan: On 4 drug therapy. Month 03/19. Followed by Dr. Capellan factious disease specialist. Restart home meds. Outpatient ID follow-up. (4) Cachexia Is this a current diagnosis for this admission?: No Plan: Likely due to underlying chronic disease. Consult casino surveillance officer. (5) Cavitary lesion of lung Is this a current diagnosis for this admission?: No Plan: Followed by Dr. Jenkins infectious disease specialist. Outpatient follow-up. (6) GERD (gastroesophageal reflux disease) Qualifiers: Esophagitis presence: without esophagitis Qualified Code(s): K21.9 - Gastro-esophageal reflux disease without esophagitis Is this a current diagnosis for this admission?: No Plan: Start home meds. (7) Iron deficiency anemia Qualifiers: Iron deficiency anemia type: unspecified iron deficiency Qualified Code(s): D50.9 - Iron deficiency anemia, unspecified Is this a current diagnosis for this admission?: No Plan: Restart home meds. (8) Malnutrition Qualifiers: Protein-calorie malnutrition severity: moderate Is this a current diagnosis for this admission?: No (9) Acute kidney injury superimposed on CKD Is this a current diagnosis for this admission?: No Plan: Prerenal. Monitor electrolytes and volume status. IV fluid challenge. If does not improve will consult nephrology. Avoid Nephrotoxic meds.
[2018-11-16] MEDS ORDERED: ONDANSETRON 4 MG TAB.RAPDIS PO PRN (18:26)
[2018-11-16] MEDS ORDERED: ACETAMINOPHEN 325 MG TABLET PO PRN (18:26)
[2018-11-16] MEDS ORDERED: PROMETHAZINE HCL INJ 25 MG/1 ML VIAL IV PRN (18:26)
[2018-11-16] MEDS: DEXTROSE 5%-NORMAL SALINE 1,000 ML IV PRN (19:03)
[2018-11-16] MEDS: IPRATROPIUM/ALBUTEROL 0.5-2.5 MG/3 ML AMPUL NEB SCH (19:48)
[2018-11-16] MEDS: LORAZEPAM 0.5 MG TABLET PO PRN (20:18)
--- NOTE | 2018-11-16 21:54 | EKG REPORT ---
SEVERITY:- ABNORMAL ECG - SINUS TACHYCARDIA MULTIPLE VENTRICULAR PREMATURE COMPLEXES ABERRANT COMPLEX, POSSIBLY SUPRAVENTRICULAR RIGHT ATRIAL ABNORMALITY INCOMPLETE RIGHT BUNDLE BRANCH BLOCK NONSPECIFIC T ABNORMALITIES, LATERAL LEADS : Confirmed by: Radha Avila MD 16-Nov-2018 21:52:45
[2018-11-16] MEDS ORDERED: ATORVASTATIN CALCIUM 20 MG TABLET PO SCH (22:00)
[2018-11-16] MEDS ORDERED: MIRTAZAPINE 15 MG TABLET PO SCH (22:30)
[2018-11-16] MEDS: HEPARIN SOD (PORCINE) 5,000 UNIT/ML 1 ML SYRINGE SUBCUT SCH (22:46)
[2018-11-17] MEDS ORDERED: ALBUTEROL SULFATE 0.083% NEB 2.5 MG/3 ML AMPUL NEB ONE (00:37)
[2018-11-17] MEDS: ALBUTEROL SULFATE 0.083% NEB 2.5 MG/3 ML AMPUL NEB PRN ×3 (03:39→17:06)
[2018-11-17 05:08] LABS: ABSOLUTE BASOPHILS # (AUTO) 0.1 10^3/uL (0.0-0.2); ABSOLUTE EOSINOPHILS # (AUTO) 0.2 10^3/uL (0.0-0.6); ABSOLUTE MONOCYTES (AUTO) 0.9 10^3/uL (0.1-1.4); ABSOLUTE NEUT (AUTO) 5.9 10^3/uL (1.7-8.2); BASOPHILS % (AUTO) 0.7 % (0-2); EOSINOPHILS % (AUTO) 2.3 % (0-6); HEMATOCRIT 36.5 % (37.9-51.0); HEMOGLOBIN 12.3 g/dL (13.5-17.0); LYMPHOCYTES % (AUTO) 12.7 % (13-45); MEAN CORPUSCULAR HEMOGLOBIN 29.2 pg (27.0-33.4); MEAN CORPUSCULAR HGB CONC 33.8 g/dL (32.0-36.0); MEAN CORPUSCULAR VOLUME 86 fl (80-97); MONOCYTES % (AUTO) 11.4 % (3-13); PLATELET COUNT 278 10^3/uL (150-450); RED BLOOD COUNT 4.22 10^6/uL (4.35-5.55); RED CELL DISTRIBUTION WIDTH 18.1 % (11.5-14.0); SEGMENTED NEUTROPHILS % (AUTO) 72.9 % (42-78); TOTAL CELLS COUNTED % (AUTO) 100 %; WHITE BLOOD COUNT 8.1 10^3/uL (4.0-10.5)
[2018-11-17 05:45] LABS: ANION GAP 8 (5-19); BLOOD UREA NITROGEN 43 mg/dL (7-20); CALCIUM 9.7 mg/dL (8.4-10.2); CARBON DIOXIDE 21 mmol/L (22-30); CHLORIDE 109 mmol/L (98-107); GLUCOSE 122 mg/dL (75-110); SODIUM 138.2 mmol/L (137-145)
[2018-11-17 05:55] LABS: TOXIC GRANULATION SLIGHT; TOXIC VACUOLATION PRESENT
[2018-11-17 05:56] LABS: ANISOCYTOSIS 1+; OVALOCYTES SLIGHT; PLATELET COMMENT ADEQUATE; POIKILOCYTOSIS SLIGHT; TEAR DROP CELLS SLIGHT
[2018-11-17] MEDS: HEPARIN SOD (PORCINE) 5,000 UNIT/ML 1 ML SYRINGE SUBCUT SCH ×4 (06:10→21:30)
[2018-11-17] MEDS: PANTOPRAZOLE SODIUM 40 MG TABLET.DR PO SCH (06:10)
[2018-11-17] MEDS: LORAZEPAM 0.5 MG TABLET PO PRN ×3 (07:48→21:26)
[2018-11-17] MEDS: IPRATROPIUM/ALBUTEROL 0.5-2.5 MG/3 ML AMPUL NEB SCH ×3 (08:00→20:22)
[2018-11-17] MEDS: POLYETHYLENE GLYCOL 3350 POWDER 17 GM/1 PACKET PO SCH (09:49)
[2018-11-17] MEDS: RIFAMPIN 300 MG CAPSULE PO SCH (09:49)
[2018-11-17] MEDS: DILTIAZEM HCL 180 MG CAPSULE.CR PO SCH (09:50)
[2018-11-17] MEDS: CHOLECALCIFEROL (D3) 1,000 UNIT TABLET PO SCH (09:50)
[2018-11-17] MEDS: ETHAMBUTOL HCL 400 MG TABLET PO SCH (09:50)
[2018-11-17] MEDS: AZITHROMYCIN 250 MG TABLET PO SCH (09:50)
[2018-11-17] MEDS: FOLIC ACID 1 MG TABLET PO SCH (09:51)
[2018-11-17] MEDS: DOCUSATE SODIUM 100 MG CAPSULE PO SCH ×2 (09:51→17:55)
[2018-11-17] MEDS: ASPIRIN 81 MG TABLET, ENT COATED PO SCH (09:51)
[2018-11-17] MEDS: ATORVASTATIN CALCIUM 20 MG TABLET PO SCH (09:51)
[2018-11-17] MEDS: CYANOCOBALAMIN (VITAMIN B-12) 1,000 MCG TABLET PO SCH (09:51)
[2018-11-17] MEDS ORDERED: CHOLECALCIFEROL (D3) 1,000 UNIT TABLET PO SCH (10:00)
[2018-11-17] MEDS ORDERED: DILTIAZEM HCL 180 MG CAPSULE.CR PO SCH (10:00)
[2018-11-17] MEDS ORDERED: AZITHROMYCIN 250 MG TABLET PO SCH (10:00)
--- NOTE | 2018-11-17 15:35 | EKG REPORT ---
SEVERITY:- ABNORMAL ECG - SINUS TACHYCARDIA MULTIPLE VENTRICULAR PREMATURE COMPLEXES INCOMPLETE RIGHT BUNDLE BRANCH BLOCK : Confirmed by: Radha Avila MD 17-Nov-2018 15:34:30
[2018-11-17] MEDS: DEXTROSE 5%-NORMAL SALINE 1,000 ML IV PRN (18:05)
--- NOTE | 2018-11-17 19:34 | PDOC PROGRESS REPORT ---
Subjective Progress Note for:: 11/17/18 Subjective:: ASHVIN MORALES is a 73 year old male past medical history of severe COPD on 3 L home oxygen, former smoker, hyperlipidemia, PAD status post right AKA, GERD, abdominal aortic aneurysm, chronic anemia, CKD stage III with by Dr. 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 Capellan ID specialist, malnutrition who his CODE STATUS is DNR and living with his daughter. Presented to ED complaining of worsening shortness of breath for the last 2-3 days treated with worsening chronic nonproductive cough. EMS called by family and patient was placed on 3 L of oxygen which improved his respiratory symptoms. As per family patient seem to be in respiratory distress prior to ED presentation. Denies any sick contacts, or recent travel. Denies any chest pain, fever, chills, nausea, vomiting, diarrhea, constipation or any urinary symptoms. In ED he was found to be tachypneic respiratory rate of 20-30s, saturating low 90s, afebrile, WBC within normal limits, VBG with pH of 7.35, creatinine 1.54 from baseline of 1.14 -1.91. Initial troponin 0.670, 1.040. Denies any chest pain. It is DNR. He and his family do not want any invasive procedures at this point. CTA negative for any PE except for severe bilateral emphysematous changes chronic cavitary lesions. In ED he received aspirin, duo nebs with significant improvement of his symptoms. Hospital was consulted for further management. 11/17/2018. No acute events overnight. Patient had significant improvement of his respiratory symptoms. Still denying any chest pain troponin elevated. Cardiology consulted pending recommendations. Has any fever, nausea, chills, diarrhea, constipation or urinary symptoms. Reason For Visit: ACUTE HYPOXIC RESPIRATORY DISTRESS. COPD Physical Exam Vital Signs: Temp Pulse Resp BP Pulse Ox 97.3 F 103 H 20 125/44 L 96 11/17/18 14:32 11/17/18 17:06 11/17/18 17:06 11/17/18 14:32 11/17/18 17:06 Intake & Output 11/16/18 11/17/18 11/18/18 06:59 06:59 06:59 Intake Total 1000 Balance 1000 Weight 47.5 kg Results Laboratory Results: 11/17/18 04:40 11/17/18 04:40 11/17/18 11/17/18 04:40 04:40 WBC 8.1 RBC 4.22 L Hgb 12.3 L Hct 36.5 L MCV 86 MCH 29.2 MCHC 33.8 RDW 18.1 H Plt Count 278 Seg Neutrophils % 72.9 Lymphocytes % 12.7 L Monocytes % 11.4 Eosinophils % 2.3 Basophils % 0.7 Absolute Neutrophils 5.9 Absolute Lymphocytes 1.0 Absolute Monocytes 0.9 Absolute Eosinophils 0.2 Absolute Basophils 0.1 Sodium 138.2 Potassium 5.0 Chloride 109 H Carbon Dioxide 21 L Anion Gap 8 BUN 43 H Creatinine 1.58 H Est GFR ( Amer) 52 L Est GFR (Non-Af Amer) 43 L Glucose 122 H Calcium 9.7 Magnesium 2.1 11/16/18 11/16/18 11/16/18 11:48 11:48 13:26 Creatine Kinase 201 H CK-MB (CK-2) Cancelled 6.70 H Troponin I Cancelled 0.670 11/16/18 11/16/18 11/17/18 15:34 15:34 10:05 Creatine Kinase 261 H CK-MB (CK-2) 7.31 H Troponin I 1.040 2.060 Impressions: Chest X-Ray 11/16/18 12:10 IMPRESSION: UNCHANGED SEVERE EMPHYSEMA AND NODULAR BIAPICAL PLEURAL THICKENING. NO EVIDENCE OF SUPERIMPOSED CARDIOPULMONARY PROCESS. Assessment and Plan - Diagnosis (1) Acute exacerbation of chronic obstructive pulmonary disease (COPD) Is this a current diagnosis for this admission?: No Plan: Likely due to upper respiratory infection. Duo nebs, supplemental oxygen, as needed BiPAP, IV steroids, empiric anti biotics, flutter valve. (2) Non-ST elevation myocardial infarction (NSTEMI) Is this a current diagnosis for this admission?: Yes Plan: Elevated troponins likely to demand ischemia. Denies any chest pain. Patient is DNR and does not want any intervention at this point. Continue aspirin, statins, beta-blockers. Admits to telemetry, trend troponins, consult cardiology for recommendation on medical management. (3) Mycobacterium avium complex Is this a current diagnosis for this admission?: No Plan: On 4 drug therapy. Month 03/19. Followed by Dr. Capellan factious disease specialist. Restart home meds. Outpatient ID follow-up. (4) Cachexia Is this a current diagnosis for this admission?: No Plan: Likely due to underlying chronic disease. Consult veterinary surgeon. (5) Cavitary lesion of lung Is this a current diagnosis for this admission?: No Plan: Followed by Dr. Jenkins infectious disease specialist. Outpatient follow-up. (6) GERD (gastroesophageal reflux disease) Qualifiers: Esophagitis presence: without esophagitis Qualified Code(s): K21.9 - Gastro-esophageal reflux disease without esophagitis Is this a current diagnosis for this admission?: No Plan: Start home meds. (7) Iron deficiency anemia Qualifiers: Iron deficiency anemia type: unspecified iron deficiency Qualified Code(s): D50.9 - Iron deficiency anemia, unspecified Is this a current diagnosis for this admission?: No Plan: Restart home meds. (8) Malnutrition Qualifiers: Protein-calorie malnutrition severity: moderate Is this a current diagnosis for this admission?: No Plan: Consult veterinary surgeon. High-protein high-calorie diet. (9) Acute kidney injury superimposed on CKD Is this a current diagnosis for this admission?: No Plan: Prerenal. Monitor electrolytes and volume status. IV fluid challenge. If does not improve will consult nephrology. Avoid Nephrotoxic meds.
[2018-11-17] MEDS ORDERED: MIRTAZAPINE 15 MG TABLET PO SCH (22:00)
--- NOTE | 2018-11-17 22:07 | PDOC CONSULTATION ---
Consultation-Blank Consultation: The patient does not want any aggressive treatment measures. He is thinking of making himself "comfort measures only". Hence will not render a formal consult. Discussed with the hospitalist. Thank you
[2018-11-18] MEDS: ALBUTEROL SULFATE 0.083% NEB 2.5 MG/3 ML AMPUL NEB PRN ×2 (00:03→04:20)
[2018-11-18] MEDS: LORAZEPAM 0.5 MG TABLET PO PRN (04:47)
[2018-11-18] MEDS ORDERED: HALOPERIDOL LACTATE INJ 5 MG/1 ML VIAL ONE (05:06)
[2018-11-18 05:07] LABS: ABSOLUTE EOSINOPHILS # (AUTO) 0.4 10^3/uL (0.0-0.6); ABSOLUTE LYMPHOCYTES (AUTO) 0.9 10^3/uL (0.5-4.7); ABSOLUTE MONOCYTES (AUTO) 0.5 10^3/uL (0.1-1.4); ABSOLUTE NEUT (AUTO) 2.9 10^3/uL (1.7-8.2); BASOPHILS % (AUTO) 1.1 % (0-2); EOSINOPHILS % (AUTO) 7.7 % (0-6); HEMATOCRIT 33.9 % (37.9-51.0); HEMOGLOBIN 11.3 g/dL (13.5-17.0); LYMPHOCYTES % (AUTO) 18.4 % (13-45); MEAN CORPUSCULAR HEMOGLOBIN 29.1 pg (27.0-33.4); MEAN CORPUSCULAR HGB CONC 33.4 g/dL (32.0-36.0); MEAN CORPUSCULAR VOLUME 87 fl (80-97); PLATELET COUNT 222 10^3/uL (150-450); RED BLOOD COUNT 3.89 10^6/uL (4.35-5.55); RED CELL DISTRIBUTION WIDTH 18.5 % (11.5-14.0); SEGMENTED NEUTROPHILS % (AUTO) 61.8 % (42-78); TOTAL CELLS COUNTED % (AUTO) 100 %; WHITE BLOOD COUNT 4.7 10^3/uL (4.0-10.5)
[2018-11-18] MEDS ORDERED: HALOPERIDOL LACTATE INJ 5 MG/1 ML VIAL IV ONE (05:15)
[2018-11-18] MEDS: HEPARIN SOD (PORCINE) 5,000 UNIT/ML 1 ML SYRINGE SUBCUT SCH ×2 (05:20→13:45)
[2018-11-18] MEDS: PANTOPRAZOLE SODIUM 40 MG TABLET.DR PO SCH (05:21)
[2018-11-18 05:23] LABS: ANION GAP 6 (5-19); BLOOD UREA NITROGEN 27 mg/dL (7-20); CALCIUM 8.6 mg/dL (8.4-10.2); CARBON DIOXIDE 23 mmol/L (22-30); CHLORIDE 111 mmol/L (98-107); GLUCOSE 105 mg/dL (75-110); POTASSIUM 4.2 mmol/L (3.6-5.0); SODIUM 140.1 mmol/L (137-145)
[2018-11-18] MEDS: DEXTROSE 5%-NORMAL SALINE 1,000 ML IV PRN ×2 (05:54→18:28)
[2018-11-18 05:58] LABS: TOXIC GRANULATION SLIGHT; TOXIC VACUOLATION PRESENT
[2018-11-18 05:59] LABS: HYPOCHROMASIA 1+; PLATELET COMMENT ADEQUATE; POLYCHROMASIA 1+; ROULEAUX SLIGHT
[2018-11-18] MEDS ORDERED: LORAZEPAM INJ 2 MG/1 ML VIAL ONE ×2 (07:17→10:50)
[2018-11-18] MEDS: IPRATROPIUM/ALBUTEROL 0.5-2.5 MG/3 ML AMPUL NEB SCH (08:18)
[2018-11-18] MEDS: LEVALBUTEROL HCL NEB 1.25 MG/3 ML AMPUL NEB SCH ×2 (09:13→14:05)
[2018-11-18] MEDS: DILTIAZEM HCL 180 MG CAPSULE.CR PO SCH (09:55)
[2018-11-18] MEDS: ASPIRIN 81 MG TABLET, ENT COATED PO SCH (09:55)
[2018-11-18] MEDS: CHOLECALCIFEROL (D3) 1,000 UNIT TABLET PO SCH (09:56)
[2018-11-18] MEDS: ATORVASTATIN CALCIUM 20 MG TABLET PO SCH (09:57)
[2018-11-18] MEDS: METHYLPREDNISOLONE INJ 40 MG/1 ML SDV IV SCH ×2 (09:58→18:28)
[2018-11-18] MEDS ORDERED: MORPHINE SULFATE 10 MG/ML INJ ONE (10:37)
[2018-11-18] MEDS: FOLIC ACID 1 MG TABLET PO SCH (11:00)
[2018-11-18] MEDS: DOCUSATE SODIUM 100 MG CAPSULE PO SCH ×2 (11:00→18:28)
[2018-11-18] MEDS: ETHAMBUTOL HCL 400 MG TABLET PO SCH ×2 (11:01→17:17)
[2018-11-18] MEDS: RIFAMPIN 300 MG CAPSULE PO SCH ×2 (11:01→17:18)
[2018-11-18] MEDS: POLYETHYLENE GLYCOL 3350 POWDER 17 GM/1 PACKET PO SCH (11:01)
[2018-11-18] MEDS: CYANOCOBALAMIN (VITAMIN B-12) 1,000 MCG TABLET PO SCH (11:02)
[2018-11-18] MEDS: AZITHROMYCIN 250 MG TABLET PO SCH (11:02)
[2018-11-18] MEDS ORDERED: LORAZEPAM INJ 2 MG/1 ML VIAL IV ONE (11:30)
[2018-11-18 11:49] VITALS: BP 155/83
[2018-11-18] MEDS ORDERED: MORPHINE SULFATE 10 MG/ML INJ IV PRN (12:32)
--- NOTE | 2018-11-18 12:45 | PDOC PROGRESS REPORT ---
Subjective Progress Note for:: 11/18/18 Subjective:: ASHVIN MORALES is a 73 year old male past medical history of severe COPD on 3 L home oxygen, former smoker, hyperlipidemia, PAD status post right AKA, GERD, abdominal aortic aneurysm, chronic anemia, CKD stage III with by Dr. 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 Capellan ID specialist, malnutrition who his CODE STATUS is DNR and living with his daughter. Presented to ED complaining of worsening shortness of breath for the last 2-3 days treated with worsening chronic nonproductive cough. EMS called by family and patient was placed on 3 L of oxygen which improved his respiratory symptoms. As per family patient seem to be in respiratory distress prior to ED presentation. Denies any sick contacts, or recent travel. Denies any chest pain, fever, chills, nausea, vomiting, diarrhea, constipation or any urinary symptoms. In ED he was found to be tachypneic respiratory rate of 20-30s, saturating low 90s, afebrile, WBC within normal limits, VBG with pH of 7.35, creatinine 1.54 from baseline of 1.14 -1.91. Initial troponin 0.670, 1.040. Denies any chest pain. It is DNR. He and his family do not want any invasive procedures at this point. CTA negative for any PE except for severe bilateral emphysematous changes chronic cavitary lesions. In ED he received aspirin, duo nebs with significant improvement of his symptoms. Hospital was consulted for further management. 11/17/2018. No acute events overnight. Patient had significant improvement of his respiratory symptoms. Still denying any chest pain troponin elevated. Cardiology consulted pending recommendations. Has any fever, nausea, chills, diarrhea, constipation or urinary symptoms. 11/18/2018. Went into severe respiratory distress this morning, patient is a DNR and unfortunately is a very claustrophobic and cannot tolerate BiPAP, he was given 1 dose of Ativan for his and with little improvement of his symptoms, his daughter is the POA present at the time that he was in severe respiratory distress, she decided to change his CODE STATUS to WELFARE SPECIALIST. Patient tolerated BiPAP to receiving a second dose of Ativan. While in severe respiratory distress patient also indicated several times that he does not want to be intubated. An ABG was attempted however unsuccessful, patient's family requested that Allie whom was provided them. Patient's code is currently WELFARE SPECIALIST as per patient and family request. Reason For Visit: ACUTE HYPOXIC RESPIRATORY DISTRESS. COPD Physical Exam Vital Signs: Temp Pulse Resp BP Pulse Ox 97.4 F 131 H 26 H 155/83 H 93 11/18/18 08:49 11/18/18 08:49 11/18/18 11:58 11/18/18 08:49 11/18/18 11:58 Intake & Output 11/17/18 11/18/18 11/19/18 06:59 06:59 06:59 Intake Total 1945 Output Total 475 Balance 1470 Weight 47.5 kg 46.9 kg General appearance: PRESENT: severe distress, thin Head exam: PRESENT: atraumatic, normocephalic Neck exam: ABSENT: carotid bruit, JVD, lymphadenopathy, thyromegaly Respiratory exam: PRESENT: accessory muscle use, decreased breath sounds, prolonged expiratory phas, tachypnea, wheezes Cardiovascular exam: PRESENT: tachycardia GI/Abdominal exam: PRESENT: normal bowel sounds, soft. ABSENT: distended, guarding, mass, organolmegaly, rebound, tenderness Neurological exam: PRESENT: alert, altered, awake, oriented to person, oriented to place, oriented to time, oriented to situation Results Laboratory Results: 11/18/18 04:05 11/18/18 04:05 11/18/18 11/18/18 11/18/18 04:05 04:05 10:17 WBC 4.7 RBC 3.89 L Hgb 11.3 L Hct 33.9 L MCV 87 MCH 29.1 MCHC 33.4 RDW 18.5 H Plt Count 222 Seg Neutrophils % 61.8 Lymphocytes % 18.4 Monocytes % 11.0 Eosinophils % 7.7 H Basophils % 1.1 Absolute Neutrophils 2.9 Absolute Lymphocytes 0.9 Absolute Monocytes 0.5 Absolute Eosinophils 0.4 Absolute Basophils 0.0 VBG pH Cancelled VBG pCO2 Cancelled VBG HCO3 Cancelled VBG Base Excess Cancelled Sodium 140.1 Potassium 4.2 Chloride 111 H Carbon Dioxide 23 Anion Gap 6 BUN 27 H Creatinine 1.35 H Est GFR ( Amer) > 60 Est GFR (Non-Af Amer) 52 L Glucose 105 Calcium 8.6 Magnesium 1.9 11/16/18 11/16/18 11/16/18 11:48 11:48 13:26 Creatine Kinase 201 H CK-MB (CK-2) Cancelled 6.70 H Troponin I Cancelled 0.670 11/16/18 11/16/18 11/17/18 15:34 15:34 10:05 Creatine Kinase 261 H CK-MB (CK-2) 7.31 H Troponin I 1.040 2.060 Impressions: Chest X-Ray 11/16/18 12:10 IMPRESSION: UNCHANGED SEVERE EMPHYSEMA AND NODULAR BIAPICAL PLEURAL THICKENING. NO EVIDENCE OF SUPERIMPOSED CARDIOPULMONARY PROCESS. Assessment and Plan - Diagnosis (1) Comfort measures only status Is this a current diagnosis for this admission?: Yes Plan: Continue with supplemental oxygen, BiPAP as tolerated as per family's request, Ativan and morphine as needed for air hunger and anxiety. (2) Acute exacerbation of chronic obstructive pulmonary disease (COPD) Is this a current diagnosis for this admission?: No Plan: Likely due to upper respiratory infection. Duo nebs, supplemental oxygen, as needed BiPAP, IV steroids, empiric antibiotics, flutter valve. (3) Non-ST elevation myocardial infarction (NSTEMI) Is this a current diagnosis for this admission?: Yes Plan: Elevated troponins likely to demand ischemia. Denies any chest pain. Patient is DNR and does not want any intervention at this point. Continue aspirin, statins, beta-blockers. Patient not a suitable candidate for any intervention at this point also CODE STATUS has been DNR which was changed to WELFARE SPECIALIST this morning. Neurology has signed off at this point as patient is WELFARE SPECIALIST. (4) Mycobacterium avium complex Is this a current diagnosis for this admission?: No Plan: On 4 drug therapy. Month 03/19. Followed by Dr. Capellan factious disease specialist. Restart home meds. Outpatient ID follow-up. (5) Cachexia Is this a current diagnosis for this admission?: No Plan: Likely due to underlying chronic disease. Consult french weaver. (6) Cavitary lesion of lung Is this a current diagnosis for this admission?: No Plan: Followed by Dr. Capellan infectious disease specialist. Outpatient follow-up. (7) GERD (gastroesophageal reflux disease) Qualifiers: Esophagitis presence: without esophagitis Qualified Code(s): K21.9 - Gastro-esophageal reflux disease without esophagitis Is this a current diagnosis for this admission?: No Plan: Start home meds. (8) Iron deficiency anemia Qualifiers: Iron deficiency anemia type: unspecified iron deficiency Qualified Code(s): D50.9 - Iron deficiency anemia, unspecified Is this a current diagnosis for this admission?: No Plan: Restart home meds. (9) Malnutrition Qualifiers: Protein-calorie malnutrition severity: moderate Is this a current diagnosis for this admission?: No Plan: Consult french weaver. High-protein high-calorie diet. (10) Acute kidney injury superimposed on CKD Is this a current diagnosis for this admission?: No Plan: Improving. Prerenal. Monitor electrolytes and volume status. IV fluid challenge. If does not improve will consult nephrology. Avoid Nephrotoxic meds.
[2018-11-18] MEDS ORDERED: AZITHROMYCIN 250 MG TABLET PO ONE (13:45)
[2018-11-18] MEDS: LORAZEPAM INJ 2 MG/1 ML VIAL IV PRN ×2 (14:34→18:56)
--- NOTE | 2018-11-18 17:45 | PDOC TRANSFER SUMMARY ---
General - Admit/Disc Date/PCP Admission Date/Primary Care Provider: 11/18/18 13:48 Discharge Date: 11/18/18 - Discharge Diagnosis (1) Comfort measures only status Is this a current diagnosis for this admission?: Yes (2) Acute exacerbation of chronic obstructive pulmonary disease (COPD) Is this a current diagnosis for this admission?: No (3) Non-ST elevation myocardial infarction (NSTEMI) Is this a current diagnosis for this admission?: Yes (4) Mycobacterium avium complex Is this a current diagnosis for this admission?: No (5) Cachexia Is this a current diagnosis for this admission?: No (6) Cavitary lesion of lung Is this a current diagnosis for this admission?: No (7) GERD (gastroesophageal reflux disease) Is this a current diagnosis for this admission?: No (8) Iron deficiency anemia Is this a current diagnosis for this admission?: No (9) Malnutrition Is this a current diagnosis for this admission?: No (10) Acute kidney injury superimposed on CKD Is this a current diagnosis for this admission?: No - Additional Information Resuscitation Status: Do Not Resuscitate Home Medications: Albuterol Sulfate [Ventolin 0.083% Neb 2.5 mg/3 mL Ampul] 3 ml NEB Q4 11/16/18 Albuterol Sulfate [Ventolin Hfa 8 gm Mdi (1 Mdi/ER Disp)] 1 puff IH Q6HP PRN 11/16/18 Atorvastatin Calcium [Lipitor 20 mg Tablet] 20 mg PO DAILY 11/16/18 Azithromycin [Zithromax] 500 mg PO DAILY 11/16/18 Cholecalciferol (Vitamin D3) [D3-2000] 2,000 unit PO DAILY 11/16/18 Cyanocobalamin (Vitamin B-12) [Vitamin B-12] 1,000 mcg PO DAILY 11/16/18 Diltiazem HCl [Cartia Xt] 180 mg PO DAILY 11/16/18 Ethambutol HCl [Myambutol 400 mg Tablet] 400 mg PO DAILY 11/16/18 Folic Acid [Folvite 1 mg Tablet] 1 mg PO DAILY 11/16/18 Glycopyrrolate/Formoterol Fum [Bevespi Aerosphere Inhaler] 2 puff IH Q12 11/16/18 Levofloxacin [Levaquin 750 mg Tablet] 750 mg PO DAILY 11/16/18 Lorazepam [Ativan 0.5 mg Tablet] 0.5 mg PO DAILYP PRN 11/16/18 Mirtazapine [Remeron] 30 mg PO QHS 11/16/18 Pantoprazole Sodium [Protonix [address] Tablet] 40 mg PO DAILY 11/16/18 Polyethylene Glycol 3350 [Miralax Powder 17 gm/Packet] 17 gm PO DAILY 11/16/18 Rifampin [Rifadin 300 mg Capsule] 600 mg PO DAILY 11/16/18 History of Present Illness Admission Date/PCP: 11/18/18 13:48 Hospital Course Hospital Course: ASHVIN MORALES is a 73 year old male past medical history of severe COPD on 3 L home oxygen, former smoker, hyperlipidemia, PAD status post right AKA, GERD, abdominal aortic aneurysm, chronic anemia, CKD stage III with by Dr. oCy, Mycobacterium avium intracellulare complex (MAC) on 4 drug therapy month 03/[address] Capellan ID specialist, malnutrition who his CODE STATUS is DNR and living with his daughter. Presented to ED complaining of worsening shortness of breath for the last 2-3 days treated with worsening chronic nonproductive cough. EMS called by family and patient was placed on 3 L of oxygen which improved his respiratory symptoms. As per family patient seem to be in respiratory distress prior to ED presentation. Denies any sick contacts, or recent travel. Denies any chest pain, fever, chills, nausea, vomiting, diarrhea, constipation or any urinary symptoms. In ED he was found to be tachypneic respiratory rate of 20-30s, saturating low 90s, afebrile, WBC within normal limits, VBG with pH of 7.35, creatinine 1.54 from baseline of 1.14 -1.91. Initial troponin 0.670, 1.040. Denies any chest pain. It is DNR. He and his family do not want any invasive procedures at this point. CTA negative for any PE except for severe bilateral emphysematous changes chronic cavitary lesions. In ED he received aspirin, duo nebs with significant improvement of his symptoms. Hospital was consulted for further management. 11/17/2018. No acute events overnight. Patient had significant improvement of his respiratory symptoms. Still denying any chest pain troponin elevated. Cardiology consulted pending recommendations. Has any fever, nausea, chills, diarrhea, constipation or urinary symptoms. 11/18/2018. Went into severe respiratory distress this morning, patient is a DNR and unfortunately is a very claustrophobic and cannot tolerate BiPAP, he was given 1 dose of Ativan for his and with little improvement of his symptoms, his daughter is the POA present at the time that he was in severe respiratory distress, she decided to change his CODE STATUS to LEADLIGHTER. Patient tolerated BiPAP to receiving a second dose of Ativan. While in severe respiratory distress patient also indicated several times that he does not want to be intubated. An ABG was attempted however unsuccessful, patient's family requested that Capac whom was provided them. Patient's code is currently LEADLIGHTER as per patient and family request. Assessment and Plan (1) Comfort measures only status Continue with supplemental oxygen, BiPAP as tolerated as per family's request, Ativan and morphine as needed for air hunger and anxiety. (2) Acute exacerbation of chronic obstructive pulmonary disease (COPD) Likely due to upper respiratory infection. Was started on due nebs, supplemental oxygen, as needed BiPAP, IV steroids, empiric antibiotics, flutter valve. (3) Non-ST elevation myocardial infarction (NSTEMI) Elevated troponins likely to demand ischemia. Denies any chest pain. Patient is DNR and does not want any intervention at this point. Was started on aspirin, statins, beta-blockers. Patient not a suitable candidate for any intervention at this point due to extensive comorbidities, and also CODE STATUS has been DNR which was changed to LEADLIGHTER this morning. Cardiology has signed off at this point as (4) Mycobacterium avium complex Continued on 4 drug therapy. Month 03/19. Followed by Dr. Capellan factious disease specialist. Outpatient ID follow-up. (5) Cachexia Likely due to underlying chronic disease. Consulted ophthalmic dispenser. (6) Cavitary lesion of lung Followed by Dr. Capellan infectious disease specialist. Outpatient follow-up. (7) GERD (gastroesophageal reflux disease) Restarted on home meds. (8) Iron deficiency anemia Restart home meds. (9) Malnutrition Consulted ophthalmic dispenser. High-protein high-calorie diet. (10) Acute kidney injury superimposed on CKD Improving. Prerenal. Monitor electrolytes and volume status. IV fluid challenge. If does not improve will consult nephrology. Avoid Nephrotoxic meds. Physical Exam Vital Signs: Temp Pulse Resp BP Pulse Ox 97.4 F 109 H 20 155/83 H 100 11/18/18 08:49 11/18/18 17:10 11/18/18 17:10 11/18/18 08:49 11/18/18 17:10 Intake & Output 11/17/18 11/18/18 11/19/18 06:59 06:59 06:59 Intake Total 1945 Output Total 475 Balance 1470 Weight 47.5 kg 46.9 kg General appearance: PRESENT: severe distress Head exam: PRESENT: atraumatic, normocephalic Respiratory exam: PRESENT: accessory muscle use, crackles, decreased breath sounds, prolonged expiratory phas, wheezes Cardiovascular exam: PRESENT: RRR, tachycardia Neurological exam: PRESENT: alert, awake, oriented to person, oriented to place, CN II-XII grossly intact Psychiatric exam: PRESENT: anxious Focused psych exam: PRESENT: restlessness Results Laboratory Results: 11/18/18 04:05 11/18/18 04:05 11/18/18 11/18/18 11/18/18 04:05 04:05 10:17 WBC 4.7 RBC 3.89 L Hgb 11.3 L Hct 33.9 L MCV 87 MCH 29.1 MCHC 33.4 RDW 18.5 H Plt Count 222 Seg Neutrophils % 61.8 Lymphocytes % 18.4 Monocytes % 11.0 Eosinophils % 7.7 H Basophils % 1.1 Absolute Neutrophils 2.9 Absolute Lymphocytes 0.9 Absolute Monocytes 0.5 Absolute Eosinophils 0.4 Absolute Basophils 0.0 VBG pH Cancelled VBG pCO2 Cancelled VBG HCO3 Cancelled VBG Base Excess Cancelled Sodium 140.1 Potassium 4.2 Chloride 111 H Carbon Dioxide 23 Anion Gap 6 BUN 27 H Creatinine 1.35 H Est GFR ( Amer) > 60 Est GFR (Non-Af Amer) 52 L Glucose 105 Calcium 8.6 Magnesium 1.9 11/16/18 17:15 Sputum Gram Stain - Final 11/16/18 17:15 Sputum Sputum Culture - Final Yeast, Not Marisol Albicans Normal Margaret 11/16/18 11/16/18 11/16/18 11:48 11:48 13:26 Creatine Kinase 201 H CK-MB (CK-2) Cancelled 6.70 H Troponin I Cancelled 0.670 11/16/18 11/16/1811/17/19 15:34 15:34 10:05 Creatine Kinase 261 H CK-MB (CK-2) 7.31 H Troponin I 1.040 2.060 Impressions: Chest X-Ray 11/16/18 12:10 IMPRESSION: UNCHANGED SEVERE EMPHYSEMA AND NODULAR BIAPICAL PLEURAL THICKENING. NO EVIDENCE OF SUPERIMPOSED CARDIOPULMONARY PROCESS. Transfer Plan - Time Spent with Patient Time spent with patient: Greater than 30 Minutes Qualifiers - * PATIENT BEING DISCHARGED WITH ANY OF THE FOLLOWING DIAGNOSIS: No
== END 2018-11-18 19:23 | disposition hospice, inpatient (51) | DRG 190 ==
LOC: ER 11:20 → INTOOBSV 17:11 → EH 17:11 → 3N 11-17 00:22 → OBSVTOIN 11-18 13:48
PROVIDERS: ADMIT Internal Medicine; ATTEND Internal Medicine
PROC: 3E0F3GC Introduction of Other Therapeutic Substance into Respiratory Tract, Percutaneous Approach (ICD-10-PCS; principal; 2018-11-16)
DX: J44.1 Chronic obstructive pulmonary disease with (acute) exacerbation (principal); I21.A1 Myocardial infarction type 2; A31.2 Disseminated mycobacterium avium-intracellulare complex (DMAC); R64 Cachexia; E44.0 Moderate protein-calorie malnutrition; N17.9 Acute kidney failure, unspecified; I48.91 Unspecified atrial fibrillation; Z99.81 Dependence on supplemental oxygen; Z89.611 Acquired absence of right leg above knee; D63.1 Anemia in chronic kidney disease; N18.3 Chronic kidney disease, stage 3 (moderate); E78.5 Hyperlipidemia, unspecified; I73.9 Peripheral vascular disease, unspecified; K21.9 Gastro-esophageal reflux disease without esophagitis; I71.4 Abdominal aortic aneurysm, without rupture; Z66 Do not resuscitate; Z51.5 Encounter for palliative care; I12.9 Hypertensive chronic kidney disease with stage 1 through stage 4 chronic kidney disease, or unspecified chronic kidney disease; D50.9 Iron deficiency anemia, unspecified; F40.240 Claustrophobia; Z87.891 Personal history of nicotine dependence; Z79.82 Long term (current) use of aspirin
CPT/HCPCS: 36415; 71045; 80048; 80053; 81001; 82550; 82553; 82803; 83605; 83735; 84484; 85025; 87040; 87070; 87205; 93005; 93010; 94640; 94660; 99291; G0378; J1630; J1644; J2060; J2270; J2920; J3490; J7620